=== PATIENT | male | born 1955 | race Caucasian/White ===

== ENCOUNTER → 2020-07-22 09:31 | Outpatient (BNVA) | payer MEDICARE, MEDICAID, SELFPAY | PROVIDERS: PCP Nurse Practitioner Family; Visit Provider Hospitalist | DX: Z01.811 Encounter for preprocedural respiratory examination (principal); J44.9 Chronic obstructive pulmonary disease, unspecified; J39.8 Other specified diseases of upper respiratory tract; G47.33 Obstructive sleep apnea (adult) (pediatric); G89.12 Acute post-thoracotomy pain; Z99.89 Dependence on other enabling machines and devices | CPT/HCPCS: 99204; 99214 ==

== ENCOUNTER 2020-07-29 06:08 | Day surgery (SDC) | payer MEDICARE, MEDICAID, SELFPAY ==
[2020-07-29 06:15] VITALS: BP 144/97; PULSE 94; RESP 18; TEMP 36.3; O2SAT 96
[2020-07-29 06:22] VITALS: BMI 34.9
--- NOTE | 2020-07-29 07:21 | HO.ANESPROP2 ---
[facility] Past Medical History Medical History Chest pain COPD (chronic obstructive pulmonary disease) 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 Post-thoracotomy pain syndrome Pre-op evaluation Tracheobronchomalacia Family History Family History Other HTN (hypertension) Social History Social History Smoking Status: Former smoker Tobacco Type: Cigarette Years Smoked: 22 years Smoked in Last 30 Days: No Have you been hit, kicked, punched, or otherwise hurt by someone within the past year? If so, by whom?: No Advance Directives: No Advance Directives Information Provided: Yes Meds Allergies Allergy/AdvReac Type Severity Reaction Status Date / Time prednisone [PREDNISONE] Allergy Mild RAGE Verified 07/22/20 10:21 Home Medications Medication Instructions Recorded Confirmed Type albuterol sulfate 90 mcg/actuation INHALATION 07/22/20 07/22/20 History aerosol inhaler atorvastatin 80 mg tablet 80 mg PO DAILY 07/22/20 07/22/20 History azithromycin 500 mg tablet 500 mg PO DAILY 07/22/20 07/22/20 History benzonatate 100 mg capsule 100 mg PO TID PRN 07/22/20 07/22/20 History blood sugar diagnostic #10 ea 07/22/20 07/22/20 History budesonide 0.5 mg/2 mL suspension mg INHALATION BID 07/22/20 07/22/20 History for nebulization clonazepam 1 mg tablet 1 mg PO TID PRN 07/22/20 07/22/20 History dulaglutide 1.5 mg/0.5 mL 3 mg IM QWEEK 07/22/20 07/22/20 History subcutaneous pen injector flu vacc [id number] 6mos up(PF) ml IM 07/22/20 07/22/20 History fluticasone fur. 100 mcg-umeclid 1 ea PO DAILY 07/22/20 07/22/20 History 62.5 mcg-vilant 25 mcg inhalat.powder gabapentin 300 mg capsule 300 mg PO QID 07/22/20 07/22/20 History insulin glargine 100 unit/mL (3 50 unit SUBCUT BEDTIME 07/22/20 07/22/20 History mL) subcutaneous pen lamotrigine 150 mg tablet 150 mg PO DAILY 07/22/20 07/22/20 History lidocaine 5 % topical patch 1 patch TOPICAL DAILY 07/22/20 07/22/20 History naproxen 500 mg tablet 500 mg PO BID 07/22/20 07/22/20 History pen needle, diabetic 31 gauge x #1200 ea 07/22/20 07/22/20 History 5/16 pneumococcal 23-nicanor ps vaccine 25 IM 07/22/20 07/22/20 History mcg/0.5 mL injection syringe telmisartan 40 mg tablet 40 mg PO DAILY 07/22/20 07/22/20 History valsartan 320 mg tablet 320 mg PO DAILY 07/22/20 07/22/20 History venlafaxine 75 mg capsule,extended mg PO 07/22/20 07/22/20 History release 24 hr zolpidem 12.5 mg tablet,extended 12.5 mg PO BEDTIME PRN 07/22/20 07/22/20 History release,multiphase Exam Exam Date and Time: July 29, 202021 Height,Weight and Vital Signs: Height 6 ft Weight 117.027 kg Last Vital Signs Temp 97.3 F 07/29/20 06:15 Pulse 94 07/29/20 06:15 Resp 18 07/29/20 06:15 BP 144/97 H 07/29/20 06:15 Pulse Ox 96 07/29/20 06:15 Airway Mallampati Class: III TM Dist: >3cm Neck ROM: Full Assessment and Plan Assessment Anesthesia Assessment: Anesthesia Plan Discussed and Chart Reviewed Final Anesthetic Review NPO: Yes ASA Class: III Final Preanesthetic Review: No Changes in Pt Med Stat, Meds/Allgs Chart Reviewed, Consent Obtained/Reviewed and Anes Risks/Benef Reviewed Patient Risk: Intermediate Procedure Risk: Low Assessment/Block/Sedation in SS: Assess/Block/Sedation-SS Anesthetic Plan Anesthetic Plan: GA Disposition: Standard PACU
--- NOTE | 2020-07-29 07:23 | MHC.SHP ---
Pre-Procedural Eval Section A The patient is an INPATIENT: No Changes since office visit: Yes Patient answered all questions; No Cold of Flu in the past 2 weeks, No New Medical Problems and No Changes in Medication The History & Physical has been completed within 30 days and I have reviewed it.: Yes Section B Chief Complaint: Severe Depression Allergies: Allergies Allergy/AdvReac Type Severity Reaction Status Date / Time prednisone [PREDNISONE] Allergy Mild RAGE Verified 07/22/20 10:21 Plan Patient has been examined and remains a candidate for the planned procedure
--- NOTE | 2020-07-29 07:24 | HO.ECTPROC ---
ECT Procedure Note Diagnosis/Treatment Diagnosis: Major Depressive Disorder Current Treatment Number: 1 Treatment: Series (miniseries as needed ) ECT Settings Device: THYMATRON DGx Electrode Placement: Right Unilateral Program/Pulse Width: 0.50 Energy Percent: 100 Seizure Duration By EEG (in seconds): 33 Medications Administration General Anesthetic: Etomidate (20 mg) Muscle Relaxant: Succinylcholine (140mg) Ancillary Medications Analgesics: Torodol - Pre ECT Anti-emetics: Zofran - Pre ECT Cardiovascular Medications: Labetolol (30 mg pretx) Airway Management Airway Management: Bag Mask Ventilation Treatment Recommendations No Changes Recommended: No change Notes: patient had missed prior maintenance ECT secondary to pulmonary difficulties. Patient was evaluated by Dr. Valdivia pulmonary at [facility] note reviewed patient considered stable for ECT. His was just diagnosed with melanoma his mood is depressed and anxious denies any thoughts of self-harm discussed follow-up treatment in 1 week Pt Tolerated Procedure w/o Issue: Yes
--- NOTE | 2020-07-29 07:37 | HO.ECTPROC ---
ECT Procedure Note ECT Settings Device: THYMATRON DGx
[2020-07-29 07:45] VITALS: BP 164/122; PULSE 94; RESP 16; TEMP 36.3; O2SAT 84
[2020-07-29 07:50] VITALS: BP 160/121; PULSE 96; RESP 16; O2SAT 93
[2020-07-29 07:55] VITALS: BP 159/110; BP 168/117; PULSE 94; RESP 16; O2SAT 94; O2SAT 97
[2020-07-29 08:00] VITALS: BP 156/115; PULSE 88; RESP 16; TEMP 36.9; O2SAT 94
[2020-07-29 08:15] VITALS: BP 153/99; PULSE 88; RESP 16; O2SAT 93
== END 2020-07-29 09:12 | disposition home or self-care (01) ==
PROVIDERS: PCP Nurse Practitioner Family; Visit Provider Psychiatry & Neurology Psychiatry
PROC: (CPT 90870; principal; 2020-07-29 15:00)
DX: F33.2 Major depressive disorder, recurrent severe without psychotic features (principal); J44.9 Chronic obstructive pulmonary disease, unspecified; J39.8 Other specified diseases of upper respiratory tract; Z79.51 Long term (current) use of inhaled steroids; G47.33 Obstructive sleep apnea (adult) (pediatric); Z99.89 Dependence on other enabling machines and devices; G89.12 Acute post-thoracotomy pain; Z79.899 Other long term (current) drug therapy; Z88.8 Allergy status to other drugs, medicaments and biological substances
CPT/HCPCS: 90870

== ENCOUNTER 2020-08-14 11:01 | Day surgery (SDC) | payer MEDICARE, MEDICAID, SELFPAY ==
[2020-08-14 12:24] VITALS: BP 159/97; PULSE 102; RESP 20; TEMP 37.1; O2SAT 97
--- NOTE | 2020-08-14 12:48 | P.CONAN_ITS ---
[facility] Past Medical History 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 Pre-op evaluation Tracheobronchomalacia Family History Family History Other HTN (hypertension) Social History Social History Smoking Status: Former smoker Tobacco Type: Cigarette Years Smoked: 22 years Have you been hit, kicked, punched, or otherwise hurt by someone within the past year? If so, by whom?: No Advance Directives: No Advance Directives Information Provided: No Meds Allergies Allergy/AdvReac Type Severity Reaction Status Date / Time prednisone [PREDNISONE] Allergy Mild RAGE Verified 08/14/20 12:16 Home Medications Medication Instructions Recorded Confirmed Type albuterol sulfate 90 mcg/actuation INHALATION 07/22/20 08/05/20 History aerosol inhaler atorvastatin 80 mg tablet 80 mg PO DAILY 07/22/20 08/05/20 History azithromycin 500 mg tablet 500 mg PO DAILY 07/22/20 08/05/20 History benzonatate 100 mg capsule 100 mg PO TID PRN 07/22/20 08/05/20 History blood sugar diagnostic #10 ea 07/22/20 08/05/20 History budesonide 0.5 mg/2 mL suspension mg INHALATION BID 07/22/20 08/05/20 History for nebulization dulaglutide 1.5 mg/0.5 mL 3 mg IM QWEEK 07/22/20 08/05/20 History subcutaneous pen injector flu vacc [id number] 6mos up(PF) ml IM 07/22/20 08/05/20 History fluticasone fur. 100 mcg-umeclid 1 ea PO DAILY 07/22/20 08/05/20 History 62.5 mcg-vilant 25 mcg inhalat.powder gabapentin 300 mg capsule 300 mg PO QID 07/22/20 08/05/20 History insulin glargine 100 unit/mL (3 50 unit SUBCUT BEDTIME 07/22/20 08/05/20 History mL) subcutaneous pen lamotrigine 150 mg tablet 150 mg PO DAILY 07/22/20 08/05/20 History naproxen 500 mg tablet 500 mg PO BID 07/22/20 08/05/20 History pen needle, diabetic 31 gauge x #1200 ea 07/22/20 08/05/20 History 5/16 pneumococcal 23-nicanor ps vaccine 25 IM 07/22/20 08/05/20 History mcg/0.5 mL injection syringe telmisartan 40 mg tablet 40 mg PO DAILY 07/22/20 08/05/20 History valsartan 320 mg tablet 320 mg PO DAILY 07/22/20 08/05/20 History venlafaxine 75 mg capsule,extended mg PO 07/22/20 08/05/20 History release 24 hr zolpidem 12.5 mg tablet,extended 12.5 mg PO BEDTIME PRN 07/22/20 08/05/20 History release,multiphase Exam Exam Date and Time: August 14, 2020 1248 Height,Weight and Vital Signs: Height 6 ft Weight 67.132 kg Last Vital Signs Temp 98.8 F 08/14/20 12:24 Pulse 102 H 08/14/20 12:24 Resp 20 08/14/20 12:24 BP 159/97 H 08/14/20 12:24 Pulse Ox 97 08/14/20 12:24 Airway Mallampati Class: II TM Dist: >3cm Neck ROM: Full Assessment and Plan Assessment Anesthesia Assessment: Anesthesia Plan Discussed and Chart Reviewed Final Anesthetic Review NPO: Yes ASA Class: III Final Preanesthetic Review: No Changes in Pt Med Stat, Meds/Allgs Chart Reviewed, Consent Obtained/Reviewed and Anes Risks/Benef Reviewed Patient Risk: Intermediate Procedure Risk: Low Assessment/Block/Sedation in SS: Assess/Block/Sedation-SS Anesthetic Plan Anesthetic Plan: GA Disposition: Standard PACU
--- NOTE | 2020-08-14 13:30 | P.PCN_ITS ---
ECT Procedure Note Diagnosis/Treatment Diagnosis: Major Depressive Disorder Previous ECT Date: 06/29/20 Current Treatment Number: 2 Treatment: Series Interval Clinical Notes: Pt feels better after first ect dealing with wifes cancer ECT Settings Device: THYMATRON DGx Electrode Placement: Right Unilateral Program/Pulse Width: 0.50 Energy Percent: 100 Medications Administration General Anesthetic: Etomidate (20 mg lidocaine given pre tx ) Muscle Relaxant: Succinylcholine (120) Ancillary Medications Analgesics: Torodol - Pre ECT Anti-emetics: Zofran - Pre ECT Miscillaneous Medications: Propofol (30 mg) and Flumazenil (0.5 mg ) Airway Management Airway Management: LMA Treatment Recommendations No Changes Recommended: No change Pt Tolerated Procedure w/o Issue: Yes
[2020-08-14 13:31] VITALS: BP 158/87; PULSE 102; RESP 16; TEMP 36.1; O2SAT 98
[2020-08-14 13:36] VITALS: BP 148/98; PULSE 107; RESP 18; O2SAT 97
[2020-08-14 13:41] VITALS: BP 146/96; PULSE 105; RESP 18; O2SAT 97
[2020-08-14 13:46] VITALS: BP 147/89; PULSE 107; RESP 16; O2SAT 95
[2020-08-14 14:03] VITALS: BP 145/89; PULSE 99; RESP 18; TEMP 36.4; O2SAT 95
== END 2020-08-14 14:20 | disposition home or self-care (01) ==
LOC: HO.SSS 11:02
PROVIDERS: PCP Nurse Practitioner Family; Visit Provider Psychiatry & Neurology Psychiatry
PROC: (CPT 90870; principal; 2020-08-14 16:00)
DX: F32.9 Major depressive disorder, single episode, unspecified (principal); J44.9 Chronic obstructive pulmonary disease, unspecified; Z87.891 Personal history of nicotine dependence; I10 Essential (primary) hypertension; E11.9 Type 2 diabetes mellitus without complications; Z79.4 Long term (current) use of insulin; Z79.899 Other long term (current) drug therapy; Z88.8 Allergy status to other drugs, medicaments and biological substances; Z79.51 Long term (current) use of inhaled steroids
CPT/HCPCS: 90870; 99202

== ENCOUNTER 2020-08-26 06:08 | Day surgery (SDC) | payer MEDICARE, MEDICAID, SELFPAY ==
[2020-08-26 06:10] VITALS: BP 166/93; PULSE 112; RESP 20; TEMP 36.9; O2SAT 95; BMI 33.3
[2020-08-26 06:57] LABS: Glucose, Whole Blood 279 mg/dL (60-115)
--- NOTE | 2020-08-26 07:04 | MHC.SHP ---
Pre-Procedural Eval Section A The patient is an INPATIENT: No Changes since office visit: Yes Patient answered all questions; No Cold of Flu in the past 2 weeks and No New Medical Problems Section B Chief Complaint: Severe Depression Details of Present Illness: recurrent depression Relevant Social History: None Present Medications: see Short Stay Collaborative assessment Medical History: Significant History (copd htn) Allergies: Allergies Allergy/AdvReac Type Severity Reaction Status Date / Time prednisone [PREDNISONE] Allergy Mild RAGE Verified 08/14/20 12:16 Review of Systems Sugical H&P ROS: Negative: Cardiovascular and Gastrointestinal Exam Surgical H&P Exam: Normal: Heart, Normal: Lungs (clear) and Normal: Neurological Plan Diagnosis/Plan: Unchanged Patient has been examined and remains a candidate for the planned procedure
--- NOTE | 2020-08-26 07:24 | HO.ECTPROC ---
ECT Procedure Note Diagnosis/Treatment Diagnosis: Major Depressive Disorder Previous ECT Date: 08/14/20 Current Treatment Number: 3 Treatment: Other (CONTINUATION) Interval Clinical Notes: HAS MAINTAINED STABILITY UNDER LOTS OF PRESSURE WITH LYMPHOMA ECT Settings Device: THYMATRON DGx Electrode Placement: Right Unilateral Program/Pulse Width: 0.50 Energy Percent: 100 Seizure Duration By EEG (in seconds): 36 Medications Administration General Anesthetic: Etomidate (20 mgPLUS lidocaine given pre tx ) and Propofol (30 MG POST ) Muscle Relaxant: Succinylcholine (120) Ancillary Medications Analgesics: Torodol - Pre ECT Anti-emetics: Zofran - Pre ECT Cardiovascular Medications: Esmolol (10 MG ) Airway Management Airway Management: LMA Treatment Recommendations No Changes Recommended: No change Notes: F/U TX 3 WKS Pt Tolerated Procedure w/o Issue: Yes
[2020-08-26 07:34] VITALS: BP 174/96; PULSE 106; RESP 22; TEMP 37; O2SAT 99
--- NOTE | 2020-08-26 07:37 | HO.ANESPROP2 ---
HPI - Anesthesia Eval Consult details Narrative: 64 yo male patient here for ECT [facility] Past Medical History 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 Pre-op evaluation Tracheobronchomalacia Family History Family History Other HTN (hypertension) Family history of problems with anesthesia: No Surgical History History of Problems with Anesthesia: No Social History Social History Smoking Status: Former smoker Tobacco Type: Cigarette Years Smoked: 22 years Advance Directives: No Advance Directives Information Provided: Yes Meds Allergies Allergy/AdvReac Type Severity Reaction Status Date / Time prednisone [PREDNISONE] Allergy Mild RAGE Verified 08/14/20 12:16 Home Medications Medication Instructions Recorded Confirmed Type albuterol sulfate 90 mcg/actuation INHALATION 07/22/20 08/05/20 History aerosol inhaler atorvastatin 80 mg tablet 80 mg PO DAILY 07/22/20 08/05/20 History azithromycin 500 mg tablet 500 mg PO DAILY 07/22/20 08/05/20 History benzonatate 100 mg capsule 100 mg PO TID PRN 07/22/20 08/05/20 History blood sugar diagnostic #10 ea 07/22/20 08/05/20 History budesonide 0.5 mg/2 mL suspension mg INHALATION BID 07/22/20 08/05/20 History for nebulization dulaglutide 1.5 mg/0.5 mL 3 mg IM QWEEK 07/22/20 08/05/20 History subcutaneous pen injector flu vacc [id number] 6mos up(PF) ml IM 07/22/20 08/05/20 History fluticasone fur. 100 mcg-umeclid 1 ea PO DAILY 07/22/20 08/05/20 History 62.5 mcg-vilant 25 mcg inhalat.powder gabapentin 300 mg capsule 300 mg PO QID 07/22/20 08/05/20 History insulin glargine 100 unit/mL (3 50 unit SUBCUT BEDTIME 07/22/20 08/05/20 History mL) subcutaneous pen lamotrigine 150 mg tablet 150 mg PO DAILY 07/22/20 08/05/20 History naproxen 500 mg tablet 500 mg PO BID 07/22/20 08/05/20 History pen needle, diabetic 31 gauge x #1200 ea 07/22/20 08/05/20 History 5/16 pneumococcal 23-nicanor ps vaccine 25 IM 07/22/20 08/05/20 History mcg/0.5 mL injection syringe telmisartan 40 mg tablet 40 mg PO DAILY 07/22/20 08/05/20 History valsartan 320 mg tablet 320 mg PO DAILY 07/22/20 08/05/20 History venlafaxine 75 mg capsule,extended mg PO 07/22/20 08/05/20 History release 24 hr zolpidem 12.5 mg tablet,extended 12.5 mg PO BEDTIME PRN 07/22/20 08/05/20 History release,multiphase montelukast [Singulair] 10 mg PO DAILY 08/26/20 08/26/20 History Exam Exam Date and Time: August 26, 2020 0737 Height,Weight and Vital Signs: Height 6 ft Weight 111.584 kg Last Vital Signs Temp 98.4 F 08/26/20 06:10 Pulse 112 H 08/26/20 06:10 Resp 20 08/26/20 06:10 BP 166/93 H 08/26/20 06:10 Pulse Ox 95 08/26/20 06:10 Pertinent Lab Results Pertinent Lab Results: Laboratory Tests 08/26/20 06:53 POC Glucose 279 H Airway Mallampati Class: III TM Dist: >3cm Denture: Upper and Lower Heart: RRR Lungs: CTAB Assessment and Plan Assessment Anesthesia Assessment: Anesthesia Plan Discussed and Chart Reviewed Final Anesthetic Review NPO: Yes ASA Class: III Final Preanesthetic Review: No Changes in Pt Med Stat, Meds/Allgs Chart Reviewed, Consent Obtained/Reviewed and Anes Risks/Benef Reviewed Patient Risk: Intermediate Procedure Risk: Intermediate Anesthetic Plan Anesthetic Plan: GA Disposition: Standard PACU
[2020-08-26 07:39] VITALS: BP 156/107; PULSE 103; RESP 24; O2SAT 97
[2020-08-26 07:44] VITALS: BP 149/105; PULSE 108; RESP 23; O2SAT 97
[2020-08-26 07:49] VITALS: BP 157/107; PULSE 106; RESP 20; O2SAT 95
[2020-08-26 08:04] VITALS: BP 142/100; PULSE 103; RESP 20; TEMP 37.2; O2SAT 96
--- NOTE | 2020-08-26 08:25 | HO.POSTANES ---
Post Anesthesia Evaluation Post Anesthesia Evaluation Vital Signs: Vital Signs Temp Pulse Resp BP Pulse Ox 08/26/20 08:04 98.9 F 103 H 20 142/100 H 96 08/26/20 07:49 106 H 20 157/107 H 95 08/26/20 07:44 108 H 23 H 149/105 H 97 08/26/20 07:39 103 H 24 H 156/107 H 97 08/26/20 07:34 98.6 F 106 H 22 H 174/96 H 99 08/26/20 06:10 98.4 F 112 H 20 166/93 H 95 Anesthesia: General LMA Mental Status: Awake Pain Control: Satisfactory Nausea/Vomiting: None Hydration: Adequate Anesthesia-Related Issues: No Anes. Related Issues
== END 2020-08-26 08:42 | disposition home or self-care (01) ==
PROVIDERS: PCP Nurse Practitioner Family; Visit Provider Psychiatry & Neurology Psychiatry
PROC: (CPT 90870; principal; 2020-08-26 08:00)
DX: F33.2 Major depressive disorder, recurrent severe without psychotic features (principal); E11.9 Type 2 diabetes mellitus without complications; J44.9 Chronic obstructive pulmonary disease, unspecified; Z79.4 Long term (current) use of insulin; Z79.899 Other long term (current) drug therapy
CPT/HCPCS: 82947; 90870

== ENCOUNTER → 2020-09-14 09:37 | Outpatient (BNVA) | payer MEDICARE, MEDICAID, SELFPAY | PROVIDERS: PCP Nurse Practitioner Family; Visit Provider Hospitalist | DX: J39.8 Other specified diseases of upper respiratory tract (principal); J44.9 Chronic obstructive pulmonary disease, unspecified; G47.33 Obstructive sleep apnea (adult) (pediatric); G89.12 Acute post-thoracotomy pain; Z99.89 Dependence on other enabling machines and devices; R07.9 Chest pain, unspecified | CPT/HCPCS: 99212 ==

== ENCOUNTER 2020-09-16 06:08 | Day surgery (SDC) | payer MEDICARE, MEDICAID, SELFPAY ==
--- NOTE | 2020-08-14 13:04 | MHC.SHP ---
Pre-Procedural Eval Section A The patient is an INPATIENT: No Changes since office visit: Yes Patient answered all questions; No Cold of Flu in the past 2 weeks and No New Medical Problems Section B Chief Complaint: depression Allergies: Allergies Allergy/AdvReac Type Severity Reaction Status Date / Time prednisone [PREDNISONE] Allergy Mild RAGE Verified 08/14/20 12:16 Plan Patient has been examined and remains a candidate for the planned procedure
[2020-09-16 07:46] LABS: Glucose, Whole Blood 247 mg/dL (60-115)
--- NOTE | 2020-09-16 08:36 | MHC.SHP ---
Pre-Procedural Eval Section B Chief Complaint: depression Details of Present Illness: recurrent depression multiple stressors Relevant Family History (Specify if Yes): No Relevant Social History: Alcohol Use (past ) Present Medications: see Short Stay Collaborative assessment Medical History: Significant History (copd ? bronchomalacia diabetes ) History of Previous Operations: No relevant previous surgery (ect) Allergies: Allergies Allergy/AdvReac Type Severity Reaction Status Date / Time prednisone [PREDNISONE] Allergy Mild RAGE Verified 09/14/20 09:58 Review of Systems Sugical H&P ROS: Negative: Cardiovascular, Respiratory (will have pulm stents ) and Neurological (mild st memory) Exam Surgical H&P Exam: Normal: Heart, Normal: Lungs (clear no sob ), Normal: Abdomen and Normal: Neurological Plan Diagnosis/Plan: Unchanged Patient has been examined and remains a candidate for the planned procedure
--- NOTE | 2020-09-16 08:39 | HO.ECTPROC ---
ECT Procedure Note Diagnosis/Treatment Diagnosis: Major Depressive Disorder Previous ECT Date: 08/19/20 Current Treatment Number: 4 Treatment: Other (continuation) Interval Clinical Notes: recurrent depression remains no si withdrawn under stress ECT Settings Device: THYMATRON DGx Electrode Placement: Right Unilateral Program/Pulse Width: 0.50 Energy Percent: 100 Seizure Duration By EEG (in seconds): 27 Medications Administration General Anesthetic: Etomidate (20) Muscle Relaxant: Succinylcholine (120) Ancillary Medications Cardiovascular Medications: Esmolol (15) Miscillaneous Medications: Flumazenil (0.5) Airway Management Airway Management: LMA Treatment Recommendations Electrode Placement: Right Unilateral Program/Pulse Width: 0.50 Notes: anesthesia suggests change esmolol to 10 mg labetolol f/u tx 1 week Pt Tolerated Procedure w/o Issue: Yes
== END 2020-09-16 23:59 | disposition home or self-care (01) ==
PROVIDERS: PCP Nurse Practitioner Family; Visit Provider Psychiatry & Neurology Psychiatry
PROC: (CPT 90870; principal; 2020-09-16 08:30)
DX: F33.9 Major depressive disorder, recurrent, unspecified (principal); J44.9 Chronic obstructive pulmonary disease, unspecified; E11.9 Type 2 diabetes mellitus without complications; I10 Essential (primary) hypertension; G47.33 Obstructive sleep apnea (adult) (pediatric); Z79.899 Other long term (current) drug therapy; Z88.8 Allergy status to other drugs, medicaments and biological substances
CPT/HCPCS: 82947; 90870

== ENCOUNTER 2020-09-16 07:55 | Day surgery (SDC) | payer MEDICARE, MEDICAID, SELFPAY ==
[2020-09-16 07:30] VITALS: BP 154/95; PULSE 92; RESP 16; TEMP 36.6; O2SAT 95; BMI 32.0
--- NOTE | 2020-09-16 09:40 | HO.POSTANES ---
Post Anesthesia Evaluation Post Anesthesia Evaluation Vital Signs: Vital Signs Temp Pulse Resp BP Pulse Ox 09/16/20 07:30 97.8 F 92 16 154/95 H 95 Anesthesia: General LMA Mental Status: Awake Pain Control: Satisfactory Nausea/Vomiting: None Hydration: Adequate Anesthesia-Related Issues: No Anes. Related Issues
== END 2020-09-16 09:55 | disposition home or self-care (01) ==
LOC: HO.SSS 07:55
PROVIDERS: Visit Provider Psychiatry & Neurology Psychiatry
PROC: (CPT 90870; principal; 2020-09-16 07:30)
DX: F33.3 Major depressive disorder, recurrent, severe with psychotic symptoms (principal); I10 Essential (primary) hypertension; E11.9 Type 2 diabetes mellitus without complications; J44.9 Chronic obstructive pulmonary disease, unspecified; Z79.4 Long term (current) use of insulin; Z79.899 Other long term (current) drug therapy
CPT/HCPCS: 90870

== ENCOUNTER 2020-09-23 05:41 | Emergency (ER) | payer MEDICARE, MEDICAID, SELFPAY ==
--- NOTE | 2020-09-23 | ECG_ITS ---
Test Reason : ? CVA Blood Pressure : / mmHG Vent. Rate : 092 BPM Atrial Rate : 092 BPM P-R Int : 160 ms QRS Dur : 076 ms QT Int : 342 ms P-R-T Axes : 042 032 022 degrees QTc Int : 422 ms Normal sinus rhythm with sinus arrhythmia Normal ECG When compared with ECG of 06-JUN-2020 22:17, No significant change was found Referred By: Kraig Boone Electronically Signed By:CAITIE BARAHONA MD
[2020-09-23 05:49] VITALS: BP 163/109; PULSE 102; RESP 18; TEMP 37; O2SAT 94; BMI 33.9
--- NOTE | 2020-09-23 05:57 | XR_ITS ---
EXAMINATION: CHEST 1 VIEW CLINICAL INFORMATION: CVA. COMPARISON: 06/06/2020. TECHNIQUE: An AP view of the chest is provided. FINDINGS: The cardiac silhouette is not enlarged. The mediastinal and hilar contours are unremarkable. There are neither pleural effusions nor pneumothoraces. There are no consolidations. The osseous structures are stable. XR/XR chest 1V IMPRESSION: No evidence for acute disease.
--- NOTE | 2020-09-23 05:57 | CT_ITS ---
EXAMINATION: CT HEAD WITHOUT CONTRAST CLINICAL INFORMATION: Expressive aphasia. COMPARISON: None. TECHNIQUE: Contiguous helical images of the brain were obtained without IV contrast. DLP: 710 mGy-cm. FINDINGS: There are no pathologic extra-axial fluid collections. The lateral, third, fourth ventricles are nondilated and concordant with the appearance of the sulci. There is no evidence for acute intraparenchymal hemorrhage or infarct. There is neither mass nor mass effect. There is no shift of midline structures. The paranasal sinuses and mastoid air cells are clear. There are no osseous lesions. CT/CT head for stroke IMPRESSION: No evidence for acute intracranial injury. The aforementioned was communicated to Dr. Boone at 0620 hours. Automated exposure control (Care Dose) Adjustment of the mA and/or kv according to patient size (this includes techniques or standardized protocols for targeted exams where dose is matched to indication / reason for exam; i.e. extremities or head).
--- NOTE | 2020-09-23 05:57 | ED.NEUROSD ---
HPI - Neuro Symptoms/Deficit General Chief Complaint: Altered Mental Status <Kraig Boone MD - Last Filed: 09/23/20 06:50> Stated Complaint: hyperglycemia <Kraig Boone MD - Last Filed: 09/23/20 06:50> Time Seen by Provider: 09/23/20 05:57 <Kraig Boone MD - Last Filed: 09/23/20 06:50> Source: patient <Kraig Boone MD - Last Filed: 09/23/20 06:50> Mode of arrival: EMS <Kraig Boone MD - Last Filed: 09/23/20 06:50> Limitations: no limitations <Kraig Boone MD - Last Filed: 09/23/20 06:50> History of Present Illness HPI Narrative: Patient history of hypertension diabetes sleep apnea not using his CPAP machine lately per patient is confused not making sense since yesterday talking about things which were not there there was no dysarthria but patient had difficulty in expressing himself, no focal deficit symptoms started around 11:00 yesterday when EMS came patient's blood sugar was 336 blood pressure was 162/107 <Kraig Boone MD - Last Filed: 09/23/20 06:50> Onset (ago): day(s) (1) <Kraig Boone MD - Last Filed: 09/23/20 06:50> Time: 11:00 <Kraig Boone MD - Last Filed: 09/23/20 06:50> Timing confirmed by: spouse <Kraig Boone MD - Last Filed: 09/23/20 06:50> Location: speech <Kraig Boone MD - Last Filed: 09/23/20 06:50> History of same: No <Kraig Boone MD - Last Filed: 09/23/20 06:50> Severity: moderate <Kraig Boone MD - Last Filed: 09/23/20 06:50> Exacerbating factors: none <Kraig Boone MD - Last Filed: 09/23/20 06:50> Context: gradual onset <Kraig Boone MD - Last Filed: 09/23/20 06:50> On Anticoagulants: No <Kraig Boone MD - Last Filed: 09/23/20 06:50> Associated symptoms: confusion <Kraig Boone MD - Last Filed: 09/23/20 06:50> Related Data Home Medications: Home Medications Medication Instructions Recorded Confirmed albuterol sulfate 90 mcg/actuation INHALATION 07/22/20 09/14/20 aerosol inhaler atorvastatin 80 mg tablet 80 mg PO DAILY 07/22/20 09/14/20 azithromycin 500 mg tablet 500 mg PO DAILY 07/22/20 09/14/20 blood sugar diagnostic #10 ea 07/22/20 09/14/20 budesonide 0.5 mg/2 mL suspension mg INHALATION BID 07/22/20 09/14/20 for nebulization dulaglutide 1.5 mg/0.5 mL 3 mg IM QWEEK 07/22/20 09/14/20 subcutaneous pen injector flu vacc [id number] 6mos up(PF) ml IM 07/22/20 09/14/20 fluticasone fur. 100 mcg-umeclid 1 ea PO DAILY 07/22/20 09/14/20 62.5 mcg-vilant 25 mcg inhalat.powder insulin glargine 100 unit/mL (3 50 unit SUBCUT BEDTIME 07/22/20 09/14/20 mL) subcutaneous pen naproxen 500 mg tablet 500 mg PO BID 07/22/20 09/14/20 pen needle, diabetic 31 gauge x #1200 ea 07/22/20 09/14/2002/14 pneumococcal 23-nicanor ps vaccine 25 IM 07/22/20 09/14/20 mcg/0.5 mL injection syringe telmisartan 40 mg tablet 40 mg PO DAILY 07/22/20 09/14/20 valsartan 320 mg tablet 320 mg PO DAILY 07/22/20 09/14/20 venlafaxine 75 mg capsule,extended mg PO 07/22/20 09/14/20 release 24 hr zolpidem 12.5 mg tablet,extended 12.5 mg PO BEDTIME PRN 07/22/20 09/14/20 release,multiphase montelukast [Singulair] 10 mg PO DAILY 08/26/20 09/14/20 pcnohecewnq-[id number] 1 inh INHALATION DAILY 09/16/20 09/16/20 [Trelegy Ellipta] Previous Rx's Medication Instructions Recorded lidocaine 5 % topical patch 1 patch TOPICAL DAILY 30 Days #30 08/05/20 ea clonazepam 1 mg tablet 1 mg PO TID PRN #90 tab 08/07/20 gabapentin 300 mg capsule 300 mg PO QID #120 cap 09/09/20 codeine 10 mg-guaifenesin 100 mg/5 10 ml PO Q6H PRN 10 Days #300 ml 09/14/20 mL oral liquid doxycycline hyclate 100 mg capsule 100 mg PO BID 21 Days #42 cap 09/14/20 lamotrigine 150 mg tablet 150 mg PO DAILY #90 tab 09/18/20 quetiapine 25 mg tablet 25 mg PO BID PRN #60 tab 09/18/20 <Kraig Boone MD - Last Filed: 09/23/20 06:50> Allergies/Adverse Reactions: Allergies Allergy/AdvReac Type Severity Reaction Status Date / Time prednisone [PREDNISONE] Allergy Mild RAGE Verified 09/14/20 09:58 <Kraig Boone MD - Last Filed: 09/23/20 06:50> Review of Systems Review of Systems: Constitutional : No Weight loss, No Fever, No Chills ENT/Mouth : No sore throat, No Rhinorrhea Eyes: No Eye Pain, No Swelling Cardiovascular : No Chest Pain, no Dyspnea on Exertion, No Orthopnea, No Edema, No Palpitations, no SOB Respiratory : No Cough, No Sputum Gastrointestinal : no Nausea, No Vomiting, No Diarrhea, No abdominal Pain, No Hematochezia, No Melena Genitourinary : No Dysuria, No Urinary Frequency Musculoskeletal : No joint pain, No Myalgias, No Joint Swelling Skin : No Skin Lesions, No rash Neuro : No Weakness, No Numbness, No Dizziness, No Headache Psych : No Anxiety/Panic, No Depression Heme/Lymph: No Bruising, No Lymphadenopathy Endocrine : No Polyuria, No Polydipsia All other systems reviewed and are negative <Kraig Boone MD - Last Filed: 09/23/20 06:50> [facility] Past Medical History Medical History: 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 Pre-op evaluation Tracheobronchomalacia <Kraig Boone MD - Last Filed: 09/23/20 06:50> Family History Family History: Family History Other HTN (hypertension) <Kraig Boone MD - Last Filed: 09/23/20 06:50> Social History Social History: Social History Smoking Status: Former smoker Tobacco Type: Cigarette Years Smoked: 22 years Advance Directives: No Advance Directives Information Provided: No <Kraig Boone MD - Last Filed: 09/23/20 06:50> Physical Exam Vital Signs: Vital Signs: Last Vital Signs Temp 98.6 F 09/23/20 05:49 Pulse 102 H 09/23/20 05:49 Resp 18 09/23/20 05:49 BP 163/109 H 09/23/20 05:49 Pulse Ox 94 09/23/20 05:49 Body Mass Index 33.9 <Kraig Boone MD - Last Filed: 09/23/20 06:50> Vital Signs: Last Vital Signs Temp 98.6 F 09/23/20 05:49 Pulse 102 H 09/23/20 05:49 Resp 18 09/23/20 05:49 BP 163/109 H 09/23/20 05:49 Pulse Ox 94 09/23/20 05:49 Body Mass Index 33.9 <Gemma Funk DO - Last Filed: 09/23/20 07:33> Const: General: cooperative, healthy appearing, comfortable, no acute distress, well developed and alert <Kraig Boone MD - Last Filed: 09/23/20 06:50> Nutritional Appearance: obese <Kraig Boone MD - Last Filed: 09/23/20 06:50> Orientation/consciousness: oriented to person, oriented to place, oriented to time and patient oriented x3 <Kraig Boone MD - Last Filed: 09/23/20 06:50> Limitations: no limitations <Kraig Boone MD - Last Filed: 09/23/20 06:50> HENMT: Head: Yes normal to inspection <Kraig Boone MD - Last Filed: 09/23/20 06:50> Ears: hearing grossly normal bilaterally <MD Lucian Spain Last Filed: 09/23/20 06:50> General nose exam: Normal external nose present <MD Lucian Spain Last Filed: 09/23/20 06:50> Face and sinus: Yes normal facial exam <MD Lucian Spain Last Filed: 09/23/20 06:50> Eyes: General: appearance normal, both eyes and all related structures <MD Lucian Spain Last Filed: 09/23/20 06:50> Conjunctivae: conjunctivae normal <MD Lucian Spain Last Filed: 09/23/20 06:50> Sclerae: sclerae normal <MD Lucian Spain Last Filed: 09/23/20 06:50> Pupils: Equal, round and reactive pupils present <MD Lucian Spain Last Filed: 09/23/20 06:50> Neck: Neck: Yes normal visual inspection, Yes full ROM, Yes no meningeal signs and Yes supple <MD Lucian Spain Last Filed: 09/23/20 06:50> Thyroid: Thyroid normal <MD Lucian Spain Last Filed: 09/23/20 06:50> Chest: Chest palpation & inspection: normal inspection of the chest and normal palpation of entire chest wall <MD Lucian Spain Last Filed: 09/23/20 06:50> Resp: Effort & Inspection: normal respiratory effort <MD Lucian Spain Last Filed: 09/23/20 06:50> Auscultation: clear to auscultation bilaterally, no crackles and no rales <MD Lucian Spain Last Filed: 09/23/20 06:50> Cardio: Jugular venous distension: no JVD <MD Lucian Spain Last Filed: 09/23/20 06:50> Rate: regular rate <MD Lucian Spain Last Filed: 09/23/20 06:50> Rhythm: regular rhythm <MD Lucian Spain Last Filed: 09/23/20 06:50> Heart sounds: S1 normal heart sound present and S2 normal heart sound present <MD Lucian Spain Last Filed: 09/23/20 06:50> GI: Inspection: Yes normal to inspection <Kraig Boone MD - Last Filed: 09/23/20 06:50> Palpation (GI): Soft to palpation and nontender <Kraig Boone MD - Last Filed: 09/23/20 06:50> : General: Yes no CVA tenderness <Kraig Boone MD - Last Filed: 09/23/20 06:50> Back/Spine/Pelvis: Back: no CVA tenderness <Kraig Boone MD - Last Filed: 09/23/20 06:50> Thoracic/Lumbar Spine: thoracic and lumbar spine normal to inspection <Kraig Boone MD - Last Filed: 09/23/20 06:50> Skin: General skin exam: no rashes or lesions noted <Kraig Boone MD - Last Filed: 09/23/20 06:50> Neuro: General: oriented to person, oriented to place, oriented to time, patient oriented x3, tone normal, moves all extremities, Normal light touch and pain sensation, no meningeal signs, no focal motor deficits, CN's II-XI intact bilaterally and deep tendon reflexes 2+ bilaterally <Kraig Boone MD - Last Filed: 09/23/20 06:50> Cranial nerves: Yes Equal, round and reactive pupils present <Kraig Boone MD - Last Filed: 09/23/20 06:50> Motor exam (neuro): 5/5 motor strength present throughout and Pronator motor function not present <Kraig Boone MD - Last Filed: 09/23/20 06:50> Course Course Course Narrative: Patient with the acute confusion not making much sense for last 24 hours no focal deficit noticed CT scan head was done which was negative workup in progress patient has sleep apnea but not using his CPAP machine <Kraig Boone MD - Last Filed: 09/23/20 06:50> I DID NOT SEE THIS PATIENT SIGN OUT RECEIVED PENDING UA - HE IS ALERT AND ORIENTED, MAKING SENSE, GCS 15, WANTS TO LEAVE AMA WILL NOT PROVIDE URINE TEST BECAME VERY DEFENSIVE <Gemma Funk DO - Last Filed: 09/23/20 07:33> MDM - Neuro Symptoms/Deficit MDM Narrative Medical decision making narrative: Patient's altered sensorium etiology not very clear CT scan head is negative for any acute stroke venous gas is also normal for any CO2 narcosis awaiting for the labs to rule out any renal dysfunction or metabolic cause. Patient also has anxiety disorder states that he did sleep well for last few days patient signed out to Dr. Funk pending disposition <Kraig Boone MD - Last Filed: 09/23/20 06:50> Medical Records Attestation: I reviewed the patient's medical records. <Kraig Boone MD - Last Filed: 09/23/20 06:50> Lab Data Attestation: I reviewed the patient's lab results. <Kraig Boone MD - Last Filed: 09/23/20 06:50> Result diagrams: : 09/23/20 06:32 09/23/20 06:33 <Kraig Boone MD - Last Filed: 09/23/20 06:50> Labs: Lab Results 09/23/20 09/23/20 09/23/20 Range/Units 06:32 06:33 06:33 WBC 9.0 (4.8-10.8) X10*3/uL RBC 5.16 (4.60-5.80) X10*6/uL Hgb 15.0 (14.0-18.0) g/dl Hct 45.5 (42-52) % MCV 88.2 (80-98) fL MCH 29.1 (27.0-33.0) pg MCHC 33.0 (31.0-36.0) g/dl RDW 12.3 (11.0-16.0) % Plt Count 230 (160-400) X10*3/uL MPV 10.4 (9.4-12.4) fL Immature Gran % (Auto) 0.2 (0.0-0.4) % Neut % (Auto) 67.7 (45-73) % Lymph % (Auto) 18.1 L (20-40) % [place] % (Auto) 9.1 (2-11) % Eos % (Auto) 4.2 H (0-4) % Baso % (Auto) 0.7 (0-2) % Lymph # (Auto) 1.6 (1.2-4.9) X10*3/uL [place] # (Auto) 0.8 (0.1-1.2) X10*3/uL Eos # (Auto) 0.4 (0.0-0.4) X10*3/uL Baso # (Auto) 0.1 (0.0-0.2) X10*3/uL Abs Immat Gran (auto) 0.02 (0.00-0.03) X10*3/uL Absolute Neuts (auto) 6.1 (2.0-8.3) X10*3/uL Absolute Nucleated RBC 0.000 (0.0-0.012) X10*3/uL Nucleated RBC % (auto) 0.0 (0.0-0.2) /100WBC PT 13.9 H (10.8-13.0) SEC INR 1.2 H (0.9-1.1) APTT 32.4 (24.1-38.0) SEC VBG pH (7.32-7.43) VBG pCO2 mmhg VBG pO2 mmhg VBG HCO3 mmol/L VBG O2 Saturation % VBG Base Excess mmol/L Sodium Cancelled Potassium Cancelled Chloride Cancelled Carbon Dioxide Cancelled Anion Gap Cancelled BUN Cancelled Creatinine Cancelled Estim Creat Clear Calc Cancelled Estimated GFR Cancelled POC Glucose (60-115) mg/dL Random Glucose Cancelled Calcium Cancelled Troponin I High Sens (<3.5-35.0) ng/L 09/23/20 09/23/20 09/23/20 Range/Units 06:33 06:33 06:50 WBC (4.8-10.8) X10*3/uL RBC (4.60-5.80) X10*6/uL Hgb (14.0-18.0) g/dl Hct (42-52) % MCV (80-98) fL MCH (27.0-33.0) pg MCHC (31.0-36.0) g/dl RDW (11.0-16.0) % Plt Count (160-400) X10*3/uL MPV (9.4-12.4) fL Immature Gran % (Auto) (0.0-0.4) % Neut % (Auto) (45-73) % Lymph % (Auto) (20-40) % [place] % (Auto) (2-11) % Eos % (Auto) (0-4) % Baso % (Auto) (0-2) % Lymph # (Auto) (1.2-4.9) X10*3/uL [place] # (Auto) (0.1-1.2) X10*3/uL Eos # (Auto) (0.0-0.4) X10*3/uL Baso # (Auto) (0.0-0.2) X10*3/uL Abs Immat Gran (auto) (0.00-0.03) X10*3/uL Absolute Neuts (auto) (2.0-8.3) X10*3/uL Absolute Nucleated RBC (0.0-0.012) X10*3/uL Nucleated RBC % (auto) (0.0-0.2) /100WBC PT (10.8-13.0) SEC INR (0.9-1.1) APTT (24.1-38.0) SEC VBG pH 7.36 (7.32-7.43) VBG pCO2 48 mmhg VBG pO2 46 mmhg VBG HCO3 27 mmol/L VBG O2 Saturation 79.1 % VBG Base Excess 0.3 mmol/L Sodium Potassium Chloride Carbon Dioxide Anion Gap BUN Creatinine Estim Creat Clear Calc Estimated GFR POC Glucose 300 H (60-115) mg/dL Random Glucose Calcium Troponin I High Sens 4.4 (<3.5-35.0) ng/L <Kraig Boone MD - Last Filed: 09/23/20 06:50> Lab Results 09/23/20 09/23/20 09/23/20 Range/Units 06:32 06:33 06:33 WBC 9.0 (4.8-10.8) X10*3/uL RBC 5.16 (4.60-5.80) X10*6/uL Hgb 15.0 (14.0-18.0) g/dl Hct 45.5 (42-52) % MCV 88.2 (80-98) fL MCH 29.1 (27.0-33.0) pg MCHC 33.0 (31.0-36.0) g/dl RDW 12.3 (11.0-16.0) % Plt Count 230 (160-400) X10*3/uL MPV 10.4 (9.4-12.4) fL Immature Gran % (Auto) 0.2 (0.0-0.4) % Neut % (Auto) 67.7 (45-73) % Lymph % (Auto) 18.1 L (20-40) % [place] % (Auto) 9.1 (2-11) % Eos % (Auto) 4.2 H (0-4) % Baso % (Auto) 0.7 (0-2) % Lymph # (Auto) 1.6 (1.2-4.9) X10*3/uL [place] # (Auto) 0.8 (0.1-1.2) X10*3/uL Eos # (Auto) 0.4 (0.0-0.4) X10*3/uL Baso # (Auto) 0.1 (0.0-0.2) X10*3/uL Abs Immat Gran (auto) 0.02 (0.00-0.03) X10*3/uL Absolute Neuts (auto) 6.1 (2.0-8.3) X10*3/uL Absolute Nucleated RBC 0.000 (0.0-0.012) X10*3/uL Nucleated RBC % (auto) 0.0 (0.0-0.2) /100WBC PT 13.9 H (10.8-13.0) SEC INR 1.2 H (0.9-1.1) APTT 32.4 (24.1-38.0) SEC VBG pH (7.32-7.43) VBG pCO2 mmhg VBG pO2 mmhg VBG HCO3 mmol/L VBG O2 Saturation % VBG Base Excess mmol/L Sodium Cancelled Potassium Cancelled Chloride Cancelled Carbon Dioxide Cancelled Anion Gap Cancelled BUN Cancelled Creatinine Cancelled Estim Creat Clear Calc Cancelled Estimated GFR Cancelled POC Glucose (60-115) mg/dL Random Glucose Cancelled Calcium Cancelled Troponin I High Sens (<3.5-35.0) ng/L 09/23/20 09/23/20 09/23/20 Range/Units 06:33 06:33 06:50 WBC (4.8-10.8) X10*3/uL RBC (4.60-5.80) X10*6/uL Hgb (14.0-18.0) g/dl Hct (42-52) % MCV (80-98) fL MCH (27.0-33.0) pg MCHC (31.0-36.0) g/dl RDW (11.0-16.0) % Plt Count (160-400) X10*3/uL MPV (9.4-12.4) fL Immature Gran % (Auto) (0.0-0.4) % Neut % (Auto) (45-73) % Lymph % (Auto) (20-40) % [place] % (Auto) (2-11) % Eos % (Auto) (0-4) % Baso % (Auto) (0-2) % Lymph # (Auto) (1.2-4.9) X10*3/uL [place] # (Auto) (0.1-1.2) X10*3/uL Eos # (Auto) (0.0-0.4) X10*3/uL Baso # (Auto) (0.0-0.2) X10*3/uL Abs Immat Gran (auto) (0.00-0.03) X10*3/uL Absolute Neuts (auto) (2.0-8.3) X10*3/uL Absolute Nucleated RBC (0.0-0.012) X10*3/uL Nucleated RBC % (auto) (0.0-0.2) /100WBC PT (10.8-13.0) SEC INR (0.9-1.1) APTT (24.1-38.0) SEC VBG pH 7.36 (7.32-7.43) VBG pCO2 48 mmhg VBG pO2 46 mmhg VBG HCO3 27 mmol/L VBG O2 Saturation 79.1 % VBG Base Excess 0.3 mmol/L Sodium Potassium Chloride Carbon Dioxide Anion Gap BUN Creatinine Estim Creat Clear Calc Estimated GFR POC Glucose 300 H (60-115) mg/dL Random Glucose Calcium Troponin I High Sens 4.4 (<3.5-35.0) ng/L <Gemma Funk DO - Last Filed: 09/23/20 07:33> NIH Stroke Scale Internal: Initial- Upon Arrival <Kraig Boone MD - Last Filed: 09/23/20 06:50> Level of Consciousness: Alert <Kraig Boone MD - Last Filed: 09/23/20 06:50> Level of Consciousness Questions: Answers both questions correctly <Kraig Boone MD - Last Filed: 09/23/20 06:50> Level of Consciousness Commands: Performs both tasks correctly <Kraig Boone MD - Last Filed: 09/23/20 06:50> Best Gaze: Normal <Kraig Boone MD - Last Filed: 09/23/20 06:50> Visual: No visual loss <Kraig Boone MD - Last Filed: 09/23/20 06:50> Facial Palsy: Normal <Kraig Boone MD - Last Filed: 09/23/20 06:50> Motor Arm (Right): No drift <Kraig Boone MD - Last Filed: 09/23/20 06:50> Motor Arm (Left): No drift <Kraig Boone MD - Last Filed: 09/23/20 06:50> Motor Leg (Right): No drift <Kraig Boone MD - Last Filed: 09/23/20 06:50> Motor Leg (Left): No drift <Kraig Boone MD - Last Filed: 09/23/20 06:50> Limb Ataxia: Absent <Kraig Boone MD - Last Filed: 09/23/20 06:50> Sensory: Normal <Kraig Boone MD - Last Filed: 09/23/20 06:50> Best Language: No aphasia <Kraig Boone MD - Last Filed: 09/23/20 06:50> Dysarthia: Normal <Kraig Boone MD - Last Filed: 09/23/20 06:50> Extinction and Inattention: No abnormality <Kraig Boone MD - Last Filed: 09/23/20 06:50> Score: 0 <Kraig Boone MD - Last Filed: 09/23/20 06:50> Discharge Plan Discharge Clinical Impression: Acute confusion <Kraig Boone MD - Last Filed: 09/23/20 06:50> Patient Disposition: Home, Self-Care <Kraig Boone MD - Last Filed: 09/23/20 06:50> Instructions: Against Medical Advice (ED), Altered Mental Status (ED) <Kraig Boone MD - Last Filed: 09/23/20 06:50> Additional Instructions: return to ED for any worsening symptoms or concerns you declined workup in ED - your CT scan of your brain was normal <Kraig Boone MD - Last Filed: 09/23/20 06:50> Prescriptions: No Action clonazepam 1 mg tablet 1 mg PO TID PRN (Reason: anxiety) Qty: 90 RF: 1 gabapentin 300 mg capsule 300 mg PO QID Qty: 120 RF: 3 lamotrigine 150 mg tablet 150 mg PO DAILY Qty: 90 RF: 0 quetiapine 25 mg tablet 25 mg PO BID PRN (Reason: for anxiety) Qty: 60 RF: 2 Trelegy Ellipta 200-62.5-25 mcg Blister With Device 1 inh INHALATION DAILY RF: 0 montelukast [Singulair] 10 mg Tablet 10 mg PO DAILY RF: 0 lidocaine 5 % adhesive patch,medicated 1 patch topical DAILY 30 Days Qty: 30 RF: 12 zolpidem 12.5 mg tablet,ext release multiphase 12.5 mg PO BEDTIME PRNRF: 0 albuterol sulfate 90 mcg/actuation HFA aerosol inhaler inhalation RF: 0 Fluzone Quad [id number] (PF) 60 mcg (15 mcg x 4)/0.5 mL syringe IM RF: 0 Pneumovax-23 25 mcg/0.5 mL syringe IM RF: 0 azithromycin 500 mg tablet 500 mg PO DAILY RF: 0 Trelegy Ellipta 100-62.5-25 mcg blister with device 1 ea PO DAILY RF: 0 (DME) [facility] Verio test strips Strip See Rx Instructions ea Not Applicable .MEDSUPPLY Qty: 10 RF: 0 valsartan 320 mg tablet 320 mg PO DAILY RF: 0 atorvastatin 80 mg tablet 80 mg PO DAILY RF: 0 Trulicity 1.5 mg/0.5 mL pen injector 3 mg IM QWEEK RF: 0 venlafaxine 75 mg capsule,extended release 24hr PO RF: 0 naproxen 500 mg tablet 500 mg PO BID RF: 0 telmisartan 40 mg tablet 40 mg PO DAILY RF: 0 budesonide 0.5 mg/2 mL suspension for nebulization inhalation BID RF: 0 Lantus Solostar U-100 Insulin 100 unit/mL (3 mL) insulin pen 50 unit subcut BEDTIME RF: 0 (DME) pen needle, diabetic 31 gauge x 5/16 needle See Rx Instructions ea .ROUTE BID Qty: 1200 RF: 0 doxycycline hyclate 100 mg capsule 100 mg PO BID 21 Days Qty: 42 RF: 0 codeine-guaifenesin 10-100 mg/5 mL liquid 10 ml PO Q6H PRN (Reason: cough) 10 Days Qty: 300 RF: 0 <Kraig Boone MD - Last Filed: 09/23/20 06:50> Referrals: Physician,Unknown [Primary Care Provider] - 1 day (if not better) <Kraig Boone MD - Last Filed: 09/23/20 06:50>
[2020-09-23 06:42] LABS: MANUAL DIFF FLAG NO
[2020-09-23 06:42] LABS: pH VBG 7.36 (7.32-7.43)
[2020-09-23 06:43] LABS: Base Excess VBG 0.3 mmol/L; HCO3 VBG 27 mmol/L; Oxygen Saturation VBG 79.1 %; PCO2 VBG 48 mmhg; PO2 VBG 46 mmhg
[2020-09-23 06:48] LABS: INTERNATIONAL NORM RATIO 1.2 (0.9-1.1); Prothrombin Time 13.9 SEC (10.8-13.0)
[2020-09-23 06:48] LABS: Basophils Absolute Auto 0.1 X10*3/uL (0.0-0.2); Basophils Percent Auto 0.7 % (0-2); Eosinophils Absolute Auto 0.4 X10*3/uL (0.0-0.4); Eosinophils Percent Auto 4.2 % (0-4); Hematocrit 45.5 % (42-52); Imm Gran Abs Auto 0.02 X10*3/uL (0.00-0.03); Imm Gran Pct Auto 0.2 % (0.0-0.4); Lymphocytes Absolute Auto 1.6 X10*3/uL (1.2-4.9); Lymphocytes Percent Auto 18.1 % (20-40); Mean Corpuscular Hemoglobin 29.1 pg (27.0-33.0); Mean Corpuscular Volume 88.2 fL (80-98); Mean Platelet Volume 10.4 fL (9.4-12.4); Monocytes Absolute Auto 0.8 X10*3/uL (0.1-1.2); Monocytes Percent Auto 9.1 % (2-11); Neutrophils Absolute Auto 6.1 X10*3/uL (2.0-8.3); Neutrophils Percent Auto 67.7 % (45-73); Platelet Count 230 X10*3/uL (160-400); Red Blood Count 5.16 X10*6/uL (4.60-5.80); Red Cell Distribution Width 12.3 % (11.0-16.0)
[2020-09-23 06:51] LABS: Partial Thromboplastin Time 32.4 SEC (24.1-38.0)
[2020-09-23 06:54] LABS: Glucose, Whole Blood 300 mg/dL (60-115)
[2020-09-23 06:59] LABS: Stroke Lab Use COMPLETE
[2020-09-23 07:27] LABS: Troponin-I High Sensitivity 4.4 ng/L (<3.5-35.0)
[2020-09-23 07:40] VITALS: BP 161/110; PULSE 99; RESP 17; O2SAT 99
[2020-09-23 08:35] LABS: Glucose, Whole Blood 292 mg/dL (60-115)
== END 2020-09-23 07:51 | disposition home or self-care (01) ==
PROVIDERS: Emergency Provider Internal Medicine
DX: R41.0 Disorientation, unspecified (principal); E11.65 Type 2 diabetes mellitus with hyperglycemia; I10 Essential (primary) hypertension; F41.9 Anxiety disorder, unspecified; J44.9 Chronic obstructive pulmonary disease, unspecified; Z91.19 Patient's noncompliance with other medical treatment and regimen; Z99.81 Dependence on supplemental oxygen; Z79.4 Long term (current) use of insulin; Z79.899 Other long term (current) drug therapy; Z87.891 Personal history of nicotine dependence
CPT/HCPCS: 36415; 70450; 71045; 80048; 82803; 82947; 84484; 85025; 85610; 85730; 93005; 99284

== ENCOUNTER → 2020-10-14 09:06 | Outpatient (BNVA) | payer MEDICARE, MEDICAID, SELFPAY | PROVIDERS: PCP Nurse Practitioner Family; Visit Provider Hospitalist | DX: J44.9 Chronic obstructive pulmonary disease, unspecified (principal); J39.8 Other specified diseases of upper respiratory tract; G47.33 Obstructive sleep apnea (adult) (pediatric); Z99.89 Dependence on other enabling machines and devices; G89.12 Acute post-thoracotomy pain | CPT/HCPCS: 99212 ==

== ENCOUNTER 2021-05-24 14:12 | Outpatient (REF) | payer MEDICARE, MEDICAID, SELFPAY ==
[2021-05-24 15:08] LABS: COVID-19 Test Negative (Negative)
== END 2021-05-24 14:13 | disposition home or self-care (01) ==
LOC: HO.LAB 14:12
PROVIDERS: PCP Nurse Practitioner Family; Visit Provider Internal Medicine
DX: Z20.822 Contact with and (suspected) exposure to COVID-19 (principal)
CPT/HCPCS: 36415; 87635; C9803

== ENCOUNTER → 2022-09-13 14:37 | Outpatient (BNVA) | payer MEDICARE, MEDICAID, SELFPAY | PROVIDERS: PCP Nurse Practitioner Family; Visit Provider Hospitalist | DX: J44.9 Chronic obstructive pulmonary disease, unspecified (principal); J39.8 Other specified diseases of upper respiratory tract; G89.12 Acute post-thoracotomy pain; G47.33 Obstructive sleep apnea (adult) (pediatric); Z99.89 Dependence on other enabling machines and devices | CPT/HCPCS: 99212 ==

== ENCOUNTER 2022-09-22 06:58 | Day surgery (SDC) | payer MEDICARE, MEDICAID, SELFPAY ==
--- NOTE | 2022-09-21 09:03 | P.CONAN_ITS ---
Documented by User: Evelyn Lindsay NP 09/21/22 09:05 HPI - Anesthesia Eval Consult details Narrative: 66yo M for Bronchoscopy Fiberoptic [place] [facility] [place] 2019 [facility] [place] Active Problems Active Problems: All Active Problems (Updated 09/24/20 @ 00:00 by Yulissa Briggs) Chronic pain syndrome (Acute) Intercostal neuralgia (Acute) Pre-op evaluation (Acute) Post-thoracotomy pain syndrome (Acute) 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 (Acute) Chest pain (Acute) COPD (chronic obstructive pulmonary disease) (Acute) Tracheobronchomalacia (Acute) Past Medical History 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 Pre-op evaluation Tracheobronchomalacia Family History Family History Other HTN (hypertension) Family history of problems with anesthesia: No Surgical History History of Problems with Anesthesia: No Social History Social History Alcohol intake: never Patient Tobacco Use Status: Former Tobacco user Years Smoked: 22 years Are you DNR?: No Advance Directives: No Advance Directives Information Provided: Yes Recently lost weight without trying: No Nutrition Risks: No Nutritional Risk Meds Allergies Allergy/AdvReac Type Severity Reaction Status Date / Time prednisone [PREDNISONE] Allergy Mild RAGE Verified 09/13/22 14:50 Home Medications Medication Instructions Recorded Confirmed Last Taken Type albuterol sulfate 90 mcg/actuation inhalation 07/22/20 09/13/22 Unknown History aerosol inhaler atorvastatin 80 mg tablet 80 mg PO DAILY 07/22/20 09/13/22 Unknown History azithromycin 500 mg tablet 500 mg PO DAILY 07/22/20 09/13/22 09/16/20 04:00 History blood sugar diagnostic #10 ea 07/22/20 09/13/22 Unknown History budesonide 0.5 mg/2 mL suspension mg inhalation BID 07/22/20 09/13/22 Unknown History for nebulization flu vacc [id number] 6mos up(PF) 60 ml IM 07/22/20 09/13/22 Unknown History mcg(15 mcgx4)/0.5 mL IM syringe fluticasone fur. 100 mcg-umeclid 1 ea PO DAILY 07/22/20 09/13/22 Unknown History 62.5 mcg-vilant 25 mcg inhalat.powder insulin glargine 100 unit/mL (3 50 unit subcut BEDTIME 07/22/20 09/13/22 Unknown History mL) subcutaneous pen naproxen 500 mg tablet 500 mg PO BID 07/22/20 09/22/22 09/01/22 History pen needle, diabetic 31 gauge x #1,200 ea 07/22/20 09/13/22 Unknown History 02/14 pneumococcal 23-nicanor ps vaccine 25 IM 07/22/20 09/13/22 Unknown History mcg/0.5 mL injection syringe telmisartan 40 mg tablet 40 mg PO DAILY 07/22/20 09/13/22 09/16/20 04:00 History valsartan 320 mg tablet 320 mg PO DAILY 07/22/20 09/13/22 Unknown History venlafaxine 75 mg capsule,extended mg PO 07/22/20 09/13/22 Unknown History release 24 hr zolpidem 12.5 mg tablet,extended 12.5 mg PO BEDTIME PRN 07/22/20 09/13/22 Unknown History release,multiphase montelukast 10 mg tablet 10 mg PO DAILY 08/26/20 09/13/22 08/26/20 04:10 History (Singulair) fluticasone fur. 200 mcg-umeclid 1 inh inhalation DAILY 09/16/20 09/13/22 Unknown History 62.5 mcg-vilant 25 mcg inhalat.powder (Trelegy Ellipta) dulaglutide 1.5 mg/0.5 mL 3 mg IM QWEEK 10/14/20 09/13/22 Unknown History subcutaneous pen injector omeprazole 20 mg capsule,delayed 40 mg PO DAILY 10/14/20 09/13/22 Unknown History release Exam Exam Date and Time: September 21, 2022 09 Assessment and Plan Assessment Anesthesia Assessment: Chart Reviewed Final Anesthetic Review Family History of Problems with Anesthesia: No History of Problems with Anesthesia: No Documented by User: Arnel Conklin MD 09/22/22 07:51 [facility] [place] Past Medical History 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 Pre-op evaluation Tracheobronchomalacia Family History Family History Other HTN (hypertension) Social History Social History Alcohol intake: never Patient Tobacco Use Status: Former Tobacco user Years Smoked: 22 years Are you DNR?: No Advance Directives: No Advance Directives Information Provided: Yes Recently lost weight without trying: No Nutrition Risks: No Nutritional Risk Meds Allergies Allergy/AdvReac Type Severity Reaction Status Date / Time prednisone [PREDNISONE] Allergy Mild RAGE Verified 09/13/22 14:50 Home Medications Medication Instructions Recorded Confirmed Last Taken Type albuterol sulfate 90 mcg/actuation inhalation 07/22/20 09/13/22 Unknown History aerosol inhaler atorvastatin 80 mg tablet 80 mg PO DAILY 07/22/20 09/13/22 Unknown History azithromycin 500 mg tablet 500 mg PO DAILY 07/22/20 09/13/22 09/16/20 04:00 History blood sugar diagnostic #10 ea 07/22/20 09/13/22 Unknown History budesonide 0.5 mg/2 mL suspension mg inhalation BID 07/22/20 09/13/22 Unknown History for nebulization flu vacc [id number] 6mos up(PF) 60 ml IM 07/22/20 09/13/22 Unknown History mcg(15 mcgx4)/0.5 mL IM syringe fluticasone fur. 100 mcg-umeclid 1 ea PO DAILY 07/22/20 09/13/22 Unknown History 62.5 mcg-vilant 25 mcg inhalat.powder insulin glargine 100 unit/mL (3 50 unit subcut BEDTIME 07/22/20 09/13/22 Unknown History mL) subcutaneous pen naproxen 500 mg tablet 500 mg PO BID 07/22/20 09/22/22 09/01/22 History pen needle, diabetic 31 gauge x #1,200 ea 07/22/20 09/13/22 Unknown History /16 pneumococcal 23-nicanor ps vaccine 25 IM 07/22/20 09/13/22 Unknown History mcg/0.5 mL injection syringe telmisartan 40 mg tablet 40 mg PO DAILY 07/22/20 09/13/22 09/16/20 04:00 History valsartan 320 mg tablet 320 mg PO DAILY 07/22/20 09/13/22 Unknown History venlafaxine 75 mg capsule,extended mg PO 07/22/20 09/13/22 Unknown History release 24 hr zolpidem 12.5 mg tablet,extended 12.5 mg PO BEDTIME PRN 07/22/20 09/13/22 Unknown History release,multiphase montelukast 10 mg tablet 10 mg PO DAILY 08/26/20 09/13/22 08/26/20 04:10 History (Singulair) fluticasone fur. 200 mcg-umeclid 1 inh inhalation DAILY 09/16/20 09/13/22 U nknown History 62.5 mcg-vilant 25 mcg inhalat.powder (Trelegy Ellipta) dulaglutide 1.5 mg/0.5 mL 3 mg IM QWEEK 10/14/20 09/13/22 Unknown History subcutaneous pen injector omeprazole 20 mg capsule,delayed 40 mg PO DAILY 10/14/20 09/13/22 Unknown History release Exam Airway Mallampati Class: IV TM Dist: >3cm Neck ROM: Full Denture: Upper and Lower Heart: rrr Lungs: clear Assessment and Plan Final Anesthetic Review NPO: Yes ASA Class: III Final Preanesthetic Review: No Changes in Pt Med Stat, Meds/Allgs Chart Reviewed, Consent Obtained/Reviewed and Anes Risks/Benef Reviewed Patient Risk: Intermediate Procedure Risk: Intermediate Anesthetic Plan Anesthetic Plan: GA Disposition: Standard PACU
[2022-09-22 06:25] VITALS: BMI 32.3
[2022-09-22 07:05] VITALS: BP 133/80; PULSE 77; RESP 18; TEMP 36.6; O2SAT 96
[2022-09-22 07:05] LABS: Glucose, Whole Blood 296 mg/dL (60-115)
[2022-09-22 07:10] LABS: Hematocrit 44.5 % (42.0-52.0); Hemoglobin 15.1 g/dl (14.0-18.0); Mean Corpuscular HGB Conc 33.9 g/dl (31.0-36.0); Mean Corpuscular Volume 88.5 fL (80.0-98.0); Mean Platelet Volume 10.1 fL (9.4-12.4); Platelet Count 183 X10*3/uL (160-400); Red Blood Count 5.03 X10*6/uL (4.60-5.80); Red Cell Distribution Width 12.7 % (11.0-16.0); White Blood Count 8.3 X10*3/uL (4.8-10.8)
[2022-09-22] MEDS: Lactated Ringers 1,000 ML 100 ML IVCONT (07:26)
--- NOTE | 2022-09-22 07:27 | PC.NURSE ---
ANESTHESIA AWARE POC RESULTS
[2022-09-22 07:47] LABS: Anion Gap 15 (12-20); Blood Urea Nitrogen 17 mg/dL (9-16); Calcium 10.6 mg/dL (8.4-10.2); Carbon Dioxide 25 mmol/L (22-29); Chloride 102 mmol/L (96-108); Creatinine Clr Calc Pharmacy 64.4; Estimated Glomerular Filt Rate 49; Glucose Fasting 343 mg/dL (60-99); Potassium 4.6 mmol/L (3.3-5.1); Sodium 137 mmol/L (135-145)
--- NOTE | 2022-09-22 08:02 | MHC.SHP ---
Pre-Procedural Eval Section A Date of Service: 09/22/22 The patient is an INPATIENT: No Changes since office visit: No Cold of Flu in the past 2 weeks, No New Medical Problems, No Changes in Medication and No Patient answered all questions The History & Physical has been completed within 30 days and I have reviewed it.: No Section B Chief Complaint: Other specified diseases of upper respiratory trac Allergies: Allergies Allergy/AdvReac Type Severity Reaction Status Date / Time prednisone [PREDNISONE] Allergy Mild RAGE Verified 09/13/22 14:50 Plan I have reviewed the history and physical and performed a pertinent physical examination on my patient. No changes have occurred unless specified. Time Spent With Patient Time: Total time managing care of this patient today ____ minutes.
[2022-09-22 08:33] VITALS: BP 161/83; PULSE 75; RESP 16; TEMP 36.6; O2SAT 98
[2022-09-22 08:38] VITALS: BP 128/67; PULSE 73; RESP 16; O2SAT 97
[2022-09-22 08:43] VITALS: BP 135/77; PULSE 73; RESP 16; O2SAT 97
--- NOTE | 2022-09-22 08:46 | P.BOP_ITS ---
Brief Operative Note Date of Service: 09/22/22 Pre-op diagnosis: Tracheobronchomalecia Post-op diagnosis: same Procedure: Bronchoscopy Implants: Surgeon: Ezequiel Valdivia MD Anesthesia: GLMA Was an Glass Laminating Operator used for this Procedure?: No Estimated blood loss (mL): 0 Condition: stable Disposition: same day
[2022-09-22 08:48] VITALS: BP 136/83; PULSE 73; RESP 16; TEMP 36.7; O2SAT 97
[2022-09-22 09:03] VITALS: BP 147/86; PULSE 77; RESP 16; TEMP 36.4; O2SAT 97
--- NOTE | 2022-10-03 11:41 | OP_ITS ---
SURGEON: Ezequiel Valdivia MD PREOPERATIVE DIAGNOSIS: Tracheobronchomalacia. POSTOPERATIVE DIAGNOSIS: Tracheobronchomalacia. PROCEDURE PERFORMED: Bronchoscopy. ESTIMATED BLOOD LOSS: COMPLICATIONS: ANESTHESIA: LMA. ASSISTANTS: SPECIMENS: COMPLETIONS MANAGER: None. DESCRIPTION OF PROCEDURE: After the patient was adequately sedated, the flexible digital bronchoscope was inserted via the LMA to the level of the larynx. The larynx appeared to be deep and did have evidence of microaspirations throughout the procedure, therefore not completely protecting the airway, but the actual vocal cords moved symmetrically to the midline. After the instilling lidocaine, the bronchoscope past the vocal cords to the level of the trachea. Significant tracheomalacia noted up to 95% to 100 obstruction upon coughing or exhalation. After that, the bronchoscope was navigated to the entire tracheobronchial tree. The patient did have evidence of secretions, mucoid in appearance that were suctioned throughout. No evidence of any endobronchial lesions or masses. The bronchoscope was then removed after therapeutic cleaning of the airways. Bronchial washings were collected. The total endoscopic time was approximately 12 minutes. The patient tolerated the procedure well without any apparent complications. MD DA Ibarra/KIMMIE / [id number]
== END 2022-09-22 09:49 | disposition home or self-care (01) ==
PROVIDERS: Nurse Practitioner; PCP Nurse Practitioner Family; Visit Provider Hospitalist
PROC: 0BJ08ZZ Inspection of Tracheobronchial Tree, Via Natural or Artificial Opening Endoscopic (ICD-10-PCS; CPT 31622; principal; 2022-09-22 08:00)
DX: J39.8 Other specified diseases of upper respiratory tract (principal); G89.12 Acute post-thoracotomy pain; G89.4 Chronic pain syndrome; G58.0 Intercostal neuropathy; J44.9 Chronic obstructive pulmonary disease, unspecified; G47.33 Obstructive sleep apnea (adult) (pediatric); I10 Essential (primary) hypertension; E11.9 Type 2 diabetes mellitus without complications; Z79.4 Long term (current) use of insulin; Z79.899 Other long term (current) drug therapy; Z88.8 Allergy status to other drugs, medicaments and biological substances; Z87.891 Personal history of nicotine dependence
CPT/HCPCS: 31622; 36415; 80048; 82947; 85027; 87071; 87102; 87106; 87205; 88112; 88305; J0171; J1100; J2250; J2405; J3010

== ENCOUNTER 2024-05-16 18:04 | Emergency (ER) | payer MEDICARE, OTHER, SELFPAY ==
--- NOTE | ~2024-05-16 | XR_ITS ---
EXAMINATION: XR CHEST CLINICAL INFORMATION: Chest pain. Cocaine use. Evaluate for pneumothorax. COMPARISON: 09/23/2020 and 05/27/2021 TECHNIQUE: Frontal view of the chest was obtained. FINDINGS: Lungs are well expanded. There appears to be thin linear opacity of minimal scarring at the left lung base. No airspace disease, pleural effusion or pneumothorax. Cardiac silhouette is normal in size. Pulmonary vascular pattern is normal. No acute osseous abnormality. XR/XR chest 1V IMPRESSION: No evidence of pneumothorax. No acute pulmonary disease compared to 05/27/2021.
--- NOTE | 2024-05-16 18:10 | ED.ARRPALP ---
HPI - Arrhythmia/Palpitations General Chief Complaint: Psychiatric Symptoms Stated Complaint: depressed,smoked crack 3 hrs ago Time Seen by Provider: 05/16/24 18:06 Source: patient Mode of arrival: EMS Limitations: no limitations History of Present Illness ED Provider: Dr. Jason Voss HPI narrative: 68-year-old male with a history of diabetes mellitus, hypertension, depression, anxiety, tracheomalacia, spontaneous pneumothorax secondary to blebs who presents emergency department for evaluation of depression, alcohol use disorder and cocaine use disorder. Patient states that he had a long period of sobriety from 2005 until 2022. He states that when his from aggressive B-cell lymphoma he became very depressed and started drinking alcohol again. He states he drinks at least 1-2 screwdrivers per day. He also states that he has been using crack cocaine. He states that he used for dime rocks of crack cocaine from 13:00 till 15:00 on the day of arrival. The patient states that his grandson was very concerned but his cocaine use in his alcohol use and called the police. The police then called an ambulance and had the patient transported to emergency department for evaluation. The patient was not on a Section 12. He denies being suicidal but does admit to being depressed and he does want to get help with his depression and his alcohol and substance use disorder. Patient denied fever, chills, cough, chest pain, shortness of breath, dyspnea on exertion, nausea , vomiting or diarrhea. Paramedics report that the patient was tachycardic with a heart rate of 130 but the patient had no palpitations. The patient states he did have a suicide attempt in 1995 and he overdosed on ?tranquilizers?. He states that recently he was feeling guilty about his life since things were going well for him and he was thinking about his who had . Related Data Home Medications ?Medication ?Instructions ?Recorded ?Confirmed albuterol sulfate 90 mcg/actuation inhalation 07/22/20 09/13/22 aerosol inhaler atorvastatin 80 mg tablet 80 mg PO DAILY 07/22/20 09/13/22 azithromycin 500 mg tablet 500 mg PO DAILY 07/22/20 09/13/22 blood sugar diagnostic #10 ea 07/22/20 09/13/22 budesonide 0.5 mg/2 mL suspension mg inhalation BID 07/22/20 09/13/22 for nebulization flu vacc [id number] 6mos up(PF) 60 ml IM 07/22/20 09/13/22 mcg(15 mcgx4)/0.5 mL IM syringe fluticasone fur. 100 mcg-umeclid 1 ea PO DAILY 07/22/20 09/13/22 62.5 mcg-vilant 25 mcg inhalat.powder insulin glargine 100 unit/mL (3 50 unit subcut BEDTIME 07/22/20 09/13/22 mL) subcutaneous pen naproxen 500 mg tablet 500 mg PO BID 07/22/20 09/22/22 pen needle, diabetic 31 gauge x #1,200 ea 07/22/20 09/13/22 5/ pneumococcal 23-nicanor ps vaccine 25 IM 07/22/20 09/13/22 mcg/0.5 mL injection syringe telmisartan 40 mg tablet 40 mg PO DAILY 07/22/20 09/13/22 valsartan 320 mg tablet 320 mg PO DAILY 07/22/20 09/13/22 venlafaxine 75 mg capsule,extended mg PO 07/22/20 09/13/22 release 24 hr zolpidem 12.5 mg tablet,extended 12.5 mg PO BEDTIME PRN 07/22/20 09/13/22 release,multiphase montelukast 10 mg tablet 10 mg PO DAILY 08/26/20 09/13/22 (Singulair) fluticasone fur. 200 mcg-umeclid 1 inh inhalation DAILY 09/16/20 09/13/22 62.5 mcg-vilant 25 mcg inhalat.powder (Trelegy Ellipta) dulaglutide 1.5 mg/0.5 mL 3 mg IM QWEEK 10/14/20 09/13/22 subcutaneous pen injector omeprazole 20 mg capsule,delayed 40 mg PO DAILY 10/14/20 09/13/22 release Previous Rx's ?Medication ?Instructions ?Recorded lidocaine 5 % topical patch 1 patch topical DAILY 08/05/20 Intercostal neuralgia 30 days #30 ea clonazepam 1 mg tablet 1 mg PO TID PRN anxiety #90 tabs 08/07/20 codeine 10 mg-guaifenesin 100 mg/5 10 ml PO Q6H PRN cough 10 days 09/14/20 mL oral liquid #300 mL doxycycline hyclate 100 mg capsule 100 mg PO BID 21 days #42 caps 09/14/20 lamotrigine 150 mg tablet 150 mg PO DAILY #90 tabs 09/18/20 quetiapine 25 mg tablet 25 mg PO BID PRN for anxiety #60 09/18/20 tabs clonazepam 1 mg tablet 1 mg PO TID #90 tabs 10/09/20 gabapentin 300 mg capsule 300 mg PO QID #120 caps 10/26/21 budesonide 160 mcg-glycopyr 9 2 inh inhalation BID 30 days #10.7 09/13/22 mcg-formot 4.8 mcg/actuation HFA grams inhaler (Breztri Aerosphere) levalbuterol HCl 1.25 mg/3 mL 1.25 mg (3 mL) inhalation BID #540 11/15/22 solution for nebulization mL azithromycin 250 mg tablet See Rx Instructions PO .COMPLEX #6 05/16/24 (Zithromax Z-Silvestre) tabs Allergies Allergy/AdvReac Type Severity Reaction Status Date / Time prednisone [PREDNISONE] Allergy Mild RAGE Verified 05/16/24 18:15 lisinopril AdvReac Cough Verified 05/16/24 18:15 Review of Systems Review of Systems: Yes all other systems are reviewed and are negative [facility] Past Medical History [facility] Narrative: Social history: The patient does smoke cigarettes. He does drink alcohol. He has been using crack cocaine today. 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 Pre-op evaluation Tracheobronchomalacia Family History Family History Other HTN (hypertension) Social History Social History Alcohol intake: current Alcohol intake frequency: 0-2 drinks per day Patient Tobacco Use Status: Former Tobacco user Years Smoked: 22 years Smoked in Last 30 Days: Yes Use of substances other than those prescribed or required for medical reasons: Yes Substance Use Type: Crack/Cocaine Advance Directives: No Advance Directives Information Provided: No Physical Exam Vital Signs: Vital Signs: Last Vital Signs Temp 98.0 F 05/16/24 20:00 Pulse 89 05/16/24 20:00 Resp 18 05/16/24 20:00 BP 157/104 H 05/16/24 20:00 Pulse Ox 96 05/16/24 20:00 O2 Del Method Room Air 05/16/24 20:00 BMI result Body Mass Index 25.4 Vital signs were normal Exam: General: Awake, alert in no distress Head: Normocephalic, atraumatic EENT: PERRL, Lids normal, sclera normal, conjunctiva normal, nose normal , ears normal, throat without erythema or exudates Neck: Supple, no adenopathy Lung: breath sounds symmetric, no wheezing, rales or rhonchi Chest: symmetric movement, nontender Heart: regular rate and rhythm, normal S1, S2 no murmurs or rubs Abdomen: soft, non-tender, nondistended, normal bowel sounds Back: no vertebral tenderness, no CVAT Extremities: no deformities, moves all extremities symmetrically Neuro: Awake, alert, oriented, normal speech, cranial nerves intact, moves all extremities symmetrically Psych: Pleasant, cooperative Medications Administered Discontinued Medications Generic Name Dose Route Start Last Admin Trade Name Freq PRN Reason Stop Dose Admin Lactated Ringer's 1,000 mls @ 999 mls/hr 05/16/24 18:12 05/16/24 19:36 Lr IV 05/16/24 19:12 999 mls/hr .Q1H1M ONE Administration Lorazepam 1 mg 05/16/24 18:11 05/16/24 19:35 Lorazepam 2 Mg/Ml Vial IVPUSH 05/16/24 18:12 1 mg STAT STA Administration Medical Decision Making Medical Decision Making [facility] Narrative: 68-year-old male with a history of diabetes mellitus, hypertension, depression, anxiety, tracheomalacia, spontaneous pneumothorax secondary to blebs who presents emergency department for evaluation of depression, alcohol use disorder and cocaine use disorder. Patient had a long period of sobriety from 2005 until 2022 when his and he started drinking alcohol again. Patient states he did drink alcohol today and used for dimer rocks of crack cocaine between 13:00 and 15:00. He states he has been feeling guilty and depressed since his life has been going well recently and he was thinking about his would in 2022. Patient's grandson was concerned about his alcohol and drug use and called the police who then called an ambulance the patient was brought to emergency department for evaluation. Paramedics noted the patient's heart rate was fast at 130 beats per minute but the patient was relatively asymptomatic. Differential diagnosis: ?Includes but is not limited to depression, anxiety, suicidal ideation, cocaine use, polysubstance use, alcohol intoxication, electrolyte abnormalities, anemia Following evaluation was ordered: CBC, CMP, troponin, CK, PTT, ethanol level, drug screen urine, magnesium level, strep test, COVID test, 12 EKG, chest x-ray Patient was initially treated with the following: Lactated Ringer's x1 L, Ativan 1 mg IV Course: My interpretation patient's laboratory evaluation as follows: CBC was normal. BUN elevated 19 with normal creatinine of 1.37. Glucose elevated 190. Lactic acid normal. CK was normal. Troponin was detectable not elevated at 7.6. Alcohol was below detectable limits. Rapid strep was positive. The patient will be treated with a Z-Silvestre for his positive rapid strep test. The patient was not suicidal and the patient states that he is going to follow-up with a, his sponsor and with [facility]. The patient will be discharged home with intranasal Narcan. Admission/Observation Consideration of admission/observation: Escalation of care including admission/observation considered Lab Data MDM Lab Attestation statement: I reviewed the patient's lab results. 05/16/24 18:51 05/16/24 18:51 Labs: Lab Results 05/16/24 Range/Units 18:51 WBC 9.6 (4.8-10.8) X10*3/uL RBC 5.19 (4.60-5.80) X10*6/uL Hgb 16.5 (14.0-18.0) g/dl Hct 45.5 (42.0-52.0) % MCV 87.7 (80.0-98.0) fL MCH 31.8 (27.0-33.0) pg MCHC 36.3 H (31.0-36.0) g/dl RDW 12.2 (11.0-16.0) % Plt Count 250 D (160-400) X10*3/uL MPV 9.8 (9.4-12.4) fL Immature Gran % (Auto) 0.4 (0.0-0.4) % Neut % (Auto) 70.1 (45-73) % Lymph % (Auto) 20.7 (20-40) % Real % (Auto) 8.2 (2-11) % Eos % (Auto) 0.2 (0-4) % Baso % (Auto) 0.4 (0-2) % Lymph # (Auto) 2.0 (1.2-4.9) X10*3/uL Real # (Auto) 0.8 (0.1-1.2) X10*3/uL Eos # (Auto) 0.0 (0.0-0.4) X10*3/uL Baso # (Auto) 0.0 (0.0-0.2) X10*3/uL Abs Immat Gran (auto) 0.04 H (0.00-0.03) X10*3/uL Absolute Neuts (auto) 6.7 (2.0-8.3) x10*3/uL Absolute Nucleated RBC 0.000 (0.0-0.012) X10*3/uL Nucleated RBC % (auto) 0.0 (0.0-0.2) /100WBC PT 11.5 (11.1-13.3) SEC INR 0.9 (0.9-1.1) Sodium 138 (135-145) mmol/L Potassium 4.1 (3.3-5.1) mmol/L Chloride 102 (96-108) mmol/L Carbon Dioxide 24 (22-29) mmol/L Anion Gap 16 (12-20) BUN 19 H (9-16) mg/dL Creatinine 1.37 (0.5-1.4) mg/dL Estim Creat Clear Calc 57.4 Estimated GFR 52 Random Glucose 190 H (60-115) mg/dL Lactic Acid 1.2 (0.5-2.0) mmol/L Calcium 10.3 H (8.4-10.2) mg/dL Magnesium 1.9 (1.6-2.6) mg/dL Total Bilirubin 0.9 (0.0-1.0) mg/dL AST 16 (5-37) U/L ALT 25 (0-40) U/L Alkaline Phosphatase 83 (39-117) U/L Total Creatine Kinase 100 (38-174) U/L Troponin I High Sens 7.6 (<3.5-35.0) ng/L Total Protein 7.9 (6.5-8.0) g/dL Albumin 4.6 (3.5-5.0) g/dL Ethyl Alcohol < 10 mg/dL S. pyogenes GrpA FRANCISCO Positive A (Negative) Independent Interpretation I performed an independent interpretation of an: EKG and Plain X-Ray Interpretation: My interpretation patient's 12 EKG is as follows: Sinus tachycardia with a rate of 111, normal [place] interval, QRS duration QTC interval, no ST segment elevation, no ST segment depression, no PACs, no PVCs My interpretation patient's chest x-ray is as follows: No pneumothorax, no acute disease Radiology Impression Discussion of test interpretation with radiology: I have reviewed the radiologist's reading. Radiologist Impression: XR chest 1V IMPRESSION: No evidence of pneumothorax. No acute pulmonary disease compared to 05/27/2021. Dictated By: Hamlet Potts MD Independent Historian Clinical information obtained from an independent historian. History obtained from or confirmed by: EMS Prescription Management I considered prescription management with: Antibiotic Chronic Conditions Patient?s care impacted by: Diabetes, Hypertension and Other (Alcohol and cocaine use disorder) Discharge Plan Discharge Clinical Impression: Cocaine use disorder, Depression, Alcohol use disorder Patient Disposition: Home, Self-Care Instructions: Cocaine Abuse (ED), Alcohol Use Disorder (ED) Additional Instructions: Your blood work was unremarkable. Your chest x-ray and EKG were normal. Your rapid strep test was positive. Take Zithromax Z-Silvestre as prescribed (day 1 take 2 pills, day 1 through 4 take 1 pill a day) Continue taking medications as prescribed by your providers Contact [facility] to get further help with your depression. Follow-up with [facility] to get help with your depression, cocaine and alcohol use disorder Continue to attend AA meetings and contact your sponsor to help as well. Your are being discharged home with intranasal Narcan. If you are going to continue to use heroin, you should make sure that there is a sober person with you that is not using drugs and that this person can administer intranasal Narcan in the event that you stop breathing. Follow-up with your doctor in 2 days. Please return to the emergency department if your symptoms get worse or if you develop any symptoms that are concerning to you. Prescriptions: New azithromycin [Zithromax Z-Silvestre] 250 mg tablet See Rx Instructions .ROUTE .COMPLEX Qty: 6 0RF Rx Instructions: take 500 mg today (day 1), then 250 mg for 4 days (days 2-5) No Action clonazepam 1 mg tablet 1 mg PO TID PRN (Reason: anxiety) Qty: 90 1RF lamotrigine 150 mg tablet 150 mg PO DAILY Qty: 90 0RF quetiapine 25 mg tablet 25 mg PO BID PRN (Reason: for anxiety) Qty: 60 2RF gabapentin 300 mg capsule 300 mg PO QID Qty: 120 3RF levalbuterol HCl 1.25 mg/3 mL solution for nebulization 1.25 mg inhalation BID Qty: 540 0RF clonazepam 1 mg tablet 1 mg PO TID Qty: 90 0RF Trelegy Ellipta 200-62.5-25 mcg Blister With Device 1 inh INHALATION DAILY montelukast [Singulair] 10 mg Tablet 10 mg PO DAILY lidocaine 5 % adhesive patch,medicated 1 patch topical DAILY 30 Days Qty: 30 12RF zolpidem 12.5 mg tablet,ext release multiphase 12.5 mg PO BEDTIME PRN albuterol sulfate 90 mcg/actuation HFA aerosol inhaler inhalation Fluzone Quad [id number] (PF) 60 mcg (15 mcg x 4)/0.5 mL syringe IM Pneumovax-23 25 mcg/0.5 mL syringe IM azithromycin 500 mg tablet 500 mg PO DAILY Trelegy Ellipta 100-62.5-25 mcg blister with device 1 ea PO DAILY (DME) OneTouch Verio test strips Strip See Rx Instructions Not Applicable .MEDSUPPLY Qty: 10 Rx Instructions: As directed valsartan 320 mg tablet 320 mg PO DAILY atorvastatin 80 mg tablet 80 mg PO DAILY venlafaxine 75 mg capsule,extended release 24hr PO naproxen 500 mg tablet 500 mg PO BID telmisartan 40 mg tablet 40 mg PO DAILY budesonide 0.5 mg/2 mL suspension for nebulization inhalation BID Lantus Solostar U-100 Insulin 100 unit/mL (3 mL) insulin pen 50 unit subcut BEDTIME (DME) pen needle, diabetic 31 gauge x 5/16 needle See Rx Instructions .ROUTE BID Qty: 1200 Rx Instructions: As directed dulaglutide 1.5 mg/0.5 mL pen injector 3 mg IM QWEEK omeprazole 20 mg capsule,delayed release(DR/EC) 40 mg PO DAILY doxycycline hyclate 100 mg capsule 100 mg PO BID 21 Days Qty: 42 0RF codeine-guaifenesin 10-100 mg/5 mL liquid 10 ml PO Q6H PRN (Reason: cough) 10 Days Qty: 300 0RF Breztri Aerosphere 160-9-4.8 mcg/actuation HFA aerosol inhaler 2 inh inhalation BID 30 Days Qty: 10.7 11RF Interventions: [place]-Suicide Risk Severity Scale Last Done: 05/16/24 18:38 Print Language: Turkish
--- NOTE | 2024-05-16 18:11 | ECG_ITS ---
Test Reason : CHEST PAIN Blood Pressure : / mmHG Vent. Rate : 111 BPM Atrial Rate : 111 BPM P-R Int : 144 ms QRS Dur : 076 ms QT Int : 334 ms P-R-T Axes : 041 066 048 degrees QTc Int : 454 ms Sinus tachycardia Otherwise normal ECG When compared with ECG of 23-SEP-2020 05:59, Heart rate has increased Referred By: Jason Voss Electronically Signed By:SAULO DOWNS
[2024-05-16 18:12] VITALS: BP 144/105; BP 170/110; PULSE 113; PULSE 130; RESP 18; TEMP 36.8; O2SAT 97
[2024-05-16 18:14] VITALS: BMI 25.4
[2024-05-16 18:58] LABS: MANUAL DIFF FLAG NO
[2024-05-16 19:03] LABS: IDNOW Serial# 58CA691E; Strep A Nucleic Acid Positive (Negative)
[2024-05-16 19:11] LABS: Basophils Percent Auto 0.4 % (0-2); Eosinophils Percent Auto 0.2 % (0-4); Hematocrit 45.5 % (42.0-52.0); Hemoglobin 16.5 g/dl (14.0-18.0); Imm Gran Abs Auto 0.04 X10*3/uL (0.00-0.03); Imm Gran Pct Auto 0.4 % (0.0-0.4); Lymphocytes Percent Auto 20.7 % (20-40); Mean Corpuscular HGB Conc 36.3 g/dl (31.0-36.0); Mean Corpuscular Hemoglobin 31.8 pg (27.0-33.0); Mean Corpuscular Volume 87.7 fL (80.0-98.0); Mean Platelet Volume 9.8 fL (9.4-12.4); Monocytes Absolute Auto 0.8 X10*3/uL (0.1-1.2); Monocytes Percent Auto 8.2 % (2-11); Neutrophils Absolute Auto 6.7 x10*3/uL (2.0-8.3); Neutrophils Percent Auto 70.1 % (45-73); Platelet Count 250 X10*3/uL (160-400); Red Blood Count 5.19 X10*6/uL (4.60-5.80); Red Cell Distribution Width 12.2 % (11.0-16.0); White Blood Count 9.6 X10*3/uL (4.8-10.8)
[2024-05-16 19:12] LABS: Lactic Acid 1.2 mmol/L (0.5-2.0)
[2024-05-16 19:15] LABS: Ethanol < 10 mg/dL
--- NOTE | 2024-05-16 19:16 | PC.NURSE ---
This story writer assumed care of this Pt at 1900. Security called for supervisor policy change clerks, belonging in C2.
[2024-05-16 19:18] LABS: Alanine Aminotransferase 25 U/L (0-40); Albumin Level 4.6 g/dL (3.5-5.0); Alkaline Phosphatase 83 U/L (39-117); Anion Gap 16 (12-20); Aspartate Amino Transferase 16 U/L (5-37); Bilirubin Total 0.9 mg/dL (0.0-1.0); Blood Urea Nitrogen 19 mg/dL (9-16); Calcium 10.3 mg/dL (8.4-10.2); Carbon Dioxide 24 mmol/L (22-29); Chloride 102 mmol/L (96-108); Creatinine Clr Calc Pharmacy 57.4; Estimated Glomerular Filt Rate 52; Glucose Random 190 mg/dL (60-115); Magnesium 1.9 mg/dL (1.6-2.6); Potassium 4.1 mmol/L (3.3-5.1); Sodium 138 mmol/L (135-145); Total Protein 7.9 g/dL (6.5-8.0)
[2024-05-16 19:19] LABS: INTERNATIONAL NORM RATIO 0.9 (0.9-1.1); Prothrombin Time 11.5 SEC (11.1-13.3)
[2024-05-16 19:25] LABS: Troponin-I High Sensitivity 7.6 ng/L (<3.5-35.0)
[2024-05-16] MEDS: LORazepam 2 MG/ML VIAL 1 MG IVPUSH (19:35)
[2024-05-16] MEDS: Lactated Ringers 1,000 ML 999 ML IV (19:36)
[2024-05-16 20:00] VITALS: BP 157/104; PULSE 89; RESP 18; TEMP 36.7; O2SAT 96
[2024-05-16 21:06] VITALS: BP 144/85; PULSE 93; RESP 18; O2SAT 95
[2024-05-16 21:26] LABS: Amphetamine Screen Urine Not Detected (Not Detect); Barbiturates, Urine Not Detected (Not Detect); Benzodiazepines Screen Urine POSITIVE (Not Detect); Buprenorphine Scr Not Detected (Not Detect); Cannabinoid Screen Urine Not Detected (Not Detect); Cocaine Screen Urine POSITIVE (Not Detect); Fentanyl, urine Not Detected (Not Detect); Methadone Screen, Urine Not Detected (Not Detect); Opiate Screen Urine Not Detected (Not Detect); Oxycodone Screen Urine Not Detected (Not Detect); Phencyclidine Screen Urine Not Detected (Not Detect)
[2024-05-16 21:42] VITALS: BP 144/85; PULSE 93; RESP 18; TEMP 36.6; O2SAT 95
[2024-05-16] MEDS: Naloxone HCl Nasal TAKE HOME 4 MG SPRAY 8 MG NOSTRILALT (21:46)
== END 2024-05-16 22:25 | disposition home or self-care (01) ==
PROVIDERS: Emergency Provider Emergency Medicine Emergency Medical Services
DX: I49.9 Cardiac arrhythmia, unspecified (principal); F41.9 Anxiety disorder, unspecified; F33.1 Major depressive disorder, recurrent, moderate; F14.10 Cocaine abuse, uncomplicated; F10.10 Alcohol abuse, uncomplicated; Y90.0 Blood alcohol level of less than 20 mg/100 ml; Z71.51 Drug abuse counseling and surveillance of drug abuser; Z79.899 Other long term (current) drug therapy; Z51.81 Encounter for therapeutic drug level monitoring
CPT/HCPCS: 36415; 71045; 80053; 80307; 82550; 83605; 83735; 84484; 85025; 85610; 87651; 93005; 96361; 96374; 99284; 99285; J2060; J7120

== ENCOUNTER 2024-09-17 16:31 | Inpatient (IN) | payer MEDICARE, OTHER, SELFPAY ==
--- OUTSIDE RECORDS SUMMARY | 2024-09-17 16:34 | XMS_ITS ---
Author Name [facility] Organization Unknown Results Test Name/Text Value Interpretation Date Range Source POC Glucose 133mg/dL Above high normal [id number] 65 - 99 [facility] POC Glucose 116mg/dL Above high normal [id number] 65 - 99 [facility] POC Glucose 127mg/dL Above high normal [id number] 65 - 99 [facility] POC Glucose 129mg/dL Above high normal [id number] 65 - 99 [facility] History of Medication Use Medication Directions Dispensed Refills Start Date End Date [facility] triazolam (HALCION) 0.25 MG tablet Take by mouth nightly. 04/03/2024 active chlorthalidone (HYGROTON) 25 MG tablet Take 1 tablet (25 mg total) by mouth every morning. 07/01/2022 active clonazePAM (KlonoPIN) 1 MG tablet Take 1 tablet (1 mg total) by mouth 4 (four) times a day. 07/01/2022 active zolpidem (AMBIEN CR) 12.5 MG CR tablet Take 1 tablet (12.5 mg total) by mouth every evening. Swallow tablet whole; do not split, crush or chew 07/01/2022 active Trelegy Ellipta 200-62.5-25 MCG/ACT inhaler INHALE 1 PUFF INTO LUNGS DAILY 07/01/2022 active FLUoxetine (PROzac) 20 MG capsule Take by mouth daily. 09/13/2022 a ctive diltiazem (CARDIZEM CD) 120 MG 24 hr capsule Take 1 capsule (120 mg total) by mouth every morning. 07/01/2022 active gabapentin (NEURONTIN) 300 MG capsule TAKE 1 CAPSULE BY MOUTH THREE TIMES A DAY 10/06/2023 aborted insulin glargine (LANtus SOLOSTAR) 100 units/mL pen injection Inject 70 Units under the skin every evening. 07/01/2022 active Trelegy Ellipta 200-62.5-25 MCG/INH inhaler INHALE 1 PUFF DAILY 07/01/2022 abort ed HumaLOG KWIKPEN 100 UNIT/ML prefilled pen injection Inject 30 Units under the skin 2 times a day with meals. 12/13/2023 active Spravato, 84 MG Dose, 28 MG/DEVICE nasal spray 6 sprays (84 mg total) into each nostril once a week. MONDAY at MD office 07/01/2022 active lamoTRIgine (LaMICtal) 150 MG tablet Take 1 tablet (150 mg total) by mouth 2 (two) times a day. 09/13/2022 active desvenlafaxine (PRISTIQ) 50 MG 24 hr tablet Take 1 tablet (50 mg total) by mouth every morning. 12/13/2023 active HumaLOG KWIKPEN 100 UNIT/ML prefilled pen injection Inject 10 Units under the skin 3 (three) times a day before meals. 07/01/2022 active atorvastatin (LIPITOR) 40 MG tablet Take 1 tablet (40 mg total) by mouth every morning. 07/01/2022 active oxyCODONE-acetaminop hen (PERCOCET) 5-325 mg per tablet Take 1 tablet by mouth 4 times daily (every 6 hours) as needed for moderate pain or severe pain. Max Daily Amount: 4 tablets 09/24/2023 active Trulicity 3 MG/0.5ML prefilled pen injection INJECT 3 MG SUBCUTANEOUSLY ONCE A WEEK FOR 30 DAYS 07/01/2022 active aspirin enteric coated (ECOTRIN LOW STRENGTH) 81 MG EC tablet Take 1 tablet (81 mg total) by mouth every evening. 07/01/2022 active cephalexin (KEFLEX) 500 MG capsule Take 1 capsule (500 mg total) by mouth 4 (four) times a day. 07/01/2022 active OMEprazole (PriLOSEC) 40 MG capsule Take 1 capsule (40 mg total) by mouth 2 (two) times a day as needed. 07/01/2022 active Problems Problem Status Onset Date Problem Type Date of Resoluti on Source Acid reflux active 2018-05-23 ProblemAct [facility] Depression active 2018-05-23 ProblemAct [facility] History of cholecystectomy active 2023-05-03 ProblemAct [facility] Aneurysm of ascending aorta without rupture active 2023-05-03 ProblemAct [facility] Allergy-induced asthma active 2018-05-23 ProblemAct [facility] Anxiety active 2018-05-23 ProblemAct [facility] Insomnia active 2023-05-03 ProblemAct [facility] Adenoma of left adrenal gland active 2023-05-03 ProblemAct [facility] Chronic post-thoracotomy pain active 2021-01-19 ProblemAct [facility] Moderate persistent asthma without complication active 2021-01-19 ProblemAct [facility] Essential hypertension active 2018-05-23 ProblemAct [facility] Tracheomalacia active 2021-01-[address] Diabetes mellitus active 2018-05-23 ProblemAct [facility] Chronic alcoholism in remission active 2018-06-01 ProblemAct [facility] Bronchiectasis without complication active 2021-04-20 ProblemAct [facility] Stricture of esophagus active 2018-06-01 ProblemAct [facility] Shortness of breath active 2021-01-19 ProblemAct [facility] Gastroparesis active 2023-05-03 ProblemAct [facility] Mixed hyperlipidemia active 2023-05-03 ProblemAct [facility] Chest pain active 2019-09-27 ProblemAct [facility] Hepatitis C active 2018-05-23 ProblemAct [facility] Immunizations Vaccine Date Source Lot Number Status Covid-19 mRNA Primary Series Vaccine - Moderna 0.5 mL Full Dose 04/28/2021 CCT completed Covid-19 mRNA Primary Series Vaccine - Moderna 0.5 mL Full Dose 05/25/2021 CCT [id number] completed
[2024-09-17 16:48] VITALS: BP 149/86; PULSE 96; RESP 19; TEMP 36.6; O2SAT 98; BMI 25.2
[2024-09-17 17:34] LABS: MANUAL DIFF FLAG NO
--- NOTE | 2024-09-17 17:35 | ED_ITS ---
HPI - Psych General Chief Complaint: Psychiatric Symptoms Stated Complaint: Crisis, behavioral? Time Seen by Provider: 09/17/24 16:54 Source: patient Limitations: no limitations History of Present Illness ED Provider: Sue butler PA-C HPI Narrative: 68-year-old male with a history of seasonal depressive disorder with a prior suicide attempts, COPD, chronic pain, presents with SI. Patient states over the past month he has been declining, and that he is ?in the whole now?. Patient states he had a plan to hang himself. Patient sees a psychiatrist as an outpatient, he is currently taking intranasal ketamine. He states this medication is not helpful. Family verbalized concerns over his alcohol use. Patient indicates that he does not drink every day, when he does, he has to mixed drinks. Patient has not gone through alcohol withdrawal in the past. Patient admits to drinking today prior to coming in to the emergency department. Patient denies the use of illicit substances. Related Data Home Medications ?Medication ?Instructions ?Recorded ?Confirmed albuterol sulfate 90 mcg/actuation inhalation 07/22/20 09/13/22 aerosol inhaler atorvastatin 80 mg tablet 80 mg PO DAILY 07/22/20 09/13/22 azithromycin 500 mg tablet 500 mg PO DAILY 07/22/20 09/13/22 blood sugar diagnostic #10 ea 07/22/20 09/13/22 budesonide 0.5 mg/2 mL suspension mg inhalation BID 07/22/20 09/13/22 for nebulization flu vacc [id number] 6mos up(PF) 60 ml IM 07/22/20 09/13/22 mcg(15 mcgx4)/0.5 mL IM syringe fluticasone fur. 100 mcg-umeclid 1 ea PO DAILY 07/22/20 09/13/22 62.5 mcg-vilant 25 mcg inhalat.powder insulin glargine 100 unit/mL (3 50 unit subcut BEDTIME 07/22/20 09/13/22 mL) subcutaneous pen naproxen 500 mg tablet 500 mg PO BID 07/22/20 09/22/22 pen needle, diabetic 31 gauge x #1,200 ea 07/22/20 09/13/22 5/16 pneumococcal 23-nicanor ps vaccine 25 IM 07/22/20 09/13/22 mcg/0.5 mL injection syringe telmisartan 40 mg tablet 40 mg PO DAILY 07/22/20 09/13/22 valsartan 320 mg tablet 320 mg PO DAILY 07/22/20 09/13/22 venlafaxine 75 mg capsule,extended mg PO 07/22/20 09/13/22 release 24 hr zolpidem 12.5 mg tablet,extended 12.5 mg PO BEDTIME PRN 07/22/20 09/13/22 release,multiphase montelukast 10 mg tablet 10 mg PO DAILY 08/26/20 09/13/22 (Singulair) fluticasone fur. 200 mcg-umeclid 1 inh inhalation DAILY 09/16/20 09/13/22 62.5 mcg-vilant 25 mcg inhalat.powder (Trelegy Ellipta) dulaglutide 1.5 mg/0.5 mL 3 mg IM QWEEK 10/14/20 09/13/22 subcutaneous pen injector omeprazole 20 mg capsule,delayed 40 mg PO DAILY 10/14/20 09/13/22 release Previous Rx's ?Medication ?Instructions ?Recorded lidocaine 5 % topical patch 1 patch topical DAILY 08/05/20 Intercostal neuralgia 30 days #30 ea clonazepam 1 mg tablet 1 mg PO TID PRN anxiety #90 tabs 08/07/20 codeine 10 mg-guaifenesin 100 mg/5 10 ml PO Q6H PRN cough 10 days 09/14/20 mL oral liquid #300 mL doxycycline hyclate 100 mg capsule 100 mg PO BID 21 days #42 caps 09/14/20 lamotrigine 150 mg tablet 150 mg PO DAILY #90 tabs 09/18/20 quetiapine 25 mg tablet 25 mg PO BID PRN for anxiety #60 09/18/20 tabs clonazepam 1 mg tablet 1 mg PO TID #90 tabs 10/09/20 gabapentin 300 mg capsule 300 mg PO QID #120 caps 10/26/21 budesonide 160 mcg-glycopyr 9 2 inh inhalation BID 30 days #10.7 09/13/22 mcg-formot 4.8 mcg/actuation HFA grams inhaler (Breztri Aerosphere) levalbuterol HCl 1.25 mg/3 mL 1.25 mg (3 mL) inhalation BID #540 11/15/22 solution for nebulization mL azithromycin 250 mg tablet See Rx Instructions PO .COMPLEX #6 05/16/24 (Zithromax Z-Silvestre) tabs Allergies Allergy/AdvReac Type Severity Reaction Status Date / Time prednisone [PREDNISONE] Allergy Mild RAGE Verified 09/17/24 16:50 lisinopril AdvReac Cough Verified 09/17/24 16:50 Review of Systems 2 Review of Systems: Yes all other systems are reviewed and are negative Constitutional: Constitutional: Denies fatigue and Denies fever(s) Cardiovascular: Cardiovascular: Denies chest pain and Denies dyspnea Respiratory: Respiratory: Denies dyspnea Gastrointestinal: Gastrointestinal: Denies abdominal pain Endocrine: Endocrine: Denies fatigue [facility] Past Medical History Attestation statement: The following information was validated with the patient. 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 Pre-op evaluation Tracheobronchomalacia Family History Family History Other HTN (hypertension) Social History Social History Alcohol intake: current Alcohol intake frequency: a few times a month Patient Tobacco Use Status: Former Tobacco user Years Smoked: 22 years Smoked in Last 30 Days: Yes Use of substances other than those prescribed or required for medical reasons: Yes Substance Use Type: Marijuana Advance Directives: No Advance Directives Information Provided: No Do you have a plan to hurt others: No Plan Physical Exam 2 Vital Signs: Vital Signs: Last Vital Signs Temp 98 F 09/17/24 16:48 Pulse 96 09/17/24 16:48 Resp 19 09/17/24 16:48 BP 149/86 H 09/17/24 16:48 Pulse Ox 98 09/17/24 16:48 O2 Del Method Room Air 09/17/24 16:48 BMI result Body Mass Index 25.2 Const: Other: Alert Orientation/consciousness: patient oriented x3 Resp: Other: Nonlabored respirations Cardio: Other: Normal peripheral perfusion Skin: Other: Warm dry no rash Neuro: General: patient oriented x3, no focal motor deficits and CN's II-XI intact bilaterally Psych: Other: Cooperative, appears depressed Medical Decision Making Medical Decision Making MDM Narrative: 68-year-old male with a history of seasonal depressive disorder with a prior suicide attempts, COPD, chronic pain, presents with SI. Patient states over the past month he has been declining, and that he is ?in the whole now?. Patient states he had a plan to hang himself. Patient sees a psychiatrist as an outpatient, he is currently taking intranasal ketamine. He states this medication is not helpful. Family verbalized concerns over his alcohol use. Patient indicates that he does not drink every day, when he does, he has to mixed drinks. Patient has not gone through alcohol withdrawal in the past. Patient admits to drinking today prior to coming in to the emergency department. Patient denies the use of illicit substances. I have considered the following differential diagnoses: SI, HI, decompensated psychiatric illness, drug/alcohol intoxication Plan: Patient will be referred for assessment. I foresee him being a bed search, he is high risk, he has had suicide attempts in the past. We will have to monitor for alcohol withdrawal we will place a CIWA scale. Screening labs including serum ethanol and drug screen were already obtained. I have independently reviewed the following tests: Labs: No leukocytosis, not anemic, no electrolyte abnormality, U tox negative, serum ethanol 155 Lab Data 09/17/24 17:27 09/17/24 17:27 Labs: Lab Results 09/17/24 Range/Units 17:27 WBC 6.7 (4.8-10.8) X10*3/uL RBC 5.18 (4.60-5.80) X10*6/uL Hgb 16.0 (14.0-18.0) g/dl Hct 44.6 (42.0-52.0) % MCV 86.1 (80.0-98.0) fL MCH 30.9 (27.0-33.0) pg MCHC 35.9 (31.0-36.0) g/dl RDW 12.1 (11.0-16.0) % Plt Count 233 (160-400) X10*3/uL MPV 9.6 (9.4-12.4) fL Immature Gran % (Auto) 0.3 (0.0-0.4) % Neut % (Auto) 50.6 (45-73) % Lymph % (Auto) 37.5 (20-40) % Bracken % (Auto) 7.9 (2-11) % Eos % (Auto) 3.3 (0-4) % Baso % (Auto) 0.4 (0-2) % Lymph # (Auto) 2.5 (1.2-4.9) X10*3/uL Bracken # (Auto) 0.5 (0.1-1.2) X10*3/uL Eos # (Auto) 0.2 (0.0-0.4) X10*3/uL Baso # (Auto) 0.0 (0.0-0.2) X10*3/uL Abs Immat Gran (auto) 0.02 (0.00-0.03) X10*3/uL Absolute Neuts (auto) 3.4 (2.0-8.3) x10*3/uL Absolute Nucleated RBC 0.000 (0.0-0.012) X10*3/uL Nucleated RBC % (auto) 0.0 (0.0-0.2) /100WBC Urine Opiates Screen Not Detected (Not Detect) Ur Buprenorphine Scrn Not Detected (Not Detect) ng/mL Ur Oxycodone Screen Not Detected (Not Detect) ng/mL Urine Methadone Screen Not Detected (Not Detect) ng/mL Urine Fentanyl Screen Not Detected (Not Detect) Ur Barbiturates Screen Not Detected (Not Detect) Ur Phencyclidine Scrn Not Detected (Not Detect) Ur Amphetamines Screen Not Detected (Not Detect) U Benzodiazepines Scrn Not Detected (Not Detect) Urine Cocaine Screen Not Detected (Not Detect) U Marijuana (THC) Screen Not Detected (Not Detect) Discharge Plan Discharge Clinical Impression: Suicidal ideation Patient Disposition: Still a Patient Prescriptions: No Action clonazepam 1 mg tablet 1 mg PO TID PRN (Reason: anxiety) Qty: 90 1RF lamotrigine 150 mg tablet 150 mg PO DAILY Qty: 90 0RF quetiapine 25 mg tablet 25 mg PO BID PRN (Reason: for anxiety) Qty: 60 2RF gabapentin 300 mg capsule 300 mg PO QID Qty: 120 3RF levalbuterol HCl 1.25 mg/3 mL solution for nebulization 1.25 mg inhalation BID Qty: 540 0RF clonazepam 1 mg tablet 1 mg PO TID Qty: 90 0RF Trelegy Ellipta 200-62.5-25 mcg Blister With Device 1 inh INHALATION DAILY montelukast [Singulair] 10 mg Tablet 10 mg PO DAILY azithromycin [Zithromax Z-Silvestre] 250 mg tablet See Rx Instructions .ROUTE .COMPLEX Qty: 6 0RF Rx Instructions: take 500 mg today (day 1), then 250 mg for 4 days (days 2-5) lidocaine 5 % adhesive patch,medicated 1 patch topical DAILY 30 Days Qty: 30 12RF zolpidem 12.5 mg tablet,ext release multiphase 12.5 mg PO BEDTIME PRN albuterol sulfate 90 mcg/actuation HFA aerosol inhaler inhalation Fluzone Quad (PF) 60 mcg (15 mcg x 4)/0.5 mL syringe IM Pneumovax-23 25 mcg/0.5 mL syringe IM azithromycin 500 mg tablet 500 mg PO DAILY Trelegy Ellipta 100-62.5-25 mcg blister with device 1 ea PO DAILY (DME) OneTouch Verio test strips Strip See Rx Instructions Not Applicable .MEDSUPPLY Qty: 10 Rx Instructions: As directed valsartan 320 mg tablet 320 mg PO DAILY atorvastatin 80 mg tablet 80 mg PO DAILY venlafaxine 75 mg capsule,extended release 24hr PO naproxen 500 mg tablet 500 mg PO BID telmisartan 40 mg tablet 40 mg PO DAILY budesonide 0.5 mg/2 mL suspension for nebulization inhalation BID Lantus Solostar U-100 Insulin 100 unit/mL (3 mL) insulin pen 50 unit subcut BEDTIME (DME) pen needle, diabetic 31 gauge x 5/16 needle See Rx Instructions .ROUTE BID Qty: 1200 Rx Instructions: As directed dulaglutide 1.5 mg/0.5 mL pen injector 3 mg IM QWEEK omeprazole 20 mg capsule,delayed release(DR/EC) 40 mg PO DAILY doxycycline hyclate 100 mg capsule 100 mg PO BID 21 Days Qty: 42 0RF codeine-guaifenesin 10-100 mg/5 mL liquid 10 ml PO Q6H PRN (Reason: cough) 10 Days Qty: 300 0RF Breztri Aerosphere 160-9-4.8 mcg/actuation HFA aerosol inhaler 2 inh inhalation BID 30 Days Qty: 10.7 11RF Interventions: [place]-Suicide Risk Severity Scale Last Done: 09/17/24 17:35 Print Language: Albanian
--- NOTE | 2024-09-17 17:38 | PC.NURSE ---
a&ox4. vss and up to date. pt presents to the ED w/ family voluntarily c/o suicidal ideation, depression, and etoh. pt reports hx of major depressive disorder - sx have been worsening despite rx ketamine treatments. pt states he was thinking about hanging himself prior to coming in. when asking pt why, pt states he has had an increase in family stressors recently. pt reports last drink was this morning - 2 nips of hard liquor. pt reports drinking approx. 3 times per month. denies hx of alcohol withdrawal/seizures. CIWA = 2. denies hx of drug use aside from smoking marijuana. labs/urine obtained and sent to lab. pt calm/cooperative. on RA w/o difficulty - no sob/wob noted. respirations even/unlabored. plan of care ongoing.
[2024-09-17 17:43] LABS: Basophils Percent Auto 0.4 % (0-2); Eosinophils Absolute Auto 0.2 X10*3/uL (0.0-0.4); Eosinophils Percent Auto 3.3 % (0-4); Hematocrit 44.6 % (42.0-52.0); Imm Gran Abs Auto 0.02 X10*3/uL (0.00-0.03); Imm Gran Pct Auto 0.3 % (0.0-0.4); Lymphocytes Absolute Auto 2.5 X10*3/uL (1.2-4.9); Lymphocytes Percent Auto 37.5 % (20-40); Mean Corpuscular HGB Conc 35.9 g/dl (31.0-36.0); Mean Corpuscular Hemoglobin 30.9 pg (27.0-33.0); Mean Corpuscular Volume 86.1 fL (80.0-98.0); Mean Platelet Volume 9.6 fL (9.4-12.4); Monocytes Absolute Auto 0.5 X10*3/uL (0.1-1.2); Monocytes Percent Auto 7.9 % (2-11); Neutrophils Absolute Auto 3.4 x10*3/uL (2.0-8.3); Neutrophils Percent Auto 50.6 % (45-73); Platelet Count 233 X10*3/uL (160-400); Red Blood Count 5.18 X10*6/uL (4.60-5.80); Red Cell Distribution Width 12.1 % (11.0-16.0); White Blood Count 6.7 X10*3/uL (4.8-10.8)
[2024-09-17 17:50] LABS: Amphetamine Screen Urine Not Detected (Not Detect); Barbiturates, Urine Not Detected (Not Detect); Benzodiazepines Screen Urine Not Detected (Not Detect); Buprenorphine Scr Not Detected (Not Detect); Cannabinoid Screen Urine Not Detected (Not Detect); Cocaine Screen Urine Not Detected (Not Detect); Fentanyl, urine Not Detected (Not Detect); Methadone Screen, Urine Not Detected (Not Detect); Opiate Screen Urine Not Detected (Not Detect); Oxycodone Screen Urine Not Detected (Not Detect); Phencyclidine Screen Urine Not Detected (Not Detect)
[2024-09-17 18:00] LABS: Alanine Aminotransferase 44 U/L (0-40); Albumin Level 4.3 g/dL (3.5-5.0); Alkaline Phosphatase 83 U/L (39-117); Anion Gap 9 (12-20); Aspartate Amino Transferase 28 U/L (5-37); Bilirubin Total 0.4 mg/dL (0.0-1.0); Blood Urea Nitrogen 12 mg/dL (9-16); Calcium 9.6 mg/dL (8.4-10.2); Carbon Dioxide 30 mmol/L (22-29); Chloride 109 mmol/L (96-108); Estimated Glomerular Filt Rate 60; Ethanol 155 mg/dL; Glucose Random 161 mg/dL (60-115); Sodium 144 mmol/L (135-145); Total Protein 7.5 g/dL (6.5-8.0)
--- NOTE | 2024-09-17 21:18 | PHA.MEDREC ---
Pharmacy Consult ? Medication Reconciliation Pharmacy has reviewed the medication reconciliation done by nursing staff and also spoke to patient. Patient said he takes trulicity 3 mg (verified with patient a few times about the dose) on monday, lantus is 70 units (also verified a few times) at bedtime, he takes montelukast and omeprazole prn. He gets Spravato 84 mg twice a week on monday and at md's office. He no longer takes humalog, lamotrigine, memantine nor albuterol inhaler.
[2024-09-17 22:09] VITALS: BP 119/75; PULSE 95; RESP 18; O2SAT 97
[2024-09-17 22:12] LABS: Glucose, Whole Blood 196 mg/dL (60-115)
[2024-09-17] MEDS: QUEtiapine Fumarate 25 MG TABLET PO (22:19)
[2024-09-17] MEDS: Insulin Glargine,Hum.rec.anlog 100 UNIT/ML 10 ML VIAL 70 UNIT SUBCUT (22:19)
[2024-09-17] MEDS: clonazePAM 1 MG TABLET PO (22:19)
[2024-09-17] MEDS: Zolpidem Tartrate 5 MG TABLET PO (22:19)
--- NOTE | 2024-09-18 05:31 | PC.NURSE ---
Patient slept through the night, no distress observed/reported, asymptomatic of ETOH withdrawal, med rec compiant, meds and meals compliant, POC at 2207 was 196, disposition per care team is sec-12 inpatient bed search, will continue to monitor.
[2024-09-18 06:21] VITALS: BP 148/91; PULSE 77; RESP 18; TEMP 37.6; O2SAT 99
[2024-09-18 08:22] VITALS: BP 148/91; PULSE 77
[2024-09-18] MEDS: dilTIAZem HCL CD 180 MG CAP.ER.24H PO (08:22)
[2024-09-18] MEDS: clonazePAM 1 MG TABLET PO ×4 (08:22→20:09)
[2024-09-18] MEDS: Atorvastatin Calcium 40 MG TABLET PO (08:22)
[2024-09-18 08:23] VITALS: BP 148/91
[2024-09-18] MEDS: hydroCHLOROthiazide 25 MG TABLET PO (08:23)
[2024-09-18] MEDS: Venlafaxine HCl ER 75 MG CAP.ER.24H PO (08:24)
--- NOTE | 2024-09-18 08:42 | ECG_ITS ---
Test Reason : med clearance Blood Pressure : / mmHG Vent. Rate : 068 BPM Atrial Rate : 068 BPM P-R Int : 150 ms QRS Dur : 076 ms QT Int : 378 ms P-R-T Axes : 054 060 066 degrees QTc Int : 401 ms Normal sinus rhythm Normal ECG When compared with ECG of 16-MAY-2024 18:37, Vent. rate has decreased BY 43 BPM Referred By: Eugene Wolfe Electronically Signed By:ROSSI BELLA
[2024-09-18 09:18] LABS: Appearance Urine Clear; Color Urine Yellow; Glucose Urine UA Negative (Negative); Leukocyte Esterase Urine Negative (Negative); Nitrite Urine Negative (Negative); Urine Blood Negative (Negative); Urine Ketones Negative (Negative); Urine Protein Negative (Neg-Trace)
[2024-09-18 09:23] LABS: Bacteria Urine None Seen (None Seen); Hyaline Casts Urine 0-2 /LPF (0-2); RBC Urine 0-2 /HPF (0-2); Squamous Epithelial Cell Urine 0-2 /HPF (0-2); WBC Urine 0-5 /HPF (0-5)
[2024-09-18] MEDS: Fluticasone/Umeclidinium/Vilanterol 200/62.5/25 BLST.W.DEV 1 PUFF INHALE (09:29)
[2024-09-18] MEDS: Nicotine 14 MG PATCH.TD24 TRANSDERMA (11:56)
--- NOTE | 2024-09-18 13:15 | PC.NURSE ---
calm and pleasant all morning, skin wpd, nad, nicotine patch given
[2024-09-18 16:37] VITALS: BP 128/85; PULSE 71; RESP 16; TEMP 36.6; O2SAT 97
--- NOTE | 2024-09-18 18:59 | PC.NURSE ---
patient appears to remain at rest rpesently respirations are even and unlabored patient APPEARS IN NO DISTRESS.
[2024-09-18] MEDS: Temazepam 15 MG CAPSULE 30 MG PO (20:09)
[2024-09-18] MEDS: QUEtiapine Fumarate 25 MG TABLET PO (20:09)
[2024-09-18] MEDS: Zolpidem Tartrate 5 MG TABLET PO (20:09)
[2024-09-18] MEDS: Insulin Glargine,Hum.rec.anlog 100 UNIT/ML 10 ML VIAL 70 UNIT SUBCUT (20:09)
[2024-09-18 20:14] LABS: Glucose, Whole Blood 181 mg/dL (60-115)
[2024-09-19 05:30] VITALS: BP 138/88; PULSE 58; RESP 16; TEMP 37.1; O2SAT 98
--- NOTE | 2024-09-19 07:11 | PC.NURSE ---
Care of Pt assumed at change of shift. Pt is awake, watching TV; he present as excited for breakfast and requests coffee. Pt expresses he is looking forward to getting an inpatient bed. A&Ox3 Breaths and speech are even and unlabored. NAD noted at this time.
[2024-09-19 07:30] VITALS: BP 169/100; PULSE 63; RESP 18; TEMP 36.3; O2SAT 96
[2024-09-19] MEDS: Venlafaxine HCl ER 75 MG CAP.ER.24H PO (08:48)
[2024-09-19] MEDS: clonazePAM 1 MG TABLET PO ×4 (08:48→21:35)
--- NOTE | 2024-09-19 08:49 | MHC.CARE ---
Spoke with patient who shared that he had made a noose and was going to hang himself prior to coming to the ED. He called a neighbor, who drove him here. He continues to endorse SI, present as very anxious and eager to start ECT. He describes a long hx of depression with suicidal ideation and attempts. He speaks of the ways both ECT and ketamine treatment have helped him.
--- NOTE | 2024-09-19 09:03 | PC.NURSE ---
Morning med pass partially completed. ED [facility] does not stock several of Pts medications. stage electrician helper notified and medications will be delivered to pod and dispensed upon arrival. Pt aware of delay with meds and is agreeable to receive them upon arrival.
[2024-09-19] MEDS: Fluticasone/Umeclidinium/Vilanterol 200/62.5/25 BLST.W.DEV 1 PUFF INHALE (11:11)
[2024-09-19 11:12] VITALS: BP 152/87
[2024-09-19] MEDS: Atorvastatin Calcium 40 MG TABLET PO (11:12)
[2024-09-19] MEDS: hydroCHLOROthiazide 25 MG TABLET PO (11:12)
[2024-09-19 11:14] VITALS: BP 152/87; PULSE 61
[2024-09-19] MEDS: dilTIAZem HCL CD 180 MG CAP.ER.24H PO (11:14)
--- NOTE | 2024-09-19 13:11 | PC.NURSE ---
Spoke with ALEXANDER Mcpherson from S1. RN to manager transfer report completed and all questions answered to satisfaction.
[2024-09-19 14:52] LABS: Alanine Aminotransferase 47 U/L (0-40); Albumin Level 4.4 g/dL (3.5-5.0); Alkaline Phosphatase 87 U/L (39-117); Anion Gap 10 (12-20); Aspartate Amino Transferase 28 U/L (5-37); Bilirubin Total 0.7 mg/dL (0.0-1.0); Blood Urea Nitrogen 14 mg/dL (9-16); Calcium 9.9 mg/dL (8.4-10.2); Carbon Dioxide 32 mmol/L (22-29); Chloride 101 mmol/L (96-108); Creatinine Clr Calc Pharmacy 66.6; Estimated Glomerular Filt Rate > 60; Glucose Random 149 mg/dL (60-115); Sodium 139 mmol/L (135-145); Total Protein 7.5 g/dL (6.5-8.0)
--- NOTE | 2024-09-19 14:57 | HO.ECT-CONS ---
History of Present Illness Data of Consult Service Date: 09/19/24 Primary Care Provider: Unknown Physician HPI Reason for consult: ECT risk stratification Patient is a 68-year-old male with a PMH significant for COPD, aortic aneurysm, insulin-dependent type 2 diabetes, HLD, HTN, GERD, tracheomalacia, and mood disorder admitted to [facility] with hospitalist consult for ECT risk stratification. Patient reports has undergone ECT multiple times in the past since 1983. Has found treatment helpful and has not had any complications from procedure. Patient denies history of cerebral hemorrhage or stroke, space-occupying intracranial lesion, seizure, or TBI. No history of bleeding disorder or unstable vascular aneurysm. Has tracheomalacia follows with Dr. Vadlivia. Recently had negative bronchoscopy 3 weeks ago also reports stable 3.25 cm aortic aneurysm that does not need surgical intervention. Denies history of problems with anesthesia. Currently patient states has no acute medical complaints. Denies fever, chills, nausea, vomiting, abdominal pain. No shortness a breath or difficulty breathing. Denies chest pain/pressure, palpitations. No headache or acute vision loss. EKG reviewed, showing normal sinus rhythm with QTc 401 and no evidence of ischemic changes. Review of Systems Review of Systems: Patient has no acute medical complaints at this time. 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 ) Alcohol intake: current Alcohol intake frequency: a few times a month Patient Tobacco Use Status: Former Tobacco user Tobacco use type: Cigarette Cigarette Packs Per Day: 0.5 Cigarettes Per Day: 10.0 Years Smoked: 10 Smoked in Last 30 Days: Yes Patient Interested in Nicotine Replacement: Yes Patient Given Instructions on How to Stop Smoking: No Second Hand Smoke Exposure: No Use of substances other than those prescribed or required for medical reasons: No Substance Use Type: Marijuana Last Used Substance Other:: June2024 Currently Displaying Signs/Symptoms of Drug Intoxication Withdrawal: No Any prior treatment program specific to substance use: Yes ([facility] Have you been hit, kicked, punched, or otherwise hurt by someone within the past year? If so, by whom?: No Do you feel safe in your current relationship?: No Is there a partner from a previous relationship who is making you feel unsafe now?: No Are you made to feel afraid or neglected: No Spiritual Healthcare Practices: no Sabianism Healthcare Practices: no Cultural Healthcare Practices: no Advance Directives: No Advance Directives Information Provided: No Do you have a plan to hurt others: No Plan Recently lost weight without trying: No Eating poorly because of decreased appetite: Yes Poor oral hygiene: No Meds Allergies Allergy/AdvReac Type Severity Reaction Status Date / Time prednisone [PREDNISONE] Allergy Mild RAGE Verified 09/17/24 16:50 lisinopril AdvReac Cough Verified 09/17/24 16:50 Active Medications: Current Medications Acetaminophen (Acetaminophen 325 Mg Tablet) 650 mg PO Q6H PRN PRN Reason: Headache/Pain Mild Scale (1-3) Al Hydroxide/Mg Hydroxide (Magnesium Hydrox/Alum Hydrox 30 Ml Oral.Susp) 30 ml PO Q6H PRN PRN Reason: Heartburn/Nausea Atorvastatin Calcium (Atorvastatin Calcium 40 Mg Tablet) 40 mg PO DAILY ON LICENSE OF [facility] Last Admin: 09/19/24 11:12 Dose: 40 mg Clonazepam (Clonazepam 1 Mg Tablet) 1 mg PO QID ON LICENSE OF [facility] Last Admin: 09/19/24 13:07 Dose: 1 mg Diltiazem HCl (Diltiazem Hcl Cd 180 Mg Cap.Er.24h) 180 mg PO DAILY ON LICENSE OF [facility]; Protocol Last Admin: 09/19/24 11:14 Dose: 180 mg Fluticasone/Umeclidinium/Vilanterol (Fluticasone/Umeclidinium/Vilanterol 200/62.5/25 Blst.W.Dev) 1 puff INHALE RDAILY ON LICENSE OF [facility] Last Admin: 09/19/24 11:11 Dose: 1 puff Hydrochlorothiazide (Hydrochlorothiazide 25 Mg Tablet) 25 mg PO DAILY ON LICENSE OF [facility] Last Admin: 09/19/24 11:12 Dose: 25 mg Hydroxyzine HCl (Hydroxyzine Hcl 25 Mg Tablet) 25 mg PO Q6H PRN PRN Reason: Anxiety Insulin Glargine (Insulin Glargine,Hum.Rec.Anlog 100 Unit/Ml 10 Ml Vial) 70 unit SUBCUT BEDTIME ON LICENSE OF [facility] Last Admin: 09/18/24 20:09 Dose: 70 unit Magnesium Hydroxide (Milk Of Magnesia 30 Ml Oral.Susp) 30 ml PO DAILY PRN PRN Reason: Constipation Montelukast Sodium (Montelukast Sodium 10 Mg Tablet) 10 mg PO DAILY PRN PRN Reason: asthma Non-Formulary Medication (Dulaglutide [Trulicity]) 3 mg SUBCUT CLARK UMA Non-Formulary Medication (Esketamine [Spravato]) 84 mg NOSTRIL-B MOTH UMA Omeprazole (Omeprazole 40 Mg Capsule.Dr) 40 mg PO DAILY PRN PRN Reason: Acid Reflux Quetiapine Fumarate (Quetiapine Fumarate 25 Mg Tablet) 25 mg PO BEDTIME ON LICENSE OF [facility] Last Admin: 09/18/24 20:09 Dose: 25 mg Temazepam (Temazepam 15 Mg Capsule) 30 mg PO BEDTIME ON LICENSE OF [facility] Last Admin: 09/18/24 20:09 Dose: 30 mg Trazodone HCl (Trazodone Hcl 50 Mg Tablet) 50 mg PO BEDTIME MRX1 PRN PRN Reason: Insomnia Venlafaxine HCl (Venlafaxine Hcl Er 75 Mg Cap.Er.24h) 75 mg PO DAILY ON LICENSE OF [facility] Last Admin: 09/19/24 08:48 Dose: 75 mg Zolpidem Tartrate (Zolpidem Tartrate 5 Mg Tablet) 5 mg PO BEDTIME ON LICENSE OF [facility] Last Admin: 09/18/24 20:09 Dose: 5 mg Home Medications ?Medication ?Instructions ?Recorded ?Confirmed ?Last Taken ?Type insulin glargine 100 unit/mL (3 70 unit subcut BEDTIME 07/22/20 09/17/24 Unknown History mL) subcutaneous pen montelukast 10 mg tablet 10 mg PO DAILY PRN asthma 08/26/20 09/17/24 08/26/20 04:10 History (Singulair) omeprazole 20 mg capsule,delayed 40 mg PO DAILY PRN Acid Reflux 10/14/20 09/17/24 Unknown History release atorvastatin 40 mg tablet 40 mg PO DAILY 09/17/24 09/17/24 Unknown History chlorthalidone 25 mg tablet 25 mg PO DAILY 09/17/24 09/17/24 Unknown History clonazepam 1 mg tablet 1 mg PO QID 09/17/24 09/17/24 Unknown History desvenlafaxine succinate 50 mg 50 mg PO DAILY 09/17/24 09/17/24 Unknown History tablet,extended release 24 hr diltiazem HCl 180 mg 180 mg PO DAILY 09/17/24 09/17/24 Unknown History capsule,extended release 24 hr dulaglutide 3 mg/0.5 mL 3 mg subcut CLARK 09/17/24 09/17/24 Unknown History subcutaneous pen injector (Trulicity) esketamine 84 mg (28 mg x 3) nasal 84 mg intranasal MOTH 09/17/24 09/17/24 Unknown History spray (Spravato) fluticasone fur. 200 mcg-umeclid 1 ea inhalation DAILY 09/17/24 09/17/24 Unknown History 62.5 mcg-vilant 25 mcg inhalat.powder (Trelegy Ellipta) quetiapine 25 mg tablet 25 mg PO BEDTIME 09/17/24 09/17/24 Unknown History triazolam 0.25 mg tablet 0.25 mg PO BEDTIME 09/17/24 09/17/24 Unknown History zolpidem 12.5 mg tablet,extended 12.5 mg PO BEDTIME 09/17/24 09/17/24 Unknown History release,multiphase Physical Exam Vital Signs and Narrative: Vital Signs: Last Vital Signs Temp 97.4 F 09/19/24 07:30 Pulse 61 09/19/24 11:14 Resp 18 09/19/24 07:30 BP 152/87 H 09/19/24 11:14 Pulse Ox 96 09/19/24 07:30 O2 Del Method Room Air 09/19/24 07:30 BMI result Body Mass Index 25.2 General: AOx3, no acute distress Resp: CTA bilaterally CVS: S1, S2, RRR GI: +BS, NT, no distention Skin: Warm, dry Neuro: Cranial nerves II-XII grossly intact bilaterally. Motor grossly intact bilaterally Extremities: No edema Psych: Appropriate affect Results Labs 09/17/24 17:27 09/19/24 14:09 Labs: Laboratory Results - last 24 hr 09/18/24 09/19/24 20:10 14:09 Anion Gap 10 L Estim Creat Clear Calc 66.6 Estimated GFR > 60 POC Glucose 181 H Random Glucose 149 H Calcium 9.9 Total Bilirubin 0.7 AST 28 ALT 47 H Alkaline Phosphatase 87 Total Protein 7.5 Albumin 4.4 Assessment and Plan (1) Pre-op evaluation: Status: Acute Plan Patient is a 68-year-old male with a PMH significant for COPD, aortic aneurysm, insulin-dependent type 2 diabetes, HLD, HTN, GERD, tracheomalacia, and mood disorder admitted to [facility] psych with hospitalist consult for ECT risk stratification. ECT risk stratification Patient reports undergoing ECT at least 14 times in the past since 1983 without complications Reports history of stable mild AAA, stable tracheomalacia EKG without ischemic changes RCRI 1 point, class I risk Based on pt PMH, HPI, and physical exam, there are no contraindications to the planned procedure Thank you for allowing us to participate in the care of this patient. Signing off at this time. Please re-consult if any acute complaints or issues arise.
--- NOTE | 2024-09-19 16:44 | PC.ADMIT ---
Addendum entered by Vida Mcfarland RN 09/19/24 17:42: He has scored zeros on CIWAs X 24 hours. He also reports attempting suicide with crack cocaine in June of this year. Pt. has dx. of sleep apnea but reports he is unable to tolerate the CPAP. Pt. talkative and expansive during admission process and needed cues to stay on track. He ambulates independently without assistive devices. He takes his meds whole. Original Note: Pt. arrived on unit at 13:45 via WC accompanied by this RN and security. Changeover with contraband search and skin check performed with no significant findings. Pt. alert and oriented X 4. Has been experiencing increased depression with anhedonia over past several months, when he reports that the ketamine treatments he was receiving stopped working. He denies all other psych symptoms. Pt. lives alone in a condominium after losing his 2 years ago, which he reports was a major trigger for his depression. Pt. is admitted with SI with a plan to hang himself. He aborted the attempt and went to the ED. He continues to have suicidal ideation, and reports if he were not in the hospital he would drive his car onto a railroad track. He does contract for safety on the unit and reports he feels safe here. Pt. has hope that ECT treatments will improve his depression, as they have in the past. Pt. admits to occasional binging with alcohol and he reports he had 2 cocktails prior to presenting to the ED. He has scored )
--- NOTE | 2024-09-19 16:52 | PC.NURSE ---
Pt. arrived on unit at 13:45 via WC accompanied by this RN and security. Changeover with contraband search conducted with no significant findings. Pt. A & O X 4. He self presented to the ED after self aborting a suicide attempt by hanging himself with a belt. He reports if he were not in the hospital, he would probably drive his car onto railroad tracks. He does report feeling safe on the unit and verbally contracts for safety on the unit. He reports having increased depression with anhedonia over the last several months, when the ketamine treatments he was receiving stopped working. He lives alone in a condominium after losing his 2 years ago, which he reports was a major trigger for his depression. Pt. is talkative and expansive during admission process, requ9
--- NOTE | 2024-09-19 17:19 | PC.NURSE ---
Pt. arrived on unit at 13:45 via WC accompanied by this RN and security. Changeover with contraband search and skin assmt. performed with no significant findings. Pt. alert and oriented x 4. He had self presented to the ED after aborting a suicide attempt by hanging himself with a belt. He reports continued SI, stating that if he were not in the hospital he would probably drive his car onto a railroad track. He does contract for safety on the unit and reports he feels safe here. He reports increased depression with anhedonia over the past several months when the ketamine treatments he was receiving stopped working. He also reports he is struggling with household tasks, such as paying bills, that his took care of. He is hopeful that ECT treatments will improve his depression, as they have in the past. Denies all other psych symptoms. Pt. reports has sleep apnea and has been prescribed CPAP, but he is unable to tolerate wearing it. Pt. is talkative and expansive during admission process, needing redirection to stay focused. He ambulates independently without assistive devices and takes his meds whole.
[2024-09-19 19:23] VITALS: BP 148/80; PULSE 70; TEMP 36.1; O2SAT 95
[2024-09-19] MEDS: Temazepam 15 MG CAPSULE 30 MG PO (21:35)
[2024-09-19] MEDS: QUEtiapine Fumarate 25 MG TABLET PO (21:35)
[2024-09-19] MEDS: Zolpidem Tartrate 5 MG TABLET PO (21:35)
[2024-09-19] MEDS: Insulin Glargine,Hum.rec.anlog 100 UNIT/ML 10 ML VIAL 70 UNIT SUBCUT (21:35)
[2024-09-20 06:25] LABS: Glucose, Whole Blood 89 mg/dL (60-115)
[2024-09-20 08:03] VITALS: BP 121/71; PULSE 60; RESP 16; TEMP 36.9; O2SAT 97
[2024-09-20] MEDS: hydroCHLOROthiazide 25 MG TABLET PO (08:05)
[2024-09-20] MEDS: dilTIAZem HCL CD 180 MG CAP.ER.24H PO (08:06)
[2024-09-20] MEDS: Venlafaxine HCl ER 75 MG CAP.ER.24H PO (08:06)
[2024-09-20] MEDS: Atorvastatin Calcium 40 MG TABLET PO (08:06)
[2024-09-20] MEDS: Fluticasone/Umeclidinium/Vilanterol 200/62.5/25 BLST.W.DEV 1 PUFF INHALE (08:08)
[2024-09-20] MEDS: clonazePAM 1 MG TABLET PO ×4 (08:14→20:55)
--- NOTE | 2024-09-20 09:03 | HO.PSYADMNOT ---
HPI Date of Service: 09/20/24 Chief Complaint: SI-deprssion Sources of Information: patient interviewed, chart reviewed and crisis/core team assessment reviewed HPI Subjective Notes: Hopper Warning (given and shows understanding) and Conditional Voluntary Narrative: Mr. Moore is a 68 year-old male with hx of MDD, alcohol use disorder, cocaine use disorder who self presented to [facility] [place] [place] ED. He reported increased depression for the past 3-4 months and suicide attempt prior to coming to the hospital via hanging (which he reports was aborted once rope broke). His utox was negative. His BAL 155. He reports using alcohol on and off, denies that is currently a problem but states it can be. He was recently in detox for alcohol use in 05/2024. He also reports sporadic cocaine use. Last time when he came to [facility] in 05/2024 he was positive for cocaine but this time he was not. Pertinent labs include CBC which is mostly unremarkable. CMP with no electrolyte abnormality, CO2 elevated 32, BUN Cr 1.18, creatinine clearance 66.6. A1c 6.3% (DM type 2). Mr. Moore reports he has struggle with depression for several years. He does not have a specific trigger to his most recent episode of depression which has been going on since 3-4 months. He reports esketamine usually works for him but lately feels that his depression is worsening. He reports poor sleep and poor appetite. He also endorses anhedonia. He denies VH/AH. No delusions. Past Psychiatric History: Inpt: many in the past. Last one 2019 OP: Dr. Murillo Past medication trials: effexor, clonazepam Medical Evaluation Reviewed: Yes [facility] Medical History Diabetes GERD (gastroesophageal reflux disease) Hepatitis Depression HTN (hypertension) Chronic pain syndrome Intercostal neuralgia Pre-op evaluation 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 Chest pain COPD (chronic obstructive pulmonary disease) Tracheobronchomalacia Family History: none Social History: Pt . He has one son and 3 grandchildren. He is retired. 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 Substance History: He reports long use of alcohol for decades with periods of sobriety. He reports currently 3-4/month but was recent in detox program. Cocaine: on and off. Last positive utox in 05/2024. He reports he has not used in several months. OPioids: denies. Neg utox Trauma History: per prior records- related trauma Diagnostics Vital Signs (24Hr): Vital Signs - 24 hr 09/19/24 11:12 09/19/24 11:14 09/19/24 19:23 Temperature 97 F Pulse Rate 61 70 Respiratory Rate Blood Pressure 152/87 H 152/87 H 148/80 H Pulse Oximetry 95 Oxygen Delivery Method Room Air 09/20/24 08:03 Temperature 98.5 F Pulse Rate 60 Respiratory Rate 16 Blood Pressure 121/71 Pulse Oximetry 97 Oxygen Delivery Method Room Air BMI result Body Mass Index 25.2 Labs 09/17/24 17:27 09/19/24 14:09 Labs: Laboratory Results - last 48 hr 09/18/24 09/18/24 09/19/24 09:05 20:10 14:09 Sodium 139 Potassium 4.0 Chloride 101 Carbon Dioxide 32 H Anion Gap 10 L BUN 14 Creatinine 1.18 Estim Creat Clear Calc 66.6 Estimated GFR > 60 POC Glucose 181 H Random Glucose 149 H Calcium 9.9 Total Bilirubin 0.7 AST 28 ALT 47 H Alkaline Phosphatase 87 Total Protein 7.5 Albumin 4.4 Urine Color Yellow Urine Appearance Clear Urine pH 6.0 Ur Specific Dahlgren 1.020 Urine Protein Negative Urine Glucose (UA) Negative Urine Ketones Negative Urine Blood Negative Urine Nitrite Negative Ur Leukocyte Esterase Negative Urine RBC 0-2 Urine WBC 0-5 Ur Squamous Epith Cells 0-2 Urine Bacteria None Seen Hyaline Casts 0-2 09/20/24 06:13 Sodium Potassium Chloride Carbon Dioxide Anion Gap BUN Creatinine Estim Creat Clear Calc Estimated GFR POC Glucose 89 Random Glucose Calcium Total Bilirubin AST ALT Alkaline Phosphatase Total Protein Albumin Urine Color Urine Appearance Urine pH Ur Specific Dahlgren Urine Protein Urine Glucose (UA) Urine Ketones Urine Blood Urine Nitrite Ur Leukocyte Esterase Urine RBC Urine WBC Ur Squamous Epith Cells Urine Bacteria Hyaline Casts Meds/Allergies Meds Home Medications ?Medication ?Instructions ?Recorded ?Confirmed ?Type insulin glargine 100 unit/mL (3 70 unit subcut BEDTIME 07/22/20 09/17/24 History mL) subcutaneous pen montelukast 10 mg tablet 10 mg PO DAILY PRN asthma 08/26/20 09/17/24 History (Singulair) omeprazole 20 mg capsule,delayed 40 mg PO DAILY PRN Acid Reflux 10/14/20 09/17/24 History release atorvastatin 40 mg tablet 40 mg PO DAILY 09/17/24 09/17/24 History chlorthalidone 25 mg tablet 25 mg PO DAILY 09/17/24 09/17/24 History clonazepam 1 mg tablet 1 mg PO QID 09/17/24 09/17/24 History desvenlafaxine succinate 50 mg 50 mg PO DAILY 09/17/24 09/17/24 History tablet,extended release 24 hr diltiazem HCl 180 mg 180 mg PO DAILY 09/17/24 09/17/24 History capsule,extended release 24 hr dulaglutide 3 mg/0.5 mL 3 mg subcut CLARK 09/17/24 09/17/24 History subcutaneous pen injector (Trulicity) esketamine 84 mg (28 mg x 3) nasal 84 mg intranasal MOTH 09/17/24 09/17/24 History spray (Spravato) fluticasone fur. 200 mcg-umeclid 1 ea inhalation DAILY 09/17/24 09/17/24 History 62.5 mcg-vilant 25 mcg inhalat.powder (Trelegy Ellipta) quetiapine 25 mg tablet 25 mg PO BEDTIME 09/17/24 09/17/24 History triazolam 0.25 mg tablet 0.25 mg PO BEDTIME 09/17/24 09/17/24 History zolpidem 12.5 mg tablet,extended 12.5 mg PO BEDTIME 09/17/24 09/17/24 History release,multiphase Allergies Allergies Allergy/AdvReac Type Severity Reaction Status Date / Time prednisone [PREDNISONE] Allergy Mild RAGE Verified 09/17/24 16:50 lisinopril AdvReac Cough Verified 09/17/24 16:50 Mental Status Exam Mental Status Exam Narrative: Appearance: wearing casual clothing. Fair hygiene. in NAD Behavior: cooperative Psychomotor: no agitation or retardation noted Speech: clear, normal rate/rhythm/volume, spontaneous TP: linear TC: wanting to start ECT and return home soon Mood: not well Affect: brightens up at times SI: passive HI: denies VH/AH: none Delusions: none Insight/judgment: poor x 2. Memory/cog: alert, oriented x 3. pending MOCA. Assessment & Plan Assessment & Plan (1) MDD (major depressive disorder), recurrent episode, moderate: Status: Acute Code(s): F33.1 - Major depressive disorder, recurrent, moderate (2) Alcohol use disorder, moderate, dependence: Status: Acute Code(s): F10.20 - Alcohol dependence, uncomplicated (3) Cocaine use disorder, mild, in early remission, abuse: Status: Acute Code(s): F14.11 - Cocaine abuse, in remission Plan Mr. Moore is a 68 year-old male with hx of MDD, alcohol use, cocaine use who self presented to [facility] [place] [place] ED reporting increased depression, recent suicide attempt via hanging. BAL 155. Utox negative. He has hx of multiple antidepressant trials and also on esketamine for depression. He has a hx of ECT for depression with good therapeutic effect. We discussed risks, benefits and alternative treatment options. Of concern is combination of clonazepam 1mg po QID, triazolam 0.25mg po qhs and ambien CR 12.5mg po qhs. He has been on these medications for some years. Unclear how much they may be affecting his breathing and/or mood. Discussed with Dr. Ojeda temporary reduction in anticipation of ECT as flumazenil may not be as effective reversing effects given several agents and high doses. Also discussed with pt increasing Effexor but he reports exacerbation of tremors and anxiety with higher does of effexor. Other antidepressant not as effective. We discussed concern of alcohol use with benzos, which he is aware of specifically affecting his respiratory status with underlying COPD and tracheomalacia. PLAN 1. Admit to S1, CV, 15 minutes checks for safety 2. ECT consult. will d/c triazolam for now. may need to do further reductions if difficulty inducing seizure during ECT. 3. obtain collateral information 4. aftercare planning. Patient educated on: diagnosis, medication risk/benefits, substance abuse and ECT Informed Consent: understands Reason for continued inpatient stay Substantial Risk for: harm to self Statement Statement: I have reviewed the history and physical and performed a pertinent examination on my patient. No changes have occurred unless specified. If the History and Physical was not performed prior to admission, the Hospitalist's service will be consulted for completing the admission physical. Time Spent With Patient Time: Total time managing care of this patient today ____ minutes.
[2024-09-20 09:34] LABS: Estimated Average Glucose 134 mg/dL; Hemoglobin A1c % 6.3 % (<6.0); Total Hemoglobin (HGBA1C) 3624.8631 umol/L
[2024-09-20 10:14] LABS: Folate 9.8 ng/mL (> or = 4.0); Vitamin B12 545 pg/mL (200-900)
[2024-09-20] MEDS: Nicotine 21 MG PATCH.TD24 TRANSDERMA (11:06)
[2024-09-20] MEDS: Insulin Glargine,Hum.rec.anlog 100 UNIT/ML 10 ML VIAL 70 UNIT SUBCUT (20:56)
[2024-09-20] MEDS: Zolpidem Tartrate 5 MG TABLET PO (20:57)
[2024-09-20] MEDS: QUEtiapine Fumarate 25 MG TABLET PO (20:57)
[2024-09-20 22:00] VITALS: BP 128/90; PULSE 62; RESP 17; TEMP 36.2; O2SAT 98
[2024-09-21 01:29] LABS: Cholesterol 155 mg/dL (<200); HDL Cholesterol 44 mg/dL (>40); LDL Cholesterol Calculated 88 mg/dL (<100); Magnesium 1.7 mg/dL (1.6-2.6); Triglycerides 119 mg/dL (<150)
[2024-09-21 07:00] LABS: Glucose, Whole Blood 90 mg/dL (60-115)
[2024-09-21 07:52] VITALS: BP 140/83; PULSE 65; RESP 18; TEMP 36.2; O2SAT 95
[2024-09-21] MEDS: Atorvastatin Calcium 40 MG TABLET PO (08:14)
[2024-09-21] MEDS: dilTIAZem HCL CD 180 MG CAP.ER.24H PO (08:14)
[2024-09-21] MEDS: Venlafaxine HCl ER 75 MG CAP.ER.24H PO (08:14)
[2024-09-21] MEDS: Nicotine 21 MG PATCH.TD24 TRANSDERMA (08:15)
[2024-09-21] MEDS: clonazePAM 1 MG TABLET PO ×4 (08:15→20:28)
[2024-09-21] MEDS: hydroCHLOROthiazide 25 MG TABLET PO (08:15)
[2024-09-21] MEDS: Fluticasone/Umeclidinium/Vilanterol 200/62.5/25 BLST.W.DEV 1 PUFF INHALE (08:22)
--- NOTE | 2024-09-21 11:04 | P.PNPSI_ITS ---
Subjective Subjective Date of Service: 09/21/24 Reason For Visit: SI-deprssion Subjective Notes: Conditional Voluntary Interim History: Pt slept through the night. He is a bit anxious about ECT on Monday but lookin forward. No SI/HI. but still reports feeling very depressed, hopeless. Visible on the unit. Social with peers. May need to hold benzos and ambien and insulin at bedtime day prior to ECT Diagnostics Vital Signs (24Hr): Vital Signs - 24 hr 09/20/24 22:00 09/21/24 07:52 Temperature 97.2 F 97.1 F Pulse Rate 62 65 Respiratory Rate 17 18 Blood Pressure 128/90 H 140/83 H Pulse Oximetry 98 95 Oxygen Delivery Method Room Air Room Air BMI result Body Mass Index 25.2 Labs 09/17/24 17:27 09/19/24 14:09 Labs: Laboratory Results - last 48 hr 09/19/24 09/20/24 09/20/24 14:09 06:13 09:00 Sodium 139 Potassium 4.0 Chloride 101 Carbon Dioxide 32 H Anion Gap 10 L BUN 14 Creatinine 1.18 Estim Creat Clear Calc 66.6 Estimated GFR > 60 POC Glucose 89 Random Glucose 149 H Estimat Average Glucose 134 Hemoglobin A1c % 6.3 H Calcium 9.9 Magnesium 1.7 Total Bilirubin 0.7 AST 28 ALT 47 H Alkaline Phosphatase 87 Total Protein 7.5 Albumin 4.4 Triglycerides 119 Cholesterol 155 LDL Cholesterol, Calc 88 HDL Cholesterol 44 Vitamin B12 545 Folate 9.8 09/21/24 06:42 Sodium Potassium Chloride Carbon Dioxide Anion Gap BUN Creatinine Estim Creat Clear Calc Estimated GFR POC Glucose 90 Random Glucose Estimat Average Glucose Hemoglobin A1c % Calcium Magnesium Total Bilirubin AST ALT Alkaline Phosphatase Total Protein Albumin Triglycerides Cholesterol LDL Cholesterol, Calc HDL Cholesterol Vitamin B12 Folate Medications Medications Current Medications Acetaminophen (Acetaminophen 325 Mg Tablet) 650 mg PO Q6H PRN PRN Reason: Headache/Pain Mild Scale (1-3) Al Hydroxide/Mg Hydroxide (Magnesium Hydrox/Alum Hydrox 30 Ml Oral.Susp) 30 ml PO Q6H PRN PRN Reason: Heartburn/Nausea Atorvastatin Calcium (Atorvastatin Calcium 40 Mg Tablet) 40 mg PO DAILY [facility] Last Admin: 09/21/24 08:14 Dose: 40 mg Clonazepam (Clonazepam 1 Mg Tablet) 1 mg PO QID [facility] Last Admin: 09/21/24 08:15 Dose: 1 mg Diltiazem HCl (Diltiazem Hcl Cd 180 Mg Cap.Er.24h) 180 mg PO DAILY [facility]; Protocol Last Admin: 09/21/24 08:14 Dose: 180 mg Fluticasone/Umeclidinium/Vilanterol (Fluticasone/Umeclidinium/Vilanterol 200/62.5/25 Blst.W.Dev) 1 puff INHALE RDAILY [facility] Last Admin: 09/21/24 08:22 Dose: 1 puff Hydrochlorothiazide (Hydrochlorothiazide 25 Mg Tablet) 25 mg PO DAILY [facility] Last Admin: 09/21/24 08:15 Dose: 25 mg Hydroxyzine HCl (Hydroxyzine Hcl 25 Mg Tablet) 25 mg PO Q6H PRN PRN Reason: Anxiety Insulin Glargine (Insulin Glargine,Hum.Rec.Anlog 100 Unit/Ml 10 Ml Vial) 70 unit SUBCUT BEDTIME [facility] Last Admin: 09/20/24 20:56 Dose: 70 unit Magnesium Hydroxide (Milk Of Magnesia 30 Ml Oral.Susp) 30 ml PO DAILY PRN PRN Reason: Constipation Montelukast Sodium (Montelukast Sodium 10 Mg Tablet) 10 mg PO DAILY PRN PRN Reason: asthma Nicotine (Nicotine 21 Mg Patch.Td24) 21 mg TRANSDERMA DAILY [facility] Last Admin: 09/21/24 08:15 Dose: 21 mg Omeprazole (Omeprazole 40 Mg Capsule.Dr) 40 mg PO DAILY PRN PRN Reason: Acid Reflux Quetiapine Fumarate (Quetiapine Fumarate 25 Mg Tablet) 25 mg PO BEDTIME [facility] Last Admin: 09/20/24 20:57 Dose: 25 mg Trazodone HCl (Trazodone Hcl 50 Mg Tablet) 50 mg PO BEDTIME MRX1 PRN PRN Reason: Insomnia Venlafaxine HCl (Venlafaxine Hcl Er 75 Mg Cap.Er.24h) 75 mg PO DAILY [facility] Last Admin: 09/21/24 08:14 Dose: 75 mg Zolpidem Tartrate (Zolpidem Tartrate 5 Mg Tablet) 5 mg PO BEDTIME [facility] Last Admin: 09/20/24 20:57 Dose: 5 mg Allergies Allergies Allergy/AdvReac Type Severity Reaction Status Date / Time prednisone [PREDNISONE] Allergy Mild RAGE Verified 09/17/24 16:50 lisinopril AdvReac Cough Verified 09/17/24 16:50 Assessment & Plan Assessment & Plan (1) MDD (major depressive disorder), recurrent episode, moderate: Status: Acute Code(s): F33.1 - Major depressive disorder, recurrent, moderate (2) Alcohol use disorder, moderate, dependence: Status: Acute Code(s): F10.20 - Alcohol dependence, uncomplicated (3) Cocaine use disorder, mild, in early remission, abuse: Status: Acute Code(s): F14.11 - Cocaine abuse, in remission Plan Mr. Moore is a 68 year-old male with hx of MDD, alcohol use, cocaine use who self presented to [facility] ED reporting increased depression, recent suicide attempt via hanging. BAL 155. Utox negative. He has hx of multiple antidepressant trials and also on esketamine for depression. He has a hx of ECT for depression with good therapeutic effect. We discussed risks, benefits and alternative treatment options. Of concern is combination of clonazepam 1mg po QID, triazolam 0.25mg po qhs and ambien CR 12.5mg po qhs. He has been on these medications for some years. Unclear how much they may be affecting his breathing and/or mood. Discussed with Dr. Ojeda temporary reduction in anticipation of ECT as flumazenil may not be as effective reversing effects given several agents and high doses. Also discussed with pt increasing Effexor but he reports exacerbation of tremors and anxiety with higher does of effexor. Other antidepressant not as effective. We discussed concern of alcohol use with benzos, which he is aware of specifically affecting his respiratory status with underlying COPD and tracheomalacia. PLAN 09/21 continue tx. HOld clonazepam, ambien and insuline at bedtime on 09/22 prior to ECT Reason for continued inpatient stay Substantial Risk for: harm to self Time Spent With Patient Time: Total time managing care of this patient today ____ minutes.
[2024-09-21] MEDS: Milk of Magnesia 30 ML ORAL.SUSP PO (11:09)
[2024-09-21] MEDS: polyethylene glycoL 3350 17 GM POWD.PACK PO (17:07)
[2024-09-21] MEDS: QUEtiapine Fumarate 25 MG TABLET PO (20:28)
[2024-09-21] MEDS: Zolpidem Tartrate 5 MG TABLET PO (20:28)
[2024-09-21] MEDS: Insulin Glargine,Hum.rec.anlog 100 UNIT/ML 10 ML VIAL 70 UNIT SUBCUT (20:28)
[2024-09-21 20:42] VITALS: BP 133/84; PULSE 75; RESP 18; TEMP 37.1; O2SAT 96
[2024-09-22 06:33] LABS: Glucose, Whole Blood 125 mg/dL (60-115)
[2024-09-22 09:06] VITALS: BP 136/77; PULSE 66; TEMP 36.9; O2SAT 97
[2024-09-22] MEDS: Milk of Magnesia 30 ML ORAL.SUSP PO (09:17)
[2024-09-22] MEDS: Atorvastatin Calcium 40 MG TABLET PO (09:17)
[2024-09-22] MEDS: dilTIAZem HCL CD 180 MG CAP.ER.24H PO (09:17)
[2024-09-22] MEDS: Venlafaxine HCl ER 75 MG CAP.ER.24H PO (09:18)
[2024-09-22] MEDS: clonazePAM 1 MG TABLET PO ×2 (09:18→13:30)
[2024-09-22] MEDS: hydroCHLOROthiazide 25 MG TABLET PO (09:19)
[2024-09-22] MEDS: Nicotine 21 MG PATCH.TD24 TRANSDERMA (09:20)
[2024-09-22] MEDS: Fluticasone/Umeclidinium/Vilanterol 200/62.5/25 BLST.W.DEV 1 PUFF INHALE (12:06)
[2024-09-22] MEDS: polyethylene glycoL 3350 17 GM POWD.PACK PO (17:50)
--- NOTE | 2024-09-22 18:26 | P.PNPSI_ITS ---
Subjective Subjective Date of Service: 09/22/24 Reason For Visit: SI-deprssion Subjective Notes: Conditional Voluntary Interim History: Pt slept through the night. He is a bit anxious about ECT on Monday but lookin forward. No SI/HI. but still reports feeling very depressed, hopeless. Visible on the unit. Social with peers. May need to hold benzos and ambien and insulin at bedtime day prior to ECT He reports constipation- given dulcolax. Review of Systems Review of Systems No SOB, No chest pain No GI symptoms. Yes all other systems are reviewed and are negative Constitutional: Denies fatigue and Denies fever(s) Cardiovascular: Denies chest pain and Denies dyspnea Respiratory: Denies dyspnea Gastrointestinal: Denies abdominal pain Endocrine: Denies fatigue Mental Status Exam Mental Status Exam Narrative: Appearance: wearing casual clothing. Fair hygiene. in NAD Behavior: cooperative Psychomotor: no agitation or retardation noted Speech: clear, normal rate/rhythm/volume, spontaneous TP: linear TC: wanting to start ECT and return home soon Mood: not well Affect: brightens up at times SI: passive HI: denies VH/AH: none Delusions: none Insight/judgment: poor x 2. Memory/cog: alert, oriented x 3. pending MOCA. Diagnostics Vital Signs (24Hr): Vital Signs - 24 hr 09/21/24 20:42 09/22/24 09:06 Temperature 98.8 F 98.5 F Pulse Rate 75 66 Respiratory Rate 18 Blood Pressure 133/84 136/77 Pulse Oximetry 96 97 Oxygen Delivery Method Room Air Room Air BMI result Body Mass Index 25.2 Labs 09/17/24 17:27 09/19/24 14:09 Labs: Laboratory Results - last 48 hr 09/20/24 09/21/24 09/22/24 09:00 06:42 06:28 POC Glucose 90 125 H Magnesium 1.7 Triglycerides 119 Cholesterol 155 LDL Cholesterol, Calc 88 HDL Cholesterol 44 Medications Medications Current Medications Acetaminophen (Acetaminophen 325 Mg Tablet) 650 mg PO Q6H PRN PRN Reason: Headache/Pain Mild Scale (1-3) Al Hydroxide/Mg Hydroxide (Magnesium Hydrox/Alum Hydrox 30 Ml Oral.Susp) 30 ml PO Q6H PRN PRN Reason: Heartburn/Nausea Atorvastatin Calcium (Atorvastatin Calcium 40 Mg Tablet) 40 mg PO DAILY [facility] Last Admin: 09/22/24 09:17 Dose: 40 mg Clonazepam (Clonazepam 1 Mg Tablet) 1 mg PO QID [facility] Last Admin: 09/22/24 13:30 Dose: 1 mg Diltiazem HCl (Diltiazem Hcl Cd 180 Mg Cap.Er.24h) 180 mg PO DAILY [facility]; Protocol Last Admin: 09/22/24 09:17 Dose: 180 mg Fluticasone/Umeclidinium/Vilanterol (Fluticasone/Umeclidinium/Vilanterol 200/62.5/25 Blst.W.Dev) 1 puff INHALE RDAILY [facility] Last Admin: 09/22/24 12:06 Dose: 1 puff Hydrochlorothiazide (Hydrochlorothiazide 25 Mg Tablet) 25 mg PO DAILY [facility] Last Admin: 09/22/24 09:19 Dose: 25 mg Hydroxyzine HCl (Hydroxyzine Hcl 25 Mg Tablet) 25 mg PO Q6H PRN PRN Reason: Anxiety Insulin Glargine (Insulin Glargine,Hum.Rec.Anlog 100 Unit/Ml 10 Ml Vial) 70 unit SUBCUT BEDTIME [facility] Last Admin: 09/21/24 20:28 Dose: 70 unit Magnesium Hydroxide (Milk Of Magnesia 30 Ml Oral.Susp) 30 ml PO DAILY PRN PRN Reason: Constipation Last Admin: 09/22/24 09:17 Dose: 30 ml Montelukast Sodium (Montelukast Sodium 10 Mg Tablet) 10 mg PO DAILY PRN PRN Reason: asthma Nicotine (Nicotine 21 Mg Patch.Td24) 21 mg TRANSDERMA DAILY [facility] Last Admin: 09/22/24 09:20 Dose: 21 mg Omeprazole (Omeprazole 40 Mg Capsule.Dr) 40 mg PO DAILY PRN PRN Reason: Acid Reflux Polyethylene Glycol (Polyethylene Glycol 3350 17 Gm Powd.Pack) 17 gm PO DAILY PRN PRN Reason: Constipation Last Admin: 09/22/24 17:50 Dose: 17 gm Quetiapine Fumarate (Quetiapine Fumarate 25 Mg Tablet) 25 mg PO BEDTIME [facility] Last Admin: 09/21/24 20:28 Dose: 25 mg Trazodone HCl (Trazodone Hcl 50 Mg Tablet) 50 mg PO BEDTIME MRX1 PRN PRN Reason: Insomnia Venlafaxine HCl (Venlafaxine Hcl Er 75 Mg Cap.Er.24h) 75 mg PO DAILY [facility] Last Admin: 09/22/24 09:18 Dose: 75 mg Zolpidem Tartrate (Zolpidem Tartrate 5 Mg Tablet) 5 mg PO BEDTIME [facility] Last Admin: 09/21/24 20:28 Dose: 5 mg Allergies Allergies Allergy/AdvReac Type Severity Reaction Status Date / Time prednisone [PREDNISONE] Allergy Mild RAGE Verified 09/17/24 16:50 lisinopril AdvReac Cough Verified 09/17/24 16:50 Assessment & Plan Assessment & Plan (1) MDD (major depressive disorder), recurrent episode, moderate: Status: Acute Code(s): F33.1 - Major depressive disorder, recurrent, moderate (2) Alcohol use disorder, moderate, dependence: Status: Acute Code(s): F10.20 - Alcohol dependence, uncomplicated (3) Cocaine use disorder, mild, in early remission, abuse: Status: Acute Code(s): F14.11 - Cocaine abuse, in remission Plan Mr. Moore is a 68 year-old male with hx of MDD, alcohol use, cocaine use who self presented to [facility] reporting increased depression, recent suicide attempt via hanging. BAL 155. Utox negative. He has hx of multiple antidepressant trials and also on esketamine for depression. He has a hx of ECT for depression with good therapeutic effect. We discussed risks, benefits and alternative treatment options. Of concern is combination of clonazepam 1mg po QID, triazolam 0.25mg po qhs and ambien CR 12.5mg po qhs. He has been on these medications for some years. Unclear how much they may be affecting his breathing and/or mood. Discussed with Dr. Ojeda temporary reduction in anticipation of ECT as flumazenil may not be as effective reversing effects given several agents and high doses. Also discussed with pt increasing Effexor but he reports exacerbation of tremors and anxiety with higher does of effexor. Other antidepressant not as effective. We discussed concern of alcohol use with benzos, which he is aware of specifically affecting his respiratory status with underlying COPD and tracheomalacia. PLAN 09/21 continue tx. HOld clonazepam, ambien and insuline at bedtime on 09/22 prior to ECT 09/22 continue tx. Reason for continued inpatient stay Substantial Risk for: harm to self Time Spent With Patient Time: Total time managing care of this patient today ____ minutes.
[2024-09-22] MEDS: bisacodyL 5 MG TABLET.DR 10 MG PO (19:55)
[2024-09-22] MEDS: QUEtiapine Fumarate 25 MG TABLET PO (20:32)
[2024-09-22 21:24] VITALS: BP 141/68; PULSE 86; RESP 18; TEMP 36.5; O2SAT 96
[2024-09-23] VITALS (9 sets, daily range): BP systolic 128–176; BP diastolic 58–98; PULSE 65–81; RESP 16–18; TEMP 36.2–36.7; O2SAT 93–97
[2024-09-23 06:30] LABS: Glucose, Whole Blood 130 mg/dL (60-115)
--- NOTE | 2024-09-23 07:05 | MHC.SHP ---
Pre-Procedural Eval Section A - 24 Hr Update-Section A only Date of Service: 09/23/24 The patient is an INPATIENT: Yes Changes since office visit: No Cold of Flu in the past 2 weeks, No New Medical Problems, No Changes in Medication and No Patient answered all questions The patient has been examined within 24 hours of the surgical procedure. The History & Physical has been completed within 30 days and I have reviewed it.: Yes Section B - Complete if H&P > 30 days Chief Complaint: SI-deprssion Allergies: Allergies Allergy/AdvReac Type Severity Reaction Status Date / Time prednisone [PREDNISONE] Allergy Mild RAGE Verified 09/17/24 16:50 lisinopril AdvReac Cough Verified 09/17/24 16:50 Plan I have reviewed the history and physical and performed a pertinent physical examination on my patient. No changes have occurred unless specified. Time Spent With Patient Time: Total time managing care of this patient today ____ minutes.
[2024-09-23] MEDS: Lactated Ringers 1,000 ML 100 ML IVCONT (07:06)
--- NOTE | 2024-09-23 07:50 | MHC.SHP ---
Pre-Procedural Eval Section A - 24 Hr Update-Section A only Date of Service: 09/23/24 The patient is an INPATIENT: Yes Changes since office visit: No Cold of Flu in the past 2 weeks, No New Medical Problems, No Changes in Medication and No Patient answered all questions The patient has been examined within 24 hours of the surgical procedure. The History & Physical has been completed within 30 days and I have reviewed it.: Yes Section B - Complete if H&P > 30 days Chief Complaint: SI-deprssion Details of Present Illness: Admitted for exacerbation of depression with SI, last ECT 4 YEARS ago with good response Relevant Family History (Specify if Yes): Yes Relevant Social History: None Present Medications: see Short Stay Collaborative assessment Medical History: No relevant PMH History of Previous Operations: No relevant previous surgery Allergies: Allergies Allergy/AdvReac Type Severity Reaction Status Date / Time prednisone [PREDNISONE] Allergy Mild RAGE Verified 09/17/24 16:50 lisinopril AdvReac Cough Verified 09/17/24 16:50 Review of Systems Sugical H&P ROS: Negative: Constitution, Cardiovascular, Respiratory, Neurological, Psychiatric, Hem-Onc, Allergic/Immunologic, Gastrointestinal, Genitourinary, Musculoskeletal, Integumentary, Endocrine and Eyes/Ears/Nose/Throat Exam Surgical H&P Exam: Normal: HEENT, Normal: Heart, Normal: Lungs, Normal: Extremities, Normal: Abdomen, Normal: Skin and Normal: Neurological Plan Diagnosis/Plan: Unchanged I have reviewed the history and physical and performed a pertinent physical examination on my patient. No changes have occurred unless specified. Time Spent With Patient Time: Total time managing care of this patient today _20___ minutes.
--- NOTE | 2024-09-23 08:13 | HO.ECTPROC ---
ECT Procedure Note Diagnosis/Treatment Date of Service: 09/23/24 Diagnosis: Major Depressive Disorder Current Treatment Number: 1 Treatment: Series Interval Clinical Notes: The patient reported that he did well with ECT 4 years ago, as per his report, depressed with SI. ECT done as bitemporal as per initial plan, we used Flumazenil to revert benzodiazepines. No complications, needed lower dose of Etomidate. Woke up well. Time: Total time managing care of this patient today ____ minutes. ECT Settings Device: THYMATRON DGx Electrode Placement: Bitemporal Program/Pulse Width: 0.50 Energy Percent: 100 Seizure Duration By EEG (in seconds): 32 Medications Administration General Anesthetic: Etomidate (18) Muscle Relaxant: Succinylcholine (100) Ancillary Medications Miscillaneous Medications: Flumazenil and Other (Ativan 2 mg IVP post ECT) Airway Management Airway Management: Bag Mask Ventilation Treatment Recommendations No Changes Recommended: No change Pt Tolerated Procedure w/o Issue: Yes
[2024-09-23] MEDS: LORazepam 2 MG/ML VIAL IVPUSH (08:18)
--- NOTE | 2024-09-23 08:26 | HO.ANESPROP2 ---
[facility] Active Problems Active Problems: All Active Problems Cocaine use disorder, mild, in early remission, abuse (Acute) Alcohol use disorder, moderate, dependence (Acute) MDD (major depressive disorder), recurrent episode, moderate (Acute) Suicidal ideation (Acute) Chronic pain syndrome (Acute) Intercostal neuralgia (Acute) Pre-op evaluation (Acute) Post-thoracotomy pain syndrome (Acute) 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 (Acute) Chest pain (Acute) COPD (chronic obstructive pulmonary disease) (Acute) Tracheobronchomalacia (Acute) Past Medical History Medical History Diabetes GERD (gastroesophageal reflux disease) Hepatitis Depression HTN (hypertension) Chronic pain syndrome Intercostal neuralgia Pre-op evaluation 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 Chest pain COPD (chronic obstructive pulmonary disease) Tracheobronchomalacia Family History Family History Other HTN (hypertension) Family history of problems with anesthesia: No Surgical History History of Problems with Anesthesia: No Social History Social History Household Members: None Housing: Condominium Do you presently have visiting nurse or other home services: No ( I need more help. ) Alcohol intake: current Alcohol intake frequency: a few times a month Patient Tobacco Use Status: Former Tobacco user Tobacco use type: Cigarette Cigarette Packs Per Day: 0.5 Cigarettes Per Day: 10.0 Years Smoked: 10 Smoked in Last 30 Days: Yes Patient Interested in Nicotine Replacement: Yes Patient Given Instructions on How to Stop Smoking: No Second Hand Smoke Exposure: No Use of substances other than those prescribed or required for medical reasons: No Substance Use Type: Marijuana Last Used Substance Other:: June2024 Currently Displaying Signs/Symptoms of Drug Intoxication Withdrawal: No Any prior treatment program specific to substance use: Yes (1989 [place] retreat) Have you been hit, kicked, punched, or otherwise hurt by someone within the past year? If so, by whom?: No Do you feel safe in your current relationship?: No Is there a partner from a previous relationship who is making you feel unsafe now?: No Are you made to feel afraid or neglected: No Spiritual Healthcare Practices: no Hoahaoism Healthcare Practices: no Cultural Healthcare Practices: no Advance Directives: No Advance Directives Information Provided: No Do you have thoughts of harming others: None Do you have a plan to hurt others: No Plan Recently lost weight without trying: No Eating poorly because of decreased appetite: Yes Poor oral hygiene: No service: Yes (4 years in the ) Sexual orientation: Straight/Heterosexual Meds Allergies Allergy/AdvReac Type Severity Reaction Status Date / Time prednisone [PREDNISONE] Allergy Mild RAGE Verified 09/17/24 16:50 lisinopril AdvReac Cough Verified 09/17/24 16:50 Active Medications: Current Medications Acetaminophen (Acetaminophen 325 Mg Tablet) 650 mg PO Q6H PRN PRN Reason: Headache/Pain Mild Scale (1-3) Al Hydroxide/Mg Hydroxide (Magnesium Hydrox/Alum Hydrox 30 Ml Oral.Susp) 30 ml PO Q6H PRN PRN Reason: Heartburn/Nausea Atorvastatin Calcium (Atorvastatin Calcium 40 Mg Tablet) 40 mg PO DAILY [facility] Last Admin: 09/22/24 09:17 Dose: 40 mg Clonazepam (Clonazepam 1 Mg Tablet) 1 mg PO QID [facility] Last Admin: 09/22/24 13:30 Dose: 1 mg Diltiazem HCl (Diltiazem Hcl Cd 180 Mg Cap.Er.24h) 180 mg PO DAILY [facility]; Protocol Last Admin: 09/22/24 09:17 Dose: 180 mg Fluticasone/Umeclidinium/Vilanterol (Fluticasone/Umeclidinium/Vilanterol 200/62.5/25 Blst.W.Dev) 1 puff INHALE RDAILY [facility] Last Admin: 09/22/24 12:06 Dose: 1 puff Hydrochlorothiazide (Hydrochlorothiazide 25 Mg Tablet) 25 mg PO DAILY [facility] Last Admin: 09/22/24 09:19 Dose: 25 mg Hydroxyzine HCl (Hydroxyzine Hcl 25 Mg Tablet) 25 mg PO Q6H PRN PRN Reason: Anxiety Lactated Ringer's (Lr) 1,000 mls @ 100 mls/hr IVCONT .Q10H [facility] Last Admin: 09/23/24 07:06 Dose: 100 mls/hr Insulin Glargine (Insulin Glargine,Hum.Rec.Anlog 100 Unit/Ml 10 Ml Vial) 70 unit SUBCUT BEDTIME [facility] Last Admin: 09/21/24 20:28 Dose: 70 unit Magnesium Hydroxide (Milk Of Magnesia 30 Ml Oral.Susp) 30 ml PO DAILY PRN PRN Reason: Constipation Last Admin: 09/22/24 09:17 Dose: 30 ml Montelukast Sodium (Montelukast Sodium 10 Mg Tablet) 10 mg PO DAILY PRN PRN Reason: asthma Nicotine (Nicotine 21 Mg Patch.Td24) 21 mg TRANSDERMA DAILY [facility] Last Admin: 09/22/24 09:20 Dose: 21 mg Omeprazole (Omeprazole 40 Mg Capsule.Dr) 40 mg PO DAILY PRN PRN Reason: Acid Reflux Polyethylene Glycol (Polyethylene Glycol 3350 17 Gm Powd.Pack) 17 gm PO DAILY PRN PRN Reason: Constipation Last Admin: 09/22/24 17:50 Dose: 17 gm Quetiapine Fumarate (Quetiapine Fumarate 25 Mg Tablet) 25 mg PO BEDTIME [facility] Last Admin: 09/22/24 20:32 Dose: 25 mg Trazodone HCl (Trazodone Hcl 50 Mg Tablet) 50 mg PO BEDTIME MRX1 PRN PRN Reason: Insomnia Venlafaxine HCl (Venlafaxine Hcl Er 75 Mg Cap.Er.24h) 75 mg PO DAILY [facility] Last Admin: 09/22/24 09:18 Dose: 75 mg Zolpidem Tartrate (Zolpidem Tartrate 5 Mg Tablet) 5 mg PO BEDTIME [facility] Last Admin: 09/21/24 20:28 Dose: 5 mg Home Medications ?Medication ?Instructions ?Recorded ?Confirmed ?Last Taken ?Type insulin glargine 100 unit/mL (3 70 unit subcut BEDTIME 07/22/20 09/17/24 Unknown History mL) subcutaneous pen montelukast 10 mg tablet 10 mg PO DAILY PRN asthma 08/26/20 09/17/24 08/26/20 04:10 History (Singulair) omeprazole 20 mg capsule,delayed 40 mg PO DAILY PRN Acid Reflux 10/14/20 09/17/24 Unknown History release atorvastatin 40 mg tablet 40 mg PO DAILY 09/17/24 09/17/24 Unknown History chlorthalidone 25 mg tablet 25 mg PO DAILY 09/17/24 09/17/24 Unknown History clonazepam 1 mg tablet 1 mg PO QID 09/17/24 09/17/24 Unknown History desvenlafaxine succinate 50 mg 50 mg PO DAILY 09/17/24 09/17/24 Unknown History tablet,extended release 24 hr diltiazem HCl 180 mg 180 mg PO DAILY 09/17/24 09/17/24 Unknown History capsule,extended release 24 hr dulaglutide 3 mg/0.5 mL 3 mg subcut [facility] 09/17/24 09/17/24 Unknown History subcutaneous pen injector (Trulicity) esketamine 84 mg (28 mg x 3) nasal 84 mg intranasal MOTH 09/17/24 09/17/24 Unknown History spray ([place]) fluticasone fur. 200 mcg-umeclid 1 ea inhalation DAILY 09/17/24 09/17/24 Unknown History 62.5 mcg-vilant 25 mcg inhalat.powder (Trelegy Ellipta) quetiapine 25 mg tablet 25 mg PO BEDTIME 09/17/24 09/17/24 Unknown History triazolam 0.25 mg tablet 0.25 mg PO BEDTIME 09/17/24 09/17/24 Unknown History zolpidem 12.5 mg tablet,extended 12.5 mg PO BEDTIME 09/17/24 09/17/24 Unknown History release,multiphase Exam Height,Weight and Vital Signs: Height 6 ft Weight 84.368 kg Last Vital Signs Temp 97.1 F 09/23/24 06:26 Pulse 71 09/23/24 06:26 Resp 18 09/23/24 06:26 BP 153/93 H 09/23/24 06:26 Pulse Ox 97 09/23/24 06:26 O2 Del Method Room Air 09/22/24 21:24 Pertinent Lab Results Pertinent Lab Results: Laboratory Tests 09/17/24 09/17/24 09/18/24 17:27 22:07 09:05 WBC 6.7 RBC 5.18 Hgb 16.0 Hct 44.6 MCV 86.1 MCH 30.9 MCHC 35.9 RDW 12.1 Plt Count 233 MPV 9.6 Immature Gran % (Auto) 0.3 Neut % (Auto) 50.6 Lymph % (Auto) 37.5 [place] % (Auto) 7.9 Eos % (Auto) 3.3 Baso % (Auto) 0.4 Lymph # (Auto) 2.5 [place] # (Auto) 0.5 Eos # (Auto) 0.2 Baso # (Auto) 0.0 Abs Immat Gran (auto) 0.02 Absolute Neuts (auto) 3.4 Absolute Nucleated RBC 0.000 Nucleated RBC % (auto) 0.0 Sodium 144 Potassium 4.0 Chloride 109 H Carbon Dioxide 30 H Anion Gap 9 L BUN 12 Creatinine 1.21 Estim Creat Clear Calc 65.0 Estimated GFR 60 POC Glucose 196 H Random Glucose 161 H Estimat Average Glucose Hemoglobin A1c % Calcium 9.6 D Magnesium 2.0 Total Bilirubin 0.4 AST 28 ALT 44 H Alkaline Phosphatase 83 Total Protein 7.5 Albumin 4.3 Triglycerides Cholesterol LDL Cholesterol, Calc HDL Cholesterol Vitamin B12 Folate Urine Color Yellow Urine Appearance Clear Urine pH 6.0 Ur Specific Ash 1.020 Urine Protein Negative Urine Glucose (UA) Negative Urine Ketones Negative Urine Blood Negative Urine Nitrite Negative Ur Leukocyte Esterase Negative Urine RBC 0-2 Urine WBC 0-5 Ur Squamous Epith Cells 0-2 Urine Bacteria None Seen Hyaline Casts 0-2 Urine Opiates Screen Not Detected Ur Buprenorphine Scrn Not Detected Ur Oxycodone Screen Not Detected Urine Methadone Screen Not Detected Urine Fentanyl Screen Not Detected Ur Barbiturates Screen Not Detected Ur Phencyclidine Scrn Not Detected Ur Amphetamines Screen Not Detected U Benzodiazepines Scrn Not Detected Urine Cocaine Screen Not Detected U Marijuana (THC) Screen Not Detected Ethyl Alcohol 155 09/18/24 09/19/24 09/20/24 20:10 14:09 06:13 WBC RBC Hgb Hct MCV MCH MCHC RDW Plt Count MPV Immature Gran % (Auto) Neut % (Auto) Lymph % (Auto) [place] % (Auto) Eos % (Auto) Baso % (Auto) Lymph # (Auto) [place] # (Auto) Eos # (Auto) Baso # (Auto) Abs Immat Gran (auto) Absolute Neuts (auto) Absolute Nucleated RBC Nucleated RBC % (auto) Sodium 139 Potassium 4.0 Chloride 101 Carbon Dioxide 32 H Anion Gap 10 L BUN 14 Creatinine 1.18 Estim Creat Clear Calc 66.6 Estimated GFR > 60 POC Glucose 181 H 89 Random Glucose 149 H Estimat Average Glucose Hemoglobin A1c % Calcium 9.9 Magnesium Total Bilirubin 0.7 AST 28 ALT 47 H Alkaline Phosphatase 87 Total Protein 7.5 Albumin 4.4 Triglycerides Cholesterol LDL Cholesterol, Calc HDL Cholesterol Vitamin B12 Folate Urine Color Urine Appearance Urine pH Ur Specific Ash Urine Protein Urine Glucose (UA) Urine Ketones Urine Blood Urine Nitrite Ur Leukocyte Esterase Urine RBC Urine WBC Ur Squamous Epith Cells Urine Bacteria Hyaline Casts Urine Opiates Screen Ur Buprenorphine Scrn Ur Oxycodone Screen Urine Methadone Screen Urine Fentanyl Screen Ur Barbiturates Screen Ur Phencyclidine Scrn Ur Amphetamines Screen U Benzodiazepines Scrn Urine Cocaine Screen U Marijuana (THC) Screen Ethyl Alcohol 09/20/24 09/21/24 09/22/24 09:00 06:42 06:28 WBC RBC Hgb Hct MCV MCH MCHC RDW Plt Count MPV Immature Gran % (Auto) Neut % (Auto) Lymph % (Auto) [place] % (Auto) Eos % (Auto) Baso % (Auto) Lymph # (Auto) [place] # (Auto) Eos # (Auto) Baso # (Auto) Abs Immat Gran (auto) Absolute Neuts (auto) Absolute Nucleated RBC Nucleated RBC % (auto) Sodium Potassium Chloride Carbon Dioxide Anion Gap BUN Creatinine Estim Creat Clear Calc Estimated GFR POC Glucose 90 125 H Random Glucose Estimat Average Glucose 134 Hemoglobin A1c % 6.3 H Calcium Magnesium 1.7 Total Bilirubin AST ALT Alkaline Phosphatase Total Protein Albumin Triglycerides 119 Cholesterol 155 LDL Cholesterol, Calc 88 HDL Cholesterol 44 Vitamin B12 545 Folate 9.8 Urine Color Urine Appearance Urine pH Ur Specific Ash Urine Protein Urine Glucose (UA) Urine Ketones Urine Blood Urine Nitrite Ur Leukocyte Esterase Urine RBC Urine WBC Ur Squamous Epith Cells Urine Bacteria Hyaline Casts Urine Opiates Screen Ur Buprenorphine Scrn Ur Oxycodone Screen Urine Methadone Screen Urine Fentanyl Screen Ur Barbiturates Screen Ur Phencyclidine Scrn Ur Amphetamines Screen U Benzodiazepines Scrn Urine Cocaine Screen U Marijuana (THC) Screen Ethyl Alcohol 09/23/24 06:21 WBC RBC Hgb Hct MCV MCH MCHC RDW Plt Count MPV Immature Gran % (Auto) Neut % (Auto) Lymph % (Auto) [place] % (Auto) Eos % (Auto) Baso % (Auto) Lymph # (Auto) [place] # (Auto) Eos # (Auto) Baso # (Auto) Abs Immat Gran (auto) Absolute Neuts (auto) Absolute Nucleated RBC Nucleated RBC % (auto) Sodium Potassium Chloride Carbon Dioxide Anion Gap BUN Creatinine Estim Creat Clear Calc Estimated GFR POC Glucose 130 H Random Glucose Estimat Average Glucose Hemoglobin A1c % Calcium Magnesium Total Bilirubin AST ALT Alkaline Phosphatase Total Protein Albumin Triglycerides Cholesterol LDL Cholesterol, Calc HDL Cholesterol Vitamin B12 Folate Urine Color Urine Appearance Urine pH Ur Specific Ash Urine Protein Urine Glucose (UA) Urine Ketones Urine Blood Urine Nitrite Ur Leukocyte Esterase Urine RBC Urine WBC Ur Squamous Epith Cells Urine Bacteria Hyaline Casts Urine Opiates Screen Ur Buprenorphine Scrn Ur Oxycodone Screen Urine Methadone Screen Urine Fentanyl Screen Ur Barbiturates Screen Ur Phencyclidine Scrn Ur Amphetamines Screen U Benzodiazepines Scrn Urine Cocaine Screen U Marijuana (THC) Screen Ethyl Alcohol Airway Mallampati Class: III TM Dist: >3cm Neck ROM: Full Denture: Upper and Lower Assessment and Plan Assessment Anesthesia Assessment: Anesthesia Plan Discussed and Chart Reviewed Final Anesthetic Review Family History of Problems with Anesthesia: No History of Problems with Anesthesia: No NPO: Yes ASA Class: III Final Preanesthetic Review: No Changes in Pt Med Stat, Meds/Allgs Chart Reviewed, Consent Obtained/Reviewed, Anes Risks/Benef Reviewed and DNR Form (If Appl.) Patient Risk: Intermediate Procedure Risk: Low Anesthetic Plan Anesthetic Plan: GA Disposition: Standard PACU
[2024-09-23] MEDS: Venlafaxine HCl ER 75 MG CAP.ER.24H PO (09:30)
[2024-09-23] MEDS: dilTIAZem HCL CD 180 MG CAP.ER.24H PO (09:30)
[2024-09-23] MEDS: Atorvastatin Calcium 40 MG TABLET PO (09:30)
[2024-09-23] MEDS: hydroCHLOROthiazide 25 MG TABLET PO (09:30)
[2024-09-23] MEDS: Nicotine 21 MG PATCH.TD24 TRANSDERMA (09:31)
[2024-09-23] MEDS: Fluticasone/Umeclidinium/Vilanterol 200/62.5/25 BLST.W.DEV 1 PUFF INHALE (09:32)
[2024-09-23] MEDS: clonazePAM 1 MG TABLET PO ×3 (11:39→20:23)
[2024-09-23] MEDS: polyethylene glycoL 3350 17 GM POWD.PACK PO (11:49)
[2024-09-23] MEDS: Milk of Magnesia 30 ML ORAL.SUSP PO (12:30)
--- NOTE | 2024-09-23 12:38 | P.PNPSI_ITS ---
Subjective Subjective Date of Service: 09/23/24 Reason For Visit: SI-deprssion Subjective Notes: Conditional Voluntary Interim History: Pt slept through the night. Pt had 1st ECT with no problems. He continues to report constipation- added lactulose. He has been visible on the unit, social with select peers. No behavioral concerns. although he wants to go home soon, he also reports understands first tx of ECT may need to be here, until no SI nor safety concerns. Review of Systems Review of Systems No SOB, No chest pain No GI symptoms. Yes all other systems are reviewed and are negative Constitutional: Denies fatigue and Denies fever(s) Cardiovascular: Denies chest pain and Denies dyspnea Respiratory: Denies dyspnea Gastrointestinal: Denies abdominal pain Endocrine: Denies fatigue Mental Status Exam Mental Status Exam Narrative: Appearance: wearing casual clothing. Fair hygiene. in NAD Behavior: cooperative Psychomotor: no agitation or retardation noted Speech: clear, normal rate/rhythm/volume, spontaneous TP: linear TC: wanting to start ECT and return home soon Mood: not well Affect: brightens up at times SI: passive HI: denies VH/AH: none Delusions: none Insight/judgment: poor x 2. Memory/cog: alert, oriented x 3. pending MOCA. Diagnostics Vital Signs (24Hr): Vital Signs - 24 hr 09/22/24 21:24 09/23/24 06:26 09/23/24 08:21 Temperature 97.7 F 97.1 F 97.8 F Pulse Rate 86 71 77 Respiratory Rate 18 18 17 Blood Pressure 141/68 H 153/93 H 176/90 H Pulse Oximetry 96 97 96 Oxygen Delivery Method Room Air Nasal Cannula with ETCO2 Oxygen Flow Rate 2 09/23/24 08:26 09/23/24 08:31 09/23/24 08:36 Temperature Pulse Rate 73 81 77 Respiratory Rate 17 18 17 Blood Pressure 163/89 H 158/90 H 156/90 H Pulse Oximetry 97 95 95 Oxygen Delivery Method Nasal Cannula with ETCO2 Room Air Room Air Oxygen Flow Rate 2 09/23/24 08:51 09/23/24 09:22 09/23/24 10:00 Temperature 97.8 F 97.3 F 97.3 F Pulse Rate 67 74 74 Respiratory Rate 16 18 Blood Pressure 145/88 H 128/98 H 128/98 H Pulse Oximetry 94 93 93 Oxygen Delivery Method Room Air Room Air Oxygen Flow Rate BMI result Body Mass Index 25.2 Labs 09/17/24 17:27 09/19/24 14:09 Labs: Laboratory Results - last 48 hr 09/22/24 09/23/24 06:28 06:21 POC Glucose 125 H 130 H Medications Medications Current Medications Acetaminophen (Acetaminophen 325 Mg Tablet) 650 mg PO Q6H PRN PRN Reason: Headache/Pain Mild Scale (1-3) Al Hydroxide/Mg Hydroxide (Magnesium Hydrox/Alum Hydrox 30 Ml Oral.Susp) 30 ml PO Q6H PRN PRN Reason: Heartburn/Nausea Atorvastatin Calcium (Atorvastatin Calcium 40 Mg Tablet) 40 mg PO DAILY [facility] Last Admin: 09/23/24 09:30 Dose: 40 mg Clonazepam (Clonazepam 1 Mg Tablet) 1 mg PO QID [facility] Last Admin: 09/23/24 11:39 Dose: 1 mg Diltiazem HCl (Diltiazem Hcl Cd 180 Mg Cap.Er.24h) 180 mg PO DAILY [facility]; Protocol Last Admin: 09/23/24 09:30 Dose: 180 mg Fluticasone/Umeclidinium/Vilanterol (Fluticasone/Umeclidinium/Vilanterol 200/62.5/25 Blst.W.Dev) 1 puff INHALE RDAILY [facility] Last Admin: 09/23/24 09:32 Dose: 1 puff Hydrochlorothiazide (Hydrochlorothiazide 25 Mg Tablet) 25 mg PO DAILY [facility] Last Admin: 09/23/24 09:30 Dose: 25 mg Hydroxyzine HCl (Hydroxyzine Hcl 25 Mg Tablet) 25 mg PO Q6H PRN PRN Reason: Anxiety Insulin Glargine (Insulin Glargine,Hum.Rec.Anlog 100 Unit/Ml 10 Ml Vial) 70 unit SUBCUT BEDTIME [facility] Last Admin: 09/21/24 20:28 Dose: 70 unit Magnesium Hydroxide (Milk Of Magnesia 30 Ml Oral.Susp) 30 ml PO DAILY PRN PRN Reason: Constipation Last Admin: 09/23/24 12:30 Dose: 30 ml Montelukast Sodium (Montelukast Sodium 10 Mg Tablet) 10 mg PO DAILY PRN PRN Reason: asthma Naloxone HCl (Naloxone Hcl 0.4 Mg/Ml Vial) 0.04 mg IVPUSH Q5M PRN PRN Reason: Excessive sedation or RR < 8 Nicotine (Nicotine 21 Mg Patch.Td24) 21 mg TRANSDERMA DAILY [facility] Last Admin: 09/23/24 09:31 Dose: 21 mg Omeprazole (Omeprazole 40 Mg Capsule.Dr) 40 mg PO DAILY PRN PRN Reason: Acid Reflux Polyethylene Glycol (Polyethylene Glycol 3350 17 Gm Powd.Pack) 17 gm PO DAILY PRN PRN Reason: Constipation Last Admin: 09/23/24 11:49 Dose: 17 gm Quetiapine Fumarate (Quetiapine Fumarate 25 Mg Tablet) 25 mg PO BEDTIME [facility] Last Admin: 09/22/24 20:32 Dose: 25 mg Trazodone HCl (Trazodone Hcl 50 Mg Tablet) 50 mg PO BEDTIME MRX1 PRN PRN Reason: Insomnia Venlafaxine HCl (Venlafaxine Hcl Er 75 Mg Cap.Er.24h) 75 mg PO DAILY [facility] Last Admin: 09/23/24 09:30 Dose: 75 mg Zolpidem Tartrate (Zolpidem Tartrate 5 Mg Tablet) 5 mg PO BEDTIME [facility] Last Admin: 09/21/24 20:28 Dose: 5 mg Allergies Allergies Allergy/AdvReac Type Severity Reaction Status Date / Time prednisone [PREDNISONE] Allergy Mild RAGE Verified 09/17/24 16:50 lisinopril AdvReac Cough Verified 09/17/24 16:50 Assessment & Plan Assessment & Plan (1) MDD (major depressive disorder), recurrent episode, moderate: Status: Acute Code(s): F33.1 - Major depressive disorder, recurrent, moderate (2) Alcohol use disorder, moderate, dependence: Status: Acute Code(s): F10.20 - Alcohol dependence, uncomplicated (3) Cocaine use disorder, mild, in early remission, abuse: Status: Acute Code(s): F14.11 - Cocaine abuse, in remission Plan Mr. Moore is a 68 year-old male with hx of MDD, alcohol use, cocaine use who self presented to [facility] reporting increased depression, recent suicide attempt via hanging. BAL 155. Utox negative. He has hx of multiple antidepressant trials and also on esketamine for depression. He has a hx of ECT for depression with good therapeutic effect. We discussed risks, benefits and alternative treatment options. Of concern is combination of clonazepam 1mg po QID, triazolam 0.25mg po qhs and ambien CR 12.5mg po qhs. He has been on these medications for some years. Unclear how much they may be affecting his breathing and/or mood. Discussed with Dr. Ojeda temporary reduction in anticipation of ECT as flumazenil may not be as effective reversing effects given several agents and high doses. Also discussed with pt increasing Effexor but he reports exacerbation of tremors and anxiety with higher does of effexor. Other antidepressant not as effective. We discussed concern of alcohol use with benzos, which he is aware of specifically affecting his respiratory status with underlying COPD and tracheomalacia. PLAN 09/21 continue tx. HOld clonazepam, ambien and insuline at bedtime on 09/22 prior to ECT 09/22 continue tx. 09/23 continue tx. Reason for continued inpatient stay Substantial Risk for: inability to function Time Spent With Patient Time: Total time managing care of this patient today ____ minutes.
[2024-09-23] MEDS: Lactulose 20 GM/30 ML SOLUTION PO (13:18)
[2024-09-23] MEDS: QUEtiapine Fumarate 25 MG TABLET PO (20:23)
[2024-09-23] MEDS: Insulin Glargine,Hum.rec.anlog 100 UNIT/ML 10 ML VIAL 70 UNIT SUBCUT (20:23)
[2024-09-23] MEDS: Zolpidem Tartrate 5 MG TABLET PO (20:23)
[2024-09-24 06:49] LABS: Glucose, Whole Blood 93 mg/dL (60-115)
[2024-09-24 07:39] VITALS: BP 146/84; PULSE 62; RESP 18; TEMP 36; O2SAT 99
--- NOTE | 2024-09-24 08:14 | HO.POSTANES ---
Post Anesthesia Evaluation Post Anesthesia Evaluation Date of Service: 09/24/24 Vital Signs: Vital Signs Temp Pulse Resp BP Pulse Ox O2 Del Method 09/24/24 07:39 96.8 F 62 18 146/84 H 99 Room Air Anesthesia: General Mental Status: Awake Pain Control: Satisfactory Nausea/Vomiting: None Hydration: Adequate Anesthesia-Related Issues: No Anes. Related Issues
[2024-09-24] MEDS: clonazePAM 1 MG TABLET PO ×3 (08:30→20:18)
[2024-09-24] MEDS: dilTIAZem HCL CD 180 MG CAP.ER.24H PO (08:30)
[2024-09-24] MEDS: Atorvastatin Calcium 40 MG TABLET PO (08:30)
[2024-09-24] MEDS: Venlafaxine HCl ER 75 MG CAP.ER.24H PO (08:30)
[2024-09-24] MEDS: Fluticasone/Umeclidinium/Vilanterol 200/62.5/25 BLST.W.DEV 1 PUFF INHALE (08:30)
[2024-09-24] MEDS: hydroCHLOROthiazide 25 MG TABLET PO (08:30)
[2024-09-24] MEDS: Nicotine 21 MG PATCH.TD24 TRANSDERMA (08:32)
[2024-09-24 10:00] VITALS: BP 121/80; PULSE 71; RESP 18; TEMP 36.1; O2SAT 95
--- NOTE | 2024-09-24 11:48 | HO.PSYCHPN ---
Subjective Subjective Date of Service: 09/24/24 Reason For Visit: SI-deprssion Subjective Notes: Conditional Voluntary Healthcare Proxy: No Interim History: Pt seen in f/u mood depressed anxious ruminating states has been depressed since april 01 ect went ok discussed change to outpt ect Medication Compliance: Yes Mental Status Exam Mental Status Exam Narrative: Appearance: wearing casual clothing. Fair hygiene. in NAD Behavior: cooperative Psychomotor: no agitation or retardation noted Speech: clear, normal rate/rhythm/volume, spontaneous TP: linear TC: hopeful for ect Mood: depressed anxious Affect: constricted SI: passive at this time HI: denies VH/AH: none Delusions: none Insight/judgment: poor x 2. Memory/cog: alert, oriented x 3. pending MOCA. Diagnostics Vital Signs (24Hr): Vital Signs - 24 hr 09/23/24 20:04 09/24/24 07:39 Temperature 98.1 F 96.8 F Pulse Rate 65 62 Respiratory Rate 18 Blood Pressure 137/58 L 146/84 H Pulse Oximetry 97 99 Oxygen Delivery Method Room Air Room Air BMI result Body Mass Index 25.2 Labs 09/17/24 17:27 09/19/24 14:09 Labs: Laboratory Results - last 48 hr 09/23/24 09/24/24 06:21 06:38 POC Glucose 130 H 93 Medications Medications Current Medications Acetaminophen (Acetaminophen 325 Mg Tablet) 650 mg PO Q6H PRN PRN Reason: Headache/Pain Mild Scale (1-3) Al Hydroxide/Mg Hydroxide (Magnesium Hydrox/Alum Hydrox 30 Ml Oral.Susp) 30 ml PO Q6H PRN PRN Reason: Heartburn/Nausea Atorvastatin Calcium (Atorvastatin Calcium 40 Mg Tablet) 40 mg PO DAILY [facility] Last Admin: 09/24/24 08:30 Dose: 40 mg Clonazepam (Clonazepam 1 Mg Tablet) 1 mg PO QID [facility] Last Admin: 09/24/24 08:30 Dose: 1 mg Diltiazem HCl (Diltiazem Hcl Cd 180 Mg Cap.Er.24h) 180 mg PO DAILY [facility]; Protocol Last Admin: 09/24/24 08:30 Dose: 180 mg Fluticasone/Umeclidinium/Vilanterol (Fluticasone/Umeclidinium/Vilanterol 200/62.5/25 Blst.W.Dev) 1 puff INHALE RDAILY [facility] Last Admin: 09/24/24 08:30 Dose: 1 puff Hydrochlorothiazide (Hydrochlorothiazide 25 Mg Tablet) 25 mg PO DAILY [facility] Last Admin: 09/24/24 08:30 Dose: 25 mg Hydroxyzine HCl (Hydroxyzine Hcl 25 Mg Tablet) 25 mg PO Q6H PRN PRN Reason: Anxiety Insulin Glargine (Insulin Glargine,Hum.Rec.Anlog 100 Unit/Ml 10 Ml Vial) 70 unit SUBCUT BEDTIME [facility] Last Admin: 09/23/24 20:23 Dose: 70 unit Lactulose (Lactulose 20 Gm/30 Ml Solution) 20 gm PO BID PRN PRN Reason: Constipation Magnesium Hydroxide (Milk Of Magnesia 30 Ml Oral.Susp) 30 ml PO DAILY PRN PRN Reason: Constipation Last Admin: 09/23/24 12:30 Dose: 30 ml Montelukast Sodium (Montelukast Sodium 10 Mg Tablet) 10 mg PO DAILY PRN PRN Reason: asthma Naloxone HCl (Naloxone Hcl 0.4 Mg/Ml Vial) 0.04 mg IVPUSH Q5M PRN PRN Reason: Excessive sedation or RR < 8 Nicotine (Nicotine 21 Mg Patch.Td24) 21 mg TRANSDERMA DAILY [facility] Last Admin: 09/24/24 08:32 Dose: 21 mg Omeprazole (Omeprazole 40 Mg Capsule.Dr) 40 mg PO DAILY PRN PRN Reason: Acid Reflux Polyethylene Glycol (Polyethylene Glycol 3350 17 Gm Powd.Pack) 17 gm PO DAILY PRN PRN Reason: Constipation Last Admin: 09/23/24 11:49 Dose: 17 gm Quetiapine Fumarate (Quetiapine Fumarate 25 Mg Tablet) 25 mg PO BEDTIME [facility] Last Admin: 09/23/24 20:23 Dose: 25 mg Trazodone HCl (Trazodone Hcl 50 Mg Tablet) 50 mg PO BEDTIME MRX1 PRN PRN Reason: Insomnia Venlafaxine HCl (Venlafaxine Hcl Er 75 Mg Cap.Er.24h) 75 mg PO DAILY [facility] Last Admin: 09/24/24 08:30 Dose: 75 mg Zolpidem Tartrate (Zolpidem Tartrate 5 Mg Tablet) 5 mg PO BEDTIME [facility] Last Admin: 09/23/24 20:23 Dose: 5 mg Allergies Allergies Allergy/AdvReac Type Severity Reaction Status Date / Time prednisone [PREDNISONE] Allergy Mild RAGE Verified 09/17/24 16:50 lisinopril AdvReac Cough Verified 09/17/24 16:50 Assessment & Plan Assessment & Plan (1) MDD (major depressive disorder), recurrent episode, moderate: Status: Acute Code(s): F33.1 - Major depressive disorder, recurrent, moderate (2) Alcohol use disorder, moderate, dependence: Status: Acute Code(s): F10.20 - Alcohol dependence, uncomplicated (3) Cocaine use disorder, mild, in early remission, abuse: Status: Acute Code(s): F14.11 - Cocaine abuse, in remission Plan Mr. Moore is a 68 year-old male with hx of MDD, alcohol use, cocaine use who self presented to [facility] ED reporting increased depression, recent suicide attempt via hanging. BAL 155. Utox negative. He has hx of multiple antidepressant trials and also on esketamine for depression. He has a hx of ECT for depression with good therapeutic effect. We discussed risks, benefits and alternative treatment options. Of concern is combination of clonazepam 1mg po QID, triazolam 0.25mg po qhs and ambien CR 12.5mg po qhs. He has been on these medications for some years. Unclear how much they may be affecting his breathing and/or mood. Discussed with Dr. Ojeda temporary reduction in anticipation of ECT as flumazenil may not be as effective reversing effects given several agents and high doses. Also discussed with pt increasing Effexor but he reports exacerbation of tremors and anxiety with higher does of effexor. Other antidepressant not as effective. We discussed concern of alcohol use with benzos, which he is aware of specifically affecting his respiratory status with underlying COPD and tracheomalacia. PLAN 09/21 continue tx. HOld clonazepam, ambien and insuline at bedtime on 09/22 prior to ECT 09/22 continue tx. 09/23 continue tx. 09/24/[address] hansen will start vraylar for augmentation cont ect Reason for continued inpatient stay Substantial Risk for: harm to self and rapid decompensation Time Spent With Patient Time: Total time managing care of this patient today ____ minutes.
[2024-09-24] MEDS: Zolpidem Tartrate 5 MG TABLET PO (20:18)
[2024-09-24] MEDS: Insulin Glargine,Hum.rec.anlog 100 UNIT/ML 10 ML VIAL 70 UNIT SUBCUT (20:18)
[2024-09-24] MEDS: QUEtiapine Fumarate 25 MG TABLET PO (20:18)
[2024-09-24 21:44] VITALS: BP 123/84; PULSE 68; RESP 16; TEMP 36.2; O2SAT 98
[2024-09-25 06:12] LABS: Glucose, Whole Blood 104 mg/dL (60-115)
[2024-09-25 08:03] VITALS: BP 138/81; PULSE 68; RESP 18; TEMP 36.5; O2SAT 95
[2024-09-25] MEDS: Venlafaxine HCl ER 75 MG CAP.ER.24H PO (08:26)
[2024-09-25] MEDS: Atorvastatin Calcium 40 MG TABLET PO (08:26)
[2024-09-25] MEDS: hydroCHLOROthiazide 25 MG TABLET PO (08:27)
[2024-09-25] MEDS: dilTIAZem HCL CD 180 MG CAP.ER.24H PO (08:27)
[2024-09-25] MEDS: clonazePAM 1 MG TABLET PO ×3 (08:27→20:05)
[2024-09-25] MEDS: Cariprazine HCl 1.5 MG CAPSULE PO (08:27)
[2024-09-25] MEDS: Fluticasone/Umeclidinium/Vilanterol 200/62.5/25 BLST.W.DEV 1 PUFF INHALE (08:29)
[2024-09-25] MEDS: Nicotine 21 MG PATCH.TD24 TRANSDERMA (08:30)
--- NOTE | 2024-09-25 12:30 | HO.PSYCHPN ---
Subjective Subjective Date of Service: 09/25/24 Reason For Visit: SI-deprssion Subjective Notes: Conditional Voluntary Interim History: Patient was seen and discussed in rounds today. Records and plans were reviewed. He is receiving ECT. Continues to be depressed. Eating and sleeping adequately. He is pleasant and social. No changes were made today Review of Systems Review of Systems Yes all other systems are reviewed and are negative Mental Status Exam Mental Status Exam Narrative: In today's visit he is alert, oriented and pleasant. Normal speech. Good eye contact. Affect is appropriate and constricted. No signs of psychosis. Moves all limbs. No abnormalities of gait. Cognitively is intact. Judgment is intact Diagnostics Vital Signs (24Hr): Vital Signs - 24 hr 09/24/24 21:44 09/25/24 08:03 Temperature 97.2 F 97.7 F Pulse Rate 68 68 Respiratory Rate 16 18 Blood Pressure 123/84 138/81 Pulse Oximetry 98 95 Oxygen Delivery Method Room Air Room Air BMI result Body Mass Index 25.2 Labs 09/17/24 17:27 09/19/24 14:09 Labs: Laboratory Results - last 48 hr 09/24/24 09/25/24 06:38 05:54 POC Glucose 93 104 Medications Medications Current Medications Acetaminophen (Acetaminophen 325 Mg Tablet) 650 mg PO Q6H PRN PRN Reason: Headache/Pain Mild Scale (1-3) Al Hydroxide/Mg Hydroxide (Magnesium Hydrox/Alum Hydrox 30 Ml Oral.Susp) 30 ml PO Q6H PRN PRN Reason: Heartburn/Nausea Atorvastatin Calcium (Atorvastatin Calcium 40 Mg Tablet) 40 mg PO DAILY [facility] Last Admin: 09/25/24 08:26 Dose: 40 mg Cariprazine (Cariprazine Hcl 1.5 Mg Capsule) 1.5 mg PO DAILY [facility] Last Admin: 09/25/24 08:27 Dose: 1.5 mg Clonazepam (Clonazepam 1 Mg Tablet) 1 mg PO TID [facility] Last Admin: 09/25/24 08:27 Dose: 1 mg Diltiazem HCl (Diltiazem Hcl Cd 180 Mg Cap.Er.24h) 180 mg PO DAILY [facility]; Protocol Last Admin: 09/25/24 08:27 Dose: 180 mg Fluticasone/Umeclidinium/Vilanterol (Fluticasone/Umeclidinium/Vilanterol 200/62.5/25 Blst.W.Dev) 1 puff INHALE RDAILY [facility] Last Admin: 09/25/24 08:29 Dose: 1 puff Hydrochlorothiazide (Hydrochlorothiazide 25 Mg Tablet) 25 mg PO DAILY [facility] Last Admin: 09/25/24 08:27 Dose: 25 mg Hydroxyzine HCl (Hydroxyzine Hcl 25 Mg Tablet) 25 mg PO Q6H PRN PRN Reason: Anxiety Insulin Glargine (Insulin Glargine,Hum.Rec.Anlog 100 Unit/Ml 10 Ml Vial) 70 unit SUBCUT BEDTIME [facility] Last Admin: 09/24/24 20:18 Dose: 70 unit Lactulose (Lactulose 20 Gm/30 Ml Solution) 20 gm PO BID PRN PRN Reason: Constipation Magnesium Hydroxide (Milk Of Magnesia 30 Ml Oral.Susp) 30 ml PO DAILY PRN PRN Reason: Constipation Last Admin: 09/23/24 12:30 Dose: 30 ml Montelukast Sodium (Montelukast Sodium 10 Mg Tablet) 10 mg PO DAILY PRN PRN Reason: asthma Naloxone HCl (Naloxone Hcl 0.4 Mg/Ml Vial) 0.04 mg IVPUSH Q5M PRN PRN Reason: Excessive sedation or RR < 8 Nicotine (Nicotine 21 Mg Patch.Td24) 21 mg TRANSDERMA DAILY [facility] Last Admin: 09/25/24 08:30 Dose: 21 mg Omeprazole (Omeprazole 40 Mg Capsule.Dr) 40 mg PO DAILY PRN PRN Reason: Acid Reflux Polyethylene Glycol (Polyethylene Glycol 3350 17 Gm Powd.Pack) 17 gm PO DAILY PRN PRN Reason: Constipation Last Admin: 09/23/24 11:49 Dose: 17 gm Quetiapine Fumarate (Quetiapine Fumarate 25 Mg Tablet) 25 mg PO BEDTIME [facility] Last Admin: 09/24/24 20:18 Dose: 25 mg Trazodone HCl (Trazodone Hcl 50 Mg Tablet) 50 mg PO BEDTIME MRX1 PRN PRN Reason: Insomnia Venlafaxine HCl (Venlafaxine Hcl Er 75 Mg Cap.Er.24h) 75 mg PO DAILY [facility] Last Admin: 09/25/24 08:26 Dose: 75 mg Zolpidem Tartrate (Zolpidem Tartrate 5 Mg Tablet) 5 mg PO BEDTIME [facility] Last Admin: 09/24/24 20:18 Dose: 5 mg Allergies Allergies Allergy/AdvReac Type Severity Reaction Status Date / Time prednisone [PREDNISONE] Allergy Mild RAGE Verified 09/17/24 16:50 lisinopril AdvReac Cough Verified 09/17/24 16:50 Assessment & Plan Assessment & Plan (1) MDD (major depressive disorder), recurrent episode, moderate: Status: Acute Code(s): F33.1 - Major depressive disorder, recurrent, moderate (2) Alcohol use disorder, moderate, dependence: Status: Acute Code(s): F10.20 - Alcohol dependence, uncomplicated (3) Cocaine use disorder, mild, in early remission, abuse: Status: Acute Code(s): F14.11 - Cocaine abuse, in remission Plan Mr. Moore is a 68 year-old male with hx of MDD, alcohol use, cocaine use who self presented to [facility] ED reporting increased depression, recent suicide attempt via hanging. BAL 155. Utox negative. He has hx of multiple antidepressant trials and also on esketamine for depression. He has a hx of ECT for depression with good therapeutic effect. We discussed risks, benefits and alternative treatment options. Of concern is combination of clonazepam 1mg po QID, triazolam 0.25mg po qhs and ambien CR 12.5mg po qhs. He has been on these medications for some years. Unclear how much they may be affecting his breathing and/or mood. Discussed with Dr. Ojeda temporary reduction in anticipation of ECT as flumazenil may not be as effective reversing effects given several agents and high doses. Also discussed with pt increasing Effexor but he reports exacerbation of tremors and anxiety with higher does of effexor. Other antidepressant not as effective. We discussed concern of alcohol use with benzos, which he is aware of specifically affecting his respiratory status with underlying COPD and tracheomalacia. PLAN 09/21 continue tx. HOld clonazepam, ambien and insuline at bedtime on 09/22 prior to ECT 09/22 continue tx. 09/23 continue tx. 09/24/[address] hansen will start radha for augmentation cont ect 09/25: Continue current regimen and plans Reason for continued inpatient stay Substantial Risk for: med/psych decompensation Time Spent With Patient Time: Total time managing care of this patient today ____ minutes.
[2024-09-25] MEDS: QUEtiapine Fumarate 25 MG TABLET PO (20:04)
[2024-09-25] MEDS: Zolpidem Tartrate 5 MG TABLET PO (20:05)
[2024-09-25] MEDS: Insulin Glargine,Hum.rec.anlog 100 UNIT/ML 10 ML VIAL 70 UNIT SUBCUT (20:07)
[2024-09-25 22:00] VITALS: BP 122/77; PULSE 74; RESP 16; TEMP 36.3; O2SAT 97
[2024-09-26 06:37] LABS: Glucose, Whole Blood 94 mg/dL (60-115)
[2024-09-26 07:00] VITALS: BMI 26.5
[2024-09-26] MEDS: Venlafaxine HCl ER 75 MG CAP.ER.24H PO (07:51)
[2024-09-26] MEDS: Nicotine 21 MG PATCH.TD24 TRANSDERMA (07:51)
[2024-09-26] MEDS: Atorvastatin Calcium 40 MG TABLET PO (07:51)
[2024-09-26] MEDS: Fluticasone/Umeclidinium/Vilanterol 200/62.5/25 BLST.W.DEV 1 PUFF INHALE (07:51)
[2024-09-26 07:52] VITALS: BP 147/82; PULSE 83; RESP 16; TEMP 36.5; O2SAT 95
[2024-09-26] MEDS: clonazePAM 1 MG TABLET PO ×3 (07:52→20:37)
[2024-09-26] MEDS: Cariprazine HCl 1.5 MG CAPSULE PO (07:52)
[2024-09-26] MEDS: dilTIAZem HCL CD 180 MG CAP.ER.24H PO (07:52)
[2024-09-26 07:53] VITALS: BP 147/82
[2024-09-26] MEDS: hydroCHLOROthiazide 25 MG TABLET PO (07:53)
--- NOTE | 2024-09-26 10:08 | HO.PSYCHPN ---
Subjective Subjective Date of Service: 09/27/24 Reason For Visit: SI-deprssion Subjective Notes: Conditional Voluntary Interim History: Pt slept through the night. Pt reports mood bit improved in that less suicidal ideation. He continues to endorse depressed mood, somewhat hopeless but looking forward to return home. He is social on the unit. Attends assign groups. Medication Compliance: Yes Side effects from medications: No Attending Groups: Yes Diagnostics Vital Signs (24Hr): Vital Signs - 24 hr 09/25/24 22:00 09/26/24 07:52 09/26/24 07:52 Temperature 97.4 F 97.7 F Pulse Rate 74 83 83 Respiratory Rate 16 16 Blood Pressure 122/77 147/82 H 147/82 H Pulse Oximetry 97 95 Oxygen Delivery Method Room Air Room Air 09/26/24 07:53 Temperature Pulse Rate Respiratory Rate Blood Pressure 147/82 H Pulse Oximetry Oxygen Delivery Method BMI result Body Mass Index 25.2 Labs 09/17/24 17:27 09/19/24 14:09 Labs: Laboratory Results - last 48 hr 09/25/24 09/26/24 05:54 06:27 POC Glucose 104 94 Medications Medications Current Medications Acetaminophen (Acetaminophen 325 Mg Tablet) 650 mg PO Q6H PRN PRN Reason: Headache/Pain Mild Scale (1-3) Al Hydroxide/Mg Hydroxide (Magnesium Hydrox/Alum Hydrox 30 Ml Oral.Susp) 30 ml PO Q6H PRN PRN Reason: Heartburn/Nausea Atorvastatin Calcium (Atorvastatin Calcium 40 Mg Tablet) 40 mg PO DAILY [facility] Last Admin: 09/26/24 07:51 Dose: 40 mg Cariprazine (Cariprazine Hcl 1.5 Mg Capsule) 1.5 mg PO DAILY [facility] Last Admin: 09/26/24 07:52 Dose: 1.5 mg Clonazepam (Clonazepam 1 Mg Tablet) 1 mg PO TID [facility] Last Admin: 09/26/24 07:52 Dose: 1 mg Diltiazem HCl (Diltiazem Hcl Cd 180 Mg Cap.Er.24h) 180 mg PO DAILY [facility]; Protocol Last Admin: 09/26/24 07:52 Dose: 180 mg Fluticasone/Umeclidinium/Vilanterol (Fluticasone/Umeclidinium/Vilanterol 200/62.5/25 Blst.W.Dev) 1 puff INHALE RDAILY [facility] Last Admin: 09/26/24 07:51 Dose: 1 puff Hydrochlorothiazide (Hydrochlorothiazide 25 Mg Tablet) 25 mg PO DAILY [facility] Last Admin: 09/26/24 07:53 Dose: 25 mg Hydroxyzine HCl (Hydroxyzine Hcl 25 Mg Tablet) 25 mg PO Q6H PRN PRN Reason: Anxiety Insulin Glargine (Insulin Glargine,Hum.Rec.Anlog 100 Unit/Ml 10 Ml Vial) 70 unit SUBCUT BEDTIME [facility] Last Admin: 09/25/24 20:07 Dose: 70 unit Lactulose (Lactulose 20 Gm/30 Ml Solution) 20 gm PO BID PRN PRN Reason: Constipation Magnesium Hydroxide (Milk Of Magnesia 30 Ml Oral.Susp) 30 ml PO DAILY PRN PRN Reason: Constipation Last Admin: 09/23/24 12:30 Dose: 30 ml Montelukast Sodium (Montelukast Sodium 10 Mg Tablet) 10 mg PO DAILY PRN PRN Reason: asthma Naloxone HCl (Naloxone Hcl 0.4 Mg/Ml Vial) 0.04 mg IVPUSH Q5M PRN PRN Reason: Excessive sedation or RR < 8 Nicotine (Nicotine 21 Mg Patch.Td24) 21 mg TRANSDERMA DAILY [facility] Last Admin: 09/26/24 07:51 Dose: 21 mg Omeprazole (Omeprazole 40 Mg Capsule.Dr) 40 mg PO DAILY PRN PRN Reason: Acid Reflux Polyethylene Glycol (Polyethylene Glycol 3350 17 Gm Powd.Pack) 17 gm PO DAILY PRN PRN Reason: Constipation Last Admin: 09/23/24 11:49 Dose: 17 gm Quetiapine Fumarate (Quetiapine Fumarate 25 Mg Tablet) 25 mg PO BEDTIME [facility] Last Admin: 09/25/24 20:04 Dose: 25 mg Trazodone HCl (Trazodone Hcl 50 Mg Tablet) 50 mg PO BEDTIME MRX1 PRN PRN Reason: Insomnia Venlafaxine HCl (Venlafaxine Hcl Er 75 Mg Cap.Er.24h) 75 mg PO DAILY [facility] Last Admin: 09/26/24 07:51 Dose: 75 mg Zolpidem Tartrate (Zolpidem Tartrate 5 Mg Tablet) 5 mg PO BEDTIME [facility] Last Admin: 09/25/24 20:05 Dose: 5 mg Allergies Allergies Allergy/AdvReac Type Severity Reaction Status Date / Time prednisone [PREDNISONE] Allergy Mild RAGE Verified 09/17/24 16:50 lisinopril AdvReac Cough Verified 09/17/24 16:50 Assessment & Plan Assessment & Plan (1) MDD (major depressive disorder), recurrent episode, moderate: Status: Acute Code(s): F33.1 - Major depressive disorder, recurrent, moderate (2) Alcohol use disorder, moderate, dependence: Status: Acute Code(s): F10.20 - Alcohol dependence, uncomplicated (3) Cocaine use disorder, mild, in early remission, abuse: Status: Acute Code(s): F14.11 - Cocaine abuse, in remission Plan Mr. Moore is a 68 year-old male with hx of MDD, alcohol use, cocaine use who self presented to [facility] ED reporting increased depression, recent suicide attempt via hanging. BAL 155. Utox negative. He has hx of multiple antidepressant trials and also on esketamine for depression. He has a hx of ECT for depression with good therapeutic effect. We discussed risks, benefits and alternative treatment options. Of concern is combination of clonazepam 1mg po QID, triazolam 0.25mg po qhs and ambien CR 12.5mg po qhs. He has been on these medications for some years. Unclear how much they may be affecting his breathing and/or mood. Discussed with Dr. Ojeda temporary reduction in anticipation of ECT as flumazenil may not be as effective reversing effects given several agents and high doses. Also discussed with pt increasing Effexor but he reports exacerbation of tremors and anxiety with higher does of effexor. Other antidepressant not as effective. We discussed concern of alcohol use with benzos, which he is aware of specifically affecting his respiratory status with underlying COPD and tracheomalacia. PLAN 09/21 continue tx. HOld clonazepam, ambien and insuline at bedtime on 09/22 prior to ECT 09/22 continue tx. 09/23 continue tx. 09/24/[address] hansen will start vraylar for augmentation cont ect 09/25: Continue current regimen and plans 09/26 ECT on 09/27, then on 09/30, plan to dc 10/01. Reason for continued inpatient stay Substantial Risk for: harm to self Time Spent With Patient Time: Total time managing care of this patient today ____ minutes.
[2024-09-26] MEDS: Zolpidem Tartrate 5 MG TABLET PO (20:37)
[2024-09-26] MEDS: QUEtiapine Fumarate 25 MG TABLET PO (20:37)
[2024-09-26 21:35] VITALS: BP 129/60; PULSE 67; RESP 16; TEMP 36.9; O2SAT 97
[2024-09-27] VITALS (9 sets, daily range): BP systolic 117–169; BP diastolic 56–93; PULSE 67–86; RESP 16–20; TEMP 36.1–37.1; O2SAT 94–99
[2024-09-27 05:29] LABS: Glucose, Whole Blood 153 mg/dL (60-115)
[2024-09-27] MEDS: Lactated Ringers 1,000 ML 100 ML IVCONT (06:50)
--- NOTE | 2024-09-27 07:45 | MHC.SHP ---
Pre-Procedural Eval Section A - 24 Hr Update-Section A only Date of Service: 09/27/24 The patient is an INPATIENT: Yes Changes since office visit: No Cold of Flu in the past 2 weeks, No New Medical Problems, No Changes in Medication and No Patient answered all questions The patient has been examined within 24 hours of the surgical procedure. The History & Physical has been completed within 30 days and I have reviewed it.: Yes Section B - Complete if H&P > 30 days Chief Complaint: SI-deprssion Details of Present Illness: Admitted for exacerbation of depression with SI, last ECT 4 YEARS ago with good response Relevant Family History (Specify if Yes): Yes Relevant Social History: None Present Medications: see Short Stay Collaborative assessment Medical History: No relevant PMH History of Previous Operations: No relevant previous surgery Allergies: Allergies Allergy/AdvReac Type Severity Reaction Status Date / Time prednisone [PREDNISONE] Allergy Mild RAGE Verified 09/17/24 16:50 lisinopril AdvReac Cough Verified 09/17/24 16:50 Review of Systems Sugical H&P ROS: Negative: Constitution, Cardiovascular, Respiratory, Neurological, Psychiatric, Hem-Onc, Allergic/Immunologic, Gastrointestinal, Genitourinary, Musculoskeletal, Integumentary, Endocrine and Eyes/Ears/Nose/Throat Exam Surgical H&P Exam: Normal: HEENT, Normal: Heart, Normal: Lungs, Normal: Extremities, Normal: Abdomen, Normal: Skin and Normal: Neurological Plan Diagnosis/Plan: Unchanged I have reviewed the history and physical and performed a pertinent physical examination on my patient. No changes have occurred unless specified. Time Spent With Patient Time: Total time managing care of this patient today ____ minutes.
--- NOTE | 2024-09-27 07:46 | HO.ECTPROC ---
ECT Procedure Note Diagnosis/Treatment Date of Service: 09/27/24 Diagnosis: Major Depressive Disorder Current Treatment Number: 2 Treatment: Series Interval Clinical Notes: Pt tolerated 1 st ect was done BT was done BT today tolerated well anesthesia suggests consideration of lma next tx .given lorazepam 2 mg iv post Time: Total time managing care of this patient today ____ minutes. ECT Settings Device: THYMATRON DGx Electrode Placement: Bitemporal Program/Pulse Width: 0.50 Energy Percent: 100 Seizure Duration By EEG (in seconds): 36 Medications Administration General Anesthetic: Etomidate (18) Muscle Relaxant: Succinylcholine (100) Ancillary Medications Miscillaneous Medications: Flumazenil and Other (Ativan 2 mg IVP post ECT) Airway Management Airway Management: Bag Mask Ventilation Treatment Recommendations No Changes Recommended: No change Pt Tolerated Procedure w/o Issue: Yes
[2024-09-27] MEDS: LORazepam 2 MG/ML VIAL IVPUSH (08:08)
--- NOTE | 2024-09-27 08:57 | P.CONAN_ITS ---
FORM[facility]LY [facility] Active Problems Active Problems: All Active Problems Cocaine use disorder, mild, in early remission, abuse (Acute) Alcohol use disorder, moderate, dependence (Acute) MDD (major depressive disorder), recurrent episode, moderate (Acute) Suicidal ideation (Acute) Chronic pain syndrome (Acute) Intercostal neuralgia (Acute) Pre-op evaluation (Acute) Post-thoracotomy pain syndrome (Acute) 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 (Acute) Chest pain (Acute) COPD (chronic obstructive pulmonary disease) (Acute) Tracheobronchomalacia (Acute) Past Medical History Medical History Diabetes GERD (gastroesophageal reflux disease) Hepatitis Depression HTN (hypertension) Chronic pain syndrome Intercostal neuralgia Pre-op evaluation 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 Chest pain COPD (chronic obstructive pulmonary disease) Tracheobronchomalacia Family History Family History Other HTN (hypertension) Family history of problems with anesthesia: No Surgical History History of Problems with Anesthesia: No Social History Social History Household Members: None Housing: Condominium Do you presently have visiting nurse or other home services: No ( I need more help. ) Alcohol intake: current Alcohol intake frequency: a few times a month Patient Tobacco Use Status: Former Tobacco user Tobacco use type: Cigarette Cigarette Packs Per Day: 0.5 Cigarettes Per Day: 10.0 Years Smoked: 10 Smoked in Last 30 Days: Yes Patient Interested in Nicotine Replacement: Yes Patient Given Instructions on How to Stop Smoking: No Second Hand Smoke Exposure: No Use of substances other than those prescribed or required for medical reasons: No Substance Use Type: Marijuana Last Used Substance Other:: June2024 Currently Displaying Signs/Symptoms of Drug Intoxication Withdrawal: No Any prior treatment program specific to substance use: Yes [facility] Have you been hit, kicked, punched, or otherwise hurt by someone within the past year? If so, by whom?: No Do you feel safe in your current relationship?: No Is there a partner from a previous relationship who is making you feel unsafe now?: No Are you made to feel afraid or neglected: No Spiritual Healthcare Practices: no Denominational Healthcare Practices: no Cultural Healthcare Practices: no Advance Directives: No Advance Directives Information Provided: No Do you have thoughts of harming others: None Do you have a plan to hurt others: No Plan Recently lost weight without trying: No Eating poorly because of decreased appetite: Yes Poor oral hygiene: No service: Yes (4 years in the ) Sexual orientation: Straight/Heterosexual Meds Allergies Allergy/AdvReac Type Severity Reaction Status Date / Time prednisone [PREDNISONE] Allergy Mild RAGE Verified 09/17/24 16:50 lisinopril AdvReac Cough Verified 09/17/24 16:50 Active Medications: Current Medications Acetaminophen (Acetaminophen 325 Mg Tablet) 650 mg PO Q6H PRN PRN Reason: Headache/Pain Mild Scale (1-3) Al Hydroxide/Mg Hydroxide (Magnesium Hydrox/Alum Hydrox 30 Ml Oral.Susp) 30 ml PO Q6H PRN PRN Reason: Heartburn/Nausea Atorvastatin Calcium (Atorvastatin Calcium 40 Mg Tablet) 40 mg PO DAILY [facility] Last Admin: 09/26/24 07:51 Dose: 40 mg Cariprazine (Cariprazine Hcl 1.5 Mg Capsule) 1.5 mg PO DAILY [facility] Last Admin: 09/26/24 07:52 Dose: 1.5 mg Clonazepam (Clonazepam 1 Mg Tablet) 1 mg PO TID [facility] Last Admin: 09/26/24 20:37 Dose: 1 mg Diltiazem HCl (Diltiazem Hcl Cd 180 Mg Cap.Er.24h) 180 mg PO DAILY [facility]; Protocol Last Admin: 09/26/24 07:52 Dose: 180 mg Fluticasone/Umeclidinium/Vilanterol (Fluticasone/Umeclidinium/Vilanterol 200/62.5/25 Blst.W.Dev) 1 puff INHALE RDAILY [facility] Last Admin: 09/26/24 07:51 Dose: 1 puff Hydrochlorothiazide (Hydrochlorothiazide 25 Mg Tablet) 25 mg PO DAILY [facility] Last Admin: 09/26/24 07:53 Dose: 25 mg Hydroxyzine HCl (Hydroxyzine Hcl 25 Mg Tablet) 25 mg PO Q6H PRN PRN Reason: Anxiety Lactated Ringer's (Lr) 1,000 mls @ 100 mls/hr IVCONT .Q10H [facility] Last Admin: 09/27/24 06:50 Dose: 100 mls/hr Insulin Glargine (Insulin Glargine,Hum.Rec.Anlog 100 Unit/Ml 10 Ml Vial) 70 unit SUBCUT BEDTIME [facility] Last Admin: 09/26/24 20:37 Dose: Not Given Lactulose (Lactulose 20 Gm/30 Ml Solution) 20 gm PO BID PRN PRN Reason: Constipation Magnesium Hydroxide (Milk Of Magnesia 30 Ml Oral.Susp) 30 ml PO DAILY PRN PRN Reason: Constipation Last Admin: 09/23/24 12:30 Dose: 30 ml Montelukast Sodium (Montelukast Sodium 10 Mg Tablet) 10 mg PO DAILY PRN PRN Reason: asthma Naloxone HCl (Naloxone Hcl 0.4 Mg/Ml Vial) 0.04 mg IVPUSH Q5M PRN PRN Reason: Excessive sedation or RR < 8 Nicotine (Nicotine 21 Mg Patch.Td24) 21 mg TRANSDERMA DAILY [facility] Last Admin: 09/26/24 07:51 Dose: 21 mg Omeprazole (Omeprazole 40 Mg Capsule.Dr) 40 mg PO DAILY PRN PRN Reason: Acid Reflux Polyethylene Glycol (Polyethylene Glycol 3350 17 Gm Powd.Pack) 17 gm PO DAILY PRN PRN Reason: Constipation Last Admin: 09/23/24 11:49 Dose: 17 gm Quetiapine Fumarate (Quetiapine Fumarate 25 Mg Tablet) 25 mg PO BEDTIME [facility] Last Admin: 09/26/24 20:37 Dose: 25 mg Trazodone HCl (Trazodone Hcl 50 Mg Tablet) 50 mg PO BEDTIME MRX1 PRN PRN Reason: Insomnia Venlafaxine HCl (Venlafaxine Hcl Er 75 Mg Cap.Er.24h) 75 mg PO DAILY [facility] Last Admin: 09/26/24 07:51 Dose: 75 mg Zolpidem Tartrate (Zolpidem Tartrate 5 Mg Tablet) 5 mg PO BEDTIME [facility] Last Admin: 09/26/24 20:37 Dose: 5 mg Home Medications ?Medication ?Instructions ?Recorded ?Confirmed ?Last Taken ?Type insulin glargine 100 unit/mL (3 70 unit subcut BEDTIME 07/22/20 09/17/24 Unknown History mL) subcutaneous pen montelukast 10 mg tablet 10 mg PO DAILY PRN asthma 08/26/20 09/17/24 08/26/20 04:10 History (Singulair) omeprazole 20 mg capsule,delayed 40 mg PO DAILY PRN Acid Reflux 10/14/20 09/17/24 Unknown History release atorvastatin 40 mg tablet 40 mg PO DAILY 09/17/24 09/17/24 Unknown History chlorthalidone 25 mg tablet 25 mg PO DAILY 09/17/24 09/17/24 Unknown History clonazepam 1 mg tablet 1 mg PO QID 09/17/24 09/17/24 Unknown History desvenlafaxine succinate 50 mg 50 mg PO DAILY 09/17/24 09/17/24 Unknown History tablet,extended release 24 hr diltiazem HCl 180 mg 180 mg PO DAILY 09/17/24 09/17/24 Unknown History capsule,extended release 24 hr dulaglutide 3 mg/0.5 mL 3 mg subcut CLARK 09/17/24 09/17/24 Unknown History subcutaneous pen injector (Trulicity) esketamine 84 mg (28 mg x 3) nasal 84 mg intranasal MOTH 09/17/24 09/17/24 Unknown History spray ([place]) fluticasone fur. 200 mcg-umeclid 1 ea inhalation DAILY 09/17/24 09/17/24 Unknown History 62.5 mcg-vilant 25 mcg inhalat.powder (Trelegy Ellipta) quetiapine 25 mg tablet 25 mg PO BEDTIME 09/17/24 09/17/24 Unknown History triazolam 0.25 mg tablet 0.25 mg PO BEDTIME 09/17/24 09/17/24 Unknown History zolpidem 12.5 mg tablet,extended 12.5 mg PO BEDTIME 09/17/24 09/17/24 Unknown History release,multiphase Exam Height,Weight and Vital Signs: Height 6 ft Weight 88.677 kg Last Vital Signs Temp 97 F 09/27/24 08:42 Pulse 81 09/27/24 08:42 Resp 20 09/27/24 08:42 BP 117/56 L 09/27/24 08:42 Pulse Ox 95 09/27/24 08:42 O2 Del Method Room Air 09/27/24 08:42 O2 Flow Rate 1 09/27/24 08:27 Pertinent Lab Results Pertinent Lab Results: Laboratory Tests 09/17/24 09/17/24 09/18/24 17: 22:07 09:05 WBC 6.7 RBC 5.18 Hgb 16.0 Hct 44.6 MCV 86.1 MCH 30.9 MCHC 35.9 RDW 12.1 Plt Count 233 MPV 9.6 Immature Gran % (Auto) 0.3 Neut % (Auto) 50.6 Lymph % (Auto) 37.5 [place] % (Auto) 7.9 Eos % (Auto) 3.3 Baso % (Auto) 0.4 Lymph # (Auto) 2.5 [place] # (Auto) 0.5 Eos # (Auto) 0.2 Baso # (Auto) 0.0 Abs Immat Gran (auto) 0.02 Absolute Neuts (auto) 3.4 Absolute Nucleated RBC 0.000 Nucleated RBC % (auto) 0.0 Sodium 144 Potassium 4.0 Chloride 109 H Carbon Dioxide 30 H Anion Gap 9 L BUN 12 Creatinine 1.21 Estim Creat Clear Calc 65.0 Estimated GFR 60 POC Glucose 196 H Random Glucose 161 H Estimat Average Glucose Hemoglobin A1c % Calcium 9.6 D Magnesium 2.0 Total Bilirubin 0.4 AST 28 ALT 44 H Alkaline Phosphatase 83 Total Protein 7.5 Albumin 4.3 Triglycerides Cholesterol LDL Cholesterol, Calc HDL Cholesterol Vitamin B12 Folate Urine Color Yellow Urine Appearance Clear Urine pH 6.0 Ur Specific [place] 1.020 Urine Protein Negative Urine Glucose (UA) Negative Urine Ketones Negative Urine Blood Negative Urine Nitrite Negative Ur Leukocyte Esterase Negative Urine RBC 0-2 Urine WBC 0-5 Ur Squamous Epith Cells 0-2 Urine Bacteria None Seen Hyaline Casts 0-2 Urine Opiates Screen Not Detected Ur Buprenorphine Scrn Not Detected Ur Oxycodone Screen Not Detected Urine Methadone Screen Not Detected Urine Fentanyl Screen Not Detected Ur Barbiturates Screen Not Detected Ur Phencyclidine Scrn Not Detected Ur Amphetamines Screen Not Detected U Benzodiazepines Scrn Not Detected Urine Cocaine Screen Not Detected U Marijuana (THC) Screen Not Detected Ethyl Alcohol 155 09/18/24 09/19/24 09/20/24 20:10 14:09 06:13 WBC RBC Hgb Hct MCV MCH MCHC RDW Plt Count MPV Immature Gran % (Auto) Neut % (Auto) Lymph % (Auto) [place] % (Auto) Eos % (Auto) Baso % (Auto) Lymph # (Auto) [place] # (Auto) Eos # (Auto) Baso # (Auto) Abs Immat Gran (auto) Absolute Neuts (auto) Absolute Nucleated RBC Nucleated RBC % (auto) Sodium 139 Potassium 4.0 Chloride 101 Carbon Dioxide 32 H Anion Gap 10 L BUN 14 Creatinine 1.18 Estim Creat Clear Calc 66.6 Estimated GFR > 60 POC Glucose 181 H 89 Random Glucose 149 H Estimat Average Glucose Hemoglobin A1c % Calcium 9.9 Magnesium Total Bilirubin 0.7 AST 28 ALT 47 H Alkaline Phosphatase 87 Total Protein 7.5 Albumin 4.4 Triglycerides Cholesterol LDL Cholesterol, Calc HDL Cholesterol Vitamin B12 Folate Urine Color Urine Appearance Urine pH Ur Specific [place] Urine Protein Urine Glucose (UA) Urine Ketones Urine Blood Urine Nitrite Ur Leukocyte Esterase Urine RBC Urine WBC Ur Squamous Epith Cells Urine Bacteria Hyaline Casts Urine Opiates Screen Ur Buprenorphine Scrn Ur Oxycodone Screen Urine Methadone Screen Urine Fentanyl Screen Ur Barbiturates Screen Ur Phencyclidine Scrn Ur Amphetamines Screen U Benzodiazepines Scrn Urine Cocaine Screen U Marijuana (THC) Screen Ethyl Alcohol 09/20/24 09/21/24 09/22/24 09:00 06:42 06:28 WBC RBC Hgb Hct MCV MCH MCHC RDW Plt Count MPV Immature Gran % (Auto) Neut % (Auto) Lymph % (Auto) [place] % (Auto) Eos % (Auto) Baso % (Auto) Lymph # (Auto) [place] # (Auto) Eos # (Auto) Baso # (Auto) Abs Immat Gran (auto) Absolute Neuts (auto) Absolute Nucleated RBC Nucleated RBC % (auto) Sodium Potassium Chloride Carbon Dioxide Anion Gap BUN Creatinine Estim Creat Clear Calc Estimated GFR POC Glucose 90 125 H Random Glucose Estimat Average Glucose 134 Hemoglobin A1c % 6.3 H Calcium Magnesium 1.7 Total Bilirubin AST ALT Alkaline Phosphatase Total Protein Albumin Triglycerides 119 Cholesterol 155 LDL Cholesterol, Calc 88 HDL Cholesterol 44 Vitamin B12 545 Folate 9.8 Urine Color Urine Appearance Urine pH Ur Specific [place] Urine Protein Urine Glucose (UA) Urine Ketones Urine Blood Urine Nitrite Ur Leukocyte Esterase Urine RBC Urine WBC Ur Squamous Epith Cells Urine Bacteria Hyaline Casts Urine Opiates Screen Ur Buprenorphine Scrn Ur Oxycodone Screen Urine Methadone Screen Urine Fentanyl Screen Ur Barbiturates Screen Ur Phencyclidine Scrn Ur Amphetamines Screen U Benzodiazepines Scrn Urine Cocaine Screen U Marijuana (THC) Screen Ethyl Alcohol 09/23/24 09/24/24 09/25/24 06:21 06:38 05:54 WBC RBC Hgb Hct MCV MCH MCHC RDW Plt Count MPV Immature Gran % (Auto) Neut % (Auto) Lymph % (Auto) [place] % (Auto) Eos % (Auto) Baso % (Auto) Lymph # (Auto) [place] # (Auto) Eos # (Auto) Baso # (Auto) Abs Immat Gran (auto) Absolute Neuts (auto) Absolute Nucleated RBC Nucleated RBC % (auto) Sodium Potassium Chloride Carbon Dioxide Anion Gap BUN Creatinine Estim Creat Clear Calc Estimated GFR POC Glucose 130 H 93 104 Random Glucose Estimat Average Glucose Hemoglobin A1c % Calcium Magnesium Total Bilirubin AST ALT Alkaline Phosphatase Total Protein Albumin Triglycerides Cholesterol LDL Cholesterol, Calc HDL Cholesterol Vitamin B12 Folate Urine Color Urine Appearance Urine pH Ur Specific [place] Urine Protein Urine Glucose (UA) Urine Ketones Urine Blood Urine Nitrite Ur Leukocyte Esterase Urine RBC Urine WBC Ur Squamous Epith Cells Urine Bacteria Hyaline Casts Urine Opiates Screen Ur Buprenorphine Scrn Ur Oxycodone Screen Urine Methadone Screen Urine Fentanyl Screen Ur Barbiturates Screen Ur Phencyclidine Scrn Ur Amphetamines Screen U Benzodiazepines Scrn Urine Cocaine Screen U Marijuana (THC) Screen Ethyl Alcohol 09/26/24 09/27/24 06:27 05:22 WBC RBC Hgb Hct MCV MCH MCHC RDW Plt Count MPV Immature Gran % (Auto) Neut % (Auto) Lymph % (Auto) [place] % (Auto) Eos % (Auto) Baso % (Auto) Lymph # (Auto) [place] # (Auto) Eos # (Auto) Baso # (Auto) Abs Immat Gran (auto) Absolute Neuts (auto) Absolute Nucleated RBC Nucleated RBC % (auto) Sodium Potassium Chloride Carbon Dioxide Anion Gap BUN Creatinine Estim Creat Clear Calc Estimated GFR POC Glucose 94 153 H Random Glucose Estimat Average Glucose Hemoglobin A1c % Calcium Magnesium Total Bilirubin AST ALT Alkaline Phosphatase Total Protein Albumin Triglycerides Cholesterol LDL Cholesterol, Calc HDL Cholesterol Vitamin B12 Folate Urine Color Urine Appearance Urine pH Ur Specific [place] Urine Protein Urine Glucose (UA) Urine Ketones Urine Blood Urine Nitrite Ur Leukocyte Esterase Urine RBC Urine WBC Ur Squamous Epith Cells Urine Bacteria Hyaline Casts Urine Opiates Screen Ur Buprenorphine Scrn Ur Oxycodone Screen Urine Methadone Screen Urine Fentanyl Screen Ur Barbiturates Screen Ur Phencyclidine Scrn Ur Amphetamines Screen U Benzodiazepines Scrn Urine Cocaine Screen U Marijuana (THC) Screen Ethyl Alcohol Airway Mallampati Class: III TM Dist: >3cm Neck ROM: Full Heart: RRR Lungs: CTA Assessment and Plan Assessment Anesthesia Assessment: Anesthesia Plan Discussed, Smoking Cess. Discussed and Chart Reviewed Final Anesthetic Review Family History of Problems with Anesthesia: No History of Problems with Anesthesia: No NPO: Yes ASA Class: III Final Preanesthetic Review: Meds/Allgs Chart Reviewed, Consent Obtained/Reviewed and Anes Risks/Benef Reviewed Patient Risk: Intermediate Procedure Risk: Low Anesthetic Plan Anesthetic Plan: GA Disposition: Standard PACU
--- NOTE | 2024-09-27 09:00 | HO.POSTANES ---
Post Anesthesia Evaluation Post Anesthesia Evaluation Date of Service: 09/27/24 Vital Signs: Vital Signs Temp Pulse Resp BP Pulse Ox O2 Del Method O2 Flow Rate 09/27/24 08:57 97 F 81 16 144/87 H 94 Room Air 09/27/24 08:42 97 F 81 20 117/56 L 95 Room Air 09/27/24 08:27 78 20 123/63 94 Nasal Cannula with ETCO2 1 09/27/24 08:22 76 17 135/66 94 Nasal Cannula with ETCO2 3 09/27/24 08:17 78 17 123/68 95 Nasal Cannula with ETCO2 3 09/27/24 08:12 97 F 78 16 169/89 H 94 Nasal Cannula with ETCO2 3 09/27/24 06:44 97.4 F 67 16 136/93 H 99 Room Air 09/26/24 21:35 98.5 F 67 16 129/60 97 Room Air Anesthesia: Monitored Mental Status: Awake Pain Control: Satisfactory Nausea/Vomiting: None Hydration: Adequate Anesthesia-Related Issues: No Anes. Related Issues
--- NOTE | 2024-09-27 09:10 | P.PNPSI_ITS ---
Subjective Subjective Date of Service: 09/27/24 Reason For Visit: SI-deprssion Subjective Notes: Conditional Voluntary Interim History: Pt slept through the night. Pt continues to report mood improved in that less suicidal ideation. Tolerating ECT, no side effects. He continues to endorse depressed mood, somewhat hopeless but looking forward to return home. He is social on the unit. Attends assign groups. Review of Systems Review of Systems No SOB, No chest pain No GI symptoms. Yes all other systems are reviewed and are negative Constitutional: Denies fatigue and Denies fever(s) Cardiovascular: Denies chest pain and Denies dyspnea Respiratory: Denies dyspnea Gastrointestinal: Denies abdominal pain Endocrine: Denies fatigue Mental Status Exam Mental Status Exam Narrative: Appearance: wearing casual clothing. Fair hygiene. in NAD Behavior: cooperative Psychomotor: no agitation or retardation noted Speech: clear, normal rate/rhythm/volume, spontaneous TP: linear TC: wanting to start ECT and return home soon Mood: better Affect: brightens up at times SI: passive HI: denies VH/AH: none Delusions: none Insight/judgment: poor x 2. Memory/cog: alert, oriented x 3. pending MOCA. Diagnostics Vital Signs (24Hr): Vital Signs - 24 hr 09/26/24 21:35 09/27/24 06:44 09/27/24 08:12 Temperature 98.5 F 97.4 F 97 F Pulse Rate 67 67 78 Respiratory Rate 16 16 16 Blood Pressure 129/60 136/93 H 169/89 H Pulse Oximetry 97 99 94 Oxygen Delivery Method Room Air Room Air Nasal Cannula with ETCO2 Oxygen Flow Rate 3 09/27/24 08:17 09/27/24 08:22 09/27/24 08:27 Temperature Pulse Rate 78 76 78 Respiratory Rate 17 17 20 Blood Pressure 123/68 135/66 123/63 Pulse Oximetry 95 94 94 Oxygen Delivery Method Nasal Cannula with ETCO2 Nasal Cannula with ETCO2 Nasal Cannula with ETCO2 Oxygen Flow Rate 3 3 1 09/27/24 08:42 09/27/24 08:57 Temperature 97 F 97 F Pulse Rate 81 81 Respiratory Rate 20 16 Blood Pressure 117/56 L 144/87 H Pulse Oximetry 95 94 Oxygen Delivery Method Room Air Room Air Oxygen Flow Rate BMI result Body Mass Index 26.5 Labs 09/17/24 17:27 09/19/24 14:09 Labs: Laboratory Results - last 48 hr 12/26/24 12/27/24 06:27 05:22 POC Glucose 94 153 H Medications Medications Current Medications Acetaminophen (Acetaminophen 325 Mg Tablet) 650 mg PO Q6H PRN PRN Reason: Headache/Pain Mild Scale (1-3) Al Hydroxide/Mg Hydroxide (Magnesium Hydrox/Alum Hydrox 30 Ml Oral.Susp) 30 ml PO Q6H PRN PRN Reason: Heartburn/Nausea Atorvastatin Calcium (Atorvastatin Calcium 40 Mg Tablet) 40 mg PO DAILY [facility] Last Admin: 09/26/24 07:51 Dose: 40 mg Cariprazine (Cariprazine Hcl 1.5 Mg Capsule) 1.5 mg PO DAILY [facility] Last Admin: 09/26/24 07:52 Dose: 1.5 mg Clonazepam (Clonazepam 1 Mg Tablet) 1 mg PO TID [facility] Last Admin: 09/26/24 20:37 Dose: 1 mg Diltiazem HCl (Diltiazem Hcl Cd 180 Mg Cap.Er.24h) 180 mg PO DAILY [facility]; Protocol Last Admin: 09/26/24 07:52 Dose: 180 mg Fluticasone/Umeclidinium/Vilanterol (Fluticasone/Umeclidinium/Vilanterol 200/62.5/25 Blst.W.Dev) 1 puff INHALE RDAILY [facility] Last Admin: 09/26/24 07:51 Dose: 1 puff Hydrochlorothiazide (Hydrochlorothiazide 25 Mg Tablet) 25 mg PO DAILY [facility] Last Admin: 09/26/24 07:53 Dose: 25 mg Hydroxyzine HCl (Hydroxyzine Hcl 25 Mg Tablet) 25 mg PO Q6H PRN PRN Reason: Anxiety Lactated Ringer's (Lr) 1,000 mls @ 100 mls/hr IVCONT .Q10H [facility] Last Admin: 09/27/24 06:50 Dose: 100 mls/hr Insulin Glargine (Insulin Glargine,Hum.Rec.Anlog 100 Unit/Ml 10 Ml Vial) 70 unit SUBCUT BEDTIME [facility] Last Admin: 09/26/24 20:37 Dose: Not Given Lactulose (Lactulose 20 Gm/30 Ml Solution) 20 gm PO BID PRN PRN Reason: Constipation Magnesium Hydroxide (Milk Of Magnesia 30 Ml Oral.Susp) 30 ml PO DAILY PRN PRN Reason: Constipation Last Admin: 09/23/24 12:30 Dose: 30 ml Montelukast Sodium (Montelukast Sodium 10 Mg Tablet) 10 mg PO DAILY PRN PRN Reason: asthma Naloxone HCl (Naloxone Hcl 0.4 Mg/Ml Vial) 0.04 mg IVPUSH Q5M PRN PRN Reason: Excessive sedation or RR < 8 Naloxone HCl (Naloxone Hcl 0.4 Mg/Ml Vial) 0.04 mg IVPUSH Q5M PRN PRN Reason: Excessive sedation or RR < 8 Nicotine (Nicotine 21 Mg Patch.Td24) 21 mg TRANSDERMA DAILY [facility] Last Admin: 09/26/24 07:51 Dose: 21 mg Omeprazole (Omeprazole 40 Mg Capsule.Dr) 40 mg PO DAILY PRN PRN Reason: Acid Reflux Polyethylene Glycol (Polyethylene Glycol 3350 17 Gm Powd.Pack) 17 gm PO DAILY PRN PRN Reason: Constipation Last Admin: 09/23/24 11:49 Dose: 17 gm Quetiapine Fumarate (Quetiapine Fumarate 25 Mg Tablet) 25 mg PO BEDTIME [facility] Last Admin: 09/26/24 20:37 Dose: 25 mg Trazodone HCl (Trazodone Hcl 50 Mg Tablet) 50 mg PO BEDTIME MRX1 PRN PRN Reason: Insomnia Venlafaxine HCl (Venlafaxine Hcl Er 75 Mg Cap.Er.24h) 75 mg PO DAILY [facility] Last Admin: 09/26/24 07:51 Dose: 75 mg Zolpidem Tartrate (Zolpidem Tartrate 5 Mg Tablet) 5 mg PO BEDTIME [facility] Last Admin: 09/26/24 20:37 Dose: 5 mg Allergies Allergies Allergy/AdvReac Type Severity Reaction Status Date / Time prednisone [PREDNISONE] Allergy Mild RAGE Verified 09/17/24 16:50 lisinopril AdvReac Cough Verified 09/17/24 16:50 Assessment & Plan Assessment & Plan (1) MDD (major depressive disorder), recurrent episode, moderate: Status: Acute Code(s): F33.1 - Major depressive disorder, recurrent, moderate (2) Alcohol use disorder, moderate, dependence: Status: Acute Code(s): F10.20 - Alcohol dependence, uncomplicated (3) Cocaine use disorder, mild, in early remission, abuse: Status: Acute Code(s): F14.11 - Cocaine abuse, in remission Plan Mr. Moore is a 68 year-old male with hx of MDD, alcohol use, cocaine use who self presented to [facility] ED reporting increased depression, recent suicide attempt via hanging. BAL 155. Utox negative. He has hx of multiple antidepressant trials and also on esketamine for depression. He has a hx of ECT for depression with good therapeutic effect. We discussed risks, benefits and alternative treatment options. Of concern is combination of clonazepam 1mg po QID, triazolam 0.25mg po qhs and ambien CR 12.5mg po qhs. He has been on these medications for some years. Unclear how much they may be affecting his breathing and/or mood. Discussed with Dr. Ojeda temporary reduction in anticipation of ECT as flumazenil may not be as effective reversing effects given several agents and high doses. Also discussed with pt increasing Effexor but he reports exacerbation of tremors and anxiety with higher does of effexor. Other antidepressant not as effective. We discussed concern of alcohol use with benzos, which he is aware of specifically affecting his respiratory status with underlying COPD and tracheomalacia. PLAN 09/21 continue tx. HOld clonazepam, ambien and insuline at bedtime on 09/22 prior to ECT 09/22 continue tx. 09/23 continue tx. 09/24/[address] hansen will start vraylar for augmentation cont ect 09/25: Continue current regimen and plans 09/26 ECT on 09/27, then on 09/30, plan to dc 10/01. 09/27 continue tx. plan for one more ECT and dc 10/01. Reason for continued inpatient stay Substantial Risk for: inability to function Time Spent With Patient Time: Total time managing care of this patient today ____ minutes.
[2024-09-27] MEDS: Nicotine 21 MG PATCH.TD24 TRANSDERMA (09:19)
[2024-09-27] MEDS: dilTIAZem HCL CD 180 MG CAP.ER.24H PO (09:20)
[2024-09-27] MEDS: hydroCHLOROthiazide 25 MG TABLET PO (09:20)
[2024-09-27] MEDS: Atorvastatin Calcium 40 MG TABLET PO (09:21)
[2024-09-27] MEDS: Venlafaxine HCl ER 75 MG CAP.ER.24H PO (09:21)
[2024-09-27] MEDS: Cariprazine HCl 1.5 MG CAPSULE PO (09:21)
[2024-09-27] MEDS: clonazePAM 1 MG TABLET PO ×3 (09:21→19:58)
[2024-09-27] MEDS: Fluticasone/Umeclidinium/Vilanterol 200/62.5/25 BLST.W.DEV 1 PUFF INHALE (14:03)
[2024-09-27] MEDS: QUEtiapine Fumarate 25 MG TABLET PO (19:58)
[2024-09-27] MEDS: Insulin Glargine,Hum.rec.anlog 100 UNIT/ML 10 ML VIAL 70 UNIT SUBCUT (19:59)
[2024-09-28 06:45] LABS: Glucose, Whole Blood 167 mg/dL (60-115)
[2024-09-28 07:46] VITALS: BP 134/93; PULSE 94; RESP 18; TEMP 36.6; O2SAT 94
[2024-09-28] MEDS: Venlafaxine HCl ER 75 MG CAP.ER.24H PO (07:57)
[2024-09-28] MEDS: dilTIAZem HCL CD 180 MG CAP.ER.24H PO (07:58)
[2024-09-28] MEDS: hydroCHLOROthiazide 25 MG TABLET PO (07:58)
[2024-09-28] MEDS: Atorvastatin Calcium 40 MG TABLET PO (07:58)
[2024-09-28] MEDS: Cariprazine HCl 1.5 MG CAPSULE PO (07:58)
[2024-09-28] MEDS: Nicotine 21 MG PATCH.TD24 TRANSDERMA (08:00)
[2024-09-28] MEDS: Fluticasone/Umeclidinium/Vilanterol 200/62.5/25 BLST.W.DEV 1 PUFF INHALE (08:00)
[2024-09-28] MEDS: clonazePAM 1 MG TABLET PO ×3 (08:07→20:23)
[2024-09-28 10:00] VITALS: BP 134/95; PULSE 95; RESP 18; TEMP 36.6; O2SAT 94
--- NOTE | 2024-09-28 10:47 | P.PNPSI_ITS ---
Subjective Subjective Date of Service: 09/28/24 Reason For Visit: SI-deprssion Interim History: Pt slept through the night. Patient is reporting tolerating ECT. He reports some memory impairment. Less SI. Anxious about his roommate who was acting out today and behaving inappropriately. Pt continues to report mood improved. He continues to endorse depressed mood, somewhat hopeless but looking forward to return home. He is social on the unit. Attends assign groups. Review of Systems Review of Systems No SOB, No chest pain No GI symptoms. Yes all other systems are reviewed and are negative Constitutional: Denies fatigue and Denies fever(s) Cardiovascular: Denies chest pain and Denies dyspnea Respiratory: Denies dyspnea Gastrointestinal: Denies abdominal pain Endocrine: Denies fatigue Mental Status Exam Mental Status Exam Narrative: Appearance: wearing casual clothing. Fair hygiene. in NAD Behavior: cooperative Psychomotor: no agitation or retardation noted Speech: clear, normal rate/rhythm/volume, spontaneous TP: linear TC: wanting to start ECT and return home soon Mood: better Affect: brightens up at times SI: passive HI: denies VH/AH: none Delusions: none Insight/judgment: poor x 2. Memory/cog: alert, oriented x 3. pending MOCA. Diagnostics Vital Signs (24Hr): Vital Signs - 24 hr 09/27/24 20:51 09/28/24 07:46 Temperature 98.8 F 97.9 F Pulse Rate 86 94 Respiratory Rate 16 18 Blood Pressure 154/73 H 134/93 H Pulse Oximetry 98 94 Oxygen Delivery Method Room Air Room Air BMI result Body Mass Index 26.5 Labs 09/17/24 17:27 09/19/24 14:09 Labs: Laboratory Results - last 48 hr 09/27/24 09/28/24 05:22 06:30 POC Glucose 153 H 167 H Medications Medications Current Medications Acetaminophen (Acetaminophen 325 Mg Tablet) 650 mg PO Q6H PRN PRN Reason: Headache/Pain Mild Scale (1-3) Al Hydroxide/Mg Hydroxide (Magnesium Hydrox/Alum Hydrox 30 Ml Oral.Susp) 30 ml PO Q6H PRN PRN Reason: Heartburn/Nausea Atorvastatin Calcium (Atorvastatin Calcium 40 Mg Tablet) 40 mg PO DAILY [facility] Last Admin: 09/28/24 07:58 Dose: 40 mg Cariprazine (Cariprazine Hcl 1.5 Mg Capsule) 1.5 mg PO DAILY [facility] Last Admin: 09/28/24 07:58 Dose: 1.5 mg Clonazepam (Clonazepam 1 Mg Tablet) 1 mg PO TID [facility] Last Admin: 09/28/24 08:07 Dose: 1 mg Diltiazem HCl (Diltiazem Hcl Cd 180 Mg Cap.Er.24h) 180 mg PO DAILY [facility]; Protocol Last Admin: 09/28/24 07:58 Dose: 180 mg Fluticasone/Umeclidinium/Vilanterol (Fluticasone/Umeclidinium/Vilanterol 200/62.5/25 Blst.W.Dev) 1 puff INHALE RDAILY [facility] Last Admin: 09/28/24 08:00 Dose: 1 puff Hydrochlorothiazide (Hydrochlorothiazide 25 Mg Tablet) 25 mg PO DAILY [facility] Last Admin: 09/28/24 07:58 Dose: 25 mg Hydroxyzine HCl (Hydroxyzine Hcl 25 Mg Tablet) 25 mg PO Q6H PRN PRN Reason: Anxiety Insulin Glargine (Insulin Glargine,Hum.Rec.Anlog 100 Unit/Ml 10 Ml Vial) 70 unit SUBCUT BEDTIME [facility] Last Admin: 09/27/24 19:59 Dose: 70 unit Lactulose (Lactulose 20 Gm/30 Ml Solution) 20 gm PO BID PRN PRN Reason: Constipation Magnesium Hydroxide (Milk Of Magnesia 30 Ml Oral.Susp) 30 ml PO DAILY PRN PRN Reason: Constipation Last Admin: 09/23/24 12:30 Dose: 30 ml Montelukast Sodium (Montelukast Sodium 10 Mg Tablet) 10 mg PO DAILY PRN PRN Reason: asthma Naloxone HCl (Naloxone Hcl 0.4 Mg/Ml Vial) 0.04 mg IVPUSH Q5M PRN PRN Reason: Excessive sedation or RR < 8 Naloxone HCl (Naloxone Hcl 0.4 Mg/Ml Vial) 0.04 mg IVPUSH Q5M PRN PRN Reason: Excessive sedation or RR < 8 Nicotine (Nicotine 21 Mg Patch.Td24) 21 mg TRANSDERMA DAILY [facility] Last Admin: 09/28/24 08:00 Dose: 21 mg Omeprazole (Omeprazole 40 Mg Capsule.Dr) 40 mg PO DAILY PRN PRN Reason: Acid Reflux Polyethylene Glycol (Polyethylene Glycol 3350 17 Gm Powd.Pack) 17 gm PO DAILY PRN PRN Reason: Constipation Last Admin: 09/23/24 11:49 Dose: 17 gm Quetiapine Fumarate (Quetiapine Fumarate 25 Mg Tablet) 25 mg PO BEDTIME [facility] Last Admin: 09/27/24 19:58 Dose: 25 mg Trazodone HCl (Trazodone Hcl 50 Mg Tablet) 50 mg PO BEDTIME MRX1 PRN PRN Reason: Insomnia Venlafaxine HCl (Venlafaxine Hcl Er 75 Mg Cap.Er.24h) 75 mg PO DAILY [facility] Last Admin: 09/28/24 07:57 Dose: 75 mg Allergies Allergies Allergy/AdvReac Type Severity Reaction Status Date / Time prednisone [PREDNISONE] Allergy Mild RAGE Verified 09/17/24 16:50 lisinopril AdvReac Cough Verified 09/17/24 16:50 Assessment & Plan Assessment & Plan (1) MDD (major depressive disorder), recurrent episode, moderate: Status: Acute Code(s): F33.1 - Major depressive disorder, recurrent, moderate (2) Alcohol use disorder, moderate, dependence: Status: Acute Code(s): F10.20 - Alcohol dependence, uncomplicated (3) Cocaine use disorder, mild, in early remission, abuse: Status: Acute Code(s): F14.11 - Cocaine abuse, in remission Plan Mr. Moore is a 68 year-old male with hx of MDD, alcohol use, cocaine use who self presented to [facility] ED reporting increased depression, recent suicide attempt via hanging. BAL 155. Utox negative. He has hx of multiple antidepressant trials and also on esketamine for depression. He has a hx of ECT for depression with good therapeutic effect. We discussed risks, benefits and alternative treatment options. Of concern is combination of clonazepam 1mg po QID, triazolam 0.25mg po qhs and ambien CR 12.5mg po qhs. He has been on these medications for some years. Unclear how much they may be affecting his breathing and/or mood. Discussed with Dr. Ojeda temporary reduction in anticipation of ECT as flumazenil may not be as effective reversing effects given several agents and high doses. Also discussed with pt increasing Effexor but he reports exacerbation of tremors and anxiety with higher does of effexor. Other antidepressant not as effective. We discussed concern of alcohol use with benzos, which he is aware of specifically affecting his respiratory status with underlying COPD and tracheomalacia. PLAN 09/21 continue tx. HOld clonazepam, ambien and insuline at bedtime on 09/22 prior to ECT 09/22 continue tx. 09/23 continue tx. 09/24/[address] hansen will start vraylar for augmentation cont ect 09/25: Continue current regimen and plans 09/26 ECT on 09/27, then on 09/30, plan to dc 10/01. 09/27 continue tx. plan for one more ECT and dc 10/01. 09/28: Continue current management and treatment plan. Reason for continued inpatient stay Substantial Risk for: harm to self, inability to function and rapid decompensation Time Spent With Patient Time: Total time managing care of this patient today ____ minutes.
[2024-09-28] MEDS: hydrOXYzine HCL 25 MG TABLET PO (15:14)
[2024-09-28 19:35] VITALS: BP 110/56; PULSE 71; TEMP 36.3; O2SAT 94
[2024-09-28] MEDS: Insulin Glargine,Hum.rec.anlog 100 UNIT/ML 10 ML VIAL 70 UNIT SUBCUT (20:22)
[2024-09-28] MEDS: QUEtiapine Fumarate 25 MG TABLET PO (20:23)
[2024-09-29 06:59] LABS: Glucose, Whole Blood 119 mg/dL (60-115)
[2024-09-29 07:28] VITALS: BP 124/80; PULSE 72; RESP 18; TEMP 36.8; O2SAT 95
[2024-09-29] MEDS: dilTIAZem HCL CD 180 MG CAP.ER.24H PO (07:58)
[2024-09-29] MEDS: Atorvastatin Calcium 40 MG TABLET PO (07:58)
[2024-09-29] MEDS: Cariprazine HCl 1.5 MG CAPSULE PO (07:58)
[2024-09-29] MEDS: Venlafaxine HCl ER 75 MG CAP.ER.24H PO (07:58)
[2024-09-29] MEDS: hydroCHLOROthiazide 25 MG TABLET PO (07:58)
[2024-09-29] MEDS: clonazePAM 1 MG TABLET PO ×2 (07:58→14:04)
[2024-09-29] MEDS: Nicotine 21 MG PATCH.TD24 TRANSDERMA (07:59)
[2024-09-29] MEDS: Fluticasone/Umeclidinium/Vilanterol 200/62.5/25 BLST.W.DEV 1 PUFF INHALE (07:59)
--- NOTE | 2024-09-29 10:11 | P.PNPSI_ITS ---
Subjective Subjective Date of Service: 09/29/24 Reason For Visit: SI-deprssion Interim History: Patient complains of memory problems with ECT. He has some word finding difficulties. (Was looking for the word sacrament and couldn't remember it while talking to a peer on the unit he says.) Otherwise patient is reporting tolerating ECT and willing to continue treatment. Less SI. Pt continues to report mood improved. He is social on the unit. Attends assigned groups. Review of Systems Review of Systems No SOB, No chest pain No GI symptoms. Yes all other systems are reviewed and are negative Constitutional: Denies fatigue and Denies fever(s) Cardiovascular: Denies chest pain and Denies dyspnea Respiratory: Denies dyspnea Gastrointestinal: Denies abdominal pain Endocrine: Denies fatigue Mental Status Exam Mental Status Exam Narrative: Appearance: wearing casual clothing. Fair hygiene. in NAD Behavior: cooperative Psychomotor: no agitation or retardation noted Speech: clear, normal rate/rhythm/volume, spontaneous TP: linear TC: wanting to start ECT and return home soon Mood: better Affect: brightens up at times SI: passive HI: denies VH/AH: none Delusions: none Insight/judgment: poor x 2. Memory/cog: alert, oriented x 3. pending MOCA. Diagnostics Vital Signs (24Hr): Vital Signs - 24 hr 09/28/24 19:35 09/29/24 07:28 Temperature 97.4 F 98.2 F Pulse Rate 71 72 Respiratory Rate 18 Blood Pressure 110/56 L 124/80 Pulse Oximetry 94 95 Oxygen Delivery Method Room Air Room Air BMI result Body Mass Index 26.5 Labs 09/17/24 17:27 09/19/24 14:09 Labs: Laboratory Results - last 48 hr 09/28/24 09/29/24 06:30 06:50 POC Glucose 167 H 119 H Medications Medications Current Medications Acetaminophen (Acetaminophen 325 Mg Tablet) 650 mg PO Q6H PRN PRN Reason: Headache/Pain Mild Scale (1-3) Al Hydroxide/Mg Hydroxide (Magnesium Hydrox/Alum Hydrox 30 Ml Oral.Susp) 30 ml PO Q6H PRN PRN Reason: Heartburn/Nausea Atorvastatin Calcium (Atorvastatin Calcium 40 Mg Tablet) 40 mg PO DAILY [facility] Last Admin: 09/29/24 07:58 Dose: 40 mg Cariprazine (Cariprazine Hcl 1.5 Mg Capsule) 1.5 mg PO DAILY [facility] Last Admin: 09/29/24 07:58 Dose: 1.5 mg Clonazepam (Clonazepam 1 Mg Tablet) 1 mg PO TID [facility] Last Admin: 09/29/24 07:58 Dose: 1 mg Diltiazem HCl (Diltiazem Hcl Cd 180 Mg Cap.Er.24h) 180 mg PO DAILY [facility]; Protocol Last Admin: 09/29/24 07:58 Dose: 180 mg Fluticasone/Umeclidinium/Vilanterol (Fluticasone/Umeclidinium/Vilanterol 200/62.5/25 Blst.W.Dev) 1 puff INHALE RDAILY [facility] Last Admin: 09/29/24 07:59 Dose: 1 puff Hydrochlorothiazide (Hydrochlorothiazide 25 Mg Tablet) 25 mg PO DAILY [facility] Last Admin: 09/29/24 07:58 Dose: 25 mg Hydroxyzine HCl (Hydroxyzine Hcl 25 Mg Tablet) 25 mg PO Q6H PRN PRN Reason: Anxiety Last Admin: 09/28/24 15:14 Dose: 25 mg Insulin Glargine (Insulin Glargine,Hum.Rec.Anlog 100 Unit/Ml 10 Ml Vial) 70 unit SUBCUT BEDTIME [facility] Last Admin: 09/28/24 20:22 Dose: 70 unit Lactulose (Lactulose 20 Gm/30 Ml Solution) 20 gm PO BID PRN PRN Reason: Constipation Magnesium Hydroxide (Milk Of Magnesia 30 Ml Oral.Susp) 30 ml PO DAILY PRN PRN Reason: Constipation Last Admin: 09/23/24 12:30 Dose: 30 ml Montelukast Sodium (Montelukast Sodium 10 Mg Tablet) 10 mg PO DAILY PRN PRN Reason: asthma Naloxone HCl (Naloxone Hcl 0.4 Mg/Ml Vial) 0.04 mg IVPUSH Q5M PRN PRN Reason: Excessive sedation or RR < 8 Naloxone HCl (Naloxone Hcl 0.4 Mg/Ml Vial) 0.04 mg IVPUSH Q5M PRN PRN Reason: Excessive sedation or RR < 8 Nicotine (Nicotine 21 Mg Patch.Td24) 21 mg TRANSDERMA DAILY [facility] Last Admin: 09/29/24 07:59 Dose: 21 mg Omeprazole (Omeprazole 40 Mg Capsule.Dr) 40 mg PO DAILY PRN PRN Reason: Acid Reflux Polyethylene Glycol (Polyethylene Glycol 3350 17 Gm Powd.Pack) 17 gm PO DAILY PRN PRN Reason: Constipation Last Admin: 09/23/24 11:49 Dose: 17 gm Quetiapine Fumarate (Quetiapine Fumarate 25 Mg Tablet) 25 mg PO BEDTIME [facility] Last Admin: 09/28/24 20:23 Dose: 25 mg Trazodone HCl (Trazodone Hcl 50 Mg Tablet) 50 mg PO BEDTIME MRX1 PRN PRN Reason: Insomnia Venlafaxine HCl (Venlafaxine Hcl Er 75 Mg Cap.Er.24h) 75 mg PO DAILY [facility] Last Admin: 09/29/24 07:58 Dose: 75 mg Allergies Allergies Allergy/AdvReac Type Severity Reaction Status Date / Time prednisone [PREDNISONE] Allergy Mild RAGE Verified 09/17/24 16:50 lisinopril AdvReac Cough Verified 09/17/24 16:50 Assessment & Plan Assessment & Plan (1) MDD (major depressive disorder), recurrent episode, moderate: Status: Acute Code(s): F33.1 - Major depressive disorder, recurrent, moderate (2) Alcohol use disorder, moderate, dependence: Status: Acute Code(s): F10.20 - Alcohol dependence, uncomplicated (3) Cocaine use disorder, mild, in early remission, abuse: Status: Acute Code(s): F14.11 - Cocaine abuse, in remission Plan Mr. Moore is a 68 year-old male with hx of MDD, alcohol use, cocaine use who self presented to [facility] ED reporting increased depression, recent suicide attempt via hanging. BAL 155. Utox negative. He has hx of multiple antidepressant trials and also on esketamine for depression. He has a hx of ECT for depression with good therapeutic effect. We discussed risks, benefits and alternative treatment options. Of concern is combination of clonazepam 1mg po QID, triazolam 0.25mg po qhs and ambien CR 12.5mg po qhs. He has been on these medications for some years. Unclear how much they may be affecting his breathing and/or mood. Discussed with Dr. Ojeda temporary reduction in anticipation of ECT as flumazenil may not be as effective reversing effects given several agents and high doses. Also discussed with pt increasing Effexor but he reports exacerbation of tremors and anxiety with higher does of effexor. Other antidepressant not as effective. We discussed concern of alcohol use with benzos, which he is aware of specifically affecting his respiratory status with underlying COPD and tracheomalacia. PLAN 09/21 continue tx. HOld clonazepam, ambien and insuline at bedtime on 09/22 prior to ECT 09/22 continue tx. 09/23 continue tx. 09/24/[address] hansen will start vraylar for augmentation cont ect 09/25: Continue current regimen and plans 09/26 ECT on 09/27, then on 09/30, plan to dc 10/01. 09/27 continue tx. plan for one more ECT and dc 10/01. 09/28: Continue current management and treatment plan. 09/29: Continue current management and treatment plan. Reason for continued inpatient stay Substantial Risk for: harm to self and rapid decompensation Time Spent With Patient Time: Total time managing care of this patient today ____ minutes.
[2024-09-29] MEDS: Insulin Glargine,Hum.rec.anlog 100 UNIT/ML 10 ML VIAL 70 UNIT SUBCUT (20:29)
[2024-09-29] MEDS: QUEtiapine Fumarate 25 MG TABLET PO (20:32)
[2024-09-29 22:00] VITALS: BP 140/75; PULSE 95; RESP 16; TEMP 36.5; O2SAT 98
[2024-09-30] VITALS (15 sets, daily range): BP systolic 109–149; BP diastolic 66–104; PULSE 69–134; RESP 16–22; TEMP 36.1–36.4; O2SAT 92–99
--- NOTE | 2024-09-30 07:07 | MHC.SHP ---
Pre-Procedural Eval Section A - 24 Hr Update-Section A only Date of Service: 09/30/24 The patient is an INPATIENT: Yes Changes since office visit: No Cold of Flu in the past 2 weeks, No New Medical Problems, No Changes in Medication and No Patient answered all questions The patient has been examined within 24 hours of the surgical procedure. The History & Physical has been completed within 30 days and I have reviewed it.: Yes Section B - Complete if H&P > 30 days Chief Complaint: SI-deprssion Allergies: Allergies Allergy/AdvReac Type Severity Reaction Status Date / Time prednisone [PREDNISONE] Allergy Mild RAGE Verified 09/17/24 16:50 lisinopril AdvReac Cough Verified 09/17/24 16:50 Plan I have reviewed the history and physical and performed a pertinent physical examination on my patient. No changes have occurred unless specified. Time Spent With Patient Time: Total time managing care of this patient today ____ minutes.
--- NOTE | 2024-09-30 07:56 | HO.ANESPROP2 ---
HPI - Anesthesia Eval Consult details Narrative: 68 yo male patient for ECT PMFSH Active Problems Active Problems: All Active Problems Cocaine use disorder, mild, in early remission, abuse (Acute) Alcohol use disorder, moderate, dependence (Acute) MDD (major depressive disorder), recurrent episode, moderate (Acute) Suicidal ideation (Acute) Chronic pain syndrome (Acute) Intercostal neuralgia (Acute) Pre-op evaluation (Acute) Post-thoracotomy pain syndrome (Acute) 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 (Acute) Chest pain (Acute) COPD (chronic obstructive pulmonary disease) (Acute) Tracheobronchomalacia (Acute) Past Medical History Medical History Diabetes GERD (gastroesophageal reflux disease) Hepatitis Depression HTN (hypertension) Chronic pain syndrome Intercostal neuralgia Pre-op evaluation 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 Chest pain COPD (chronic obstructive pulmonary disease) Tracheobronchomalacia Family History Family History Other HTN (hypertension) Family history of problems with anesthesia: No Surgical History History of Problems with Anesthesia: No Social History Social History Household Members: None Housing: Condominium Do you presently have visiting nurse or other home services: No ( I need more help. ) Alcohol intake: current Alcohol intake frequency: a few times a month Patient Tobacco Use Status: Former Tobacco user Tobacco use type: Cigarette Cigarette Packs Per Day: 0.5 Cigarettes Per Day: 10.0 Years Smoked: 10 Smoked in Last 30 Days: Yes Patient Interested in Nicotine Replacement: Yes Patient Given Instructions on How to Stop Smoking: No Second Hand Smoke Exposure: No Use of substances other than those prescribed or required for medical reasons: No Substance Use Type: Marijuana Last Used Substance Other:: [id number] Currently Displaying Signs/Symptoms of Drug Intoxication Withdrawal: No Any prior treatment program specific to substance use: Yes (1989 [place] [facility]) Have you been hit, kicked, punched, or otherwise hurt by someone within the past year? If so, by whom?: No Do you feel safe in your current relationship?: No Is there a partner from a previous relationship who is making you feel unsafe now?: No Are you made to feel afraid or neglected: No Spiritual Healthcare Practices: no Quaker Healthcare Practices: no Cultural Healthcare Practices: no Advance Directives: No Advance Directives Information Provided: No Do you have thoughts of harming others: None Do you have a plan to hurt others: No Plan Recently lost weight without trying: No Eating poorly because of decreased appetite: Yes Poor oral hygiene: No service: Yes (4 years in the ) Sexual orientation: Straight/Heterosexual Meds Allergies Allergy/AdvReac Type Severity Reaction Status Date / Time prednisone [PREDNISONE] Allergy Mild RAGE Verified 09/17/24 16:50 lisinopril AdvReac Cough Verified 09/17/24 16:50 Active Medications: Current Medications Acetaminophen (Acetaminophen 325 Mg Tablet) 650 mg PO Q6H PRN PRN Reason: Headache/Pain Mild Scale (1-3) Al Hydroxide/Mg Hydroxide (Magnesium Hydrox/Alum Hydrox 30 Ml Oral.Susp) 30 ml PO Q6H PRN PRN Reason: Heartburn/Nausea Atorvastatin Calcium (Atorvastatin Calcium 40 Mg Tablet) 40 mg PO DAILY [facility] Last Admin: 09/29/24 07:58 Dose: 40 mg Cariprazine (Cariprazine Hcl 1.5 Mg Capsule) 1.5 mg PO DAILY [facility] Last Admin: 09/29/24 07:58 Dose: 1.5 mg Clonazepam (Clonazepam 1 Mg Tablet) 1 mg PO TID [facility] Last Admin: 09/29/24 20:35 Dose: Not Given Diltiazem HCl (Diltiazem Hcl Cd 180 Mg Cap.Er.24h) 180 mg PO DAILY [facility]; Protocol Last Admin: 09/29/24 07:58 Dose: 180 mg Fluticasone/Umeclidinium/Vilanterol (Fluticasone/Umeclidinium/Vilanterol 200/62.5/25 Blst.W.Dev) 1 puff INHALE RDAILY [facility] Last Admin: 09/29/24 07:59 Dose: 1 puff Hydrochlorothiazide (Hydrochlorothiazide 25 Mg Tablet) 25 mg PO DAILY [facility] Last Admin: 09/29/24 07:58 Dose: 25 mg Hydroxyzine HCl (Hydroxyzine Hcl 25 Mg Tablet) 25 mg PO Q6H PRN PRN Reason: Anxiety Last Admin: 09/28/24 15:14 Dose: 25 mg Insulin Glargine (Insulin Glargine,Hum.Rec.Anlog 100 Unit/Ml 10 Ml Vial) 70 unit SUBCUT BEDTIME [facility] Last Admin: 09/29/24 20:29 Dose: 70 unit Lactulose (Lactulose 20 Gm/30 Ml Solution) 20 gm PO BID PRN PRN Reason: Constipation Magnesium Hydroxide (Milk Of Magnesia 30 Ml Oral.Susp) 30 ml PO DAILY PRN PRN Reason: Constipation Last Admin: 09/23/24 12:30 Dose: 30 ml Montelukast Sodium (Montelukast Sodium 10 Mg Tablet) 10 mg PO DAILY PRN PRN Reason: asthma Naloxone HCl (Naloxone Hcl 0.4 Mg/Ml Vial) 0.04 mg IVPUSH Q5M PRN PRN Reason: Excessive sedation or RR < 8 Naloxone HCl (Naloxone Hcl 0.4 Mg/Ml Vial) 0.04 mg IVPUSH Q5M PRN PRN Reason: Excessive sedation or RR < 8 Nicotine (Nicotine 21 Mg Patch.Td24) 21 mg TRANSDERMA DAILY [facility] Last Admin: 09/29/24 07:59 Dose: 21 mg Omeprazole (Omeprazole 40 Mg Capsule.Dr) 40 mg PO DAILY PRN PRN Reason: Acid Reflux Polyethylene Glycol (Polyethylene Glycol 3350 17 Gm Powd.Pack) 17 gm PO DAILY PRN PRN Reason: Constipation Last Admin: 09/23/24 11:49 Dose: 17 gm Quetiapine Fumarate (Quetiapine Fumarate 25 Mg Tablet) 25 mg PO BEDTIME [facility] Last Admin: 09/29/24 20:32 Dose: 25 mg Trazodone HCl (Trazodone Hcl 50 Mg Tablet) 50 mg PO BEDTIME MRX1 PRN PRN Reason: Insomnia Venlafaxine HCl (Venlafaxine Hcl Er 75 Mg Cap.Er.24h) 75 mg PO DAILY [facility] Last Admin: 09/29/24 07:58 Dose: 75 mg Home Medications ?Medication ?Instructions ?Recorded ?Confirmed ?Last Taken ?Type insulin glargine 100 unit/mL (3 70 unit subcut BEDTIME 07/22/20 09/17/24 Unknown History mL) subcutaneous pen montelukast 10 mg tablet 10 mg PO DAILY PRN asthma 08/26/20 09/17/24 08/26/20 04:10 History (Singulair) omeprazole 20 mg capsule,delayed 40 mg PO DAILY PRN Acid Reflux 10/14/20 09/17/24 Unknown History release atorvastatin 40 mg tablet 40 mg PO DAILY 09/17/24 09/17/24 Unknown History chlorthalidone 25 mg tablet 25 mg PO DAILY 09/17/24 09/17/24 Unknown History clonazepam 1 mg tablet 1 mg PO QID 09/17/24 09/17/24 Unknown History desvenlafaxine succinate 50 mg 50 mg PO DAILY 09/17/24 09/17/24 Unknown History tablet,extended release 24 hr diltiazem HCl 180 mg 180 mg PO DAILY 09/17/24 09/17/24 Unknown History capsule,extended release 24 hr dulaglutide 3 mg/0.5 mL 3 mg subcut [place] 09/17/24 09/17/24 Unknown History subcutaneous pen injector (Trulicity) esketamine 84 mg (28 mg x 3) nasal 84 mg intranasal MOTH 09/17/24 09/17/24 Unknown History spray ([place]) fluticasone fur. 200 mcg-umeclid 1 ea inhalation DAILY 09/17/24 09/17/24 Unknown History 62.5 mcg-vilant 25 mcg inhalat.powder (Trelegy Ellipta) quetiapine 25 mg tablet 25 mg PO BEDTIME 09/17/24 09/17/24 Unknown History triazolam 0.25 mg tablet 0.25 mg PO BEDTIME 09/17/24 09/17/24 Unknown History zolpidem 12.5 mg tablet,extended 12.5 mg PO BEDTIME 09/17/24 09/17/24 Unknown History release,multiphase Exam Height,Weight and Vital Signs: Height 6 ft Weight 88.677 kg Last Vital Signs Temp 97.5 F 09/30/24 07:08 Pulse 69 09/30/24 07:08 Resp 16 09/30/24 07:08 BP 136/86 09/30/24 07:08 Pulse Ox 98 09/30/24 07:08 O2 Del Method Room Air 09/30/24 07:08 O2 Flow Rate 1 09/27/24 08:27 Pertinent Lab Results Pertinent Lab Results: Laboratory Tests 09/17/24 09/17/24 09/18/24 17:27 22:07 09:05 WBC 6.7 RBC 5.18 Hgb 16.0 Hct 44.6 MCV 86.1 MCH 30.9 MCHC 35.9 RDW 12.1 Plt Count 233 MPV 9.6 Immature Gran % (Auto) 0.3 Neut % (Auto) 50.6 Lymph % (Auto) 37.5 [place] % (Auto) 7.9 Eos % (Auto) 3.3 Baso % (Auto) 0.4 Lymph # (Auto) 2.5 [place] # (Auto) 0.5 Eos # (Auto) 0.2 Baso # (Auto) 0.0 Abs Immat Gran (auto) 0.02 Absolute Neuts (auto) 3.4 Absolute Nucleated RBC 0.000 Nucleated RBC % (auto) 0.0 Sodium 144 Potassium 4.0 Chloride 109 H Carbon Dioxide 30 H Anion Gap 9 L BUN 12 Creatinine 1.21 Estim Creat Clear Calc 65.0 Estimated GFR 60 POC Glucose 196 H Random Glucose 161 H Estimat Average Glucose Hemoglobin A1c % Calcium 9.6 D Magnesium 2.0 Total Bilirubin 0.4 AST 28 ALT 44 H Alkaline Phosphatase 83 Total Protein 7.5 Albumin 4.3 Triglycerides Cholesterol LDL Cholesterol, Calc HDL Cholesterol Vitamin B12 Folate Urine Color Yellow Urine Appearance Clear Urine pH 6.0 Ur Specific [place] 1.020 Urine Protein Negative Urine Glucose (UA) Negative Urine Ketones Negative Urine Blood Negative Urine Nitrite Negative Ur Leukocyte Esterase Negative Urine RBC 0-2 Urine WBC 0-5 Ur Squamous Epith Cells 0-2 Urine Bacteria None Seen Hyaline Casts 0-2 Urine Opiates Screen Not Detected Ur Buprenorphine Scrn Not Detected Ur Oxycodone Screen Not Detected Urine Methadone Screen Not Detected Urine Fentanyl Screen Not Detected Ur Barbiturates Screen Not Detected Ur Phencyclidine Scrn Not Detected Ur Amphetamines Screen Not Detected U Benzodiazepines Scrn Not Detected Urine Cocaine Screen Not Detected U Marijuana (THC) Screen Not Detected Ethyl Alcohol 155 09/18/24 09/19/24 09/20/24 20:10 14:09 06:13 WBC RBC Hgb Hct MCV MCH MCHC RDW Plt Count MPV Immature Gran % (Auto) Neut % (Auto) Lymph % (Auto) [place] % (Auto) Eos % (Auto) Baso % (Auto) Lymph # (Auto) [place] # (Auto) Eos # (Auto) Baso # (Auto) Abs Immat Gran (auto) Absolute Neuts (auto) Absolute Nucleated RBC Nucleated RBC % (auto) Sodium 139 Potassium 4.0 Chloride 101 Carbon Dioxide 32 H Anion Gap 10 L BUN 14 Creatinine 1.18 Estim Creat Clear Calc 66.6 Estimated GFR > 60 POC Glucose 181 H 89 Random Glucose 149 H Estimat Average Glucose Hemoglobin A1c % Calcium 9.9 Magnesium Total Bilirubin 0.7 AST 28 ALT 47 H Alkaline Phosphatase 87 Total Protein 7.5 Albumin 4.4 Triglycerides Cholesterol LDL Cholesterol, Calc HDL Cholesterol Vitamin B12 Folate Urine Color Urine Appearance Urine pH Ur Specific [place] Urine Protein Urine Glucose (UA) Urine Ketones Urine Blood Urine Nitrite Ur Leukocyte Esterase Urine RBC Urine WBC Ur Squamous Epith Cells Urine Bacteria Hyaline Casts Urine Opiates Screen Ur Buprenorphine Scrn Ur Oxycodone Screen Urine Methadone Screen Urine Fentanyl Screen Ur Barbiturates Screen Ur Phencyclidine Scrn Ur Amphetamines Screen U Benzodiazepines Scrn Urine Cocaine Screen U Marijuana (THC) Screen Ethyl Alcohol 09/20/24 09/21/24 09/22/24 09:00 06:42 06:28 WBC RBC Hgb Hct MCV MCH MCHC RDW Plt Count MPV Immature Gran % (Auto) Neut % (Auto) Lymph % (Auto) [place] % (Auto) Eos % (Auto) Baso % (Auto) Lymph # (Auto) [place] # (Auto) Eos # (Auto) Baso # (Auto) Abs Immat Gran (auto) Absolute Neuts (auto) Absolute Nucleated RBC Nucleated RBC % (auto) Sodium Potassium Chloride Carbon Dioxide Anion Gap BUN Creatinine Estim Creat Clear Calc Estimated GFR POC Glucose 90 125 H Random Glucose Estimat Average Glucose 134 Hemoglobin A1c % 6.3 H Calcium Magnesium 1.7 Total Bilirubin AST ALT Alkaline Phosphatase Total Protein Albumin Triglycerides 119 Cholesterol 155 LDL Cholesterol, Calc 88 HDL Cholesterol 44 Vitamin B12 545 Folate 9.8 Urine Color Urine Appearance Urine pH Ur Specific [place] Urine Protein Urine Glucose (UA) Urine Ketones Urine Blood Urine Nitrite Ur Leukocyte Esterase Urine RBC Urine WBC Ur Squamous Epith Cells Urine Bacteria Hyaline Casts Urine Opiates Screen Ur Buprenorphine Scrn Ur Oxycodone Screen Urine Methadone Screen Urine Fentanyl Screen Ur Barbiturates Screen Ur Phencyclidine Scrn Ur Amphetamines Screen U Benzodiazepines Scrn Urine Cocaine Screen U Marijuana (THC) Screen Ethyl Alcohol 09/23/24 09/24/24 09/25/24 06:21 06:38 05:54 WBC RBC Hgb Hct MCV MCH MCHC RDW Plt Count MPV Immature Gran % (Auto) Neut % (Auto) Lymph % (Auto) [place] % (Auto) Eos % (Auto) Baso % (Auto) Lymph # (Auto) [place] # (Auto) Eos # (Auto) Baso # (Auto) Abs Immat Gran (auto) Absolute Neuts (auto) Absolute Nucleated RBC Nucleated RBC % (auto) Sodium Potassium Chloride Carbon Dioxide Anion Gap BUN Creatinine Estim Creat Clear Calc Estimated GFR POC Glucose 130 H 93 104 Random Glucose Estimat Average Glucose Hemoglobin A1c % Calcium Magnesium Total Bilirubin AST ALT Alkaline Phosphatase Total Protein Albumin Triglycerides Cholesterol LDL Cholesterol, Calc HDL Cholesterol Vitamin B12 Folate Urine Color Urine Appearance Urine pH Ur Specific [place] Urine Protein Urine Glucose (UA) Urine Ketones Urine Blood Urine Nitrite Ur Leukocyte Esterase Urine RBC Urine WBC Ur Squamous Epith Cells Urine Bacteria Hyaline Casts Urine Opiates Screen Ur Buprenorphine Scrn Ur Oxycodone Screen Urine Methadone Screen Urine Fentanyl Screen Ur Barbiturates Screen Ur Phencyclidine Scrn Ur Amphetamines Screen U Benzodiazepines Scrn Urine Cocaine Screen U Marijuana (THC) Screen Ethyl Alcohol 09/26/24 09/27/24 09/28/24 06:27 05:22 06:30 WBC RBC Hgb Hct MCV MCH MCHC RDW Plt Count MPV Immature Gran % (Auto) Neut % (Auto) Lymph % (Auto) [place] % (Auto) Eos % (Auto) Baso % (Auto) Lymph # (Auto) [place] # (Auto) Eos # (Auto) Baso # (Auto) Abs Immat Gran (auto) Absolute Neuts (auto) Absolute Nucleated RBC Nucleated RBC % (auto) Sodium Potassium Chloride Carbon Dioxide Anion Gap BUN Creatinine Estim Creat Clear Calc Estimated GFR POC Glucose 94 153 H 167 H Random Glucose Estimat Average Glucose Hemoglobin A1c % Calcium Magnesium Total Bilirubin AST ALT Alkaline Phosphatase Total Protein Albumin Triglycerides Cholesterol LDL Cholesterol, Calc HDL Cholesterol Vitamin B12 Folate Urine Color Urine Appearance Urine pH Ur Specific [place] Urine Protein Urine Glucose (UA) Urine Ketones Urine Blood Urine Nitrite Ur Leukocyte Esterase Urine RBC Urine WBC Ur Squamous Epith Cells Urine Bacteria Hyaline Casts Urine Opiates Screen Ur Buprenorphine Scrn Ur Oxycodone Screen Urine Methadone Screen Urine Fentanyl Screen Ur Barbiturates Screen Ur Phencyclidine Scrn Ur Amphetamines Screen U Benzodiazepines Scrn Urine Cocaine Screen U Marijuana (THC) Screen Ethyl Alcohol 09/29/24 06:50 WBC RBC Hgb Hct MCV MCH MCHC RDW Plt Count MPV Immature Gran % (Auto) Neut % (Auto) Lymph % (Auto) [place] % (Auto) Eos % (Auto) Baso % (Auto) Lymph # (Auto) [place] # (Auto) Eos # (Auto) Baso # (Auto) Abs Immat Gran (auto) Absolute Neuts (auto) Absolute Nucleated RBC Nucleated RBC % (auto) Sodium Potassium Chloride Carbon Dioxide Anion Gap BUN Creatinine Estim Creat Clear Calc Estimated GFR POC Glucose 119 H Random Glucose Estimat Average Glucose Hemoglobin A1c % Calcium Magnesium Total Bilirubin AST ALT Alkaline Phosphatase Total Protein Albumin Triglycerides Cholesterol LDL Cholesterol, Calc HDL Cholesterol Vitamin B12 Folate Urine Color Urine Appearance Urine pH Ur Specific [place] Urine Protein Urine Glucose (UA) Urine Ketones Urine Blood Urine Nitrite Ur Leukocyte Esterase Urine RBC Urine WBC Ur Squamous Epith Cells Urine Bacteria Hyaline Casts Urine Opiates Screen Ur Buprenorphine Scrn Ur Oxycodone Screen Urine Methadone Screen Urine Fentanyl Screen Ur Barbiturates Screen Ur Phencyclidine Scrn Ur Amphetamines Screen U Benzodiazepines Scrn Urine Cocaine Screen U Marijuana (THC) Screen Ethyl Alcohol Airway Mallampati Class: II TM Dist: >3cm Neck ROM: Full Loose/Missing/Broken Teeth: Yes (Edentulous) Heart: RRR Lungs: CTAB Assessment and Plan Assessment Anesthesia Assessment: Anesthesia Plan Discussed and Chart Reviewed Final Anesthetic Review Family History of Problems with Anesthesia: No History of Problems with Anesthesia: No NPO: Yes ASA Class: III Final Preanesthetic Review: No Changes in Pt Med Stat, Meds/Allgs Chart Reviewed, Consent Obtained/Reviewed and Anes Risks/Benef Reviewed Patient Risk: Intermediate Procedure Risk: Intermediate Assessment/Block/Sedation in SS: Assess/Block/Sedation- Anesthetic Plan Anesthetic Plan: GA Disposition: Standard PACU
--- NOTE | 2024-09-30 08:11 | P.PCN_ITS ---
ECT Procedure Note Diagnosis/Treatment Date of Service: 09/30/24 Diagnosis: Major Depressive Disorder Previous ECT Date: 09/27/24 Current Treatment Number: 4 Treatment: Series Interval Clinical Notes: The patient reported improvement of depression, no side effects with the previous ECT besides anterograd amnesia for the first 15 minutes that was expected. ECT done as usual, no immediate complications. As usual, we used Flumazenil and later reloaded with Ativan 2 mg IVP after ECT. Later, when he was recuperating, he went into a-fib, sporadically, we could see some P waves. The anesth esiologist called the 4th floor and ordered a new EKG. Woke up well, no new complaints. Since a-fib was evident, EKG confirmed, a rapid response was called. Time: Total time managing care of this patient today __35__ minutes. ECT Settings Device: THYMATRON DGx Electrode Placement: Bitemporal Program/Pulse Width: 0.50 Energy Percent: 100 Seizure Duration By EEG (in seconds): 65 By Motor Observation (in seconds): 35 Medications Administration General Anesthetic: Etomidate (18) Muscle Relaxant: Succinylcholine (100) Ancillary Medications Anti-emetics: Zofran - Pre ECT Miscillaneous Medications: Flumazenil and Other (Ativan 2 mg IVP after ECT) Airway Management Airway Management: Bag Mask Ventilation Treatment Recommendations No Changes Recommended: No change Notes: f/u CARDIOLOGY consult for new a-fib. Pt Tolerated Procedure w/o Issue: No
--- NOTE | 2024-09-30 08:23 | ECG_ITS ---
Test Reason : tachycardia Blood Pressure : / mmHG Vent. Rate : 120 BPM Atrial Rate : 000 BPM P-R Int : 000 ms QRS Dur : 078 ms QT Int : 320 ms P-R-T Axes : 000 029 025 degrees QTc Int : 452 ms Atrial fibrillation with rapid ventricular response Abnormal ECG When compared to the previous EKG of Atrial fibrillation with rapid ventricular response has replaced Normal sinus rhythm Referred By: Leah Farnsworth Electronically Signed By:CAITIE BARAHONA MD
[2024-09-30] MEDS: LORazepam 2 MG/ML VIAL IVPUSH (08:30)
--- NOTE | 2024-09-30 09:19 | PM.EVENT ---
Event Note Date of Service: 09/30/24 Time Spent With Patient Time: Total time managing care of this patient today ____ minutes.
[2024-09-30] MEDS: dilTIAZem HCL 50 MG/10 ML VIAL 10 MG IVPUSH (09:22)
[2024-09-30] MEDS: dilTIAZem HCL CD 180 MG CAP.ER.24H PO (09:23)
--- NOTE | 2024-09-30 09:26 | HO.PSYCHPN ---
Subjective Subjective Reason For Visit: SI-deprssion Diagnostics Vital Signs (24Hr): Vital Signs - 24 hr 09/29/24 22:00 09/30/24 04:58 09/30/24 07:08 Temperature 97.7 F 97 F 97.5 F Pulse Rate 95 73 69 Respiratory Rate 16 16 Blood Pressure 140/75 H 147/87 H 136/86 Pulse Oximetry 98 99 98 Oxygen Delivery Method Room Air Room Air Oxygen Flow Rate 09/30/24 08:42 09/30/24 08:52 09/30/24 08:57 Temperature 97.4 F Pulse Rate 78 114 H 102 H Respiratory Rate 20 20 20 Blood Pressure 147/99 H 131/104 H 149/100 H Pulse Oximetry 95 95 95 Oxygen Delivery Method Nasal Cannula with ETCO2 Nasal Cannula with ETCO2 Nasal Cannula with ETCO2 Oxygen Flow Rate 3 3 3 09/30/24 09:12 Temperature Pulse Rate 134 H Respiratory Rate 17 Blood Pressure 127/66 Pulse Oximetry 95 Oxygen Delivery Method Nasal Cannula with ETCO2 Oxygen Flow Rate 3 BMI result Body Mass Index 26.5 Labs 09/17/24 17:27 09/19/24 14:09 Labs: Laboratory Results - last 48 hr 09/29/24 06:50 POC Glucose 119 H Medications Medications Current Medications Acetaminophen (Acetaminophen 325 Mg Tablet) 650 mg PO Q6H PRN PRN Reason: Headache/Pain Mild Scale (1-3) Acetaminophen (Acetaminophen 325 Mg Tablet) 650 mg PO ONCE PRN PRN Reason: Pain, Mild (Pain Scale 1-3) Stop: 09/30/24 14:36 Al Hydroxide/Mg Hydroxide (Magnesium Hydrox/Alum Hydrox 30 Ml Oral.Susp) 30 ml PO Q6H PRN PRN Reason: Heartburn/Nausea Atorvastatin Calcium (Atorvastatin Calcium 40 Mg Tablet) 40 mg PO DAILY [facility] Last Admin: 09/29/24 07:58 Dose: 40 mg Cariprazine (Cariprazine Hcl 1.5 Mg Capsule) 1.5 mg PO DAILY [facility] Last Admin: 09/29/24 07:58 Dose: 1.5 mg Clonazepam (Clonazepam 1 Mg Tablet) 1 mg PO TID [facility] Last Admin: 09/29/24 20:35 Dose: Not Given Diltiazem HCl (Diltiazem Hcl Cd 180 Mg Cap.Er.24h) 180 mg PO DAILY [facility]; Protocol Fluticasone/Umeclidinium/Vilanterol (Fluticasone/Umeclidinium/Vilanterol 200/62.5/25 Blst.W.Dev) 1 puff INHALE RDAILY [facility] Last Admin: 09/29/24 07:59 Dose: 1 puff Hydrochlorothiazide (Hydrochlorothiazide 25 Mg Tablet) 25 mg PO DAILY [facility] Last Admin: 09/29/24 07:58 Dose: 25 mg Hydroxyzine HCl (Hydroxyzine Hcl 25 Mg Tablet) 25 mg PO Q6H PRN PRN Reason: Anxiety Last Admin: 09/28/24 15:14 Dose: 25 mg Lactated Ringer's (Lr) 1,000 mls @ 50 mls/hr IVCONT .Q20H [facility] Insulin Glargine (Insulin Glargine,Hum.Rec.Anlog 100 Unit/Ml 10 Ml Vial) 70 unit SUBCUT BEDTIME [facility] Last Admin: 09/29/24 20:29 Dose: 70 unit Lactulose (Lactulose 20 Gm/30 Ml Solution) 20 gm PO BID PRN PRN Reason: Constipation Magnesium Hydroxide (Milk Of Magnesia 30 Ml Oral.Susp) 30 ml PO DAILY PRN PRN Reason: Constipation Last Admin: 09/23/24 12:30 Dose: 30 ml Montelukast Sodium (Montelukast Sodium 10 Mg Tablet) 10 mg PO DAILY PRN PRN Reason: asthma Naloxone HCl (Naloxone Hcl 0.4 Mg/Ml Vial) 0.04 mg IVPUSH Q5M PRN PRN Reason: Excessive sedation or RR < 8 Naloxone HCl (Naloxone Hcl 0.4 Mg/Ml Vial) 0.04 mg IVPUSH Q5M PRN PRN Reason: Excessive sedation or RR < 8 Nicotine (Nicotine 21 Mg Patch.Td24) 21 mg TRANSDERMA DAILY [facility] Last Admin: 09/29/24 07:59 Dose: 21 mg Omeprazole (Omeprazole 40 Mg Capsule.Dr) 40 mg PO DAILY PRN PRN Reason: Acid Reflux Ondansetron HCl (Ondansetron Hcl 4 Mg/2 Ml Vial) 4 mg IVPUSH ONCE PRN PRN Reason: Nausea and Vomiting Stop: 09/30/24 14:36 Polyethylene Glycol (Polyethylene Glycol 3350 17 Gm Powd.Pack) 17 gm PO DAILY PRN PRN Reason: Constipation Last Admin: 09/23/24 11:49 Dose: 17 gm Quetiapine Fumarate (Quetiapine Fumarate 25 Mg Tablet) 25 mg PO BEDTIME [facility] Last Admin: 09/29/24 20:32 Dose: 25 mg Trazodone HCl (Trazodone Hcl 50 Mg Tablet) 50 mg PO BEDTIME MRX1 PRN PRN Reason: Insomnia Venlafaxine HCl (Venlafaxine Hcl Er 75 Mg Cap.Er.24h) 75 mg PO DAILY [facility] Last Admin: 09/29/24 07:58 Dose: 75 mg Allergies Allergies Allergy/AdvReac Type Severity Reaction Status Date / Time prednisone [PREDNISONE] Allergy Mild RAGE Verified 09/17/24 16:50 lisinopril AdvReac Cough Verified 09/17/24 16:50 Assessment & Plan Assessment & Plan (1) MDD (major depressive disorder), recurrent episode, moderate: Status: Acute Code(s): F33.1 - Major depressive disorder, recurrent, moderate (2) Alcohol use disorder, moderate, dependence: Status: Acute Code(s): F10.20 - Alcohol dependence, uncomplicated (3) Cocaine use disorder, mild, in early remission, abuse: Status: Acute Code(s): F14.11 - Cocaine abuse, in remission Plan Mr. Moore is a 68 year-old male with hx of MDD, alcohol use, cocaine use who self presented to [facility] reporting increased depression, recent suicide attempt via hanging. BAL 155. Utox negative. He has hx of multiple antidepressant trials and also on esketamine for depression. He has a hx of ECT for depression with good therapeutic effect. We discussed risks, benefits and alternative treatment options. Of concern is combination of clonazepam 1mg po QID, triazolam 0.25mg po qhs and ambien CR 12.5mg po qhs. He has been on these medications for some years. Unclear how much they may be affecting his breathing and/or mood. Discussed with Dr. Ojeda temporary reduction in anticipation of ECT as flumazenil may not be as effective reversing effects given several agents and high doses. Also discussed with pt increasing Effexor but he reports exacerbation of tremors and anxiety with higher does of effexor. Other antidepressant not as effective. We discussed concern of alcohol use with benzos, which he is aware of specifically affecting his respiratory status with underlying COPD and tracheomalacia. PLAN 09/21 continue tx. HOld clonazepam, ambien and insuline at bedtime on 09/22 prior to ECT 09/22 continue tx. 09/23 continue tx. 09/24/[address] hansen will start vraylar for augmentation cont ect 09/25: Continue current regimen and plans 09/26 ECT on 09/27, then on 09/30, plan to dc 10/01. 09/27 continue tx. plan for one more ECT and dc 10/01. 09/28: Continue current management and treatment plan. 09/29: Continue current management and treatment plan. Time Spent With Patient Time: Total time managing care of this patient today ____ minutes.
--- NOTE | 2024-09-30 10:49 | P.DS_ITS ---
DS: Providers Provider Date of Service: 09/30/24 Date of admission: 09/19/24 12:24 Date of discharge: 09/30/24 Primary care physician: Unknown Physician Consults: 09/19/24 13:28 Consult to Hospitalist Routine Comment: Consulting Provider: [facility] Hospitalists Reason For Exam: medical evaluation pre ect/ copd DS: Diagnosis Discharge Diagnosis (1) MDD (major depressive disorder), recurrent episode, moderate: Status: Acute (2) Alcohol use disorder, moderate, dependence: Status: Acute (3) Cocaine use disorder, mild, in early remission, abuse: Status: Acute DS: Medications Discharge Medications Home Medications: Home Medications ?Medication ?Instructions ?Recorded ?Confirmed insulin glargine 100 unit/mL (3 70 unit subcut BEDTIME 07/22/20 09/17/24 mL) subcutaneous pen montelukast 10 mg tablet 10 mg PO DAILY PRN asthma 08/26/20 09/17/24 (Singulair) omeprazole 20 mg capsule,delayed 40 mg PO DAILY PRN Acid Reflux 10/14/20 09/17/24 release atorvastatin 40 mg tablet 40 mg PO DAILY 09/17/24 09/17/24 chlorthalidone 25 mg tablet 25 mg PO DAILY 09/17/24 09/17/24 diltiazem HCl 180 mg 180 mg PO DAILY 09/17/24 09/17/24 capsule,extended release 24 hr dulaglutide 3 mg/0.5 mL 3 mg subcut CLRAK 09/17/24 09/17/24 subcutaneous pen injector (Trulicity) fluticasone fur. 200 mcg-umeclid 1 ea inhalation DAILY 09/17/24 09/17/24 62.5 mcg-vilant 25 mcg inhalat.powder (Trelegy Ellipta) quetiapine 25 mg tablet 25 mg PO BEDTIME 09/17/24 09/17/24 Previous Rx's ?Medication ?Instructions ?Recorded cariprazine 1.5 mg capsule 1.5 mg PO DAILY #30 caps 09/30/24 (Vraylar) clonazepam 1 mg tablet 1 mg PO TID #0 tabs 09/30/24 nicotine 21 mg/24 hr daily 21 mg transdermal DAILY #0 ea 09/30/24 transdermal patch polyethylene glycol 3350 17 gram 17 g PO DAILY PRN Constipation #0 09/30/24 oral powder packet ea venlafaxine 75 mg capsule,extended 75 mg PO DAILY #0 caps 09/30/24 release 24 hr Mental Status Exam Mental Status Exam Narrative: Appearance: wearing casual clothing. Fair hygiene. in NAD Behavior: cooperative Psychomotor: no agitation or retardation noted Speech: clear, normal rate/rhythm/volume, spontaneous TP: linear TC: wanting to start ECT and return home soon Mood: better Affect: brightens up at times SI: none HI: denies VH/AH: none Delusions: none Insight/judgment: poor x 2. Memory/cog: alert, oriented x 3. Data Data Completed and Pending Completed studies during hospitalization [Text1]: 09/24/24 09/25/24 09/26/24 06:38 05:54 06:27 POC Glucose 93 104 94 09/27/24 09/28/24 09/29/24 05:22 06:30 06:50 POC Glucose 153 H 167 H 119 H DS: Summary Hospital Course Hospital Course: Subjective Notes: Hopper Warning (given and shows understanding) and Conditional Voluntary Narrative: Mr. Moore is a 68 year-old male with hx of MDD, alcohol use disorder, cocaine use disorder who self presented to [facility] ED. He reported increased depression for the past 3-4 months and suicide attempt prior to coming to the hospital via hanging (which he reports was aborted once rope broke). His utox was negative. H is BAL 155. He reports using alcohol on and off, denies that is currently a problem but states it can be. He was recently in detox for alcohol use in 05/2024. He also reports sporadic cocaine use. Last time when he came to [facility] in 05/2024 he was positive for cocaine but this time he was not. Pertinent labs include CBC which is mostly unremarkable. CMP with no electrolyte abnormality, CO2 elevated 32, BUN Cr 1.18, creatinine clearance 66.6. A1c 6.3% (DM type 2). Mr. Moore reports he has struggle with depression for several years. He does not have a specific trigger to his most recent episode of depression which has been going on since 3-4 months. He reports esketamine usually works for him but lately feels that his depression is worsening. He reports poor sleep and poor appetite. He also endorses anhedonia. He denies VH/AH. No delusions. Past Psychiatric History: Inpt: many in the past. Last one 2019 OP: Dr. Murillo HOSPITAL COURSE On the unit, pt was admitted on a CV and placed on 15 minutes checks for safety. Pt presented with severe depression, hopeless, helpless, suicidal ideation with plan to hang self or OD. He has hx of several medication trials with limited therapeutic efficacy. He has had ECT in the past with good therapeutic response. He was admitted with plan to resume ECT. He had a total of 3 ECT. He reported improved in mood. He denied SI/HI. No VH/AH. No delusions noted. He was sleeping and eating well. He was continued on Effexor ER 75mg po daily. Of concern in combination of clonazepam, ambien and triazolam in addition to substance use and underlying respiratory problems. Clonazepam was decreased to 1mg po TID. Triazolam was discontinue. He tolerated this changes without significant distress nor symptoms of withdrawal. He was found to have afib with RVR after ECT. He is being transferred to medicine for further assessment as this is new for him. He has completed inpatient psychiatric treatment. Therefore, once medically cleared he can be discharged home and resume OP ECT. Time Spent with Patient Time attestation: Total time managing care of this patient today ____ minutes. Discharge Plan Discharge Anticipated Discharge Date/Time: 09/30/24 10:41 Patient Disposition: er [facility] Discharge Diagnosis: MDD, recurrent Alcohol Use Disorder cocaine use disorder Referrals: [facility] [Other] - 3-5 Days (The referral for [facility] has been made. They usually take 3-5 days after discharge to come and evaluate your needs. They will reach out to you first and if they do not please feel free to call the number listed.) Lito Ojeda MD [Physician] - 1 Week Jay Murillo MD [Physician] - 1 Week Natalia Velazquez FNP [Nurse Practitioner] - 10/04/24 9:20 am (Your Follow up appointment will be on 10/04 at 9:20 AM. You will see that day and if you need to cancel or reschedule please call the number listed.) Discharge Medications: New nicotine 21 mg/24 hr Patch 24 Hour 21 mg transdermal DAILY Qty: 0 0RF Vraylar 1.5 mg Capsule 1.5 mg PO DAILY Qty: 30 0RF venlafaxine 75 mg Capsule,Extended Release 24hr 75 mg PO DAILY Qty: 0 0RF polyethylene glycol 3350 17 gram Powder In Packet 17 g PO DAILY PRN (Reason: Constipation) Qty: 0 0RF clonazepam 1 mg Tablet 1 mg PO TID Qty: 0 0RF Continued montelukast [Singulair] 10 mg Tablet 10 mg PO DAILY PRN (Reason: asthma) atorvastatin 40 mg tablet 40 mg PO DAILY quetiapine 25 mg tablet 25 mg PO BEDTIME chlorthalidone 25 mg tablet 25 mg PO DAILY diltiazem HCl 180 mg capsule,extended release 24hr 180 mg PO DAILY Trulicity 3 mg/0.5 mL pen injector 3 mg subcut CLARK Trelegy Ellipta 200-62.5-25 mcg blister with device 1 ea INHALATION DAILY insulin glargine 100 unit/mL (3 mL) insulin pen 70 unit subcut BEDTIME omeprazole 20 mg capsule,delayed release(DR/EC) 40 mg PO DAILY PRN (Reason: Acid Reflux) Discontinued clonazepam 1 mg tablet 1 mg PO QID triazolam 0.25 mg tablet 0.25 mg PO BEDTIME zolpidem 12.5 mg tablet,ext release multiphase 12.5 mg PO BEDTIME desvenlafaxine succinate 50 mg tablet extended release 24 hr 50 mg PO DAILY Spravato 84 mg (28 mg x 3) spray,non-aerosol 84 mg intranasal MOTH Discharge Orders: Discharge Order (Routine); Ordered 09/30/24 Ordered By: Lizzeth Spear Diet: Diabetic diet Activity on Discharge: As tolerated Stand Alone Forms: Patient Portal Discharge page Print Language: Serbian Care Plan Goals: 1. maintain mood 2. No SI/HI Health Concerns: follow up with PCP- being transferred to [facility] Plan of Treatment: 1. take medications as prescribed 2. Go to nearest ED or call 911 in event of emergency Assessment: No SI/HI. Less depressed. Sleeping and eating well. No VH/AH. No delusions.
--- NOTE | 2024-09-30 11:50 | ECG_ITS ---
Test Reason : converted to sinus Blood Pressure : / mmHG Vent. Rate : 079 BPM Atrial Rate : 079 BPM P-R Int : 158 ms QRS Dur : 078 ms QT Int : 368 ms P-R-T Axes : 036 040 036 degrees QTc Int : 421 ms Normal sinus rhythm Normal ECG When compared with ECG of 30-SEP-2024 08:29, Vent. rate has decreased BY 41 BPM Nonspecific T wave abnormality, improved in Inferior leads Referred By: Tiffany Villegas Electronically Signed By:CAITIE BARAHONA MD
[2024-09-30 17:17] LABS: Glucose, Whole Blood 106 mg/dL (60-115)
--- NOTE | 2024-10-01 10:25 | P.CONCA_ITS ---
History of Present Illness History of Present Illness Date of Service: 10/01/24 Requesting physician: Tiffany Villegas Consult reason: atrial fibrillation Chief complaint: SI-deprssion Narrative: I was consulted to see Joe in cardiology consultation today for new onset atrial fibrillation. Patient was 68-year-old male admitted to behavioral health unit for depression and suicidal ideation. Patient was subsequently undergoing ECT therapy. Yesterday went ECT therapy for the 3rd time and developed atrial fibrillation in the recovery phase. Patient was then given IV Cardizem and converted promptly to sinus rhythm. He had no obvious symptoms as he was still sedated. He does not recall ever having any prior cardiac issues including no history of atrial fibrillation in the past. He was prior history of diabetes insulin requiring as well as hypertension. He has been on diltiazem therapy as he had developed cough related to lisinopril therapy. He is also on statin high-intensity statin therapy. Denies any history of myocardial infarction or coronary artery disease. Denies any history of congestive heart failure, TIA, CVA. He has prior history of alcohol use and says usually uses alcohol as a treatment for his depression. He said he currently got more depressed after he lost his of 42 years. He is denying any cocaine use at current point time in the U tox is negative for cocaine. He said he otherwise he is functional and denies any exertional symptoms. Review of Systems 2 Constitutional: Constitutional: Reports no additional constitutional complaints Eyes: Eyes: Reports no additional eye complaints Cardiovascular: Cardiovascular: Reports no additional cardiovascular complaints Gastrointestinal: Gastrointestinal: Reports no additional gastrointestinal complaints Genitourinary: Genitourinary: Reports no additional male genitourinary complaints Musculoskeletal: Musculoskeletal: Reports no additional musculoskeletal complaints Neurologic: Reports system reviewed and no additional complaints, except as documented Psychiatric: Psychiatric: Reports no additional psychiatric complaints [facility] Past Medical History Medical History Diabetes GERD (gastroesophageal reflux disease) Hepatitis Depression HTN (hypertension) Chronic pain syndrome Intercostal neuralgia Pre-op evaluation 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 Chest pain COPD (chronic obstructive pulmonary disease) Tracheobronchomalacia Family History Family History Other HTN (hypertension) Social History Social History Household Members: Family and None Household Members Other:: 2 adults 1 cat Housing: Condominium Do you presently have visiting nurse or other home services: No Alcohol intake: current Alcohol intake frequency: a few times a month Patient Tobacco Use Status: Former Tobacco user Tobacco use type: Cigarette Cigarette Packs Per Day: 0.5 Cigarettes Per Day: 10 Years Smoked: 15 Smoked in Last 30 Days: Yes Patient Interested in Nicotine Replacement: Yes Patient Given Instructions on How to Stop Smoking: No Second Hand Smoke Exposure: No Use of substances other than those prescribed or required for medical reasons: No Substance Use Type: Marijuana Currently Displaying Signs/Symptoms of Drug Intoxication Withdrawal: No Have you been hit, kicked, punched, or otherwise hurt by someone within the past year? If so, by whom?: No Do you feel safe in your current relationship?: No Is there a partner from a previous relationship who is making you feel unsafe now?: No Are you made to feel afraid or neglected: No Advance Directives: No Advance Directives Information Provided: Yes Recently lost weight without trying: No Eating poorly because of decreased appetite: No Nutrition Risks: No Nutritional Risk Poor oral hygiene: No service: Yes (4 years in the ) Sexual orientation: Straight/Heterosexual Meds Allergies Allergy/AdvReac Type Severity Reaction Status Date / Time prednisone [PREDNISONE] Allergy Mild RAGE Verified 09/17/24 16:50 lisinopril AdvReac Cough Verified 09/17/24 16:50 Home Medications ?Medication ?Instructions ?Recorded ?Confirmed ?Last Taken ?Type insulin glargine 100 unit/mL (3 70 unit subcut BEDTIME 07/22/20 09/30/24 Unknown History mL) subcutaneous pen montelukast 10 mg tablet 10 mg PO DAILY PRN asthma 08/26/20 09/30/24 08/26/20 04:10 History (Singulair) omeprazole 20 mg capsule,delayed 40 mg PO DAILY PRN Acid Reflux 10/14/20 09/30/24 Unknown History release atorvastatin 40 mg tablet 40 mg PO DAILY 09/17/24 09/30/24 Unknown History diltiazem HCl 180 mg 180 mg PO DAILY 09/17/24 09/30/24 Unknown History capsule,extended release 24 hr dulaglutide 3 mg/0.5 mL 1.5 mg subcut CLARK@0900 09/17/24 09/30/24 Unknown History subcutaneous pen injector (Trulicity) fluticasone fur. 200 mcg-umeclid 1 ea inhalation DAILY 09/17/24 09/30/24 Unknown History 62.5 mcg-vilant 25 mcg inhalat.powder (Trelegy Ellipta) quetiapine 25 mg tablet 25 mg PO BEDTIME 09/17/24 09/30/24 Unknown History chlorthalidone 25 mg tablet 25 mg PO DAILY 09/30/24 09/30/24 Unknown History venlafaxine 75 mg tablet,extended 75 mg PO DAILY 09/30/24 09/30/24 Unknown History release 24 hr Physical Exam 2 Vital Signs: Vital Signs: Last Vital Signs Temp 97.4 F 09/30/24 08:52 Pulse 71 09/30/24 12:25 Resp 18 09/30/24 12:25 BP 124/81 09/30/24 12:25 Pulse Ox 92 09/30/24 12:25 O2 Del Method Room Air 09/30/24 12:25 O2 Flow Rate 3 09/30/24 09:42 BMI result Body Mass Index 26.5 Const: General: cooperative, comfortable, no acute distress, alert, awake and Physically active Nutritional Appearance: average body habitus O rientation/consciousness: patient oriented x3 Limitations: no limitations HEENT: Head: Yes normocephalic and Yes atraumatic Neck: Neck: Yes trachea midline, Yes supple and Yes no JVD Resp: Effort & Inspection: normal respiratory effort Auscultation: clear to auscultation bilaterally Cardio: Jugular venous distension: no JVD Palpation: normal PMI Rate: r egular rate Rhythm: regular rhythm Heart sounds: S1 normal heart sound present, S2 normal heart sound present, no click, no gallops, no murmurs and no rubs GI: Auscultation: normal bowel sounds Skin: General skin exam: no rashes or lesions noted Neuro: General: patient oriented x3 and no focal motor deficits Extrem: General: Yes no clubbing, cyanosis or edema Objective Labs and Meds 09/17/24 17:27 09/19/24 14:09 Lab results: Laboratory Results - last 24 hr 09/30/24 16:24 POC Glucose 106 Assessment and Plan (1) Paroxysmal atrial fibrillation: Status: Acute Paroxysmal atrial fibrillation patient with multiple risk factors including hypertension, diabetes and age, triggered by ECT therapy due to catecholamine surge. Patient converted easily to sinus rhythm with IV rate control. At this point time will benefit from rhythm control. I would switch his Cardizem therapy to Toprol for more adrenergic block it rather than calcium channel sonal it to avoid future development of atrial fibrillation with therapy such as ECT. 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 Will need structural evaluation of heart and echocardiogram to be done today to evaluate biatrial chamber size and hypertensive heart disease as well as LV ejection fraction. Will set up for outpatient exercise testing to evaluate for myocardial ischemia. CHADSVAsc score of 3, I would consider oral anticoagulation therapy. Advised to avoid stimulants such as cocaine. Also advised to avoid alcohol. Avoid excessive caffeine use. Please check TSH. If patient requires future ECT therapy for his mental health, is optimized to undergo the procedure on metoprolol therapy. From cardiac perspective patient can be discharged home. Will set up for outpatient follow-up Procedures Date of Service Date of Service: 10/01/24
== END 2024-09-30 12:35 | disposition short-term general hospital (02) | DRG 885 ==
LOC: HO.ED 23:40 → HO.PGERI 09-19 12:36
PROVIDERS: Emergency Medicine; Physician Assistant Medical; Psychiatry & Neurology Psychiatry; Admitting Provider Psychiatry & Neurology Psychiatry; Emergency Provider Emergency Medicine Emergency Medical Services; Visit Provider Psychiatry & Neurology Psychiatry
PROC: GZB4ZZZ Other Electroconvulsive Therapy (ICD-10-PCS; CPT 90870; principal; 2024-09-23 09:00)
DX: F33.1 Major depressive disorder, recurrent, moderate (principal); R45.851 Suicidal ideations; J44.9 Chronic obstructive pulmonary disease, unspecified; F10.20 Alcohol dependence, uncomplicated; K59.00 Constipation, unspecified; Y90.6 Blood alcohol level of 120-199 mg/100 ml; I48.0 Paroxysmal atrial fibrillation; Z87.891 Personal history of nicotine dependence; F14.11 Cocaine abuse, in remission; Z79.4 Long term (current) use of insulin; Z79.01 Long term (current) use of anticoagulants; Z79.85 Long-term (current) use of injectable non-insulin antidiabetic drugs; Z79.899 Other long term (current) drug therapy
CPT/HCPCS: 36415; 80053; 80061; 80307; 81001; 82607; 82746; 82947; 83036; 83735; 85025; 90870; 93005; 99285; J0330; J1805; J2060; J2405; J7120; S9485

== ENCOUNTER → 2024-09-18 08:42 | Outpatient (BNV) | payer MEDICARE, SELFPAY | PROVIDERS: Emergency Provider Emergency Medicine Emergency Medical Services; Visit Provider Internal Medicine | DX: R45.851 Suicidal ideations (principal) | CPT/HCPCS: 93010 ==

== ENCOUNTER 2024-09-19 12:24 | Outpatient (BNV) | payer MEDICARE, MEDICAID, SELFPAY | END 2024-09-30 08:23 | PROVIDERS: Admitting Provider Psychiatry & Neurology Psychiatry; Emergency Provider Emergency Medicine Emergency Medical Services; Visit Provider Internal Medicine Cardiovascular Disease | DX: R00.0 Tachycardia, unspecified (principal); I48.91 Unspecified atrial fibrillation; R94.31 Abnormal electrocardiogram [ECG] [EKG] | CPT/HCPCS: 93010 ==

== ENCOUNTER → 2024-09-19 12:24 | Outpatient (BNV) | payer MEDICARE, MEDICAID, SELFPAY | PROVIDERS: Admitting Provider Psychiatry & Neurology Psychiatry; Emergency Provider Emergency Medicine Emergency Medical Services; Visit Provider Internal Medicine Cardiovascular Disease | DX: I48.0 Paroxysmal atrial fibrillation (principal) | CPT/HCPCS: 99222 ==

== ENCOUNTER → 2024-09-19 12:24 | Outpatient (BNV) | payer MEDICARE, SELFPAY | PROVIDERS: Admitting Provider Psychiatry & Neurology Psychiatry; Emergency Provider Emergency Medicine Emergency Medical Services; Visit Provider Student in an Organized Health Care Education/Training Program | DX: I71.21 Aneurysm of the ascending aorta, without rupture (principal) | CPT/HCPCS: 99222 ==

== ENCOUNTER → 2024-09-19 12:24 | Outpatient (BNV) | payer MEDICARE, SELFPAY | PROVIDERS: Admitting Provider Psychiatry & Neurology Psychiatry; Emergency Provider Emergency Medicine Emergency Medical Services; Visit Provider Social Worker | DX: F33.1 Major depressive disorder, recurrent, moderate (principal); F14.11 Cocaine abuse, in remission; F10.20 Alcohol dependence, uncomplicated | CPT/HCPCS: 90792; 90870; 99231; 99232; 99238 ==

== ENCOUNTER → 2024-09-19 12:24 | Outpatient (BNV) | payer MEDICARE, SELFPAY | PROVIDERS: Admitting Provider Psychiatry & Neurology Psychiatry; Emergency Provider Emergency Medicine Emergency Medical Services; Visit Provider Psychiatry & Neurology Psychiatry | DX: F33.1 Major depressive disorder, recurrent, moderate (principal) | CPT/HCPCS: 90870; 99232 ==

== ENCOUNTER 2024-09-30 13:28 | Inpatient (IN) | payer MEDICARE, OTHER, SELFPAY ==
--- NOTE | 2024-09-30 10:59 | P.HPHOSP_ITS ---
History of Present Illness Date of Service: 09/30/24 Chief Complaint: New onset Afib w RvR A 68 yeats old male with PMH of SPRING not using CPAP, COPD, HTN, HLD, DMII, Depression, Alcohol and cocaine abuse among others who was admitted to psychiatry floor for increase depression and suicidal attempt. Treated in psych floor and treated with medications and 3 sessions of ECT. he reported improvement in mood and no SI. improved sleep and eating pattern. Upon his 3rd ECT treatment session he went into new onset rapid Atrial fibrillation with RvR. No chest pain, palpitations, SOB, nausea, vomiting, diarrhea or urinary symptoms. He received a dose of IV Cardizem and his daily PO Dose and was admitted to Telemetry. He converted back to sinus upon time of admission. Will be monitored on Telemetry for now. 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 Chest pain COPD (chronic obstructive pulmonary disease) Tracheobronchomalacia Family History Other HTN (hypertension) Social History Household Members: Family and None Household Members Other:: 2 adults 1 cat Housing: Condominium Do you presently have visiting nurse or other home services: No Alcohol intake: current Alcohol intake frequency: a few times a month Patient Tobacco Use Status: Former Tobacco user Tobacco use type: Cigarette Cigarette Packs Per Day: 0.5 Cigarettes Per Day: 10 Years Smoked: 15 Smoked in Last 30 Days: Yes Patient Interested in Nicotine Replacement: Yes Patient Given Instructions on How to Stop Smoking: No Second Hand Smoke Exposure: No Use of substances other than those prescribed or required for medical reasons: No Substance Use Type: Marijuana Have you been hit, kicked, punched, or otherwise hurt by someone within the past year? If so, by whom?: No Do you feel safe in your current relationship?: No Is there a partner from a previous relationship who is making you feel unsafe now?: No Are you made to feel afraid or neglected: No Advance Directives: No Advance Directives Information Provided: Yes Recently lost weight without trying: No Eating poorly because of decreased appetite: No Nutrition Risks: No Nutritional Risk Poor oral hygiene: No service: Yes (4 years in the ) Sexual orientation: Straight/Heterosexual Meds Allergies Allergy/AdvReac Type Severity Reaction Status Date / Time prednisone [PREDNISONE] Allergy Mild RAGE Verified 09/17/24 16:50 lisinopril AdvReac Cough Verified 09/17/24 16:50 Home Medications ?Medication ?Instructions ?Recorded ?Confirmed ?Last Taken ?Type insulin glargine 100 unit/mL (3 70 unit subcut BEDTIME 07/22/20 09/17/24 Unknown History mL) subcutaneous pen montelukast 10 mg tablet 10 mg PO DAILY PRN asthma 08/26/20 09/17/24 08/26/20 04:10 History (Singulair) omeprazole 20 mg capsule,delayed 40 mg PO DAILY PRN Acid Reflux 10/14/20 09/17/24 Unknown History release atorvastatin 40 mg tablet 40 mg PO DAILY 09/17/24 09/17/24 Unknown History chlorthalidone 25 mg tablet 25 mg PO DAILY 09/17/24 09/17/24 Unknown History diltiazem HCl 180 mg 180 mg PO DAILY 09/17/24 09/17/24 Unknown History capsule,extended release 24 hr dulaglutide 3 mg/0.5 mL 3 mg subcut CLARK 09/17/24 09/17/24 Unknown History subcutaneous pen injector (Trulicity) fluticasone fur. 200 mcg-umeclid 1 ea inhalation DAILY 09/17/24 09/17/24 Unknown History 62.5 mcg-vilant 25 mcg inhalat.powder (Trelegy Ellipta) quetiapine 25 mg tablet 25 mg PO BEDTIME 09/17/24 09/17/24 Unknown History esketamine 84 mg (28 mg x 3) nasal mg intranasal 09/30/24 Unknown History spray (Spravato) zolpidem 12.5 mg tablet,extended 12.5 mg PO BEDTIME PRN Sleep 09/30/24 09/30/24 Unknown History release,multiphase Physical Exam Const: Other: Constitutional : Awake, interactive, not in distress Neck : Normal inspection, Supple Cardiovascular : irrigular irrigular, no JVP, no lower extremity edema Respiratory : good bilateral air entry, no crackles, wheezes or rhonchi Gastrointestinal: soft, lax, Normal bowel sounds, Non tender Skin : Warm, Dry Neurological : Alert & oriented x3, No focal deficit , CN 2-12 within normal Assessment and Plan (1) Atrial fibrillation with rapid ventricular response: Status: Acute (2) New onset atrial fibrillation: Status: Acute Plan A 68 yeats old male with PMH of SPRING not using CPAP, COPD, HTN, HLD, DMII, Depression, Alcohol and cocaine abuse among others who was admitted to psychiatry floor for increase depression and suicidal attempt. found to have new onset Afib w RvR New onset Afib w RvR check TSH Keep on Tele Cardizem Drip to dc as he converted back to sinus Continue home Cardizem CD get Echo Cardiology consulted Eliquis 5 mg bid as blood thinner COPD home inhalers DMII Start Lantus bedtime SSI, POC GERD PPI Depression Cariprazone, Clonazepam, Esketamine and Seroquel PRN Ambien for insomnia DVT PPx Lovenox The patient will be admitted for likely 2 overnight hospital stay for Afib control pending cardiology eval and Echo. Quality Stroke Does the patient have a stroke diagnosis?: No VTE Prior VTE?: No VTE Risk Level:: Medical - moderate - high VTE Device Contraindication: Treatment Not Indicated VTE Drug Contraindication: N/A - Med Ordered
[2024-09-30 14:32] VITALS: BMI 26.4
[2024-09-30 15:53] VITALS: BP 134/80; PULSE 63; RESP 18; TEMP 36.2; O2SAT 97
--- NOTE | 2024-09-30 16:32 | PHA.MEDREC ---
Pharmacy Consult ? Medication Reconciliation Pharmacy has completed the medication reconciliation. Patient transferred from S[facility]. During admission clonazepam changed from QID to TID, Triazolam, Spravato, triazolam and Zolpidem DC'ed(confirmed all this with Lizzeth Spear). Patient has been filling desvenlafaxine at home and this med was interchanged to venlafaxine while inpatient but Dr. Spear wants patient to stop desvenlafaxine and continue venlafaxine. Patient states he is taking only 1.5 mg of trulicity weekly and not 3 mg due to med being on backorder.
[2024-09-30] MEDS: 0.9 % Sodium Chloride Flush 3 ML SYRINGE IVFLUSH ×2 (16:45→20:15)
[2024-09-30 17:38] LABS: Glucose, Whole Blood 193 mg/dL (60-115)
[2024-09-30] MEDS: Insulin Lispro 100 UNIT/ML 3 ML VIAL SUBCUT ×2 (17:45→20:11)
[2024-09-30 19:20] VITALS: BP 128/68; PULSE 67; RESP 20; TEMP 37; O2SAT 96
[2024-09-30 20:02] LABS: Glucose, Whole Blood 197 mg/dL (60-115)
[2024-09-30] MEDS: clonazePAM 1 MG TABLET PO (20:11)
[2024-09-30] MEDS: QUEtiapine Fumarate 25 MG TABLET PO (20:11)
[2024-09-30] MEDS: Insulin Glargine,Hum.rec.anlog 100 UNIT/ML 10 ML VIAL 50 UNIT SUBCUT (20:12)
[2024-09-30 23:08] VITALS: BP 139/75; PULSE 56; RESP 20; TEMP 36.2; O2SAT 95
[2024-10-01 03:55] VITALS: BP 119/56; PULSE 55; RESP 20; TEMP 36.5; O2SAT 97
[2024-10-01 06:30] LABS: Hemoglobin 15.5 g/dl (14.0-18.0); Mean Platelet Volume 10.3 fL (9.4-12.4); PLT CLUMP 1; Red Cell Distribution Width 12.7 % (11.0-16.0); SCAN SMEAR FLAG 1
[2024-10-01 06:32] LABS: Basophils Percent Auto 0.4 % (0-2); Eosinophils Absolute Auto 0.2 X10*3/uL (0.0-0.4); Eosinophils Percent Auto 2.5 % (0-4); Hematocrit 43.5 % (42.0-52.0); Imm Gran Abs Auto 0.04 X10*3/uL (0.00-0.03); Imm Gran Pct Auto 0.4 % (0.0-0.4); Lymphocytes Absolute Auto 1.7 X10*3/uL (1.2-4.9); Lymphocytes Percent Auto 18.2 % (20-40); MANUAL DIFF FLAG SCAN; Mean Corpuscular HGB Conc 35.6 g/dl (31.0-36.0); Mean Corpuscular Hemoglobin 30.9 pg (27.0-33.0); Mean Corpuscular Volume 86.7 fL (80.0-98.0); Monocytes Absolute Auto 0.9 X10*3/uL (0.1-1.2); Monocytes Percent Auto 9.8 % (2-11); Neutrophils Absolute Auto 6.5 x10*3/uL (2.0-8.3); Neutrophils Percent Auto 68.7 % (45-73); Red Blood Count 5.02 X10*6/uL (4.60-5.80); White Blood Count 9.5 X10*3/uL (4.8-10.8)
[2024-10-01 06:47] LABS: Anion Gap 11 (12-20); Blood Urea Nitrogen 21 mg/dL (9-16); Calcium 9.5 mg/dL (8.4-10.2); Carbon Dioxide 25 mmol/L (22-29); Chloride 108 mmol/L (96-108); Creatinine Clr Calc Pharmacy 72.8; Estimated Glomerular Filt Rate > 60; Glucose Random 102 mg/dL (60-115); Potassium 4.2 mmol/L (3.3-5.1); Sodium 140 mmol/L (135-145)
[2024-10-01 07:26] LABS: Platelet Count 207 X10*3/uL (160-400)
[2024-10-01 07:27] LABS: SLIDE REVIEW VERIFIED
[2024-10-01 07:30] VITALS: BP 123/76; PULSE 66; RESP 18; TEMP 36.6; O2SAT 95
[2024-10-01] MEDS: Fluticasone/Umeclidinium/Vilanterol 200/62.5/25 BLST.W.DEV 1 PUFF INHALE (07:40)
[2024-10-01 07:42] VITALS: PULSE 66; RESP 18; O2SAT 95
[2024-10-01 07:44] LABS: Glucose, Whole Blood 106 mg/dL (60-115)
[2024-10-01] MEDS: Atorvastatin Calcium 40 MG TABLET PO (09:09)
[2024-10-01] MEDS: Venlafaxine HCl ER 75 MG CAP.ER.24H PO (09:09)
[2024-10-01] MEDS: Nicotine 21 MG PATCH.TD24 TRANSDERMA (09:09)
[2024-10-01] MEDS: 0.9 % Sodium Chloride Flush 3 ML SYRINGE IVFLUSH ×2 (09:09→14:24)
[2024-10-01] MEDS: clonazePAM 1 MG TABLET PO ×2 (09:09→14:23)
[2024-10-01] MEDS: hydroCHLOROthiazide 25 MG TABLET PO (09:09)
[2024-10-01] MEDS: Cariprazine HCl 1.5 MG CAPSULE PO (09:09)
[2024-10-01] MEDS: dilTIAZem HCL CD 180 MG CAP.ER.24H PO (09:09)
--- NOTE | 2024-10-01 10:33 | MHC.CM.PN ---
CM met with Patient at bedside and addressed IMM with him, providing Patient with the original and a copy has been placed on the chart. Patient lives in a condo with his Grandson/HCP/Shine and he required no home services [facility] ( a new referral was made to [facility] while Patient was IPLOC). PCP is Dr. Natalia Shell (F/u appointment is 10/04/24 @ 9:20 AM) and Psych Provider is Dr. Laurel Murillo with f/u appointment on 10/03/24 @ 2PM.Patient's Grandson may be able to transport to home vs C Shuttle. CM will follow.
[2024-10-01 11:30] LABS: Glucose, Whole Blood 130 mg/dL (60-115)
[2024-10-01 12:00] VITALS: BP 121/76; PULSE 73; RESP 18; TEMP 36.9; O2SAT 98
--- NOTE | 2024-10-01 12:49 | PM.DS ---
DS: Providers Provider Date of Service: 10/01/24 Date of admission: 09/30/24 13:28 Date of discharge: 10/01/24 Primary care physician: Unknown Physician Consults: 10/01/24 07:29 Consult to Care Team Routine Comment: Reason for consultation: PENDING Discharge, Medicall free DS: Diagnosis Discharge Diagnosis (1) Atrial fibrillation with rapid ventricular response: Status: Acute (2) New onset atrial fibrillation: Status: Acute (3) Paroxysmal atrial fibrillation: Status: Acute DS: Summary Hospital Course Hospital Course: Admission note HPI A 68 yeats old male with PMH of SPRING not using CPAP, COPD, HTN, HLD, DMII, Depression, Alcohol and cocaine abuse among others who was admitted to psychiatry floor for increase depression and suicidal attempt. Treated in psych floor and treated with medications and 3 sessions of ECT. he reported improvement in mood and no SI. improved sleep and eating pattern. Upon his 3rd ECT treatment session he went into new onset rapid Atrial fibrillation with RvR. No chest pain, palpitations, SOB, nausea, vomiting, diarrhea or urinary symptoms. He received a dose of IV Cardizem and his daily PO Dose and was admitted to Telemetry. He converted back to sinus upon time of admission. Will be monitored on Telemetry for now. Hospital course New onset Afib w RvR after ECT treatment. run breifly and converted back to sinus with 1 dose of IV Cardizem. TSH normal. Kept on his home dose of Cardizem 180mg CD as he was evaluated by cardiology who recommended switching him to Metoprolol 50mg XL and start Eliquis for CHADVasC score of 3. Echo was done showing normal EF. To be followed by dr Soliz as outpatient for prolonged monitoring with holter and stress testing. He has hx of major Depression with suicidal attempt on admission to psychiatry. responded well to ECT treatment and medications of Cariprazone, Clonazepam, Esketamine and Seroquel. Cleared by psychiatry team to discharge home and follow as outpatient for ECT. care team evaluated him as well and felt he is safe to discharge. he denies any suicidal thoughts and feels safe to be home. He can follow for ECT on Monday while on Metoprolol XL. Discharge plan Start Metoprolol 50mg XL Stop Cardizem 180mg CD Start Eliquis 5 mg two times a day as blood thinner Follow with cardiology as outpatient for further work up (Heart monitoring, stress test) To follow with psychiatry as outpatient The patient made quicker than expected recovery and will not need 2 overnight hospital stay. Time Attestation Discharge Coordination Time (in mins): 36 Quality: Safe Use of Opioids Does Pt have an Active Cancer Diagnosis on the Problem List?: No Quality: Stroke Does the patient have a stroke diagnosis?: No Physical Exam Vital Signs: Vital Signs: Last Vital Signs Temp 98.4 F 10/01/24 12:00 Pulse 73 10/01/24 12:00 Resp 18 10/01/24 12:00 BP 121/76 10/01/24 12:00 Pulse Ox 98 10/01/24 12:00 O2 Del Method Room Air 10/01/24 12:00 BMI result Body Mass Index 26.4 Const: Other: Constitutional : Awake, interactive, not in distress Neck : Normal inspection, Supple Cardiovascular : RRR , no JVP, no lower extremity edema Respiratory : good bilateral air entry, no crackles, wheezes or rhonchi Gastrointestinal: soft, lax, Normal bowel sounds, Non tender Skin : Warm, Dry Neurological : Alert & oriented x3, No focal deficit , CN 2-12 within normal DS: Data Data Completed and Pending Labs on day of discharge: Laboratory Results - last 24 hr 09/30/24 09/30/24 10/01/24 17:33 19:54 06:23 WBC 9.5 RBC 5.02 Hgb 15.5 Hct 43.5 MCV 86.7 MCH 30.9 MCHC 35.6 RDW 12.7 Plt Count 207 MPV 10.3 Immature Gran % (Auto) 0.4 Neut % (Auto) 68.7 Lymph % (Auto) 18.2 L Cal[place]oun % (Auto) 9.8 Eos % (Auto) 2.5 Baso % (Auto) 0.4 Lymph # (Auto) 1.7 Calhoun # (Auto) 0.9 Eos # (Auto) 0.2 Baso # (Auto) 0.0 Abs Immat Gran (auto) 0.04 H Absolute Neuts (auto) 6.5 Absolute Nucleated RBC 0.000 Nucleated RBC % (auto) 0.0 Smear Tech's Comments VERIFIED Sodium 140 Potassium 4.2 Chloride 108 Carbon Dioxide 25 Anion Gap 11 L BUN 21 H Creatinine 1.08 Estim Creat Clear Calc 72.8 Estimated GFR > 60 POC Glucose 193 H 197 H Random Glucose 102 Calcium 9.5 TSH 1.40 10/01/24 10/01/24 07:30 11:25 WBC RBC Hgb Hct MCV MCH MCHC RDW Plt Count MPV Immature Gran % (Auto) Neut % (Auto) Lymph % (Auto) Calhoun % (Auto) Eos % (Auto) Baso % (Auto) Lymph # (Auto) Calhoun # (Auto) Eos # (Auto) Baso # (Auto) Abs Immat Gran (auto) Absolute Neuts (auto) Absolute Nucleated RBC Nucleated RBC % (auto) Smear Tech's Comments Sodium Potassium Chloride Carbon Dioxide Anion Gap BUN Creatinine Estim Creat Clear Calc Estimated GFR POC Glucose 106 130 H Random Glucose Calcium TSH Discharge Plan Discharge Anticipated Discharge Date/Time: 10/01/24 12:44 Patient Disposition: Home, Self-Care Discharge Diagnosis: New onset A.Fib w RvR Referrals: Dr.Piysuh Murillo 10/03/2024 [Other] - [address]. Natalia Velazquez (PCP) 10/04/2024 9:20 AM [Other] - 1 Week [facility] [Other] - 1 Week Physician,Unknown J [Primary Care Provider] - 1 Week Discharge Medications: New metoprolol succinate 50 mg tablet extended release 24 hr 50 mg PO DAILY Qty: 90 0RF Eliquis 5 mg tablet 5 mg PO BID Qty: 180 0RF Continued montelukast [Singulair] 10 mg Tablet 10 mg PO DAILY PRN (Reason: asthma) atorvastatin 40 mg tablet 40 mg PO DAILY quetiapine 25 mg tablet 25 mg PO BEDTIME Trulicity 3 mg/0.5 mL pen injector 1.5 mg subcut CLARK@0900 Trelegy Ellipta 200-62.5-25 mcg blister with device 1 ea INHALATION DAILY nicotine 21 mg/24 hr Patch 24 Hour 21 mg transdermal DAILY Qty: 0 0RF Vraylar 1.5 mg Capsule 1.5 mg PO DAILY Qty: 30 0RF polyethylene glycol 3350 17 gram Powder In Packet 17 g PO DAILY PRN (Reason: Constipation) Qty: 0 0RF clonazepam 1 mg Tablet 1 mg PO TID Qty: 0 0RF venlafaxine 75 mg Tablet Extended Release 24hr 75 mg PO DAILY chlorthalidone 25 mg tablet 25 mg PO DAILY insulin glargine 100 unit/mL (3 mL) insulin pen 70 unit subcut BEDTIME omeprazole 20 mg capsule,delayed release(DR/EC) 40 mg PO DAILY PRN (Reason: Acid Reflux) Discontinued diltiazem HCl 180 mg capsule,extended release 24hr 180 mg PO DAILY Discharge Orders: Discharge Order (Routine); Ordered 10/01/24 Ordered By: Tiffany Villegas Diet: Advance to usual diet Activity on Discharge: As tolerated Stand Alone Forms: Patient Portal Discharge page Print Language: Pashto Care Plan Goals: Start Metoprolol 50mg XL Stop Cardizem 180mg CD Start Eliquis 5 mg two times a day as blood thinner Follow with cardiology as outpatient for further work up (Heart monitoring, stress test) Health Concerns: New onset Atrial fibrillation Plan of Treatment: Metoprolol XL Eliquis Assessment: as above
--- NOTE | 2024-10-01 13:00 | CA_ITS ---
Transthoracic Echocardiogram Patient (Last, First, Middle): Joe Moore A Gender: Male Date of : 1955 Age: 68 Procedure Date: 10/01/2024 Procedure Type: [place]ansthoracic [place] [facility] [place]: 182.88 cm Weight: 88. kg BSA: 2.10 m2 Heart Rate: bpm BP: 121 / 76 mmHg Voice And Data Technician: HERLINDA Referring MD: Tiffany Villegas MD Symptoms: New onset Afib Study Quality: Adequate Conclusions: - 1. Normal LV ejection fraction 60 65% with impaired relaxation filling pattern 2. Normal cardiac valvular Dopplers 3. Mildly dilated ascending aorta at 3.8 cm 4. No gross pericardial effusion Findings Left Ventricle Normal left ventricular size, thickness, and systolic function. The visually estimated ejection fraction is between 60-65%. Spectral Doppler is indicative of an impaired relaxation filling pattern. E/E prime ratio is between 8 and 15 consistent with indeterminate filling pressures. Right Ventricle The right ventricle was not well visualized. Atria The left atrium is normal in size. Interatrial shunt cannot be excluded. The right atrium was not well visualized. Aortic Valve The aortic valve structure and function is likely normal. There is no aortic valve stenosis. There is no aortic valve regurgitation. Mitral Valve Likely normal mitral valve structure and function. There is trace mitral valve regurgitation. There is no mitral valve stenosis. Pulmonic Valve The pulmonic valve was not well visualized. Tricuspid Valve The tricuspid valve was not well visualized. Tricuspid regurgitation envelope is inadequate for calculation of right ventricular systolic pressure. Normal right atrial pressure. Great Vessels The pulmonary artery was not well visualized. There is mild dilatation of the ascending aorta measuring 3.80 cm. Venous The inferior vena cava is normal in size and collapses greater than 50% with inspiration. Pericardium/Pleural The pericardium was not well visualized. Prior Study Comparison No prior study available for comparison. Measurements 2D Linear Measurements IVSd: 0.89 0.6-0.9/0.6-1.0 cm LVIDd: 4.37 3.9-5.3/4.2-5.9 cm LVIDd Index: 2.08 2.4-3.2/2.2-3.1 cm/m2 LVIDs: 3.12 2.0-3.6 cm LVPWd: 0.90 0.7-1.1 cm LA Diam: 3.70 2.7-3.8/3.0-4.0 cm LAIDs Index: 1.76 1.5-2.3 cm/m2 LV Mass: 194.49 67-162/88-224 g LV Mass Index: 92.61 43-95/49-115 g/m2 LVOT Diam: 2.20 3.0+(-)1.3 cm 2D Systolic Function EF 4C: 65.30 >55% EF 2C: 65.50 >55% EF BiP: 64.90 >55% Mitral Valve MV Pk E: 0.66 MV PK A: 0.83 MV Decel Time: 262.00 E/A: 0.80 E'Lateral: 4.57 E'Medial: 7.07 E/E' Med: 9.30 E/E' Lat: 14.40 PHT: 77.00 MVA PHT: 2.86 Decel [place]: 2.52 Aortic Valve AoV Pk Abraham: 1.19 AoV Mn Abraham: 0.80 AoV VTI: 0.26 AoV Pk Grad: 6.00 Aov Mn Grad: 3.00 LONI Cont.VTI: 2.39 LVOT LVOT Pk Abraham: 0.74 LVOT Mn Abraham: 0.52 LVOT VTI: 0.17 LVOT Pk Grad: 2.00 LVOT Mn Grad: 1.00 LVOT Diam: 2.20 LVOT Area: 3.80 Diastolic Function MV Pk E: 0.66 MV Pk A: 0.83 E/A: 0.80 E'Medial: 7.07 E/E' Med: 9.30 E' Laterial: 4.57 E/E' Lat: 14.40 Right Ventricle TAPSE (mm): 26.20 TVS' Abraham: 17.00 Tricuspid Valve RA Press: 3.00 Great Vessels Aorta Sinus of Valsalva: 3.71 2.0-3.[address] [place]: 3.16 1.7-3.4 cm Ao Asc: 3.80 2.1-3.4 cm Updated in Other Vendor System with Status of Final Maximo Soliz MD electronically signed on 10/01/2024 3:04:13 PM with status of Final
[2024-10-01] MEDS: Apixaban 5 MG TABLET PO (14:23)
--- NOTE | 2024-10-01 14:51 | MHC.CM.PN ---
Both Patient and CM have been unable to reach either Contacts to ask about transportation to home and it is now too late for a shuttle. MD is waiting for ECHO results, prior to discharging Patient. Patient will now need a LYFT for transport to home.
--- NOTE | 2024-10-01 15:13 | PM.PSYCN ---
History of Present Illness Chief Complaint: atrial fibrillation RvR HPI Past Psychiatric History: Inpt: many in the past. Last 2019 OP: Dr. 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 He has one son and 3 grandchildren. 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 Trauma History: per prior records- related trauma Diagnostics Vital Signs (24Hr): Vital Signs - 24 hr 09/30/24 15:53 09/30/24 19:20 09/30/24 23:08 Temperature 97.2 F 98.6 F 97.1 F Pulse Rate 63 67 56 Respiratory Rate 18 20 20 Blood Pressure 134/80 128/68 139/75 Pulse Oximetry 97 96 95 Oxygen Delivery Method Room Air Room Air Room Air 10/01/24 03:55 10/01/24 07:30 10/01/24 07:42 Temperature 97.7 F 98 F Pulse Rate 55 66 66 Respiratory Rate 20 18 18 Blood Pressure 119/56 L 123/76 Pulse Oximetry 97 95 Oxygen Delivery Method Room Air Room Air 10/01/24 12:00 Temperature 98.4 F Pulse Rate 73 Respiratory Rate 18 Blood Pressure 121/76 Pulse Oximetry 98 Oxygen Delivery Method Room Air BMI result Body Mass Index 26.4 Labs 10/01/24 06:23 10/01/24 06:23 Labs: Laboratory Results - last 48 hr 09/30/24 09/30/24 10/01/24 17:33 19:54 06:23 WBC 9.5 RBC 5.02 Hgb 15.5 Hct 43.5 MCV 86.7 MCH 30.9 MCHC 35.6 RDW 12.7 Plt Count 207 MPV 10.3 Immature Gran % (Auto) 0.4 Neut % (Auto) 68.7 Lymph % (Auto) 18.2 L [place] % (Auto) 9.8 Eos % (Auto) 2.5 Baso % (Auto) 0.4 Lymph # (Auto) 1.7 [place] # (Auto) 0.9 Eos # (Auto) 0.2 Baso # (Auto) 0.0 Abs Immat Gran (auto) 0.04 H Absolute Neuts (auto) 6.5 Absolute Nucleated RBC 0.000 Nucleated RBC % (auto) 0.0 Smear Tech's Comments VERIFIED Sodium 140 Potassium 4.2 Chloride 108 Carbon Dioxide 25 Anion Gap 11 L BUN 21 H Creatinine 1.08 Estim Creat Clear Calc 72.8 Estimated GFR > 60 POC Glucose 193 H 197 H Random Glucose 102 Calcium 9.5 TSH 1.40 10/01/24 10/01/24 07:30 11:25 WBC RBC Hgb Hct MCV MCH MCHC RDW Plt Count MPV Immature Gran % (Auto) Neut % (Auto) Lymph % (Auto) [place] % (Auto) Eos % (Auto) Baso % (Auto) Lymph # (Auto) [place] # (Auto) Eos # (Auto) Baso # (Auto) Abs Immat Gran (auto) Absolute Neuts (auto) Absolute Nucleated RBC Nucleated RBC % (auto) Smear Tech's Comments Sodium Potassium Chloride Carbon Dioxide Anion Gap BUN Creatinine Estim Creat Clear Calc Estimated GFR POC Glucose 106 130 H Random Glucose Calcium TSH Medications Medications Current Medications Acetaminophen (Acetaminophen 325 Mg Tablet) 650 mg PO Q6H PRN PRN Reason: Pain, Mild 1-3,fever,headache Apixaban (Apixaban 5 Mg Tablet) 5 mg PO BID [facility] Last Admin: 10/01/24 14:23 Dose: 5 mg Atorvastatin Calcium (Atorvastatin Calcium 40 Mg Tablet) 40 mg PO DAILY [facility] Last Admin: 10/01/24 09:09 Dose: 40 mg Calcium Carbonate (Calcium Carbonate 750 Mg Tab.Chew) 750 mg PO Q4H PRN PRN Reason: Heartburn Cariprazine (Cariprazine Hcl 1.5 Mg Capsule) 1.5 mg PO DAILY [facility] Last Admin: 10/01/24 09:09 Dose: 1.5 mg Clonazepam (Clonazepam 1 Mg Tablet) 1 mg PO TID [facility] Last Admin: 10/01/24 14:23 Dose: 1 mg Diltiazem HCl (Diltiazem Hcl Cd 180 Mg Cap.Er.24h) 180 mg PO DAILY [facility]; Protocol Last Admin: 10/01/24 09:09 Dose: 180 mg Fluticasone/Umeclidinium/Vilanterol (Fluticasone/Umeclidinium/Vilanterol 200/62.5/25 Blst.W.Dev) 1 puff INHALE RDAILY [facility] Last Admin: 10/01/24 07:40 Dose: 1 puff Hydrochlorothiazide (Hydrochlorothiazide 25 Mg Tablet) 25 mg PO DAILY [facility] Last Admin: 10/01/24 09:09 Dose: 25 mg Insulin Glargine (Insulin Glargine,Hum.Rec.Anlog 100 Unit/Ml 10 Ml Vial) 50 unit SUBCUT BEDTIME [facility] Last Admin: 09/30/24 20:12 Dose: 50 unit Insulin Human Lispro (Insulin Lispro 100 Unit/Ml 3 Ml Vial) 0 unit SUBCUT QIDACHS [facility]; Protocol Last Admin: 10/01/24 12:03 Dose: Not Given Magnesium Hydroxide (Milk Of Magnesia 30 Ml Oral.Susp) 30 ml PO DAILY PRN PRN Reason: Constipation Melatonin (Melatonin 3 Mg Tablet) 6 mg PO BEDTIME PRN PRN Reason: Insomnia Montelukast Sodium (Montelukast Sodium 10 Mg Tablet) 10 mg PO DAILY PRN PRN Reason: asthma Nicotine (Nicotine 21 Mg Patch.Td24) 21 mg TRANSDERMA DAILY [facility] Last Admin: 10/01/24 09:09 Dose: 21 mg Omeprazole (Omeprazole 40 Mg Capsule.Dr) 40 mg PO DAILY PRN PRN Reason: Acid Reflux Ondansetron HCl (Ondansetron Hcl 4 Mg/2 Ml Vial) 4 mg IVPUSH Q8H PRN PRN Reason: Nausea and Vomiting Polyethylene Glycol (Polyethylene Glycol 3350 17 Gm Powd.Pack) 17 gm PO DAILY PRN PRN Reason: Constipation Quetiapine Fumarate (Quetiapine Fumarate 25 Mg Tablet) 25 mg PO BEDTIME [facility] Last Admin: 09/30/24 20:11 Dose: 25 mg Sodium Chloride (0.9 % Sodium Chloride Flush 3 Ml Syringe) 3 ml IVFLUSH QSHIFT [facility] Last Admin: 10/01/24 14:24 Dose: 3 ml Venlafaxine HCl (Venlafaxine Hcl Er 75 Mg Cap.Er.24h) 75 mg PO DAILY [facility] Last Admin: 10/01/24 09:09 Dose: 75 mg Allergies Allergies Allergy/AdvReac Type Severity Reaction Status Date / Time prednisone [PREDNISONE] Allergy Mild RAGE Verified 09/17/24 16:50 lisinopril AdvReac Cough Verified 09/17/24 16:50 Assessment & Plan Total time managing care of this patient today ____ minutes.
--- NOTE | 2024-10-01 20:51 | PM.EVENT ---
Event Note Date of Service: 10/01/24 Event Note: pt seen discussed case with hospitalist service cardiology ok with cont ect with b osnal pretx and anticoagulation. Pt stable for d/c from med floor improved with ect wishes to cont tx has ect outpt scheduled 10/04/24 Time Spent With Patient Time: Total time managing care of this patient today ____ minutes.
== END 2024-10-01 15:45 | disposition home or self-care (01) | DRG 310 ==
PROVIDERS: Admitting Provider Internal Medicine; PCP Nurse Practitioner Family; Visit Provider Student in an Organized Health Care Education/Training Program
DX: I48.0 Paroxysmal atrial fibrillation (principal); G47.33 Obstructive sleep apnea (adult) (pediatric); G89.4 Chronic pain syndrome; I10 Essential (primary) hypertension; E78.5 Hyperlipidemia, unspecified; K21.9 Gastro-esophageal reflux disease without esophagitis; E11.9 Type 2 diabetes mellitus without complications; F10.10 Alcohol abuse, uncomplicated; F14.10 Cocaine abuse, uncomplicated; Z87.891 Personal history of nicotine dependence; Z91.51 Personal history of suicidal behavior; Z79.4 Long term (current) use of insulin; Z79.85 Long-term (current) use of injectable non-insulin antidiabetic drugs; Z79.899 Other long term (current) drug therapy
CPT/HCPCS: 36415; 80048; 82947; 84443; 85025; 93306; 94640; Q9957

== ENCOUNTER 2024-09-30 13:28 | Outpatient (BNV) | payer MEDICARE, MEDICAID, SELFPAY | END 2024-10-01 13:00 | PROVIDERS: Admitting Provider Internal Medicine; Visit Provider Internal Medicine Cardiovascular Disease | DX: I48.91 Unspecified atrial fibrillation (principal) | CPT/HCPCS: 93306 ==

== ENCOUNTER → 2024-09-30 13:28 | Outpatient (BNV) | payer MEDICARE, MEDICAID, SELFPAY | PROVIDERS: Admitting Provider Internal Medicine; Visit Provider Student in an Organized Health Care Education/Training Program | DX: I48.91 Unspecified atrial fibrillation (principal); I48.0 Paroxysmal atrial fibrillation | CPT/HCPCS: 99239 ==

== ENCOUNTER 2024-10-04 05:53 | Day surgery (SDC) | payer MEDICARE, OTHER, SELFPAY ==
[2024-10-04 06:39] LABS: Glucose, Whole Blood 143 mg/dL (60-115)
[2024-10-04 06:42] VITALS: BP 154/99; PULSE 94; RESP 20; TEMP 36.9; O2SAT 98; BMI 24.8
[2024-10-04] MEDS: Lactated Ringers 1,000 ML 100 ML IVCONT (06:46)
--- NOTE | 2024-10-04 07:36 | MHC.SHP ---
Pre-Procedural Eval Section A - 24 Hr Update-Section A only Date of Service: 10/04/24 The patient is an INPATIENT: No Section B - Complete if H&P > 30 days Chief Complaint: Major depressive disorder, recurrent, severe with Details of Present Illness: pt s/p afib post last tx was started on metoprolol eloquis did not take metoprolol no palpitations anesthesia will give iv metoprolol Present Medications: see Short Stay Collaborative assessment Medical History: Significant History Allergies: Allergies Allergy/AdvReac Type Severity Reaction Status Date / Time prednisone [PREDNISONE] Allergy Mild RAGE Verified 09/17/24 16:50 lisinopril AdvReac Cough Verified 09/17/24 16:50 Review of Systems Sugical H&P ROS: Negative: Cardiovascular, Respiratory and Neurological (alert o x 3) and Yes, Specify: Psychiatric (anxious dyphoric) Exam Surgical H&P Exam: Normal: Heart, Normal: Lungs and Normal: Neurological Plan Diagnosis/Plan: Unchanged I have reviewed the history and physical and performed a pertinent physical examination on my patient. No changes have occurred unless specified. Time Spent With Patient Time: Total time managing care of this patient today ____ minutes.
--- NOTE | 2024-10-04 07:39 | HO.ECTPROC ---
ECT Procedure Note Diagnosis/Treatment Date of Service: 10/06/24 Diagnosis: Major Depressive Disorder Previous ECT Date: 09/30/24 Current Treatment Number: 5 Treatment: Series Interval Clinical Notes: Pt given iv metoprolol 2.5 MG no flumazenil and lma was used which provided much smoother oxygenation tx bf NO flumazenil no zofran pre sz 40 s no afib RECOMMEND DO NOT GIVE ZOFRAN PRE TX Time: Total time managing care of this patient today ____ minutes. ECT Settings Device: THYMATRON DGx Electrode Placement: Bifrontal Program/Pulse Width: 0.50 Energy Percent: 100 Seizure Duration By EEG (in seconds): 44 Medications Administration General Anesthetic: Etomidate (18) and Propofol (30) Muscle Relaxant: Succinylcholine (100) Ancillary Medications Anti-emetics: Zofran - Pre ECT Airway Management Airway Management: Bag Mask Ventilation Treatment Recommendations No Changes Recommended: No change Electrode Placement: Bifrontal Notes: PT TO TAKE PO METOPROLOL WITH SIP OF WATER AT HOME PRIOR TO TX DID BETTER WITH LMA Pt Tolerated Procedure w/o Issue: Yes
[2024-10-04 08:02] VITALS: BP 171/88; PULSE 81; RESP 16; TEMP 36.7; O2SAT 100
[2024-10-04 08:07] VITALS: BP 173/105; PULSE 92; RESP 16; O2SAT 96
[2024-10-04 08:12] VITALS: PULSE 95; RESP 16; O2SAT 96
[2024-10-04 08:17] VITALS: BP 146/95; PULSE 91; RESP 16; O2SAT 96
[2024-10-04 08:32] VITALS: BP 160/87; PULSE 74; RESP 16; TEMP 36.7; O2SAT 96
--- NOTE | 2024-10-04 10:25 | P.CONAN_ITS ---
[facility] Active Problems Active Problems: All Active Problems Paroxysmal atrial fibrillation (Acute) New onset atrial fibrillation (Acute) Atrial fibrillation with rapid ventricular response (Acute) Cocaine use disorder, mild, in early remission, abuse (Acute) Alcohol use disorder, moderate, dependence (Acute) MDD (major depressive disorder), recurrent episode, moderate (Acute) Suicidal ideation (Acute) Chronic pain syndrome (Acute) Intercostal neuralgia (Acute) Pre-op evaluation (Acute) Post-thoracotomy pain syndrome (Acute) 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 (Acute) Chest pain (Acute) COPD (chronic obstructive pulmonary disease) (Acute) Tracheobronchomalacia (Acute) Past Medical History Medical History Diabetes GERD (gastroesophageal reflux disease) Hepatitis Depression HTN (hypertension) Chronic pain syndrome Intercostal neuralgia Pre-op evaluation 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 Chest pain COPD (chronic obstructive pulmonary disease) Tracheobronchomalacia Functional capacity: independent ambulation Family History Family History Other HTN (hypertension) Family history of problems with anesthesia: No Surgical History History of Problems with Anesthesia: No Social History Social History Household Members: Family and None Household Members Other:: 2 adults 1 cat Housing: Condominium Do you presently have visiting nurse or other home services: No Alcohol intake: current Alcohol intake frequency: a few times a month Patient Tobacco Use Status: Former Tobacco user Tobacco use type: Cigarette Cigarette Packs Per Day: 0.5 Cigarettes Per Day: 10 Years Smoked: 15 Second Hand Smoke Exposure: No Substance Use Type: Marijuana Advance Directives: No Advance Directives Information Provided: Yes service: Yes Sexual orientation: Straight/Heterosexual Meds Allergies Allergy/AdvReac Type Severity Reaction Status Date / Time prednisone [PREDNISONE] Allergy Mild RAGE Verified 09/17/24 16:50 lisinopril AdvReac Cough Verified 09/17/24 16:50 Home Medications ?Medication ?Instructions ?Recorded ?Confirmed ?Last Taken ?Type insulin glargine 100 unit/mL (3 70 unit subcut BEDTIME 07/22/20 09/30/24 Unknown History mL) subcutaneous pen montelukast 10 mg tablet 10 mg PO DAILY PRN asthma 08/26/20 09/30/24 08/26/20 04:10 History (Singulair) omeprazole 20 mg capsule,delayed 40 mg PO DAILY PRN Acid Reflux 10/14/20 09/30/24 Unknown History release atorvastatin 40 mg tablet 40 mg PO DAILY 09/17/24 09/30/24 Unknown History dulaglutide 3 mg/0.5 mL 1.5 mg subcut [facility]@0900 09/17/24 09/30/24 Unknown History subcutaneous pen injector (Trulicity) fluticasone fur. 200 mcg-umeclid 1 ea inhalation DAILY 09/17/24 09/30/24 Unknown History 62.5 mcg-vilant 25 mcg inhalat.powder (Trelegy Ellipta) quetiapine 25 mg tablet 25 mg PO BEDTIME 09/17/24 09/30/24 Unknown History chlorthalidone 25 mg tablet 25 mg PO DAILY 09/30/24 09/30/24 Unknown History venlafaxine 75 mg tablet,extended 75 mg PO DAILY 09/30/24 09/30/24 Unknown History release 24 hr Exam Height,Weight and Vital Signs: Height 6 ft Weight 83.007 kg Last Vital Signs Temp 98.1 F 10/04/24 08:32 Pulse 74 10/04/24 08:32 Resp 16 10/04/24 08:32 BP 160/87 H 10/04/24 08:32 Pulse Ox 96 10/04/24 08:32 O2 Del Method Room Air, BiPAP 10/04/24 08:32 O2 Flow Rate 2 10/04/24 08:12 Pertinent Lab Results Pertinent Lab Results: Laboratory Tests 10/04/24 06:36 POC Glucose 143 H Airway Mallampati Class: III TM Dist: >3cm Neck ROM: Full Heart: RRR Lungs: CTA Assessment and Plan Assessment Anesthesia Assessment: Anesthesia Plan Discussed and Chart Reviewed Final Anesthetic Review Family History of Problems with Anesthesia: No History of Problems with Anesthesia: No NPO: Yes ASA Class: III Final Preanesthetic Review: Meds/Allgs Chart Reviewed, Consent Obtained/Reviewed and Anes Risks/Benef Reviewed Patient Risk: Intermediate Procedure Risk: Low Anesthetic Plan Anesthetic Plan: GA and MAC: Disposition: Standard PACU
--- NOTE | 2024-10-04 10:26 | HO.POSTANES ---
Post Anesthesia Evaluation Post Anesthesia Evaluation Date of Service: 10/04/24 Vital Signs: Vital Signs Temp Pulse Resp BP Pulse Ox O2 Del Method O2 Flow Rate 10/04/24 08:32 98.1 F 74 16 160/87 H 96 Room Air, BiPAP 10/04/24 08:17 91 16 146/95 H 96 Room Air 10/04/24 08:12 95 16 96 Room Air 2 10/04/24 08:07 92 16 173/105 H 96 Room Air 10/04/24 08:02 98.1 F 81 16 171/88 H 100 Nasal Cannula with ETCO2 2 10/04/24 06:42 98.4 F 94 20 154/99 H 98 Room Air Anesthesia: General Mental Status: Awake Pain Control: Satisfactory Nausea/Vomiting: None Hydration: Adequate Anesthesia-Related Issues: No Anes. Related Issues
== END 2024-10-04 08:50 | disposition home or self-care (01) ==
PROVIDERS: Visit Provider Psychiatry & Neurology Psychiatry
PROC: (CPT 90870; principal; 2024-10-04 07:30)
DX: F33.3 Major depressive disorder, recurrent, severe with psychotic symptoms (principal); I10 Essential (primary) hypertension; E11.9 Type 2 diabetes mellitus without complications; J44.9 Chronic obstructive pulmonary disease, unspecified; I48.91 Unspecified atrial fibrillation; R45.851 Suicidal ideations; K21.9 Gastro-esophageal reflux disease without esophagitis; K75.9 Inflammatory liver disease, unspecified; J39.8 Other specified diseases of upper respiratory tract; G89.4 Chronic pain syndrome; G58.8 Other specified mononeuropathies; G47.33 Obstructive sleep apnea (adult) (pediatric); Z79.51 Long term (current) use of inhaled steroids; Z79.4 Long term (current) use of insulin; Z79.85 Long-term (current) use of injectable non-insulin antidiabetic drugs; Z79.899 Other long term (current) drug therapy; Z99.89 Dependence on other enabling machines and devices; Z88.8 Allergy status to other drugs, medicaments and biological substances; Z87.891 Personal history of nicotine dependence
CPT/HCPCS: 82947; 90870; J0330; J1805; J2405

== ENCOUNTER → 2024-10-04 05:53 | Outpatient (BNV) | payer MEDICARE, SELFPAY | PROVIDERS: Visit Provider Psychiatry & Neurology Psychiatry | DX: F33.3 Major depressive disorder, recurrent, severe with psychotic symptoms (principal) | CPT/HCPCS: 90870 ==

== ENCOUNTER 2024-10-07 06:04 | Day surgery (SDC) | payer MEDICARE, OTHER, SELFPAY ==
[2024-10-07 06:24] LABS: Glucose, Whole Blood 131 mg/dL (60-115)
[2024-10-07 06:40] VITALS: BP 152/93; PULSE 73; RESP 12; TEMP 36.4; O2SAT 99; BMI 25.1
--- NOTE | 2024-10-07 06:41 | HO.ANESPROP2 ---
[facility] Active Problems Active Problems: All Active Problems Paroxysmal atrial fibrillation (Acute) New onset atrial fibrillation (Acute) Atrial fibrillation with rapid ventricular response (Acute) Cocaine use disorder, mild, in early remission, abuse (Acute) Alcohol use disorder, moderate, dependence (Acute) MDD (major depressive disorder), recurrent episode, moderate (Acute) Suicidal ideation (Acute) Chronic pain syndrome (Acute) Intercostal neuralgia (Acute) Pre-op evaluation (Acute) Post-thoracotomy pain syndrome (Acute) 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 (Acute) Chest pain (Acute) COPD (chronic obstructive pulmonary disease) (Acute) Tracheobronchomalacia (Acute) Past Medical History Medical History Diabetes GERD (gastroesophageal reflux disease) Hepatitis Depression HTN (hypertension) Chronic pain syndrome Intercostal neuralgia Pre-op evaluation 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 Chest pain COPD (chronic obstructive pulmonary disease) Tracheobronchomalacia Family History Family History Other HTN (hypertension) Family history of problems with anesthesia: No Surgical History History of Problems with Anesthesia: No Social History Social History Household Members: Family and None Household Members Other:: 2 adults 1 cat Housing: Condominium Do you presently have visiting nurse or other home services: No Alcohol intake: current Alcohol intake frequency: a few times a month Patient Tobacco Use Status: Former Tobacco user Tobacco use type: Cigarette Cigarette Packs Per Day: 0.5 Cigarettes Per Day: 10 Years Smoked: 15 Second Hand Smoke Exposure: No Substance Use Type: Marijuana Advance Directives: No Advance Directives Information Provided: Yes service: Yes Sexual orientation: Straight/Heterosexual Meds Allergies Allergy/AdvReac Type Severity Reaction Status Date / Time prednisone [PREDNISONE] Allergy Mild RAGE Verified 09/17/24 16:50 lisinopril AdvReac Cough Verified 09/17/24 16:50 Active Medications: Current Medications Lactated Ringer's (Lr) 1,000 mls @ 50 mls/hr IVCONT .Q20H UMA Naloxone HCl (Naloxone Hcl 0.4 Mg/Ml Vial) 0.04 mg IVPUSH Q5M PRN PRN Reason: Excessive sedation or RR < 8 Home Medications ?Medication ?Instructions ?Recorded ?Confirmed ?Last Taken ?Type insulin glargine 100 unit/mL (3 70 unit subcut BEDTIME 07/22/20 09/30/24 Unknown History mL) subcutaneous pen montelukast 10 mg tablet 10 mg PO DAILY PRN asthma 08/26/20 09/30/24 08/26/20 04:10 History (Singulair) omeprazole 20 mg capsule,delayed 40 mg PO DAILY PRN Acid Reflux 10/14/20 09/30/24 Unknown History release atorvastatin 40 mg tablet 40 mg PO DAILY 09/17/24 09/30/24 Unknown History dulaglutide 3 mg/0.5 mL 1.5 mg subcut [facility]@0900 09/17/24 09/30/24 Unknown History subcutaneous pen injector (Trulicity) fluticasone fur. 200 mcg-umeclid 1 ea inhalation DAILY 09/17/24 09/30/24 Unknown History 62.5 mcg-vilant 25 mcg inhalat.powder (Trelegy Ellipta) quetiapine 25 mg tablet 25 mg PO BEDTIME 09/17/24 09/30/24 Unknown History chlorthalidone 25 mg tablet 25 mg PO DAILY 09/30/24 09/30/24 Unknown History venlafaxine 75 mg tablet,extended 75 mg PO DAILY 09/30/24 09/30/24 Unknown History release 24 hr Exam Pertinent Lab Results Pertinent Lab Results: Laboratory Tests 10/07/24 06:21 POC Glucose 131 H Airway Mallampati Class: II TM Dist: >3cm Neck ROM: Full Denture: Upper and Lower Heart: rrr Lungs: cta Assessment and Plan Assessment Anesthesia Assessment: Anesthesia Plan Discussed and Chart Reviewed Final Anesthetic Review Family History of Problems with Anesthesia: No History of Problems with Anesthesia: No NPO: Yes ASA Class: III Final Preanesthetic Review: No Changes in Pt Med Stat, Meds/Allgs Chart Reviewed and Consent Obtained/Reviewed Patient Risk: Intermediate Procedure Risk: Intermediate Anesthetic Plan Anesthetic Plan: GA Disposition: Standard PACU
[2024-10-07] MEDS: Lactated Ringers 1,000 ML 50 ML IVCONT (06:44)
--- NOTE | 2024-10-07 07:03 | MHC.SHP ---
Pre-Procedural Eval Section A - 24 Hr Update-Section A only Date of Service: 10/07/24 The patient is an INPATIENT: No Changes since office visit: No Cold of Flu in the past 2 weeks, No New Medical Problems, No Changes in Medication and No Patient answered all questions The patient has been examined within 24 hours of the surgical procedure. The History & Physical has been completed within 30 days and I have reviewed it.: Yes Section B - Complete if H&P > 30 days Chief Complaint: Major depressive disorder, recurrent, severe with Allergies: Allergies Allergy/AdvReac Type Severity Reaction Status Date / Time prednisone [PREDNISONE] Allergy Mild RAGE Verified 09/17/24 16:50 lisinopril AdvReac Cough Verified 09/17/24 16:50 Plan I have reviewed the history and physical and performed a pertinent physical examination on my patient. No changes have occurred unless specified. Time Spent With Patient Time: Total time managing care of this patient today ____ minutes.
--- NOTE | 2024-10-07 07:40 | HO.ECTPROC ---
ECT Procedure Note Diagnosis/Treatment Date of Service: 10/07/24 Diagnosis: Major Depressive Disorder Previous ECT Date: 09/30/24 Current Treatment Number: 5 Treatment: Series Interval Clinical Notes: The patient reported improvement of depression. On the last ECT, he had a-fib that requiered medical treatment, now on Metoprolol. He took Metoprolol before coming and his last Klonopin was yesterday at [address] done as usual, we used Flumazenil 50 mg, no complications, woke up well. As last ECT, LMA used and after the procedure, we gave him Propofol and Versed 2 mg. Time: Total time managing care of this patient today __30__ minutes. ECT Settings Device: THYMATRON DGx Electrode Placement: Bifrontal Program/Pulse Width: 0.50 Energy Percent: 100 Seizure Duration By EEG (in seconds): 50 By Motor Observation (in seconds): 24 Medications Administration General Anesthetic: Etomidate (18) Muscle Relaxant: Succinylcholine (100) Ancillary Medications Anti-emetics: Zofran - Pre ECT Miscillaneous Medications: Propofol and Midazolam Airway Management Airway Management: LMA Treatment Recommendations No Changes Recommended: No change Pt Tolerated Procedure w/o Issue: No
[2024-10-07 07:49] VITALS: BP 158/81; PULSE 58; RESP 17; TEMP 36.6; O2SAT 98
[2024-10-07 07:54] VITALS: BP 157/98; PULSE 76; RESP 16; O2SAT 95
[2024-10-07 07:55] VITALS: BP 159/98; PULSE 78; RESP 16; O2SAT 97
[2024-10-07 08:00] VITALS: BP 162/100; PULSE 80; RESP 16; O2SAT 97
[2024-10-07 08:15] VITALS: BP 157/97; PULSE 73; RESP 16; TEMP 36.3; O2SAT 97
== END 2024-10-07 08:30 | disposition home or self-care (01) ==
PROVIDERS: Visit Provider Psychiatry & Neurology Psychiatry
PROC: (CPT 90870; principal; 2024-10-07 07:30)
DX: F33.1 Major depressive disorder, recurrent, moderate (principal); G47.33 Obstructive sleep apnea (adult) (pediatric); I10 Essential (primary) hypertension; E11.9 Type 2 diabetes mellitus without complications; K21.9 Gastro-esophageal reflux disease without esophagitis; I48.0 Paroxysmal atrial fibrillation; J44.9 Chronic obstructive pulmonary disease, unspecified; G89.4 Chronic pain syndrome; G58.8 Other specified mononeuropathies; J69.8 Pneumonitis due to inhalation of other solids and liquids; Z79.51 Long term (current) use of inhaled steroids; K75.9 Inflammatory liver disease, unspecified; Z79.4 Long term (current) use of insulin; Z79.85 Long-term (current) use of injectable non-insulin antidiabetic drugs; Z99.89 Dependence on other enabling machines and devices; Z79.899 Other long term (current) drug therapy; Z88.8 Allergy status to other drugs, medicaments and biological substances; Z87.891 Personal history of nicotine dependence
CPT/HCPCS: 82947; 90870; J0330; J1596; J1805; J2250; J2405; J2704

== ENCOUNTER → 2024-10-07 06:04 | Outpatient (BNV) | payer MEDICARE, MEDICAID, SELFPAY | PROVIDERS: Visit Provider Psychiatry & Neurology Psychiatry | DX: F33.3 Major depressive disorder, recurrent, severe with psychotic symptoms (principal) | CPT/HCPCS: 90870 ==

== ENCOUNTER 2024-10-09 05:54 | Day surgery (SDC) | payer MEDICARE, OTHER, SELFPAY ==
[2024-10-09] VITALS (7 sets, daily range): BP systolic 151–178; BP diastolic 89–106; PULSE 71–77; RESP 15–16; TEMP 36.6–36.8; O2SAT 96–99; BMI 24.5
--- NOTE | 2024-10-09 06:57 | HO.ANESPROP2 ---
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) 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 (Acute) Chest pain (Acute) COPD (chronic obstructive pulmonary disease) (Acute) Tracheobronchomalacia (Acute) Past Medical History Medical History Diabetes GERD (gastroesophageal reflux disease) Hepatitis Depression HTN (hypertension) Chronic pain syndrome Intercostal neuralgia Pre-op evaluation 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 Chest pain COPD (chronic obstructive pulmonary disease) Tracheobronchomalacia Family History Family History Other HTN (hypertension) Family history of problems with anesthesia: No Surgical History History of Problems with Anesthesia: No Social History Social History Household Members: Family and None Household Members Other:: 2 adults 1 cat Housing: Condominium Do you presently have visiting nurse or other home services: No Alcohol intake: current Alcohol intake frequency: a few times a month Patient Tobacco Use Status: Former Tobacco user Tobacco use type: Cigarette Cigarette Packs Per Day: 0.5 Cigarettes Per Day: 10 Years Smoked: 15 Second Hand Smoke Exposure: No Substance Use Type: Marijuana Advance Directives: No Advance Directives Information Provided: Yes service: Yes Sexual orientation: Straight/Heterosexual Meds Allergies Allergy/AdvReac Type Severity Reaction Status Date / Time prednisone [PREDNISONE] Allergy Mild RAGE Verified 09/17/24 16:50 lisinopril AdvReac Cough Verified 09/17/24 16:50 Active Medications: Current Medications Lactated Ringer's (Lr) 1,000 mls @ 50 mls/hr IVCONT .Q20H UMA Naloxone HCl (Naloxone Hcl 0.4 Mg/Ml Vial) 0.04 mg IVPUSH Q5M PRN PRN Reason: Excessive sedation or RR < 8 Home Medications ?Medication ?Instructions ?Recorded ?Confirmed ?Last Taken ?Type insulin glargine 100 unit/mL (3 70 unit subcut BEDTIME 07/22/20 09/30/24 Unknown History mL) subcutaneous pen montelukast 10 mg tablet 10 mg PO DAILY PRN asthma 08/26/20 09/30/24 08/26/20 04:10 History (Singulair) omeprazole 20 mg capsule,delayed 40 mg PO DAILY PRN Acid Reflux 10/14/20 09/30/24 Unknown History release atorvastatin 40 mg tablet 40 mg PO DAILY 09/17/24 09/30/24 Unknown History dulaglutide 3 mg/0.5 mL 1.5 mg subcut CL[facility]@0900 09/17/24 09/30/24 Unknown History subcutaneous pen injector (Trulicity) fluticasone fur. 200 mcg-umeclid 1 ea inhalation DAILY 09/17/24 09/30/24 Unknown History 62.5 mcg-vilant 25 mcg inhalat.powder (Trelegy Ellipta) quetiapine 25 mg tablet 25 mg PO BEDTIME 09/17/24 09/30/24 Unknown History chlorthalidone 25 mg tablet 25 mg PO DAILY 09/30/24 09/30/24 Unknown History venlafaxine 75 mg tablet,extended 75 mg PO DAILY 09/30/24 09/30/24 Unknown History release 24 hr Exam Height,Weight and Vital Signs: Height 6 ft Weight 82.1 kg Last Vital Signs Temp 98.3 F 10/09/24 06:42 Pulse 73 10/09/24 06:42 Resp 16 10/09/24 06:42 BP 151/92 H 10/09/24 06:42 Pulse Ox 96 10/09/24 06:42 O2 Del Method Room Air 10/09/24 06:42 Airway Mallampati Class: II TM Dist: >3cm Neck ROM: Full Denture: Upper and Lower Heart: rrr Lungs: cta Assessment and Plan Assessment Anesthesia Assessment: Anesthesia Plan Discussed and Chart Reviewed Final Anesthetic Review Family History of Problems with Anesthesia: No History of Problems with Anesthesia: No NPO: Yes ASA Class: III Final Preanesthetic Review: No Changes in Pt Med Stat, Meds/Allgs Chart Reviewed and Consent Obtained/Reviewed Patient Risk: Intermediate Procedure Risk: Intermediate Anesthetic Plan Anesthetic Plan: GA Disposition: Standard PACU
[2024-10-09 07:01] LABS: Glucose, Whole Blood 112 mg/dL (60-115)
--- NOTE | 2024-10-09 07:59 | MHC.SHP ---
Pre-Procedural Eval Section A - 24 Hr Update-Section A only Date of Service: 10/09/24 Section B - Complete if H&P > 30 days Chief Complaint: Major depressive disorder, recurrent, severe with Details of Present Illness: rec depression improved some st memory issues Present Medications: see Short Stay Collaborative assessment Allergies: Allergies Allergy/AdvReac Type Severity Reaction Status Date / Time prednisone [PREDNISONE] Allergy Mild RAGE Verified 09/17/24 16:50 lisinopril AdvReac Cough Verified 09/17/24 16:50 Review of Systems Sugical H&P ROS: Negative: Cardiovascular and Respiratory Exam Surgical H&P Exam: Normal: Heart and Normal: Lungs and Significant Findings: Neurological (mild st memory issues ) Plan Diagnosis/Plan: Unchanged I have reviewed the history and physical and performed a pertinent physical examination on my patient. No changes have occurred unless specified. Time Spent With Patient Time: Total time managing care of this patient today ____ minutes.
[2024-10-09] MEDS: LORazepam 2 MG/ML VIAL 1 MG IVPUSH (08:23)
--- NOTE | 2024-10-09 08:27 | HO.ECTPROC ---
ECT Procedure Note Diagnosis/Treatment Date of Service: 10/09/24 Diagnosis: Major Depressive Disorder Previous ECT Date: 10/07/24 Current Treatment Number: 6 Treatment: Series Interval Clinical Notes: Pt feeling better generally had some post op ongoing confusion last tx . Discussed change to rul procedure tolerated well no afib can decrease etom 16 mg next tx .LMA used metoprol 5 mg as pt forgot to take metoprolol at home . Time: Total time managing care of this patient today ____ minutes. ECT Settings Device: THYMATRON DGx Electrode Placement: Right Unilateral Program/Pulse Width: 0.50 Energy Percent: 100 Seizure Duration By EEG (in seconds): 32 Medications Administration General Anesthetic: Etomidate (20) Muscle Relaxant: Succinylcholine (100) Ancillary Medications Miscillaneous Medications: Flumazenil and Other (lorazepam 1 mg ivp) Airway Management Airway Management: Bag Mask Ventilation Treatment Recommendations No Changes Recommended: No change Notes: can decrease etom to 18 cont tx series monitor cognition alert o x 4 Pt Tolerated Procedure w/o Issue: Yes
== END 2024-10-09 09:22 | disposition home or self-care (01) ==
PROVIDERS: Visit Provider Psychiatry & Neurology Psychiatry
PROC: (CPT 90870; principal; 2024-10-09 07:00)
DX: F33.2 Major depressive disorder, recurrent severe without psychotic features (principal); K21.9 Gastro-esophageal reflux disease without esophagitis; K75.9 Inflammatory liver disease, unspecified; I10 Essential (primary) hypertension; I48.0 Paroxysmal atrial fibrillation; E11.9 Type 2 diabetes mellitus without complications; G89.4 Chronic pain syndrome; G58.0 Intercostal neuropathy; J39.8 Other specified diseases of upper respiratory tract; G47.33 Obstructive sleep apnea (adult) (pediatric); Z79.899 Other long term (current) drug therapy; Z99.89 Dependence on other enabling machines and devices; Z88.8 Allergy status to other drugs, medicaments and biological substances; Z87.891 Personal history of nicotine dependence; Z79.4 Long term (current) use of insulin; Z79.51 Long term (current) use of inhaled steroids; Z79.85 Long-term (current) use of injectable non-insulin antidiabetic drugs
CPT/HCPCS: 82947; 90870; J0330; J1596; J1805; J2060; J2250; J2704

== ENCOUNTER → 2024-10-09 05:54 | Outpatient (BNV) | payer MEDICARE, MEDICAID, SELFPAY | PROVIDERS: Visit Provider Psychiatry & Neurology Psychiatry | DX: F33.3 Major depressive disorder, recurrent, severe with psychotic symptoms (principal) | CPT/HCPCS: 90870 ==

== ENCOUNTER 2024-10-11 06:02 | Day surgery (SDC) | payer MEDICARE, OTHER, SELFPAY ==
[2024-10-11 06:58] VITALS: BP 141/95; PULSE 86; RESP 16; TEMP 36.7; O2SAT 98; BMI 24.5
--- NOTE | 2024-10-11 07:01 | MHC.SHP ---
Pre-Procedural Eval Section A - 24 Hr Update-Section A only Date of Service: 10/11/24 The patient is an INPATIENT: No Changes since office visit: No Cold of Flu in the past 2 weeks, No New Medical Problems, No Changes in Medication and No Patient answered all questions The patient has been examined within 24 hours of the surgical procedure. The History & Physical has been completed within 30 days and I have reviewed it.: Yes Section B - Complete if H&P > 30 days Chief Complaint: Major depressive disorder, recurrent, severe with Allergies: Allergies Allergy/AdvReac Type Severity Reaction Status Date / Time prednisone [PREDNISONE] Allergy Mild RAGE Verified 09/17/24 16:50 lisinopril AdvReac Cough Verified 09/17/24 16:50 Plan I have reviewed the history and physical and performed a pertinent physical examination on my patient. No changes have occurred unless specified. Time Spent With Patient Time: Total time managing care of this patient today ____ minutes.
--- NOTE | 2024-10-11 07:06 | P.CONAN_ITS ---
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) 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 (Acute) Chest pain (Acute) COPD (chronic obstructive pulmonary disease) (Acute) Tracheobronchomalacia (Acute) Past Medical History Medical History Diabetes GERD (gastroesophageal reflux disease) Hepatitis Depression HTN (hypertension) Chronic pain syndrome Intercostal neuralgia Pre-op evaluation 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 Chest pain COPD (chronic obstructive pulmonary disease) Tracheobronchomalacia Family History Family History Other HTN (hypertension) Family history of problems with anesthesia: No Surgical History History of Problems with Anesthesia: No Social History Social History Household Members: Family and None Household Members Other:: 2 adults 1 cat Housing: Condominium Do you presently have visiting nurse or other home services: No Alcohol intake: current Alcohol intake frequency: a few times a month Patient Tobacco Use Status: Former Tobacco user Tobacco use type: Cigarette Cigarette Packs Per Day: 0.5 Cigarettes Per Day: 10 Years Smoked: 15 Second Hand Smoke Exposure: No Substance Use Type: Marijuana Advance Directives: No Advance Directives Information Provided: Yes service: Yes Sexual orientation: Straight/Heterosexual Meds Allergies Allergy/AdvReac Type Severity Reaction Status Date / Time prednisone [PREDNISONE] Allergy Mild RAGE Verified 09/17/24 16:50 lisinopril AdvReac Cough Verified 09/17/24 16:50 Active Medications: Current Medications Lactated Ringer's (Lr) 1,000 mls @ 50 mls/hr IVCONT .Q20H UMA Home Medications ?Medication ?Instructions ?Recorded ?Confirmed ?Last Taken ?Type insulin glargine 100 unit/mL (3 70 unit subcut BEDTIME 07/22/20 09/30/24 Unknown History mL) subcutaneous pen montelukast 10 mg tablet 10 mg PO DAILY PRN asthma 08/26/20 09/30/24 08/26/20 04:10 History (Singulair) omeprazole 20 mg capsule,delayed 40 mg PO DAILY PRN Acid Reflux 10/14/20 09/30/24 Unknown History release atorvastatin 40 mg tablet 40 mg PO DAILY 09/17/24 09/30/24 Unknown History dulaglutide 3 mg/0.5 mL 1.5 mg subcut CLARK@0900 09/17/24 09/30/24 Unknown History subcutaneous pen injector (Trulicity) fluticasone fur. 200 mcg-umeclid 1 ea inhalation DAILY 09/17/24 09/30/24 Unknown History 62.5 mcg-vilant 25 mcg inhalat.powder (Trelegy Ellipta) quetiapine 25 mg tablet 25 mg PO BEDTIME 09/17/24 09/30/24 Unknown History chlorthalidone 25 mg tablet 25 mg PO DAILY 09/30/24 09/30/24 Unknown History venlafaxine 75 mg tablet,extended 75 mg PO DAILY 09/30/24 09/30/24 Unknown History release 24 hr Exam Height,Weight and Vital Signs: Height 6 ft Weight 81.8 kg Last Vital Signs Temp 98.1 F 10/11/24 06:58 Pulse 86 10/11/24 06:58 Resp 16 10/11/24 06:58 BP 141/95 H 10/11/24 06:58 Pulse Ox 98 10/11/24 06:58 O2 Del Method Room Air 10/11/24 06:58 Airway Mallampati Class: I TM Dist: >3cm Neck ROM: Full Heart: rrr Lungs: cta Assessment and Plan Assessment Anesthesia Assessment: Anesthesia Plan Discussed and Chart Reviewed Final Anesthetic Review Family History of Problems with Anesthesia: No History of Problems with Anesthesia: No NPO: Yes ASA Class: III Final Preanesthetic Review: No Changes in Pt Med Stat, Meds/Allgs Chart Reviewed and Consent Obtained/Reviewed Patient Risk: Intermediate Procedure Risk: Intermediate Anesthetic Plan Anesthetic Plan: GA Disposition: Standard PACU
[2024-10-11] MEDS: Lactated Ringers 1,000 ML 50 ML IVCONT (07:13)
--- NOTE | 2024-10-11 08:14 | HO.ECTPROC ---
ECT Procedure Note Diagnosis/Treatment Date of Service: 10/11/24 Diagnosis: Major Depressive Disorder Previous ECT Date: 10/09/24 Current Treatment Number: 8 Treatment: Series Interval Clinical Notes: The patient reported improvement of dysphoria, mild headache with the last ECT, no major changes since we changed to right unilateral. ECT done as r unilateral, no complications, woke up well, no need of Propofol, only Atvan IVP 1 MG after the procedure since we used Flumazenil Time: Total time managing care of this patient today _30___ minutes. ECT Settings Device: THYMATRON DGx Electrode Placement: Right Unilateral Program/Pulse Width: 0.50 Energy Percent: 100 Medications Administration General Anesthetic: Etomidate (20) Muscle Relaxant: Succinylcholine Ancillary Medications Anti-emetics: Zofran - Pre ECT Miscillaneous Medications: Flumazenil and Other (Ativan 1 mg IVP after procedure) Airway Management Airway Management: LMA Treatment Recommendations No Changes Recommended: No change Pt Tolerated Procedure w/o Issue: Yes
[2024-10-11] MEDS: LORazepam 2 MG/ML VIAL 1 MG IVPUSH (08:25)
[2024-10-11 08:28] VITALS: BP 107/78; PULSE 81; RESP 16; TEMP 37.2; O2SAT 97
[2024-10-11 08:31] VITALS: BP 188/108; PULSE 76; RESP 16; O2SAT 98
[2024-10-11 08:37] VITALS: BP 165/97; PULSE 77; RESP 16; O2SAT 97
[2024-10-11 08:42] VITALS: BP 160/91; PULSE 77; RESP 16; O2SAT 94
[2024-10-11 08:56] VITALS: BP 151/75; PULSE 79; RESP 16; TEMP 37; O2SAT 94
[2024-10-11 09:42] LABS: Glucose, Whole Blood 138 mg/dL (60-115)
== END 2024-10-11 08:45 | disposition home or self-care (01) ==
PROVIDERS: Visit Provider Psychiatry & Neurology Psychiatry
PROC: (CPT 90870; principal; 2024-10-11 07:00)
DX: F33.2 Major depressive disorder, recurrent severe without psychotic features (principal); G47.33 Obstructive sleep apnea (adult) (pediatric); I10 Essential (primary) hypertension; E11.9 Type 2 diabetes mellitus without complications; K21.9 Gastro-esophageal reflux disease without esophagitis; I48.0 Paroxysmal atrial fibrillation; J44.9 Chronic obstructive pulmonary disease, unspecified; G89.4 Chronic pain syndrome; G58.8 Other specified mononeuropathies; J69.8 Pneumonitis due to inhalation of other solids and liquids; Z79.51 Long term (current) use of inhaled steroids; K75.9 Inflammatory liver disease, unspecified; Z79.4 Long term (current) use of insulin; Z79.85 Long-term (current) use of injectable non-insulin antidiabetic drugs; Z79.899 Other long term (current) drug therapy; Z99.89 Dependence on other enabling machines and devices; Z88.8 Allergy status to other drugs, medicaments and biological substances; Z87.891 Personal history of nicotine dependence
CPT/HCPCS: 82947; 90870; J0330; J2060; J2704

== ENCOUNTER → 2024-10-11 06:02 | Outpatient (BNV) | payer MEDICARE, SELFPAY | PROVIDERS: Visit Provider Psychiatry & Neurology Psychiatry | DX: F33.3 Major depressive disorder, recurrent, severe with psychotic symptoms (principal) | CPT/HCPCS: 90870 ==

== ENCOUNTER 2024-10-14 05:56 | Day surgery (SDC) | payer MEDICARE, OTHER, SELFPAY ==
[2024-10-14 06:36] VITALS: BP 155/93; PULSE 75; RESP 20; TEMP 36.6; O2SAT 96; BMI 25.0
[2024-10-14] MEDS: Lactated Ringers 1,000 ML 100 ML IVCONT (06:43)
[2024-10-14 06:48] LABS: Glucose, Whole Blood 141 mg/dL (60-115)
--- NOTE | 2024-10-14 07:01 | MHC.SHP ---
Pre-Procedural Eval Section A - 24 Hr Update-Section A only Date of Service: 10/14/24 The patient is an INPATIENT: No Changes since office visit: No Cold of Flu in the past 2 weeks, No New Medical Problems, No Changes in Medication and No Patient answered all questions The patient has been examined within 24 hours of the surgical procedure. The History & Physical has been completed within 30 days and I have reviewed it.: Yes Section B - Complete if H&P > 30 days Chief Complaint: Major depressive disorder, recurrent, severe with Allergies: Allergies Allergy/AdvReac Type Severity Reaction Status Date / Time prednisone [PREDNISONE] Allergy Mild RAGE Verified 09/17/24 16:50 lisinopril AdvReac Cough Verified 09/17/24 16:50 Plan I have reviewed the history and physical and performed a pertinent physical examination on my patient. No changes have occurred unless specified. Time Spent With Patient Time: Total time managing care of this patient today ____ minutes.
--- NOTE | 2024-10-14 07:52 | HO.ECTPROC ---
ECT Procedure Note Diagnosis/Treatment Date of Service: 10/14/24 Diagnosis: Bipolar disorder Previous ECT Date: 10/11/24 Current Treatment Number: 8 Treatment: Series Interval Clinical Notes: The patient reported improvement of dysphoria, no side effects with previuos ECT. ECT done as usual, no complications. Woke up well. He forgot to take his Metoporolol AM so we put it IV before the procedure. Time: Total time managing care of this patient today __30__ minutes. ECT Settings Device: THYMATRON DGx Electrode Placement: Right Unilateral Program/Pulse Width: 0.50 Energy Percent: 100 Seizure Duration By EEG (in seconds): 35 By Motor Observation (in seconds): 0 Medications Administration General Anesthetic: Etomidate (18) Muscle Relaxant: Succinylcholine Ancillary Medications Miscillaneous Medications: Flumazenil and Other (Ativan 1 mg IVP after procedure) Airway Management Airway Management: LMA Treatment Recommendations No Changes Recommended: No change Pt Tolerated Procedure w/o Issue: Yes
[2024-10-14] MEDS: LORazepam 2 MG/ML VIAL 1 MG IVPUSH (07:58)
[2024-10-14 08:00] VITALS: BP 168/108; PULSE 73; RESP 16; TEMP 36.9; O2SAT 98
[2024-10-14 08:05] VITALS: BP 162/88; PULSE 72; RESP 16; O2SAT 97
[2024-10-14 08:10] VITALS: BP 149/86; PULSE 73; RESP 16; O2SAT 99
[2024-10-14 08:15] VITALS: BP 154/88; PULSE 64; RESP 16; O2SAT 96
[2024-10-14 08:30] VITALS: BP 149/89; PULSE 66; RESP 16; TEMP 36.3; O2SAT 96
--- NOTE | 2024-10-14 09:10 | HO.ANESPROP2 ---
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) 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 (Acute) Chest pain (Acute) COPD (chronic obstructive pulmonary disease) (Acute) Tracheobronchomalacia (Acute) Past Medical History Medical History Diabetes GERD (gastroesophageal reflux disease) Hepatitis Depression HTN (hypertension) Chronic pain syndrome Intercostal neuralgia 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 Chest pain COPD (chronic obstructive pulmonary disease) Tracheobronchomalacia Functional capacity: independent ambulation Family History Family History Other HTN (hypertension) Family history of problems with anesthesia: No Surgical History History of Problems with Anesthesia: No Social History Social History Household Members: Family and None Household Members Other:: 2 adults 1 cat Housing: Condominium Do you presently have visiting nurse or other home services: No Alcohol intake: current Alcohol intake frequency: a few times a month Patient Tobacco Use Status: Former Tobacco user Tobacco use type: Cigarette Cigarette Packs Per Day: 0.5 Cigarettes Per Day: 10 Years Smoked: 15 Second Hand Smoke Exposure: No Substance Use Type: Marijuana service: Yes Sexual orientation: Straight/Heterosexual Meds Allergies Allergy/AdvReac Type Severity Reaction Status Date / Time prednisone [PREDNISONE] Allergy Mild RAGE Verified 09/17/24 16:50 lisinopril AdvReac Cough Verified 09/17/24 16:50 Home Medications ?Medication ?Instructions ?Recorded ?Confirmed ?Last Taken ?Type insulin glargine 100 unit/mL (3 70 unit subcut BEDTIME 07/22/20 09/30/24 Unknown History mL) subcutaneous pen montelukast 10 mg tablet 10 mg PO DAILY PRN asthma 08/26/20 09/30/24 08/26/20 04:10 History (Singulair) omeprazole 20 mg capsule,delayed 40 mg PO DAILY PRN Acid Reflux 10/14/20 09/30/24 Unknown History release atorvastatin 40 mg tablet 40 mg PO DAILY 09/17/24 09/30/24 Unknown History dulaglutide 3 mg/0.5 mL 1.5 mg subcut CLARK@0900 09/17/24 09/30/24 Unknown History subcutaneous pen injector (Trulicity) fluticasone fur. 200 mcg-umeclid 1 ea inhalation DAILY 09/17/24 09/30/24 Unknown History 62.5 mcg-vilant 25 mcg inhalat.powder (Trelegy Ellipta) quetiapine 25 mg tablet 25 mg PO BEDTIME 09/17/24 09/30/24 Unknown History chlorthalidone 25 mg tablet 25 mg PO DAILY 09/30/24 09/30/24 Unknown History venlafaxine 75 mg tablet,extended 75 mg PO DAILY 09/30/24 09/30/24 Unknown History release 24 hr Exam Height,Weight and Vital Signs: Height 6 ft Weight 83.461 kg Last Vital Signs Temp 97.4 F 10/14/24 08:30 Pulse 66 10/14/24 08:30 Resp 16 10/14/24 08:30 BP 149/89 H 10/14/24 08:30 Pulse Ox 96 10/14/24 08:30 O2 Del Method Room Air 10/14/24 08:30 O2 Flow Rate 2 10/14/24 08:10 Pertinent Lab Results Pertinent Lab Results: Laboratory Tests 10/14/24 06:43 POC Glucose 141 H Airway Mallampati Class: III TM Dist: >3cm Neck ROM: Full Heart: RRR Lungs: CTA Assessment and Plan Assessment Anesthesia Assessment: Anesthesia Plan Discussed and Chart Reviewed Final Anesthetic Review Family History of Problems with Anesthesia: No History of Problems with Anesthesia: No NPO: Yes ASA Class: III Final Preanesthetic Review: Meds/Allgs Chart Reviewed, Consent Obtained/Reviewed and Anes Risks/Benef Reviewed Patient Risk: Intermediate Procedure Risk: Low Anesthetic Plan Anesthetic Plan: GA Disposition: Standard PACU
--- NOTE | 2024-10-14 09:11 | HO.POSTANES ---
Post Anesthesia Evaluation Post Anesthesia Evaluation Date of Service: 10/14/24 Vital Signs: Vital Signs Temp Pulse Resp BP Pulse Ox O2 Del Method O2 Flow Rate 10/14/24 08:30 97.4 F 66 16 149/89 H 96 Room Air 10/14/24 08:15 64 16 154/88 H 96 Room Air 10/14/24 08:10 73 16 149/86 H 99 Nasal Cannula with ETCO2 2 10/14/24 08:05 72 16 162/88 H 97 Nasal Cannula with ETCO2 2 10/14/24 08:00 98.4 F 73 16 168/108 H 98 Nasal Cannula with ETCO2 3 10/14/24 06:36 97.8 F 75 20 155/93 H 96 Room Air Anesthesia: General LMA and General Mental Status: Awake Pain Control: Satisfactory Nausea/Vomiting: None Hydration: Adequate Anesthesia-Related Issues: No Anes. Related Issues
== END 2024-10-14 08:57 | disposition home or self-care (01) ==
PROVIDERS: Psychiatry & Neurology Psychiatry; Visit Provider Psychiatry & Neurology Psychiatry
PROC: (CPT 90870; principal; 2024-10-14 07:00)
DX: F31.9 Bipolar disorder, unspecified (principal); G89.4 Chronic pain syndrome; G58.8 Other specified mononeuropathies; I10 Essential (primary) hypertension; E11.9 Type 2 diabetes mellitus without complications; J44.9 Chronic obstructive pulmonary disease, unspecified; K21.9 Gastro-esophageal reflux disease without esophagitis; I48.0 Paroxysmal atrial fibrillation; G47.33 Obstructive sleep apnea (adult) (pediatric); J69.8 Pneumonitis due to inhalation of other solids and liquids; K75.9 Inflammatory liver disease, unspecified; Z79.4 Long term (current) use of insulin; Z79.51 Long term (current) use of inhaled steroids; Z99.89 Dependence on other enabling machines and devices; Z79.899 Other long term (current) drug therapy; Z88.8 Allergy status to other drugs, medicaments and biological substances; Z87.891 Personal history of nicotine dependence
CPT/HCPCS: 82947; 90870; J0330; J2060; J2405

== ENCOUNTER → 2024-10-14 05:56 | Outpatient (BNV) | payer MEDICARE, MEDICAID, SELFPAY | PROVIDERS: Visit Provider Psychiatry & Neurology Psychiatry | DX: F33.3 Major depressive disorder, recurrent, severe with psychotic symptoms (principal) | CPT/HCPCS: 90870 ==

== ENCOUNTER 2024-10-25 05:48 | Day surgery (SDC) | payer MEDICARE, OTHER, SELFPAY ==
[2024-10-25 06:40] VITALS: BP 182/89; PULSE 74; RESP 17; TEMP 36.1; O2SAT 98; BMI 24.8
--- NOTE | 2024-10-25 06:48 | P.CONAN_ITS ---
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) 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 (Acute) Chest pain (Acute) COPD (chronic obstructive pulmonary disease) (Acute) Tracheobronchomalacia (Acute) Past Medical History Medical History Diabetes GERD (gastroesophageal reflux disease) Hepatitis Depression HTN (hypertension) Chronic pain syndrome Intercostal neuralgia 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 Chest pain COPD (chronic obstructive pulmonary disease) Tracheobronchomalacia Family History Family History Other HTN (hypertension) Family history of problems with anesthesia: No Surgical History History of Problems with Anesthesia: No Social History Social History Household Members: Family and None Household Members Other:: 2 adults 1 cat Housing: Condominium Do you presently have visiting nurse or other home services: No Alcohol intake: current Alcohol intake frequency: a few times a month Patient Tobacco Use Status: Former Tobacco user Tobacco use type: Cigarette Cigarette Packs Per Day: 0.5 Cigarettes Per Day: 10 Years Smoked: 15 Second Hand Smoke Exposure: No Substance Use Type: Marijuana Advance Directives: No Advance Directives Information Provided: Yes service: Yes Sexual orientation: Straight/Heterosexual Meds Allergies Allergy/AdvReac Type Severity Reaction Status Date / Time prednisone [PREDNISONE] Allergy Mild RAGE Verified 09/17/24 16:50 lisinopril AdvReac Cough Verified 09/17/24 16:50 Home Medications ?Medication ?Instructions ?Recorded ?Confirmed ?Last Taken ?Type insulin glargine 100 unit/mL (3 70 unit subcut BEDTIME 07/22/20 09/30/24 Unknown History mL) subcutaneous pen montelukast 10 mg tablet 10 mg PO DAILY PRN asthma 08/26/20 09/30/24 08/26/20 04:10 History (Singulair) omeprazole 20 mg capsule,delayed 40 mg PO DAILY PRN Acid Reflux 10/14/20 09/30/24 Unknown History release atorvastatin 40 mg tablet 40 mg PO DAILY 09/17/24 09/30/24 Unknown History dulaglutide 3 mg/0.5 mL 1.5 mg subcut CLARK@0900 09/17/24 09/30/24 Unknown History subcutaneous pen injector (Trulicity) fluticasone fur. 200 mcg-umeclid 1 ea inhalation DAILY 09/17/24 09/30/24 Unknown History 62.5 mcg-vilant 25 mcg inhalat.powder (Trelegy Ellipta) quetiapine 25 mg tablet 25 mg PO BEDTIME 09/17/24 09/30/24 Unknown History chlorthalidone 25 mg tablet 25 mg PO DAILY 09/30/24 09/30/24 Unknown History venlafaxine 75 mg tablet,extended 75 mg PO DAILY 09/30/24 09/30/24 Unknown History release 24 hr Exam Height,Weight and Vital Signs: Height 6 ft Weight 83.007 kg Last Vital Signs Temp 97 F 10/25/24 06:40 Pulse 74 10/25/24 06:40 Resp 17 10/25/24 06:40 BP 182/89 H 10/25/24 06:40 Pulse Ox 98 10/25/24 06:40 O2 Del Method Room Air 10/25/24 06:40 Airway Mallampati Class: II TM Dist: >3cm Neck ROM: Full Heart: rrr Lungs: cta Assessment and Plan Assessment Anesthesia Assessment: Anesthesia Plan Discussed and Chart Reviewed Final Anesthetic Review Family History of Problems with Anesthesia: No History of Problems with Anesthesia: No NPO: Yes ASA Class: III Final Preanesthetic Review: No Changes in Pt Med Stat, Meds/Allgs Chart Reviewed and Consent Obtained/Reviewed Patient Risk: Intermediate Procedure Risk: Intermediate Anesthetic Plan Anesthetic Plan: GA Disposition: Standard PACU
[2024-10-25] MEDS: Lactated Ringers 1,000 ML 50 ML IVCONT (06:50)
[2024-10-25 06:53] LABS: Glucose, Whole Blood 173 mg/dL (60-115)
--- NOTE | 2024-10-25 07:51 | MHC.SHP ---
Pre-Procedural Eval Section A - 24 Hr Update-Section A only Date of Service: 10/25/24 Changes since office visit: No Cold of Flu in the past 2 weeks, No New Medical Problems, No Changes in Medication and No Patient answered all questions The patient has been examined within 24 hours of the surgical procedure. The History & Physical has been completed within 30 days and I have reviewed it.: Yes Section B - Complete if H&P > 30 days Chief Complaint: Major depressive disorder, recurrent, severe with Details of Present Illness: mood much improved; no depression; will be getting Ketamine soon Allergies: Allergies Allergy/AdvReac Type Severity Reaction Status Date / Time prednisone [PREDNISONE] Allergy Mild RAGE Verified 09/17/24 16:50 lisinopril AdvReac Cough Verified 09/17/24 16:50 Review of Systems Sugical H&P ROS: Negative: Constitution and Psychiatric Exam Surgical H&P Exam: Normal: Heart and Normal: Lungs Plan Diagnosis/Plan: Unchanged I have reviewed the history and physical and performed a pertinent physical examination on my patient. No changes have occurred unless specified. Time Spent With Patient Time: Total time managing care of this patient today ____ minutes.
--- NOTE | 2024-10-25 07:54 | HO.ECTPROC ---
ECT Procedure Note Diagnosis/Treatment Date of Service: 10/25/24 Diagnosis: Major Depressive Disorder Previous ECT Date: 10/14/24 Current Treatment Number: 9 Treatment: Series Interval Clinical Notes: mood much improved; denies depression; says this is last ECT in his series and he'll be restarting Ketamin with Dr. Murillo Time: Total time managing care of this patient today ____ minutes. ECT Settings Device: THYMATRON DGx Electrode Placement: Right Unilateral Program/Pulse Width: 0.50 Energy Percent: 100 Seizure Duration By EEG (in seconds): 59 By Motor Observation (in seconds): 28 Medications Administration General Anesthetic: Etomidate (18) Muscle Relaxant: Succinylcholine (100) and Other (metoprolol 5mg) Airway Management Airway Management: LMA Treatment Recommendations No Changes Recommended: No change (No change if patient ends up getting additional ECT (otherwise says this is last ect)) Electrode Placement: Right Unilateral Program/Pulse Width: 0.50 Energy Percent: 100 Notes: pt reports he's doing well, no depression and that this is his last ECT. Going forward he'll restart Ketamine with Dr. Murillo Pt Tolerated Procedure w/o Issue: Yes
[2024-10-25 08:20] VITALS: BP 163/113; PULSE 95; RESP 16; TEMP 36.4; O2SAT 98
[2024-10-25 08:25] VITALS: BP 160/94; PULSE 94; RESP 22; O2SAT 95
[2024-10-25 08:30] VITALS: BP 168/103; PULSE 97; RESP 95; O2SAT 97
[2024-10-25 08:35] VITALS: BP 167/101; PULSE 90; RESP 20; O2SAT 94
[2024-10-25 08:55] VITALS: BP 142/89; PULSE 90; RESP 16; TEMP 36.3; O2SAT 95
== END 2024-10-25 09:38 | disposition home or self-care (01) ==
PROVIDERS: Visit Provider Psychiatry & Neurology Psychiatry
PROC: (CPT 90870; principal; 2024-10-25 08:00)
DX: F33.2 Major depressive disorder, recurrent severe without psychotic features (principal); G89.4 Chronic pain syndrome; G58.8 Other specified mononeuropathies; I10 Essential (primary) hypertension; E11.9 Type 2 diabetes mellitus without complications; J44.9 Chronic obstructive pulmonary disease, unspecified; K21.9 Gastro-esophageal reflux disease without esophagitis; I48.0 Paroxysmal atrial fibrillation; G47.33 Obstructive sleep apnea (adult) (pediatric); K75.9 Inflammatory liver disease, unspecified; J39.8 Other specified diseases of upper respiratory tract; Z79.4 Long term (current) use of insulin; Z79.85 Long-term (current) use of injectable non-insulin antidiabetic drugs; Z79.01 Long term (current) use of anticoagulants; Z79.51 Long term (current) use of inhaled steroids; Z99.89 Dependence on other enabling machines and devices; Z79.899 Other long term (current) drug therapy; Z88.8 Allergy status to other drugs, medicaments and biological substances; Z87.891 Personal history of nicotine dependence
CPT/HCPCS: 82947; 90870; J0330; J1596; J1805; J2704

== ENCOUNTER → 2024-10-25 05:48 | Outpatient (BNV) | payer MEDICARE, MEDICAID, SELFPAY | PROVIDERS: Visit Provider Psychiatry & Neurology Psychiatry | DX: F33.3 Major depressive disorder, recurrent, severe with psychotic symptoms (principal) | CPT/HCPCS: 90870 ==

== ENCOUNTER 2024-10-30 05:45 | Day surgery (SDC) | payer MEDICARE, OTHER, SELFPAY ==
--- OUTSIDE RECORDS SUMMARY | 2024-10-30 05:48 | XMS_ITS | Encounter Summary ---
Author Organization [facility] Address [address] [place] [address] Care Team Providers Care Dough Machine Operator Name Role Phone Elier Covington MD Primary Care Provider [phone] Julian Rivas MD Unavailable [phone] Julian Rivas MD Unavailable [phone] Encounter Details Date Type Department Care Team (Late st Contact Info) Description 01/23/2021 Lab Requisition [facility] [address] [place] [address] Ant Denson MD [address] [place] [address] Encounter for laboratory testing for COVID-19 virus Social History Tobacco Use Types Packs/Day Years Used Date Smoking Tobacco: Former Cigarettes Q uit: 2003 Smokeless Tobacco: Never Alcohol Use Standard Drinks/Week Comments No 0 (1 standard drink = 0.6 oz pur e alcohol) AUDIT-C Answer Date Recorded Frequency of Alcohol Consumption Never 05/17/2018 Average Number of Drinks Not on file 018 Frequency of Binge Drinking Not on file 05/02 Sex and Gender Information Value Date Recorded Sex Assigned at Male 11/01/2022 3:57 PM EST Gender Identity Male 11/01/2022 3:57 PM EST Sexual Orientation Not on file COVID-19 Exposure Response Date Recorded In the last month, have you been in contact with someone who was confirmed or suspected to have Coronavirus / COVID-19? No / Unsure 01/25/2021 8:07 AM EDT documented as of this encounter Plan of Treatment Not on file documented as of this encounter Procedures Procedure Name Priority Date/Time Associated Diagnosis Comments COVID-19 (SARS-COV-2), [facility] (IN-HOUSE) Routine 01/23/2021 9:49 AM EDT Encounter for laboratory testing for COVID-19 virus [ICD-10-CM] documented in this encounter Results * COVID-19 (SARS-CoV-2), [place] (In-House) (01/23/2021 9:49 AM EDT) SARS CoV 2 Not Detected Not Detected 01/23/2021 10:49 AM EDT [facility] Comment: Negative results do not preclude SARS-CoV-2 (COVID-19)infection and should not be used as the sole basis for treatment or other patient management decisions. The SARS-CoV-2 (Covid-19) Nucleic Acid Amplification Assay is limited to laboratories certified under the Clinical Laboratory Improvement Amendments of 1988 (CLIA), 42 U.S.C. 263a, to perform high complexity tests. Nucleic acid amplication tests include RT-PCR and TMA. This assay has not been FDA cleared or approved, however, this assay has been authorized by the Food and Drug Administration (FDA) under an Emergency Use Authorization (EUA). ??Validation was completed and performance characteristics established by [facility] as per the FDA and CLIA requirement for this EUA. The Aptima SARS-CoV-2 assay Letter of Authorization, along with the authorized Fact Sheet for Healthcare Providers, the authorized Fact Sheet for Patients, and authorized labeling are available on the FDA website: https://www.fda.gov/medical-devices/vfpxvobat-zussszwfym-fkguetk-devices/emergen -us t-xhjlvgjlilvsfe-mhiymxh-devices. Performed at [facility], [place], [place] ??[place] License [id number] ??CLIA [id number] Source Nasopharyngeal 01/23/2021 10:49 AM EDT [facility] Comment:Performed at [facility], [facility], [place] license No. [id number] CLIA No. [id number] Microbiology Nasopharyngeal swab / Unknown 01/23/2021 9:49 AM EDT 01/23/2021 9:49 AM EDT Ant Denson MD BODY FLUIDS AND SELINA NAGEL ORDERABLES [facility] [address] [place] [phone] documented in this encounter Visit Diagnoses Diagnosis Encounter for laboratory testing for COVID-19 virus documented in this encounter Care Teams Dough Machine Operator Relationship Specialty Start Date End Date Elier Covington MD [address] [place] [address] PCP - General Internal Medicine 05/15/18 Julian Rivas MD [address] [place] [address] Cardiovascular Disease 07/27/20 Julian Rivas MD [address] [place] [address] Primary Warping Mill Operator Cardiovascular Disease 11/23/23 documented as of this encounter
--- OUTSIDE RECORDS SUMMARY | 2024-10-30 05:48 | XMS_ITS | Clinical Summary ---
Author Organization [facility] Address [address] [place] [address] Care Team Providers Care Manager Steel Name Role Phone Elier Covington Primary Care Provider [phone] Allergies No known active allergies Medications Insulin Lispro (HUMALOG) 100 UNIT/ML Solution Cartridge None Entered Active Dulaglutide (TRULICITY) 0.75 MG/0.5ML Solution Pen-injector None Entered Acti ve ALBUTEROL SULFATE (PROAIR HFA) 108 (90 BASE) MCG/ACT Aero Soln None Entered Active Omeprazole (PRILOSEC) 10 MG CAPSULE DELAYED RELEASE 1 CAPSULE DAILY Active Active Problems No known active problems Social History Tobacco Use Types Packs/Day Years Used Date Smoking Tobacco: Never Assessed Sex and Gender Information Value Date Recorded Sex Assigned at Not on file Legal Sex Male 9:15 AM EST Gender Identity Not on file Sexual Orientation Not on file Last Filed Vital Signs Vital Sign Reading Time Taken Comments Blood Pressure 142/87 11/27/2017 10:17 AM EST Pulse 88 11/27/2017 10:17 AM EST Temperature 36.4 ??C (97.5 ??F) 11/27/2017 10:[address] Respiratory Rate 20 11/27/2017 10:17 AM EST Oxygen Saturation 96% 11/27/2017 10:17 AM EST Inhaled Oxygen Concentration - - Weight - - Height - - Body Mass Index - - Plan of Treatment Health Maintenance Due Date Last Done Comments Hepatitis C Screening 1955 DTaP/Tdap/Td (1 - Tdap) 1974 Pneumococcal 50+ years (1 of 1 - PCV) 2006 Zoster (Shingrix) (1 of 2) 2006 COVID-19 Vaccine ( - 2023-2 5 season) 2024 Influenza (#1) 2024 RSV (1 - 1-dose 75+ series) 2031 Abdominal Aorta Imaging Discontinued HPV Vaccine Aged Out No longer eligi ble based on patient's age to complete this topic Hep A Aged Out No longer eligi ble based on patient's age to complete this topic Hep B Aged Out No longer eligi ble based on patient's age to complete this topic Hib Aged Out No longer eligi ble based on patient's age to complete this topic Meningococcal ACWY Aged Out No longer eligible based on patient's age to complete this topic Zoster (Zostavax) Discontinued Insurance * Guarantor: [id number] Account Type Relation to Patient Date of Phone Billing Address [employer] [address] [place] [address] WORKERS COMPENSATION * Guarantor: [employer] Account Type Relation to Patient Date of Phone Billing Address [facility] ATTN: A/P DEPT 2ND FLR [address] [facility], [place] [address] Care Teams Manager Steel Relationship Specialty Start Date End Date Elier Covington [facility] [address] [place], [place] [id number] PCP - General Internal Medicine 11/27/17
--- OUTSIDE RECORDS SUMMARY | 2024-10-30 05:48 | XMS_ITS | Encounter Summary ---
Author Organization [facility] Address [address] [place] [address] Care Team Providers Care Multimedia Artist Name Role Phone Elier Covington MD Primary Care Provider [phone] Julian Rivas MD Unavailable [phone] Julian Rivas MD Unavailable [phone] Encounter Details Date Type Department Care Team (Late st Contact Info) Description 08/14/2020 Scanned Document [facility] Provider, MD Ashish [address] [place] [address] Social History Tobacco Use Types Packs/Day Years Used Date Smoking Tobacco: Former Cigarettes Q uit: 2002 Smokeless Tobacco: Never Alcohol Use Standard Drinks/Week [...] have Coronavirus / COVID-19? No / Unsure 07/28/2020 12:57 PM EDT documented as of this encounter Plan of Treatment Not on file documented as of this encounter Visit Diagnoses Not on filedocumented in this encounter Care Teams Multimedia Artist Relationship Specialty Start Date End Date Elier Covington MD [address] [place] [address] PCP - General Internal Medicine 05/15/18 Julian Rivas MD [address] [place] [address] Cardiovascular Disease 07/27/20 Julian Rivas MD [address] [place] [address] Primary Secretary Receptionist Cardiovascular Disease 11/23/23 documented as of this encounter
--- OUTSIDE RECORDS SUMMARY | 2024-10-30 05:48 | XMS_ITS | Encounter Summary ---
Author Organization [facility] Address [address] [place] [address] Care Team Providers Care Residential Manager Name Role Phone Elier Covington MD Primary Care Provider [phone] Julian Rivas MD Unavailable [phone] Julian Rivas MD Unavailable [phone] Reason for Visit * Reason Comments Other Questions regarding surgery Encounter Details Date Type Department Care Team (Late st Contact Info) Description 12/07/2021 Telephone [facility] Thoracic Surgery [place] [address] [facility] [address] [place] [address] Sebastian Greene MD [address] [facility] [address] [place] [address] Other (Questions regarding surgery) Social History Tobacco Use Types Packs/Day Years Used Date Smoking Tobacco: Former Cigarettes 1.5 38 1 965 - 2003 Smokeless Tobacco: Never Alcohol Use Standard Drinks/Week Comments No 0 (1 standard drink = 0.6 oz pur e alcohol) quit 2005 AUDIT-C Answer Date Recorded Frequency of Alcohol [...] have Coronavirus / COVID-19? No / Unsure 12/09/2021 12:16 PM EST documented as of this encounter Miscellaneous Notes * Telephone Encounter - Rosalva Arreola MA - 12/09/2021 1:28 PM EST Lmov for patient nothing else is needed I answered all of his questions. * Telephone Encounter - Rosalva Arreola MA - 12/07/2021 2:39 PM EST Spoke to Raissa made her aware that no covid test is needed.Also confirmed that the hospital will confirm arrival time most likely Monday .She thanked me for the call and had no additional questions. * Telephone Encounter - Mara Samuels RN - 12/07/2021 1:19 PM EST Pt is fully vaccinated, COVID test is not required for outpatient procedure. documented in this encounter Plan of Treatment Not on file documented as of this encounter Visit Diagnoses Not on filedocumented in this encounter Care Teams Residential Manager Relationship Specialty Start Date End Date Elier Covington MD [address] [address] PCP - General Internal Medicine 05/15/18 Julian Rivas MD [address] [place] [address] Cardiovascular Disease 07/27/20 Julian Rivas MD [address] [place] [address] Primary Sharepoint Developer Cardiovascular Disease 11/23/23 documented as of this encounter
--- OUTSIDE RECORDS SUMMARY | 2024-10-30 05:48 | XMS_ITS | Encounter Summary ---
Author Organization [facility] Address [address] [place] [address] Care Team Providers Care Management Advisor Name Role Phone Elier Covington MD Primary Care Provider [phone] Julian Rivas MD Unavailable [phone] Julian Rivas MD Unavailable [phone] Encounter Details Date Type Department Care Team (Late st Contact Info) Description 09/22/2023 Refill [facility] [address] [address] Lucero Cesar PA-C [address] [place] [id number] Social History Tobacco Use Types Packs/Day Years Used Date Smoking Tobacco: Former Cigarettes 1.5 38 1 965 - 2003 Smokeless Tobacco: Never Alcohol Use Standard Drinks/Week Comments No 0 (1 standard drink = 0.6 oz pur e alcohol) quit 2005 AUDIT-C Answer Date Recorded Q1: How often do you have a drink containing alcohol? Never 09/09/2022 Q2: How many drinks containi ng alcohol do you have on a typical day when you are drinking? Patient does not drink Q3: How often do you have si x or more drinks on one occasion? Never 09/09/2022 Sex and Gender Information Value Date Recorded Sex Assigned at Male 11/01/2022 3:57 PM EST Gender Identity Male 11/01/2022 3:57 PM EST Sexual Orientation Not on file documented as of this encounter Plan of Treatment Not on file documented as of this encounter Visit Diagnoses Not on filedocumented in this encounter Care Teams Management Advisor Relationship Specialty Start Date End Date Elier Covington MD [address] [place] [address] PCP - General Internal Medicine 05/15/18 Julian Rivas MD [address] [place] [address] Cardiovascular Disease 07/27/20 Julian Rvias MD [address] [place] [address] Primary Director Career Cardiovascular Disease 11/23/23 documented as of this encounter
--- OUTSIDE RECORDS SUMMARY | 2024-10-30 05:48 | XMS_ITS | Clinical Summary ---
Author Organization [facility] Address [address] [place] [address] Care Team Providers Care Stage Driver Name Role Phone Elier Covington MD Primary Care Provider [phone] Julian Rivas MD Unavailable [phone] Julian Rivas MD Unavailable [phone] Allergies Active Allergy Reactions Criticality Noted Date Comments Corticosteroids Delirium/Confusion/P syc hosis Low 05/17/2018 Significant anger/rage reaction to steriods Lisinopril Cough Low 03/04/2022 Losartan Unknown/Patient and Family Unable to Define Medium 03/04/2022 Prednisone Other (See Comments) 10/01/2020 Delerium / confusion / psychosis Medications Medication Sig Dispensed Refills Start Date End Date Status zolpidem (AMBIEN CR) 12.5 MG CR tablet Take 1 tablet (12.5 mg total) by mouth every evening. Swallow tablet whole; do not split, crush or chew Active insulin glargine (LANtus SOLOSTAR) 100 units/mL pen injection Inject 70 Units under the skin every evening. Active aspirin enteric coated (ECOTRIN LOW STRENGTH) 81 MG EC tablet Take 1 tablet (81 mg total) by mouth every evening. Active clonazePAM (KlonoPIN) 1 MG tablet Take 1 tablet (1 mg total) by mouth 4 (four) times a day. 01/07/2021 Active chlorthalidone (HYGROTON) 25 MG tablet Take 1 tablet (25 mg total) by mouth every morning. 04/29/2021 Active OMEprazole (PriLOSEC) 40 MG capsule Take 1 capsule (40 mg total) by mouth 2 (two) times a day as needed. 04/29/2021 Active HumaLOG KWIKPEN 100 UNIT/ML prefilled pen injection Inject 30 Units under the skin 2 times a day with meals. 09/27/2021 Active Trelegy Ellipta 200-62.5-25 MCG/ACT inhalerIndications: Moderate persistent asthma without complication,Bronch iectasis without complication (HCC),Chronic post-thoracotomy pain,Cough,Airway malacia INHALE 1 PUFF INTO THE LUNGS DAILY 1 each 01/15/2024 Active Additional Information Patient taking differently: Every morning, Reason: Other, Reported on 08/05/2024 triazolam (HALCION) 0.25 MG tablet Take by mouth nightly. 03/15/2024 Active gabapentin (NEURONTIN) 300 MG capsuleIndications: Left foot pain,Displaced fracture of proximal phalanx of left great toe, initial encounter for closed fracture TAKE 1 CAPSULE BY MOUTH THREE TIMES A DAY 90 capsule 04/01/2024 Active benzonatate (TESSALON) 200 MG capsuleIndications: Tracheomalacia Take 1 capsule (200 mg total) by mouth 3 (three) times a day as needed for cough. 20 capsule 1 08/02/2024 Active Additional Information Patient taking differently:200 mg Oral 3 times daily PRN, cough,Requires prior authorization, Reason: Other, Reported on 08/05/2024 Ozempic, 0.25 or 0.5 MG/DOSE, 2 MG/3ML prefilled pen injection once a week. Monday Active atorvastatin (LIPITOR) 40 MG tablet Take 1 tablet (40 mg total) by mouth every morning. 06/05/2024 Active memantine (NAMENDA) 5 MG tablet every evening. 07/30/2024 Active diltiazem (CARDIZEM CD) 180 MG 24 hr capsule Take 1 capsule (180 mg total) by mouth every morning. 06/25/2024 Active Spravato, 84 MG Dose, 28 MG/DEVICE nasal spray 08/01/2024 Active Active Problems Problem Noted Date Diagnosed Date Aneurysm of ascending aorta without rupture (nonfamilial/nonsyndromic) 05/03/2023 Overview (05/03/2023): 07/27/2020 CT chest thoracic aorta 40 mm Echocardiogram (TTE) - 10/01/2019 - tds with limited apical views, ef 59, grossly nl rv/lv/valves, 41mm sov, 42mm asc ao. brian 8, no tr for pasp. no prior Mixed hyperlipidemia 05/03/2023 Gastroparesis 05/03/2023 05/03/2023 History of cholecystectomy 05/03/202305/03 Insomnia 05/03/2023 05/03/2023 Adenoma of left adrenal gland 05/03/2023 Bronchiectasis without compl ication (Recurrent mucous plugging/FOB's-tracheal Y stent failed followed by Dr. Greene) 04/20/2021 Overview (01/15/2024): Recurrent mucous plugging/FOB's-tracheal Y stent failed followed by Dr. Greene Tracheomalacia 01/19/2021 Chronic post-thoracotomy pain 01/19/2021 Shortness of breath 01/19/2021 Moderate persistent asthma without complication 01/19/2021 Chest pain 09/27/2019 Chronic alcoholism in remission 06/01/2018 05/03/2023 Stricture of esophagus 06/01/2018 3 Hepatitis C 05/23/2018 Overview (05/03/2023): hepatitis C status post interferon, GERD with strictures Acid reflux 05/23/2018 Diabetes mellitus 05/23/2018 Allergy-induced asthma 05/23/2018 Essential hypertension 05/23/2018 Depression 05/23/2018 Overview (05/23/2018): has had ECT w/ positive effect Anxiety 05/23/2018 Encounters Date Type Department Care Team Description 08/09/2024 8:02 AM EST Anesthesia Event [facility] [address] [place] [phone] Clemente Oleary MD Gordon, Jennifer L, PA-C 08/09/2024 8:00 AM EST - 08/09/2024 9:00 AM EST Surgery [facility] [address] [place] [address] Devon Rey MD BRONCHOSCOPY FLEXIBLE /C EBUS 08/09/2024 6:38 AM EST - 08/09/2024 9:47 AM EST Hospital Encounter [facility] [address] [place] [address], [place] [address] Devon Rey MD Moderate persistent asthma without complication (Primary Dx) Discharge Disposition: Home or Self Care 08/09/2024 Travel 08/05/2024 Travel 08/01/2024 Telephone [facility] [address] [place] [address] Sebastian Greene MD Medication Refill from Last 3 Months Immunizations Name Administration Dates Next Due Covid-19 mRNA Primary Series Vaccine - Moderna 0.5 mL Full Dose 05/25/2021,04/28/2021 Family History Medical History Relation Name Comments Pancreatic cancer Father Lung cancer Mother Pancreatic cancer Sister No Known Problems Son Relation Name Status Comments Father Mother Sister Son Alive Social History Tobacco Use Types Packs/Day Years Used Date Smoking Tobacco: Every Day Cigarettes 0.5 38 Started: 1963; Last attempted to quit: 2002 Smokeless Tobacco: Never Tobacco Cessation:Ready to Q uit: Not Asked; Counseling Given: Yes Comments:3 Cigarettes daily Alcohol Use Standard Drinks/Week Comments No 0 (1 standard drink = 0.6 oz pur e alcohol) quit 2005 AUDIT-C Answer Date Recorded Q1: How often do you have a drink containing alcohol? Never 08/05/2024 Q2: How many drinks containi ng alcohol do you have on a typical day when you are drinking? Patient does not drink Q3: How often do you have si x or more drinks on one occasion? Never 08/05/2024 Sex and Gender Information Value Date Recorded Sex Assigned at Male 11/01/2022 3:57 PM EST Gender Identity Male 11/01/2022 3:57 PM EST Sexual Orientation Not on file Last Filed Vital Signs Vital Sign Reading Time Taken Comments Blood Pressure 135/76 08/09/2024 9:15 AM EST Pulse 53 08/09/2024 9:15 AM EST Temperature 36.3 ??C (97.3 ??F) 08/09/2024 9:15 AM ES T Respiratory Rate 19 08/09/2024 9:15 AM EST Oxygen Saturation 93% 08/09/2024 9:15 AM EST Inhaled Oxygen Concentration - - Weight 83 kg (183 lb) 08/05/2024 3:34 PM EST Height 182.9 cm (6') 08/05/2024 3:34 PM EST Body Mass Index 24.82 08/05/2024 3:34 PM EST Plan of Treatment Health Maintenance Due Date Last Done Comments Foot Exam 1966 Lipid Panel 1966 Ophthalmology Exam 1966 DTaP/Tdap/Td Vaccines (1 - Tdap) 1975 Pneumococcal Vaccines 50+ (1 of 2 - PCV) 1975 Colonoscopy 2001 Zoster (Shingles) Vaccine (1 of 2) 2006 RSV Vaccine 60 years and older and Patients (1 - Risk 60-74 years 1-dose series) 2016 Abdominal Aortic Aneurysm (AAA) Screening 2021 Creatinine with GFR 11/06/2022 11/06/2021, 09/30/2020, 07/14/2020, Additional history exists Influenza Vaccine 05/02/2024 07/14/2023, , 05/25/2019 COVID-19 Vaccine ( season) 2024 05/25/2021, 04/28/2021 Hemoglobin A1C 11/03/2024 05/03/2024, 05/23/2018 Microalbumin/Creatinine Ratio Urine 05/03/2025 05/03/2024 Hepatitis C Virus Screening Completed 05/23/2018, 0 05/23/2018 Hepatitis B Vaccines Aged Out No long er eligible based on patient's age to complete this topic Medical Devices Implanted Type Area Computer Repair Engineer Device Identifier Shelf Expiration Date Model / Serial / Lot Screw Bone 75mm Ss 16mm 6.5mm 7.5mm Compression Slftp Self - [id number] Implanted:Qty: 1 on 06/07/2018 by Ren Kennedy MD at [facility] Screw DEPUY SYNTHES - A ARABELLA AND [id number] / / Screw Bone 80mm Ss 32mm 6.5mm 7.5mm Compression Slftp Self - [id number] Implanted:Qty: 1 on 06/07/2018 by Ren Kennedy MD at [facility] Screw DEPUY SYNTHES - A ARABELAL AND [id number] 0 / / Filler Bone Void 5cc 1.7-10mm Canc Algrf Chp Frzdr Julian - [id number] Implanted:Qty: 1 on 06/07/2018 by Ren Kennedy MD at [facility] Void Filler Left: Foot MUSCULOSKELETAL TRANSPLANT FOU 02/01/2021 [id number] / [id number] / Y Stent Nov[employer] [id number] Implanted:Qty: 1 on 12/13/2021 by Sebastian Greene MD at [facility] UNKNOWN [id number] / / Description:Implant brought in by Dr. Rey, no stickers present, no expiration present -[id number] Ref:[id number] Size: 15-12-12 Procedures Procedure Name Priority Date/Time Associated Diagnosis Comments POCT GLUCOSE, FINGERSTICK Routine 08/09/2024 8:25 AM EST ANES INTUBATION Routine 08/09/2024 8:10 AM EST [facility] EBUS GUIDED SAMPL 1/2 NODE STATION/STRUX 08/09/2024 7:57 AM EST Tracheomalacia Special Needs +SPRING/Does not use CPAP POCT GLUCOSE, FINGERSTICK Routine 08/09/2024 7:37 AM EST BASIC METABOLIC PANEL Routine 11/06/2021 9:27 AM EST Bronchiectasis without complication (HCC) Pre-op evaluation HEMOGLOBIN A1C WITH ESTIMATED AVERAGE GLUCOSE Routine 05/23/2018 1:25 PM EDT Transient arthropathy involving ankle and foot, left Hepatitis C virus infection without hepatic coma, unspecified chronicity Gastroesophageal reflux disease, esophagitis presence not specified Type 2 diabetes mellitus with complication, with long-term current use of insulin (HCC) Extrinsic asthma, unspecified asthma severity, unspecified whether complicated, unspecified whether persistent Hypertension, unspecified type Depression, unspecified depression type Anxiety from Last 3 Months or Most Recently Relevant to Health Maintenance Results * (ABNORMAL) POCT Glucose, Fingerstick (08/09/2024 8:25 AM EST) Only the most recent of2 resultswithin the time period is included. POC Glucose 133(H) 65 - 99 mg/dL 08/09/2024 8:29 AM EST Blood specimen / Unknown 08/09/2024 8:25 AM EST 08/09/2024 8:29 AM EST Devon Rey MD POINT OF CARE TEST O RDERABLES HOSPITAL LAB See Below * ANES INTUBATION (08/09/2024 8:10 AM EST) Narrative Clemente Oleary MD - 08/09/2024 8:10 AM EST Clemente Oleary MD ? 08/09/2024 ??8:11 AM Anesthesia Procedure Note - Elective intubation Patient Name: Joe Moore : 1955 Procedure indications: airway protection Procedure diagnosis: Elective surgery Procedure Start Time: 08/09/2024 8:06 AM Procedure End Time: 08/09/2024 8:10 AM Performed by: Anesthesiologist ? Clemente Oleary MD ? Chart Verification Airway: airway not difficult Preanesthetic Checklist monitors and equipment checked. Patient's pre-procedure mental status: awake Airway not difficult - NPO status: > 8 hours Procedure Details Intubation route: oral Intubation method: direct laryngoscopy ??Jean Baptiste 3 Number of attempts: 1 Patient status for intubation: paralyzed, unresponsive and sedated Patient position: supine Preoxygenation: BVM Tube size: 9.0 mm Tube: standard ??- cuffed, cuff inflated and minimal leak test Cricoid pressure not applied or not required Cord visualization: Grade I Placement confirmation method: chest rise, ETCO2 monitor and CO2 detector Breath sounds: equal bilaterally and absent over the epigastrium ETT to lip: 22 cm Dentition: same as baseline Complications: no complications Clemente Oleary MD [place] ANESTHESIA * (ABNORMAL) Basic metabolic panel (11/06/2021 9:27 AM EST) Glucose 133 65 - 139 mg/dL [facility] Comment: ? Non-fasting reference interval Blood Urea Nitrogen (BUN) 23 7 - 25 mg/dL [facility] Creatinine 1.36(H) 0.70 - 1.25 mg/dL [facility] Comment: For patients >49 years of age, the reference limit for Creatinine is approximately 13% higher for people identified as -Citizen Of [place]. eGFR Non- 54(L) > OR = 60 mL/min/1. 73m2 [facility] eGFR 63 > OR = 60 mL/min/1. 73m2 [facility] BUN/Creatinine Ratio 17 6 - 22 (calc) [facility] Sodium 136 135 - 146 mmol/L [facility] Potassium 4.1 3.5 - 5.3 mmol/L [facility] Chloride 103 98 - 110 mmol/L [facility] CO2 23 20 - 32 mmol/L [facility] Calcium 9.4 8.6 - 10.3 mg/dL [facility] Blood specimen (specimen) Blood specimen / Unknown 11/06/2021 9:27 AM EST 11/06/2021 9:28 AM EST Narrative [facility] - 11/07/2021 6:15 AM EST FASTING:NO FASTING: NO Sebastian Greene MD LAB BLOOD ORDERABLES [employer] [address] [place] [address], [place] [address] * (ABNORMAL) Hemoglobin A1c with Estimated Average Glucose (05/23/2018 1:25 PM EDT) Hemoglobin A1C 5.9(H) <5.7 % HOSPITAL LAB Comment: A1c% ? Interpretation 5.7 - 6.0 ?Increase risk of diabetes 6.1 - 6.4 ?Higher risk of diabetes > or = 6.5 ?? Consistent with diabetes Diabetes Care, 33(Supp 1):S1-S61, 2009 Estimated Average Glucose 123 mg/dL HOSPITAL LAB Comment:Performed at [facility], [facility], [place] license No. [id number] CLIA No. [id number] 05/23/2018 1:25 PM EDT 05/23/2018 5:22 PM EDT Richelle Hart HELICOPTER ENGINEER LAB BLOOD [facility] from Last 3 Months or Most Recently Relevant to Health Maintenance Advance Directives * Full Code (Latest Code Status on File) Date Activated Date Inactivated Comments 12/16/2021 12:12 PM 06/30/2022 7:21 AM * Full Code Date Activated Date Inactivated Comments 12/13/2021 7:16 AM 12/16/2021 11:12 AM * Full Code Date Activated Date Inactivated Comments 11/08/2021 6:42 AM 12/13/2021 7:01 AM * Full Code Date Activated Date Inactivated Comments 05/27/2021 12:31 PM 09/16/2021 6:44 AM * Full Code Date Activated Date Inactivated Comments 10/05/2020 5:33 AM 01/27/2021 12:00 PM Care Teams Stage Driver Relationship Specialty Start Date End Date Elier Covington MD [address] [place] [address] PCP - General Internal Medicine 05/15/18 Julian Rivas MD [address] [place] [address] Cardiovascular Disease 07/27/20 Julian Rivas MD [address] [place] [address] Primary Maintenance Painter Cardiovascular Disease 11/23/23
--- OUTSIDE RECORDS SUMMARY | 2024-10-30 05:48 | XMS_ITS | Encounter Summary ---
Author Organization [facility] Address [address] [place] [address] Care Team Providers Care Auto Garage Attendant Name Role Phone Natalia Velazquez NP Primary Care Provider Encounter Details Date Type Department Care Team ([facility] st Contact Info) Description 09/09/2024 Telephone Gastroenterology - [address] [facility] [address] [place] [phone] Lanette Sidhu MD [address] [facility] [address] [place] [address] Social History Tobacco Use Types Packs/Day Years Used Date Smoking Tobacco: Never Assessed Sex and Gender Information Value Date Recorded Sex Assigned at Not on file Gender Identity Not on file Sexual Orientation Not on file Job Start Date Occupation Industry Not on file Not on file Not on file documented as of this encounter Progress Notes * Karlene Zelaya MA - 10/01/2024 2:26 PM EST What kind of a letter are we looking for from pcp ? Pt told them 09 wants a letter from pcp..[id number] * Diane Talbot - 09/09/2024 11:29 AM EST PATIENT IS BEING SCHEDULED FOR DIRECT COLON/EGD: Blood thinners/anemic? N/N Aspirin? N Heart conditions? N Diabetic? N Weight loss meds? N Pt calling PCP for H&P? Y documented in this encounter Plan of Treatment Not on file documented as of this encounter Visit Diagnoses Not on filedocumented in this encounter Care Teams Auto Garage Attendant Relationship Specialty Start Date End Date Natalia Velazquez NP PCP - General Internal Medicine 09/09/24 documented as of this encounter
--- OUTSIDE RECORDS SUMMARY | 2024-10-30 05:48 | XMS_ITS | Clinical Summary ---
Author Organization [facility] Address [address] [place] [address] Phone Care Team Providers Care Telemarketer Supervisor Name Role Phone Natalia Velazquez NP Primary Care Provider [phone] Encounters Date Type Department Care Team Description 09/09/2024 Telephone Gastroenterology - [address] [address] Lanette Sidhu MD from Last 3 Months Social History Tobacco Use Types Packs/Day Years Used Date Smoking Tobacco: Never Assessed Sex and Gender Information Value Date Recorded Sex Assigned at Not on file Gender Identity Not on file Sexual Orientation Not on file Job Start Date Occupation Industry Not on file Not on file Not on file Plan of Treatment Health Maintenance Due Date Last Done Comments DTaP,Tdap,and Td Vaccines (1 - Tdap) 1975 Zoster Vaccines (1 of 2) 2006 Pneumococcal Vaccine: 65+ Ye ars (1 of 1 - PCV) 2021 Abdominal Aortic Aneurysm (A AA) Screen 08/31/2022 Cholesterol Screening (Lipid Panel) 08/31/2022 Colorectal Cancer Screening: Colonoscopy 08/31/2022 Depression Screening 08/31/2022 Falls Risk Assessment 08/31/2022 Hepatitis C Screening 08/31/2022 Medicare Annual Wellness Visit 08/31/2022 Social Influencers of Health Screening 08/31/2022 COVID-19 Vaccine ( - 2023-2 5 season) 2024 Influenza Vaccine (#1) 2024 RSV Immunization Patients 60 + Years Old (1 - 1-dose 75+ series) 2031 HIB Vaccines Aged Out No longer eligi ble based on patient's age to complete this topic HPV Vaccines Aged Out No longer eligi ble based on patient's age to complete this topic Hepatitis A Vaccines Aged Out No long er eligible based on patient's age to complete this topic Hepatitis B Vaccines Aged Out No long er eligible based on patient's age to complete this topic IPV Vaccines Aged Out No longer eligi ble based on patient's age to complete this topic MMR Vaccines Aged Out No longer eligi ble based on patient's age to complete this topic Meningococcal ACWY Vaccine Aged Out N o longer eligible based on patient's age to complete this topic RSV Immunization Patients Un demar 20 months Aged Out No longer eligible b ased on patient's age to complete this topic Varicella Vaccines Aged Out No longer eligible based on patient's age to complete this topic Care Teams Telemarketer Supervisor Relationship Specialty Start Date End Date Natalia Velazquez NP PCP - General Internal Medicine 09/09/24
--- OUTSIDE RECORDS SUMMARY | 2024-10-30 05:48 | XMS_ITS | Encounter Summary ---
Author Organization [facility] Address [address] [place] [address] Care Team Providers Care Theatrical Dresser Name Role Phone Elier Covington MD Primary Care Provider [phone] Julian Rivas MD Unavailable [phone] Julian Rivas MD Unavailable [phone] Encounter Details Date Type Department Care Team (Late st Contact Info) Description 09/14/2021 Telephone [facility] Pulmonary [place] [address] [place] [address] Glenn Olivas, DO [address] [address] Social History Tobacco Use Types Packs/Day Years [...] have Coronavirus / COVID-19? No / Unsure 09/16/2021 7:32 AM EST documented as of this encounter Plan of Treatment Not on file documented as of this encounter Visit Diagnoses Not on filedocumented in this encounter Care Teams Theatrical Dresser Relationship Specialty Start Date End Date Elier Covington MD [address] [place] [address] PCP - General Internal Medicine 05/15/18 Julian Rivas MD [address] [place] [address] Cardiovascular Disease 07/27/20 Julian Rivas MD [address] [place] [address] Primary Boring And Filling Machine Operator Cardiovascular Disease 11/23/23 documented as of this encounter
--- OUTSIDE RECORDS SUMMARY | 2024-10-30 05:48 | XMS_ITS | Encounter Summary ---
Author Organization [facility] Address [address] [place] [address] Care Team Providers Care Rigging Helper Name Role Phone Elier Covington MD Primary Care Provider [phone] Julian Rivas MD Unavailable [phone] Julian Rivas MD Unavailable [phone] Reason for Visit * Reason Comments Medication Refill Encounter Details Date Type Department Care Team (Late st Contact Info) Description 11/28/2020 Refill [facility] Thoracic Surgery [place] [address] [facility] [address] [place] [id number] Sebastian Greene MD [address] [facility] [address] [place] [address] Tracheomalacia, acquired Social History Tobacco Use Types Packs/Day Years [...] have Coronavirus / COVID-19? No / Unsure 11/10/2020 10:50 AM EST documented as of this encounter Miscellaneous Notes * Telephone Encounter - Mara Samuels RN - 12/03/2020 4:21 PM EST Inhaler to be managed by pt's PCP or Computer Science Teacher per Dr. Greene documented in this encounter Plan of Treatment Not on file documented as of this encounter Visit Diagnoses Diagnosis Tracheomalacia, acquired documented in this encounter Care Teams Rigging Helper Relationship Specialty Start Date End Date Elier Covington MD [address] [place] [address] PCP - General Internal Medicine 05/15/18 Julian Rivas MD [address] [place] [address] Cardiovascular Disease 07/27/20 Julian Rivas MD [address] [place] [address] Primary Ophthalmology Surgical Technician Cardiovascular Disease 11/23/23 documented as of this encounter
--- OUTSIDE RECORDS SUMMARY | 2024-10-30 05:48 | XMS_ITS | Encounter Summary ---
Author Organization [facility] Address [address] [place] [address] Care Team Providers Care Zinc Plater Name Role Phone Elier Covington MD Primary Care Provider [phone] Julian Rivas MD Unavailable [phone] Julian Rivas MD Unavailable [phone] Reason for Visit * Reason Comments Appointment Encounter Details Date Type Department Care Team (Late st Contact Info) Description 08/17/2021 Telephone [facility] Thoracic Surgery [address] [place] [phone] Sebastian Greene MD [address] [facility] [address] [place], [place] [id number] Appointment Social History Tobacco Use Types Packs/Day Years [...] on filedocumented in this encounter Care Teams Zinc Plater Relationship Specialty Start Date End Date Elier Covington MD [address] [place] [address] PCP - General Internal Medicine 05/15/18 Julian Rivas MD [address] [place] [address] Cardiovascular Disease 07/27/20 Julian Rivas MD [address] [place] [address] Primary Diesel Fitter Mechanic Cardiovascular Disease 11/23/23 documented as of this encounter
[2024-10-30 06:30] LABS: Glucose, Whole Blood 241 mg/dL (60-115)
[2024-10-30 06:35] VITALS: BMI 25.6
[2024-10-30 06:36] VITALS: BP 167/91; PULSE 62; RESP 16; TEMP 36.4; O2SAT 97
--- NOTE | 2024-10-30 06:45 | HO.ANESPROP2 ---
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) 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 (Acute) Chest pain (Acute) COPD (chronic obstructive pulmonary disease) (Acute) Tracheobronchomalacia (Acute) Past Medical History Medical History Diabetes GERD (gastroesophageal reflux disease) Hepatitis Depression HTN (hypertension) Chronic pain syndrome Intercostal neuralgia 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 Chest pain COPD (chronic obstructive pulmonary disease) Tracheobronchomalacia Family History Family History Other HTN (hypertension) Family history of problems with anesthesia: No Surgical History History of Problems with Anesthesia: No Social History Social History Household Members: Family and None Household Members Other:: 2 adults 1 cat Housing: Condominium Do you presently have visiting nurse or other home services: No Alcohol intake: current Alcohol intake frequency: a few times a month Patient Tobacco Use Status: Former Tobacco user Tobacco use type: Cigarette Cigarette Packs Per Day: 0.5 Cigarettes Per Day: 10 Years Smoked: 15 Second Hand Smoke Exposure: No Substance Use Type: Marijuana Advance Directives: No Advance Directives Information Provided: Yes service: Yes Sexual orientation: Straight/Heterosexual Meds Allergies Allergy/AdvReac Type Severity Reaction Status Date / Time prednisone [PREDNISONE] Allergy Mild RAGE Verified 09/17/24 16:50 lisinopril AdvReac Cough Verified 09/17/24 16:50 Home Medications ?Medication ?Instructions ?Recorded ?Confirmed ?Last Taken ?Type insulin glargine 100 unit/mL (3 70 unit subcut BEDTIME 07/22/20 09/30/24 Unknown History mL) subcutaneous pen montelukast 10 mg tablet 10 mg PO DAILY PRN asthma 08/26/20 09/30/24 08/26/20 04:10 History (Singulair) omeprazole 20 mg capsule,delayed 40 mg PO DAILY PRN Acid Reflux 10/14/20 09/30/24 Unknown History release atorvastatin 40 mg tablet 40 mg PO DAILY 09/17/24 09/30/24 Unknown History dulaglutide 3 mg/0.5 mL 1.5 mg subcut CLARK@0900 09/17/24 09/30/24 Unknown History subcutaneous pen injector (Trulicity) fluticasone fur. 200 mcg-umeclid 1 ea inhalation DAILY 09/17/24 09/30/24 Unknown History 62.5 mcg-vilant 25 mcg inhalat.powder (Trelegy Ellipta) quetiapine 25 mg tablet 25 mg PO BEDTIME 09/17/24 09/30/24 Unknown History chlorthalidone 25 mg tablet 25 mg PO DAILY 09/30/24 09/30/24 Unknown History venlafaxine 75 mg tablet,extended 75 mg PO DAILY 09/30/24 09/30/24 Unknown History release 24 hr Exam Height,Weight and Vital Signs: Height 6 ft Weight 85.729 kg Last Vital Signs Temp 97.6 F 10/30/24 06:36 Pulse 62 10/30/24 06:36 Resp 16 10/30/24 06:36 BP 167/91 H 10/30/24 06:36 Pulse Ox 97 10/30/24 06:36 O2 Del Method Room Air 10/30/24 06:36 Pertinent Lab Results Pertinent Lab Results: Laboratory Tests 10/30/24 06:27 POC Glucose 241 H Airway Mallampati Class: II TM Dist: >3cm Neck ROM: Full Heart: rrr Lungs: cta Assessment and Plan Assessment Anesthesia Assessment: Anesthesia Plan Discussed and Chart Reviewed Final Anesthetic Review Family History of Problems with Anesthesia: No History of Problems with Anesthesia: No NPO: Yes ASA Class: III Final Preanesthetic Review: No Changes in Pt Med Stat, Meds/Allgs Chart Reviewed and Consent Obtained/Reviewed Patient Risk: Intermediate Procedure Risk: Intermediate Anesthetic Plan Anesthetic Plan: GA Disposition: Standard PACU
--- NOTE | 2024-10-30 07:43 | MHC.SHP ---
Pre-Procedural Eval Section A - 24 Hr Update-Section A only Date of Service: 10/30/24 Changes since office visit: No Cold of Flu in the past 2 weeks, No New Medical Problems, No Changes in Medication and No Patient answered all questions The patient has been examined within 24 hours of the surgical procedure. The History & Physical has been completed within 30 days and I have reviewed it.: Yes Section B - Complete if H&P > 30 days Chief Complaint: Major depressive disorder, recurrent, severe with Details of Present Illness: mood much improved; no depression; also on ketamine Present Medications: see Short Stay Collaborative assessment Medical History: Significant History (htn) Allergies: Allergies Allergy/AdvReac Type Severity Reaction Status Date / Time prednisone [PREDNISONE] Allergy Mild RAGE Verified 09/17/24 16:50 lisinopril AdvReac Cough Verified 09/17/24 16:50 Review of Systems Sugical H&P ROS: Negative: Constitution, Respiratory, Neurological and Psychiatric Exam Surgical H&P Exam: Normal: Heart (rr) and Normal: Lungs (clear) Plan Diagnosis/Plan: Unchanged I have reviewed the history and physical and performed a pertinent physical examination on my patient. No changes have occurred unless specified. Time Spent With Patient Time: Total time managing care of this patient today ____ minutes.
--- NOTE | 2024-10-30 07:45 | HO.ECTPROC ---
ECT Procedure Note Diagnosis/Treatment Date of Service: 10/30/24 Diagnosis: Major Depressive Disorder Previous ECT Date: 10/25/24 Current Treatment Number: 10 Treatment: Maintenance Interval Clinical Notes: mood much improved; denies depression. Case discussed with patient and Dr. Murillo. ECT completed right unilateral 0.5 program seizure was 23 seconds consider change back to bifrontal. Treatment tolerated follow-up treatment approximately 2 weeks then will try for 3 weeks and then 4 weeks Patient took 50 mg metoprolol at home reportedly prior to treatment still had hypertension discuss with anesthesia the recommend probably small dose of IV metoprolol perhaps just prior to treatment in addition Time: Total time managing care of this patient today ____ minutes. ECT Settings Device: THYMATRON DGx Electrode Placement: Right Unilateral Program/Pulse Width: 0.50 Energy Percent: 100 Seizure Duration By EEG (in seconds): 23 Medications Administration General Anesthetic: Etomidate (18) Muscle Relaxant: Succinylcholine (100) Ancillary Medications Analgesics: Torodol - Pre ECT Airway Management Airway Management: LMA Treatment Recommendations No Changes Recommended: No change (No change if patient ends up getting additional ECT (otherwise says this is last ect)) Electrode Placement: Right Unilateral Program/Pulse Width: 0.50 Energy Percent: 100 Notes: Some postop hypertension Pt Tolerated Procedure w/o Issue: Yes
[2024-10-30 08:04] VITALS: BP 187/92; PULSE 74; RESP 16; TEMP 36.8; O2SAT 94
[2024-10-30 08:09] VITALS: BP 167/98; PULSE 74; RESP 16; TEMP 36.8; O2SAT 97
[2024-10-30 08:10] VITALS: BP 157/102; PULSE 79; RESP 16; O2SAT 95
[2024-10-30 08:15] VITALS: BP 153/99; PULSE 79; RESP 16; O2SAT 95
[2024-10-30 08:30] VITALS: BP 144/84; PULSE 64; RESP 16; TEMP 36.8; O2SAT 95
== END 2024-10-30 09:21 | disposition home or self-care (01) ==
PROVIDERS: Visit Provider Psychiatry & Neurology Psychiatry
PROC: (CPT 90870; principal; 2024-10-30 07:30)
DX: F33.2 Major depressive disorder, recurrent severe without psychotic features (principal); G89.4 Chronic pain syndrome; G58.8 Other specified mononeuropathies; I10 Essential (primary) hypertension; E11.9 Type 2 diabetes mellitus without complications; J44.9 Chronic obstructive pulmonary disease, unspecified; J39.8 Other specified diseases of upper respiratory tract; I48.0 Paroxysmal atrial fibrillation; G47.33 Obstructive sleep apnea (adult) (pediatric); K21.9 Gastro-esophageal reflux disease without esophagitis; Z79.4 Long term (current) use of insulin; Z79.85 Long-term (current) use of injectable non-insulin antidiabetic drugs; Z79.01 Long term (current) use of anticoagulants; Z79.51 Long term (current) use of inhaled steroids; Z79.899 Other long term (current) drug therapy; Z88.8 Allergy status to other drugs, medicaments and biological substances; Z99.89 Dependence on other enabling machines and devices; Z87.891 Personal history of nicotine dependence
CPT/HCPCS: 82947; 90870; J0330; J1596; J1805; J1885; J2704

== ENCOUNTER → 2024-10-30 05:45 | Outpatient (BNV) | payer MEDICARE, SELFPAY | PROVIDERS: Visit Provider Psychiatry & Neurology Psychiatry | DX: F33.3 Major depressive disorder, recurrent, severe with psychotic symptoms (principal) | CPT/HCPCS: 90870 ==

== ENCOUNTER → 2024-11-15 05:41 | Day surgery (SDC) | payer MEDICARE, SELFPAY ==
[2024-11-15 06:36] LABS: Glucose, Whole Blood 321 mg/dL (60-115)
== END ==
LOC: HO.SSS 05:41
PROVIDERS: Visit Provider Psychiatry & Neurology Psychiatry
DX: F33.3 Major depressive disorder, recurrent, severe with psychotic symptoms (principal); Z53.9 Procedure and treatment not carried out, unspecified reason; R73.09 Other abnormal glucose
CPT/HCPCS: 82947

== ENCOUNTER → 2024-11-25 05:45 | Day surgery (SDC) | payer MEDICARE, SELFPAY | LOC: HO.SSS 05:46 | PROVIDERS: Visit Provider Psychiatry & Neurology Psychiatry | DX: F33.2 Major depressive disorder, recurrent severe without psychotic features (principal); Z53.8 Procedure and treatment not carried out for other reasons ==

== ENCOUNTER 2025-01-16 12:31 | Inpatient (IN) | payer MEDICARE, SELFPAY ==
--- NOTE | ~2025-01-16 | XR_ITS ---
EXAMINATION: XR CHEST CLINICAL INFORMATION: RUL wheezing, RLL rhonchi COMPARISON: 05/16/2024. TECHNIQUE: 2 views of the chest were obtained. FINDINGS: The cardiac, hilar, and mediastinal contours are normal. Low lung volumes, with bronchovascular crowding in the mid and lower lungs. Surgical jame seen overlying the left apex. Suggestion of small airway thickening in the mid and lower lungs. No consolidations. There is no pneumothorax or pleural effusion. There is no focal osseous or soft tissue abnormality. XR/XR chest 2V IMPRESSION: 1. Suggestion of mild small airway thickening in the mid and lower lungs. Findings may represent inflammatory/reactive airways disease. 2. No focal pneumonia or effusion. Electronically signed by: Kedar Calle MD 01/16/2025 01:55 PM EDT
[2025-01-16 12:36] VITALS: BP 154/109; PULSE 107; RESP 16; TEMP 36.5; O2SAT 97; BMI 28.2
--- NOTE | 2025-01-16 12:37 | ED.GENADULT ---
HPI - General Adult General Chief complaint: Psychiatric Symptoms Stated complaint: Psych, sent by Time Seen by Provider: 01/16/25 13:01 Source: patient Mode of arrival: ambulatory Limitations: no limitations History of Present Illness ED Provider: Zafar Cobos PA-C HPI narrative: 69 yo male with history of depression, COPD, chronic pain syndrome, tracheomalacia, ETOH use disorder, cocaine use disorder who presents to the ER from home for evaluation of worsening depression with suicidal thoughts. He has a plan to jump in front of a [place] train. He has been getting outpatient ketamine treatments for his depression. He called his psychiatrist office today with worsening symptoms and SI who told him to come to the ER so that he can be admitted. He reports his depression is severe, he is not eating well, not sleeping well. He is compliant with all of his medications. Denies any recent drugs or alcohol. Denies hallucinations. He lives home alone. MD complaint: SI Onset (ago): week(s) (2) Relieving factors: none Exacerbating factors: none Associated symptoms: loss of appetite Treatments prior to arrival: none Related Data Home Medications ?Medication ?Instructions ?Recorded ?Confirmed insulin glargine 100 unit/mL (3 70 unit subcut BEDTIME 07/22/20 01/16/25 mL) subcutaneous pen montelukast 10 mg tablet 10 mg PO DAILY PRN asthma 08/26/20 01/16/25 (Singulair) omeprazole 20 mg capsule,delayed 40 mg PO DAILY PRN Acid Reflux 10/14/20 01/16/25 release atorvastatin 40 mg tablet 40 mg PO DAILY 09/17/24 01/16/25 dulaglutide 3 mg/0.5 mL 1.5 mg subcut CLARK@0900 09/17/24 01/16/25 subcutaneous pen injector (Trulicity) fluticasone fur. 200 mcg-umeclid 1 ea inhalation DAILY 09/17/24 01/16/25 62.5 mcg-vilant 25 mcg inhalat.powder (Trelegy Ellipta) quetiapine 25 mg tablet 25 mg PO BEDTIME 09/17/24 01/16/25 chlorthalidone 25 mg tablet 25 mg PO BEDTIME 09/30/24 01/16/25 clonazepam 1 mg tablet 1 mg PO QID 01/16/25 01/16/25 desvenlafaxine succinate 50 mg 50 mg PO DAILY 01/16/25 01/16/25 tablet,extended release 24 hr lamotrigine 150 mg tablet 150 mg PO DAILY 01/16/25 01/16/25 memantine 5 mg tablet 5 mg PO DAILY 01/16/25 01/16/25 triazolam 0.25 mg tablet 0.25 mg PO BEDTIME 01/16/25 01/16/25 zolpidem 12.5 mg tablet,extended 12.5 mg PO BEDTIME 01/16/25 01/16/25 release,multiphase Previous Rx's ?Medication ?Instructions ?Recorded nicotine 21 mg/24 hr daily 21 mg transdermal DAILY #0 ea 09/30/24 transdermal patch apixaban 5 mg tablet (Eliquis) 5 mg PO BID #180 tabs 10/01/24 metoprolol succinate 50 mg 50 mg PO DAILY #90 tabs 10/04/24 tablet,extended release 24 hr Allergies Allergy/AdvReac Type Severity Reaction Status Date / Time prednisone [PREDNISONE] Allergy Mild RAGE Verified 01/16/25 12:36 lisinopril AdvReac Cough Verified 01/16/25 12:36 mirtazapine [From Remeron] AdvReac Unknown Verified 01/17/25 16:24 Review of Systems Review of Systems: Yes all other systems are reviewed and are negative PMFSH Past Medical History Medical History Diabetes GERD (gastroesophageal reflux disease) Hepatitis Depression HTN (hypertension) Chronic pain syndrome Intercostal neuralgia 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 Chest pain COPD (chronic obstructive pulmonary disease) Tracheobronchomalacia Family History Family History Other HTN (hypertension) Social History Social History Household Members: None Household Members Other:: 2 adults 1 cat Housing: Condominium Do you presently have visiting nurse or other home services: Yes (meals on wheels) Unable to assess alcohol history related to: Unknown Alcohol intake: current Alcohol intake frequency: a few times a month Patient Tobacco Use Status: Current everyday Tobacco user Tobacco use type: Cigarette Cigarette Packs Per Day: 0.5 Cigarettes Per Day: 8 Years Smoked: 15 Smoked in Last 30 Days: Yes Patient Interested in Nicotine Replacement: Yes Patient Given Instructions on How to Stop Smoking: Yes Date Education Initiated: 01/17/25 Second Hand Smoke Exposure: No Use of substances other than those prescribed or required for medical reasons: Yes Substance Use Type: Caffiene Substance Use Frequency: Chronic Longstanding Last Used Substance: Just Prior to Admission Last Used Substance Other:: Caffeine Currently Displaying Signs/Symptoms of Drug Intoxication Withdrawal: No Any prior treatment program specific to substance use: No Have you been hit, kicked, punched, or otherwise hurt by someone within the past year? If so, by whom?: No Do you feel safe in your current relationship?: No Current Relationship Is there a partner from a previous relationship who is making you feel unsafe now?: No Are you made to feel afraid or neglected: No Spiritual Healthcare Practices: Islam Jehovah'S Witness Healthcare Practices: Islam Cultural Healthcare Practices: None Advance Directives: No Advance Directives Information Provided: Yes Do you have thoughts of harming others: None Do you have a plan to hurt others: No Plan Recently lost weight without trying: No Eating poorly because of decreased appetite: No Nutrition Risks: No Nutritional Risk Poor oral hygiene: No service: Yes Sexual orientation: Straight/Heterosexual Physical Exam ED Vital Signs: Vital Signs - 24 hr 01/16/25 12:36 01/16/25 20:58 01/17/25 05:04 Temperature 97.7 F 97.2 F 97.2 F Pulse Rate 107 H 72 63 Respiratory Rate 16 14 20 Blood Pressure 154/109 H 123/69 133/79 Pulse Oximetry 97 95 95 Oxygen Delivery Method Room Air Room Air Room Air 01/17/25 09:11 Temperature Pulse Rate 78 Respiratory Rate Blood Pressure 138/87 Pulse Oximetry Oxygen Delivery Method BMI result Body Mass Index 28.2 Appearance: Alert. Oriented X3. No acute distress. Head: normocephalic, atraumatic. Eyes: Pupils equal, round and reactive to light. ENT: Pharynx normal. No tonsillar swelling or exudate. Neck: Normal inspection. Neck supple. CVS: Normal heart rate and rhythm. Pulses normal. Respiratory: No respiratory distress. Breath sounds with inspiratory wheeze in the RUL and rhonchi in the RLL. Abdomen: Soft and nontender. +BS x4 Skin: Skin warm and dry. Normal skin color. Normal skin turgor. No rashes. Extremities: No lower extremity edema. No joint swelling. Neuro/psych: Oriented X 3. No motor deficit. No sensory deficit. CN II-XII intact. Normal speech and cognition. Depressed mood, +SI, no HI, no AH/VH. Course Course Course Narrative: This is a rapid medical exam performed by Janice Carrasquillo NP: Additional HPI, ROS, PE not included below will be deferred to primary provider. Patient is a 69-year-old male with history of afib, cocaine use disorder, MDD, alcohol use disorder, 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, COPD presenting to ED for depression and suicidal ideation. Told to come to the ED by Dr. Ojeda. States he had ketamine yesterday but not feeling any better. Plan to jump in front of a train so as to not make a mess in his house. Plan: med clearance then CARE team eval Reevaluation(s) Reevaluation #1: Time: 06:39 Date: 01/17/25 Provider: Jason Voss MD Patient in phys and is in in-patient physician observation for psychiatric evaluation and has been in the emergency department for 18 hours..? No acute events reported overnight. No current complaints. VS stable.? Patient has been evaluated by the CARE team in his inpatient IP LOC bed search and the patient was in agreement with this plan.Patient will remain in the emergency department Behavioral Health Unit until disposition can be determined or until patient's symptoms improve over time. Reevaluation #2: Time: 11:49 Date: 01/17/25 Provider: Debora Funk DO Physician observation ended at 1149am. Patient to be admitted as inpatient to psychiatry Medications Administered Generic Name Dose Route Start Last Admin Trade Name Freq PRN Reason Stop Dose Admin Apixaban 5 mg 01/16/25 21:00 01/18/25 08:24 Apixaban 5 Mg Tablet PO 5 mg BID UMA Administration Atorvastatin Calcium 40 mg 01/17/25 09:00 01/18/25 08:24 Atorvastatin Calcium 40 Mg Tablet PO 40 mg DAILY UMA Administration Clonazepam 1 mg 01/17/25 21:00 01/18/25 17:16 Clonazepam 1 Mg Tablet PO 1 mg QID UMA Administration Fluticasone/Umeclidinium/Vilanterol 1 puff 01/17/25 08:00 01/18/25 09:16 Fluticasone/Umeclidinium/Vilanterol 200/62.5 Blst.W.Dev INHALE Not Given RDAILY UMA Hydrochlorothiazide 25 mg 01/16/25 21:00 01/17/25 21:15 Hydrochlorothiazide 25 Mg Tablet PO 25 mg BEDTIME UMA Administration Insulin Glargine 70 unit 01/16/25 21:00 01/17/25 21:17 Insulin Glargine,Hum.Rec.Anlog 100 Unit/Ml 10 Ml Vial SUBCUT 70 unit BEDTIME UMA Administration Insulin Human Lispro 0 unit 01/16/25 21:00 01/18/25 17:36 Insulin Lispro 100 Unit/Ml 3 Ml Vial SUBCUT 6 unit QIDACHS UMA Administration Protocol Lamotrigine 150 mg 01/16/25 21:00 01/17/25 21:15 Lamotrigine 25 Mg Tablet PO 150 mg BEDTIME UMA Administration Memantine 5 mg 01/17/25 09:00 01/18/25 08:25 Memantine Hcl 5 Mg Tablet PO 5 mg DAILY UMA Administration Metoprolol Succinate 50 mg 01/17/25 09:00 01/18/25 08:25 Metoprolol Succinate Er 50 Mg Tab.Er.24h PO 50 mg DAILY UMA Administration Protocol Nicotine Polacrilex 4 mg 01/17/25 11:32 01/17/25 17:00 Nicotine Polacrilex 2 Mg Gum BUCCAL 4 mg Q2H PRN Administration Nicotine Cravings Quetiapine Fumarate 25 mg 01/16/25 21:00 01/17/25 21:15 Quetiapine Fumarate 25 Mg Tablet PO 25 mg BEDTIME UMA Administration Temazepam 30 mg 01/16/25 21:00 01/17/25 21:14 Temazepam 15 Mg Capsule PO 30 mg BEDTIME UMA Administration Venlafaxine HCl 75 mg 01/16/25 20:00 01/18/25 08:24 Venlafaxine Hcl Er 75 Mg Cap.Er.24h PO 75 mg DAILY UMA Administration Zolpidem Tartrate 5 mg 01/16/25 21:00 01/17/25 21:14 Zolpidem Tartrate 5 Mg Tablet PO 5 mg BEDTIME UMA Administration Discontinued Medications Generic Name Dose Route Start Last Admin Trade Name Freq PRN Reason Stop Dose Admin Clonazepam 1 mg 01/16/25 21:00 01/17/25 17:45 Clonazepam 1 Mg Tablet PO 1 mg QID UMA Administration Nicotine 21 mg 01/17/25 09:00 01/17/25 09:20 Nicotine 21 Mg Patch.Td24 TRANSDERMA Not Given DAILY [facility] Medical Decision Making Medical Decision Making [facility] Narrative: 69 yo male presenting with SI w/ plan to jump in front of a train. hx depression getting ketamine. exam with abnormal lung sounds on the right. reports hx bronchoscopies in the past. CXR today showing some mild small airway thickening in the mid and lower lungs. no focal PNA. no respiratory distress. will do med rec and start his inhalers. anticipate he will require inpatient level of care. his labs today are unremarkable with normal CBC and BMP. Utox negative. Physician observation started at 14:18. Patient placed in physician observation because patient is awaiting CARE team evaluation for the possible need of inpatient psych admission. At the time observation was started patient's vital signs were stable. Patient is alert and oriented. Neuro exam is non-focal. CV: RRR and lungs are clear. Will continue to monitor. Differential Diagnosis Differential Diagnoses: The differential diagnosis associated with the presentation includes substance induced mood disorder, acute psychosis, schizophrenia, schizoaffective disorder, PTSD, bipolar disorder, major depression with psychotic features Admission/Observation Consideration of admission/observation: Escalation of care including admission/observation considered Lab Data [facility] Lab Attestation statement: I reviewed the patient's lab results. as above 01/16/25 13:28 01/18/25 10:34 Labs: Lab Results 01/16/25 01/16/25 01/16/25 Range/Units 13:28 13:32 15:03 WBC 9.1 (4.8-10.8) X10*3/uL RBC 5.32 (4.60-5.80) X10*6/uL Hgb 16.0 (14.0-18.0) g/dl Hct 45.8 (42.0-52.0) % MCV 86.1 (80.0-98.0) fL MCH 30.1 (27.0-33.0) pg MCHC 34.9 (31.0-36.0) g/dl RDW 12.4 (11.0-16.0) % Plt Count 200 (160-400) X10*3/uL MPV 9.9 (9.4-12.4) fL Immature Gran % (Auto) 0.3 (0.0-0.4) % Neut % (Auto) 66.9 (45-73) % Lymph % (Auto) 22.6 (20-40) % Bell % (Auto) 7.5 (2-11) % Eos % (Auto) 2.2 (0-4) % Baso % (Auto) 0.5 (0-2) % Lymph # (Auto) 2.1 (1.2-4.9) X10*3/uL Bell # (Auto) 0.7 (0.1-1.2) X10*3/uL Eos # (Auto) 0.2 (0.0-0.4) X10*3/uL Baso # (Auto) 0.1 (0.0-0.2) X10*3/uL Abs Immat Gran (auto) 0.03 (0.00-0.03) X10*3/uL Absolute Neuts (auto) 6.1 (2.0-8.3) x10*3/uL Absolute Nucleated RBC 0.000 (0.0-0.012) X10*3/uL Nucleated RBC % (auto) 0.0 (0.0-0.2) /100WBC Sodium 140 (135-145) mmol/L Potassium 4.1 (3.3-5.1) mmol/L Chloride 103 (96-108) mmol/L Carbon Dioxide 27 (22-29) mmol/L Anion Gap 14 (12-20) BUN 13 (9-16) mg/dL Creatinine 1.36 (0.5-1.4) mg/dL Estim Creat Clear Calc 62.0 Estimated GFR 52 POC Glucose (60-115) mg/dL Random Glucose 233 H (60-115) mg/dL Calcium 9.7 (8.4-10.2) mg/dL Total Bilirubin 0.4 (0.0-1.0) mg/dL AST 29 (5-37) U/L ALT 55 H (0-40) U/L Alkaline Phosphatase 73 (39-117) U/L Total Protein 7.5 (6.5-8.0) g/dL Albumin 4.4 (3.5-5.0) g/dL Urine Color Yellow Urine Appearance Clear Urine pH 6.5 (5.0-9.0) Ur Specific [place] 1.010 (1.005-1.025) Urine Protein Negative (Neg-Trace) mg/dL Urine Glucose (UA) >=1000 H (Negative) mg/dL Urine Ketones Negative (Negative) mg/dL Urine Blood Negative (Negative) Urine Nitrite Negative (Negative) Ur Leukocyte Esterase Negative (Negative) Urine RBC 0-2 (0-2) /HPF Urine WBC 0-5 (0-5) /HPF Ur Squamous Epith Cells 0-2 (0-2) /HPF Urine Bacteria None Seen (None Seen) Hyaline Casts 0-2 (0-2) /LPF Urine Opiates Screen Not Detected (Not Detect) Ur Buprenorphine Scrn Not Detected (Not Detect) ng/mL Ur Oxycodone Screen Not Detected (Not Detect) ng/mL Urine Methadone Screen Not Detected (Not Detect) ng/mL Urine Fentanyl Screen Not Detected (Not Detect) Ur Barbiturates Screen Not Detected (Not Detect) Ur Phencyclidine Scrn Not Detected (Not Detect) Ur Amphetamines Screen Not Detected (Not Detect) U Benzodiazepines Scrn Not Detected (Not Detect) Urine Cocaine Screen Not Detected (Not Detect) U Marijuana (THC) Screen Not Detected (Not Detect) Ethyl Alcohol < 10 mg/dL Influenza Type A (PCR) NEGATIVE (Negative) Influenza Type B (PCR) NEGATIVE (Negative) RSV RNA Qual (PCR) NEGATIVE (Negative) SARS-CoV-2 RNA (RT-PCR) NEGATIVE (Negative) 01/16/25 01/17/25 Range/Units 20:57 08:53 WBC (4.8-10.8) X10*3/uL RBC (4.60-5.80) X10*6/uL Hgb (14.0-18.0) g/dl Hct (42.0-52.0) % MCV (80.0-98.0) fL MCH (27.0-33.0) pg MCHC (31.0-36.0) g/dl RDW (11.0-16.0) % Plt Count (160-400) X10*3/uL MPV (9.4-12.4) fL Immature Gran % (Auto) (0.0-0.4) % Neut % (Auto) (45-73) % Lymph % (Auto) (20-40) % Bell % (Auto) (2-11) % Eos % (Auto) (0-4) % Baso % (Auto) (0-2) % Lymph # (Auto) (1.2-4.9) X10*3/uL Bell # (Auto) (0.1-1.2) X10*3/uL Eos # (Auto) (0.0-0.4) X10*3/uL Baso # (Auto) (0.0-0.2) X10*3/uL Abs Immat Gran (auto) (0.00-0.03) X10*3/uL Absolute Neuts (auto) (2.0-8.3) x10*3/uL Absolute Nucleated RBC (0.0-0.012) X10*3/uL Nucleated RBC % (auto) (0.0-0.2) /100WBC Sodium (135-145) mmol/L Potassium (3.3-5.1) mmol/L Chloride (96-108) mmol/L Carbon Dioxide (22-29) mmol/L Anion Gap (12-20) BUN (9-16) mg/dL Creatinine (0.5-1.4) mg/dL Estim Creat Clear Calc Estimated GFR POC Glucose 269 H 233 H (60-115) mg/dL Random Glucose (60-115) mg/dL Calcium (8.4-10.2) mg/dL Total Bilirubin (0.0-1.0) mg/dL AST (5-37) U/L ALT (0-40) U/L Alkaline Phosphatase (39-117) U/L Total Protein (6.5-8.0) g/dL Albumin (3.5-5.0) g/dL Urine Color Urine Appearance Urine pH (5.0-9.0) Ur Specific [place] (1.005-1.025) Urine Protein (Neg-Trace) mg/dL Urine Glucose (UA) (Negative) mg/dL Urine Ketones (Negative) mg/dL Urine Blood (Negative) Urine Nitrite (Negative) Ur Leukocyte Esterase (Negative) Urine RBC (0-2) /HPF Urine WBC (0-5) /HPF Ur Squamous Epith Cells (0-2) /HPF Urine Bacteria (None Seen) Hyaline Casts (0-2) /LPF Urine Opiates Screen (Not Detect) Ur Buprenorphine Scrn (Not Detect) ng/mL Ur Oxycodone Screen (Not Detect) ng/mL Urine Methadone Screen (Not Detect) ng/mL Urine Fentanyl Screen (Not Detect) Ur Barbiturates Screen (Not Detect) Ur Phencyclidine Scrn (Not Detect) Ur Amphetamines Screen (Not Detect) U Benzodiazepines Scrn (Not Detect) Urine Cocaine Screen (Not Detect) U Marijuana (THC) Screen (Not Detect) Ethyl Alcohol mg/dL Influenza Type A (PCR) (Negative) Influenza Type B (PCR) (Negative) RSV RNA Qual (PCR) (Negative) SARS-CoV-2 RNA (RT-PCR) (Negative) Independent Interpretation I performed an independent interpretation of an: EKG and Plain X-Ray Interpretation: no focal infiltrate or pleural effusion ekg with sinus rhythm with sinus arrythmia, hr 79 bpm, normal GA interval, normal QTc Radiology Impression Discussion of test interpretation with radiology: I discussed test interpretation with the radiologist External Record Review External record reviewed: Outpatient record, Prior outpatient labs and Prior outpatient radiology Prescription Management I considered prescription management with: Other (antipsychotic ) Chronic Conditions Patient?s care impacted by: Hypertension and Other (COPD, tracheomalacia ) Social Determinants Patient?s care significantly limited by Social Determinants of Health including: Problems related to primary support group Discharge Plan Discharge Clinical Impression: Suicidal ideation, Depression Patient Disposition: Admitted As Inpatient Interventions: Admission Worksheet (ED) Last Done: 01/17/25 12:23 Discharge Date/Time: 01/17/25 12:25
--- NOTE | 2025-01-16 13:26 | ECG_ITS ---
Test Reason : R/O PROLONGED QT Blood Pressure : */* mmHG Vent. Rate : 79 BPM Atrial Rate : 79 BPM P-R Int : 148 ms QRS Dur : 78 ms QT Int : 364 ms P-R-T Axes : 41 48 40 degrees QTcB Int : 417 ms Normal sinus rhythm with sinus arrhythmia Normal ECG When compared with ECG of 30-Sep-2024 11:56, No significant change was found Referred By: Mariah Cobos Electronically Signed By: CAITIE BARAHONA MD
[2025-01-16 13:32] LABS: MANUAL DIFF FLAG NO
[2025-01-16 13:40] LABS: Basophils Absolute Auto 0.1 X10*3/uL (0.0-0.2); Basophils Percent Auto 0.5 % (0-2); Eosinophils Absolute Auto 0.2 X10*3/uL (0.0-0.4); Eosinophils Percent Auto 2.2 % (0-4); Hematocrit 45.8 % (42.0-52.0); Imm Gran Abs Auto 0.03 X10*3/uL (0.00-0.03); Imm Gran Pct Auto 0.3 % (0.0-0.4); Lymphocytes Absolute Auto 2.1 X10*3/uL (1.2-4.9); Lymphocytes Percent Auto 22.6 % (20-40); Mean Corpuscular HGB Conc 34.9 g/dl (31.0-36.0); Mean Corpuscular Hemoglobin 30.1 pg (27.0-33.0); Mean Corpuscular Volume 86.1 fL (80.0-98.0); Mean Platelet Volume 9.9 fL (9.4-12.4); Monocytes Absolute Auto 0.7 X10*3/uL (0.1-1.2); Monocytes Percent Auto 7.5 % (2-11); Neutrophils Absolute Auto 6.1 x10*3/uL (2.0-8.3); Neutrophils Percent Auto 66.9 % (45-73); Platelet Count 200 X10*3/uL (160-400); Red Blood Count 5.32 X10*6/uL (4.60-5.80); Red Cell Distribution Width 12.4 % (11.0-16.0); White Blood Count 9.1 X10*3/uL (4.8-10.8)
[2025-01-16 13:43] LABS: Appearance Urine Clear; Color Urine Yellow; Glucose Urine UA >=1000 mg/dL (Negative); Leukocyte Esterase Urine Negative (Negative); Nitrite Urine Negative (Negative); PH 6.5 (5.0-9.0); UMIC TRIGGER UACC YES; Urine Blood Negative (Negative); Urine Ketones Negative (Negative); Urine Protein Negative (Neg-Trace)
[2025-01-16 13:49] LABS: Bacteria Urine None Seen (None Seen); Hyaline Casts Urine 0-2 /LPF (0-2); RBC Urine 0-2 /HPF (0-2); Squamous Epithelial Cell Urine 0-2 /HPF (0-2); WBC Urine 0-5 /HPF (0-5)
[2025-01-16 13:51] LABS: Amphetamine Screen Urine Not Detected (Not Detect); Barbiturates, Urine Not Detected (Not Detect); Benzodiazepines Screen Urine Not Detected (Not Detect); Buprenorphine Scr Not Detected (Not Detect); Cannabinoid Screen Urine Not Detected (Not Detect); Cocaine Screen Urine Not Detected (Not Detect); Fentanyl, urine Not Detected (Not Detect); Methadone Screen, Urine Not Detected (Not Detect); Opiate Screen Urine Not Detected (Not Detect); Oxycodone Screen Urine Not Detected (Not Detect); Phencyclidine Screen Urine Not Detected (Not Detect)
[2025-01-16 13:52] LABS: Ethanol < 10 mg/dL
[2025-01-16 14:04] LABS: Alanine Aminotransferase 55 U/L (0-40); Albumin Level 4.4 g/dL (3.5-5.0); Alkaline Phosphatase 73 U/L (39-117); Anion Gap 14 (12-20); Aspartate Amino Transferase 29 U/L (5-37); Bilirubin Total 0.4 mg/dL (0.0-1.0); Blood Urea Nitrogen 13 mg/dL (9-16); Calcium 9.7 mg/dL (8.4-10.2); Carbon Dioxide 27 mmol/L (22-29); Chloride 103 mmol/L (96-108); Estimated Glomerular Filt Rate 52; Glucose Random 233 mg/dL (60-115); Potassium 4.1 mmol/L (3.3-5.1); Sodium 140 mmol/L (135-145); Total Protein 7.5 g/dL (6.5-8.0)
--- NOTE | 2025-01-16 15:36 | MHC.CARE ---
Patient seen by CARE team, deemed IPLOC, is agreeable.
[2025-01-16 15:51] LABS: Influenza A PCR NEGATIVE (Negative); Influenza B PCR NEGATIVE (Negative); Resp Syncy Virus RNA Qual PCR NEGATIVE (Negative); SARS COV2 PCR INHOUSE NEGATIVE (Negative)
--- OUTSIDE RECORDS SUMMARY | 2025-01-16 17:03 | XMS_ITS | Encounter Summary ---
Author Organization [facility] Address [address] [place] [address] Care Team Providers Care Icicle Machine Operator Name Role Phone Elier Covington MD Primary Care Provider [phone] Julian Rivas MD Unavailable [phone] Julian Rivas MD Unavailable [phone] Encounter Details Date Type Department Care Team (Late st Contact Info) Description 01/23/2021 Lab Requisition [facility] [address] [place] [address] Ant Denson MD [address] [place] [address] Encounter for laboratory testing for COVID-19 virus [...] Assigned at Male 11/01/2022 3:57 PM EST Legal Sex Male 9:34 AM EDT Gender Identity Male 11/01/2022 3:57 PM EST [...] Name Priority Date/Time Associated Diagnosis Comments COVID-19 (SARS-COV-2) FRANCHESKA Routine 01/23/2021 9:49 AM EDT Encounter for laboratory testing for COVID-19 virus [ICD-10-CM] documented in this encounter Results * COVID-19 (SARS-CoV-2), FRANCHESKA (In-House) (01/23/2021 9:49 AM EDT) SARS CoV 2 Not Detected Not Detected 01/23/2021 10:49 AM EDT [facility] Comment: Negative results do not [...] was completed and performance characteristics established by [facility] as per the FDA and CLIA requirement for this EUA. The Aptima SARS-CoV-2 assay Letter of Authorization, along with the authorized Fact Sheet for Healthcare Providers, the authorized Fact Sheet for Patients, and authorized labeling are available on the FDA website: https://www.fda.gov/medical-devices/owftdyxpr-swmlziwxwa-uzsjhzm-devices/emergen -us e-utawbenghveiuo-sijujgu-devices. Performed at [facility], [place], [place] ??[place] License 0385 ??CLIA [id number] Source Nasopharyngeal 01/23/2021 10:49 AM EDT [facility] Comment:Performed at [facility], [place], [place] license No. [id number] CLIA No. [id number] Microbiology Nasopharyngeal swab / Unknown 01/23/2021 9:49 AM EDT 01/23/2021 9:49 AM EDT us Ant Denson MD MICROBIOLOGY - GENERAL ORDER LESTER Final Result [facility] [address] [place] [address] documented in this encounter Visit Diagnoses Diagnosis Encounter for laboratory testing for COVID-19 virus documented in this encounter Care Teams Icicle Machine Operator Relationship Specialty Start Date End Date Elier Covington MD [address] [place] [address] PCP - General Internal Medicine 05/15/18 Julian Rivas MD [address] [place] [address] Cardiovascular Disease 07/27/20 Julian Rivas MD [address] [place] [address] Primary Intelligence Specialist Cardiovascular Disease 11/23/23 documented as of this encounter
--- OUTSIDE RECORDS SUMMARY | 2025-01-16 17:04 | XMS_ITS | Clinical Summary ---
Author Organization [facility] Address [address] [place] [address] Care Team Providers Care Hospice Fellow Name Role Phone Elier Covington Primary Care Provider [phone] Allergies No known active allergies Medications Insulin [...] topic Zoster (Zostavax) Discontinued Insurance * Guarantor: [id number] Account Type Relation to Patient Date of Phone Billing Address [employer]er[employer] [address] [place] [address] WORKERS COMPENSATION * Guarantor: NXTM Account Type Relation to Patient Date of Phone Billing Address [facility] [facility] ATTN: A/P DEPT 2ND FLR [address] [facility] [place] [address] Care Teams Hospice Fellow Relationship Specialty Start Date End Date Elier Covington [facility] [address] [place], [place] [id number] PCP - General Internal Medicine 11/27/17
--- OUTSIDE RECORDS SUMMARY | 2025-01-16 17:04 | XMS_ITS | Clinical Summary ---
Author Organization [employer] [facility] Address [address] [facility] [place] [address] Care Team Providers Care Hospice Registered Nurse Name Role Phone Unavailable Primary Care Provider Unavailabl e Social History Tobacco Use Types Packs/Day Years Used Date Smoking Tobacco: Never Assessed Sex and Gender Information Value Date Recorded Sex Assigned at Male 08/01/2022 10:16 AM EDT Legal Sex Male 10:16 AM EDT Gender Identity Male 04/17/2024 10:18 AM EDT Sexual Orientation Choose not to disclose 2023 10:18 AM EDT Plan of Treatment Upcoming Encounters Date Type Department Care Team (Late st Contact Info) Description 02/19/2025 1:00 PM EDT Office Visit [facility] [address] [place] [address] [phone] Shira Tomas [address] [place], [place] [phone] Health Maintenance Due Date Last Done Comments CT Colonography 1956 Colonoscopy 1956 Colorectal Cancer Screening 1956 Dental Oral Exam 1956 Dental Prophylaxis 1956 Dental X-Ray: Bitewings 1956 Dental X-Ray: Full Mouth 1956 Depression Screening 1956 FIT DNA/Cologuard 1956 FIT 1956 FOBT 1956 Lipid Panel 1956 SDOH Screening 1956 Sigmoidoscopy 1956 Alcohol/Substance Use Screening 1968 Tobacco Screening 1968 Hepatitis C Screening 1974 Zoster Vaccines (1 of 2) 2006 COVID-19 Vaccine ( season) 2024 05/25/2021, 04/28/2021 Influenza Vaccine (#1) 2024 3, 06/05/2020, 05/25/2019 RSV Patients and Patients Aged 60 years or older (1 - 1-dose 75+ series) 2031 DTaP/Tdap/Td Vaccines (2 - Td or Tdap) 07/14/2033 07/14/2023 Pneumococcal Vaccine: 50+ Years Completed 06/05/2020, 05/25/2019, 08/10/2017, Additional history exists HIB Vaccines Aged Out No longer eligi [...] patient's age to complete this topic Meningococcal Vaccine Aged Out No bonnie alexis eligible based on patient's age to complete this topic RSV under 20 months Aged Out No longe r eligible based on patient's age to complete this topic Rotavirus Vaccines Aged Out No longer eligible based on patient's age to complete this topic Insurance DENTAL - HSN FULL (MEDICAID) [id number]
--- OUTSIDE RECORDS SUMMARY | 2025-01-16 17:04 | XMS_ITS | Clinical Summary ---
Author Organization [facility] [address] [facility] Address [address] [place] [address] Phone Care Team Providers Care Unclaimed Property Manager Name Role Phone Natalia Velazquez NP Primary Care Provider [phone] Social History Tobacco Use Types Packs/Day Years Used Date Smoking Tobacco: Never Assessed Sex and Gender Information Value Date Recorded Sex Assigned at Not on file Legal Sex Male 4:26 PM EST Gender Identity Not on file Sexual Orientation Not on file Plan of Treatment Health Maintenance Due Date Last Done Comments DTaP,Tdap,and Td Vaccines (1 - Tdap) 1975 Pneumococcal Vaccine: 50+ Ye ars (1 of 1 - PCV) 2006 Zoster Vaccines (1 of 2) 2006 Abdominal Aortic Aneurysm (A AA) Screen 08/31/2022 Cholesterol Screening (Lipid Panel) 08/31/2022 Colorectal Cancer Screening: Colonoscopy 08/31/2022 Depression Screening 08/31/2022 Falls Risk Assessment 08/31/2022 Hepatitis C Screening 08/31/2022 Medicare Annual Wellness Visit 08/31/2022 Social Influencers of Health Screening 08/31/2022 COVID-19 Vaccine (2023-2 5 season) 2024 Influenza Vaccine (Season Ended) 2025 RSV Immunization Adult Patie nts (1 - 1-dose 75+ series) 2031 HIB [...] patient's age to complete this topic Meningococcal B Vaccine Aged Out No l onger eligible based on patient's age to complete this topic RSV Immunization Patients Un demar 20 months Aged Out No longer eligible b ased on patient's age to complete this topic Varicella Vaccines Aged Out No longer eligible based on patient's age to complete this topic Insurance [employer] [place] MEDIC[employer] Care Teams Unclaimed Property Manager Relationship Specialty Start Date End Date Natalia Velazquez NP PCP - General Internal Medicine 09/09/24
--- OUTSIDE RECORDS SUMMARY | 2025-01-16 17:04 | XMS_ITS | Encounter Summary ---
Author Organization [facility] Address [address] [place] [address] Care Team Providers Care Music Therapist [employer] Name Role Phone Elier Covington MD Primary Care Provider [phone] Julian Rivas MD Unavailable [phone] Julian Rivas MD Unavailable [phone] Reason for Visit * Reason Comments Other Questions regarding surgery Encounter Details Date Type Department Care Team (Late st Contact Info) Description 12/07/2021 Telephone [facility] Thoracic Surgery [place] [address] [facility] [address] [place] [address] Sebastian Greene MD 85 [facility] [address] [place] [address] Other (Questions regarding surgery) Social [...] on filedocumented in this encounter Care Teams Music Therapist [employer] Relationship Specialty Start Date End Date Elier Covington MD [address] [place] [address] PCP - General Internal Medicine 05/15/18 Julian Rivas MD [address] [place], [place] [id number] Cardiovascular Disease 07/27/20 Julian Rivas MD [address] [place] [address] Primary Cement Cutter Cardiovascular Disease 11/23/23 documented as of this encounter
--- OUTSIDE RECORDS SUMMARY | 2025-01-16 17:04 | XMS_ITS | Encounter Summary ---
Author Organization [facility] Address [address] [place] [address] Care Team Providers Care Paint Laboratory Technician Name Role Phone Elier Covington MD Primary Care Provider [phone] Julian Rivas MD Unavailable [phone] Julian Rivas MD Unavailable [phone] Reason for Visit * Reason Comments Appointment Encounter Details Date Type Department Care Team (Late st Contact Info) Description 08/17/2021 Telephone [facility] Thoracic Surgery [address] [place] [id number] Sebastian Greene MD 85 [facility] [address] [place], [place] [id number] Appointment Social History Tobacco Use Types Packs/Day [...] on filedocumented in this encounter Care Teams Paint Laboratory Technician Relationship Specialty Start Date End Date Elier Covington MD [address] [place] [address] PCP - General Internal Medicine 05/15/18 Julian Rivas MD [address] [place] [address] Cardiovascular Disease 07/27/20 Julian Rivas MD [address] [place] [address] Primary Scrubbing Machine Operator Cardiovascular Disease 11/23/23 documented as of this encounter
--- OUTSIDE RECORDS SUMMARY | 2025-01-16 17:04 | XMS_ITS | Encounter Summary ---
Author Organization [facility] Address [address] [place] [address] Care Team Providers Care Dam Tender Assistant Name Role Phone Elier Covington MD Primary Care Provider [phone] Julian Rivas MD Unavailable [phone] Julian Rivas MD Unavailable [phone] Encounter Details Date Type Department Care Team (Late st Contact Info) Description 09/14/2021 Telephone [facility] Pulmonary [place] [address] [place] [address] Glenn Olivas, DO [address] [address] Social History Tobacco Use Types Packs/Day Years [...] on filedocumented in this encounter Care Teams Dam Tender Assistant Relationship Specialty Start Date End Date Elier Covington MD [address] [place] [address] PCP - General Internal Medicine 05/15/18 Julian Rivas MD [address] [place] [address] Cardiovascular Disease 07/27/20 Julian Rivas MD [address] [place] [address] Primary First Leveler Cardiovascular Disease 11/23/23 documented as of this encounter
--- OUTSIDE RECORDS SUMMARY | 2025-01-16 17:04 | XMS_ITS | Encounter Summary ---
Author Organization [facility] Address [address] [place] [address] Care Team Providers Care High Lift Driver Name Role Phone Elier Covington MD Primary Care Provider [phone] Julian Rivas MD Unavailable [phone] Julian Rivas MD Unavailable [phone] Encounter Details Date Type Department Care Team (Late st Contact Info) Description 09/22/2023 Refill [facility] [address] [address] Lucero Cesar PA-C [address] [place] [id number] Social History Tobacco Use Types Packs/Day Years [...] on filedocumented in this encounter Care Teams High Lift Driver Relationship Specialty Start Date End Date Elier Covington MD [address] [place] [address] PCP - General Internal Medicine 05/15/18 Julian Rivas MD [address] [place] [address] Cardiovascular Disease 07/27/20 Julian Rivas MD [address] [place] [address] Primary Security System Installer Cardiovascular Disease 11/23/23 documented as of this encounter
--- OUTSIDE RECORDS SUMMARY | 2025-01-16 17:04 | XMS_ITS | Encounter Summary ---
Author Organization [facility] Address [address] [place] [address] Care Team Providers Care Um Nurse Name Role Phone Elier Covington MD Primary Care Provider [phone] Julian Rivas MD Unavailable [phone] Julian Rivas MD Unavailable [phone] Encounter Details Date Type Department Care Team (Late st Contact Info) Description 08/14/2020 Scanned Document [facility] PULMON[facility]GY [facility] Provider, MD Ashish [address] [place] [address] Social History Tobacco Use Types Packs/Day Years [...] on filedocumented in this encounter Care Teams Um Nurse Relationship Specialty Start Date End Date Elier Covington MD [address] [place] [address] PCP - General Internal Medicine 05/15/18 Julian Rivas MD [address] [place] [address] Cardiovascular Disease 07/27/20 Julian Rivas MD [address] [place] [address] Primary Cfd Engineer Cardiovascular Disease 11/23/23 documented as of this encounter
--- OUTSIDE RECORDS SUMMARY | 2025-01-16 17:04 | XMS_ITS | Encounter Summary ---
Author Organization [facility] Address [address] [place] [address] Care Team Providers Care Derrick Engineer Name Role Phone Elier Covington MD Primary Care Provider [phone] Julian Rivas MD Unavailable [phone] Julian Rivas MD Unavailable [phone] Reason for Visit * Reason Comments Medication Refill Encounter Details Date Type Department Care Team (Late st Contact Info) Description 11/28/2020 Refill [facility] Thoracic Surgery [address] [place] [phone] Sebastian Greene MD 85 [facility] [address] [place] [address] Tracheomalacia, acquired Social History Tobacco Use Types [...] to be managed by pt's PCP or New Media Strategist per Dr. Greene documented in this encounter Plan of Treatment Not on file documented as of this encounter Visit Diagnoses Diagnosis Tracheomalacia, acquired documented in this encounter Care Teams Derrick Engineer Relationship Specialty Start Date End Date Elier Covington MD [address] [place] [address] PCP - General Internal Medicine 05/15/18 Julian Rivas MD [address] [place] [address] Cardiovascular Disease 07/27/20 Julian Rivas MD [address] [place] [address] Primary Service Control Operator Cardiovascular Disease 11/23/23 documented as of this encounter
--- OUTSIDE RECORDS SUMMARY | 2025-01-16 17:04 | XMS_ITS | Clinical Summary ---
Author Organization [facility] Address [address] [place] [address] Care Team Providers Care Sharemilker Name Role Phone Elier Covington MD Primary Care Provider [phone] Julian Rivas MD Unavailable [phone] Julian Rivas MD Unavailable [phone] Allergies Active Allergy Reactions Criticality Noted Date Comments Corticosteroids Delirium/Confusion/P syc hosis Low 05/17/2018 Significant anger/rage reaction to steriods Lisinopril Cough Low 03/04/2022 Losartan Unknown/Patient and Family Unable to Define Medium 03/04/2022 Prednisone Other (See Comments) 10/01/2020 Delerium / confusion / psychosis Medications zolpidem (AMBIEN CR) 12.5 MG CR tablet [...] by mouth 4 (four) times a day. 01/08/20 21 Active chlorthalidone (HYGROTON) 25 MG tablet Take 1 tablet (25 mg total) by mouth every morning. 04/29/20 Active OMEprazole (PriLOSEC) 40 MG capsule Take 1 capsule (40 mg total) by mouth 2 (two) times a day as needed. 04/29/20 Active Trelegy Ellipta 200-62.5-25 MCG/ACT inhalerIndicatio ns:Moderate persistent asthma without complication,Bro nchiectasis without complication (HCC),Chronic post-thoracotomy pain,Cough,Airwa y malacia INHALE 1 PUFF INTO THE LUNGS DAILY 1 each 01/15/20 Active Additional Information Patient taking differently: Every morning, Reason: Other, Reported on 08/05/2024 triazolam (HALCION) 0.25 MG tablet Take by mouth nightly. 03/15/20 24 Active gabapentin (NEURONTIN) 300 MG capsuleIndicatio ns:Left foot pain,Displaced fracture of proximal phalanx of left great toe, initial encounter for closed fracture TAKE 1 CAPSULE BY MOUTH THREE TIMES A DAY 90 capsule 04/01/20 Active benzonatate (TESSALON) 200 MG capsuleIndicatio ns:Tracheomalaci a Take 1 capsule (200 mg total) by mouth 3 (three) times a day as needed for cough. 20 capsule 1 08/02/20 24 Active Additional Information Patient taking differently:200 mg Oral 3 times daily PRN, cough,Requires prior authorization, Reason: Other, Reported on 08/05/2024 atorvastatin (LIPITOR) 40 MG tablet Take 1 tablet (40 mg total) by mouth every morning. 06/05/20 Active memantine (NAMENDA) 5 MG tablet every evening. 07/30/20 Active diltiazem (CARDIZEM CD) 180 MG 24 hr capsule Take 1 capsule (180 mg total) by mouth every morning. 06/25/20 24 Active Spravato, 84 MG Dose, 28 MG/DEVICE nasal spray 08/01/20 24 Active HumaLOG KWIKPEN 100 UNIT/ML prefilled pen injection Inject 30 Units under the skin 2 times a day with meals. 09/27/20 025 Discontin ued(Thera py completed ) Ozempic, 0.25 or 0.5 MG/DOSE, 2 MG/3ML prefilled pen injection once a week. Monday 025 Discontin ued(Thera py completed ) Trulicity 1.5 MG/0.5ML prefilled pen injection INJECT 0.5 ML SUBCUTANEOUSLY EVERY WEEK, ROTATE INJECTION SITES (PLEASE CALL FOR APPT) 12/03/19 025 Discontin ued(Patie nt Discharge ) metoPROLOL SUCCINATE (TOPROL-XL) 50 MG 24 hr tablet Take 1 tablet (50 mg total) by mouth every morning. 10/04/19 25 025 Discontin ued(Patie nt Discharge ) lamoTRIgine (LaMICtal) 150 MG tablet 1 tablet (150 mg total) by Mouth/Oral Cavity route every 12 hours. 11/04/19 025 Discontin ued(Patie nt Discharge ) Active Problems Problem Noted Date Diagnosed Date [...] remission 06/01/2018 05/03/2023 Stricture of esophagus 06/01/2018 Hepatitis C 05/23/2018 Overview (05/03/2023): hepatitis C status post interferon, GERD with strictures Acid reflux 05/23/2018 Diabetes mellitus 05/23/2018 Allergy-induced asthma 05/23/2018 Essential hypertension 05/23/2018 Depression 05/23/2018 Overview (05/23/2018): has had ECT w/ positive effect Anxiety 05/23/2018 Encounters Date Type Department Care Team Description 12/27/2024 Travel 12/23/2024 Prep for Surgery [facility] Thoracic Surgery [place] [address] [place] [address] Nichole Sadler PA 12/12/2024 Telephone [facility] [address] [place] [address] Sebastian Greene MD Procedure from Last 3 Months Immunizations Immunization Administration Dates Next Due Covid-19 mRNA Primary Series Vaccine - Moderna 0.5 mL Full Dose 05/25/2021,04/28/2021 Family History Medical History Relation Name Comments Pancreatic cancer Father Lung cancer Mother Pancreatic cancer Sister No Known Problems Son Relation Name Status Comments Father Mother Sister Son Alive Social History Tobacco Use Types Packs/Day Years Used Date Smoking Tobacco: Every Day Cigarettes Smokeless Tobacco: Never Tobacco Cessation:Ready to Q uit: Not Asked; Counseling Given: Not Answered Comments:3 Cigarettes daily Alcohol Use Standard Drinks/Week Comments No 0 (1 standard drink = 0.6 oz pur e alcohol) quit 2005 AUDIT-C Answer Date Recorded Q1: How often do you have a drink containing alcohol? Never 12/27/2024 Q2: How many drinks containi ng alcohol do you have on a typical day when you are drinking? Patient does not drink Q3: How often do you have si x or more drinks on one occasion? Never 12/27/2024 Sex and Gender Information Value Date Recorded [...] EST Inhaled Oxygen Concentration - - Weight 85.7 kg (189 lb) 12/27/2024 9:22 AM EDT Height 182.9 cm (6') 12/27/2024 9:22 AM EDT Body Mass Index 25.63 12/27/2024 9:22 AM EDT Plan of Treatment Health Maintenance Due Date [...] this topic Medical Devices Implanted Type Area Damage Prevention Coordinator Device Identifier Shelf Expiration Date Model / Serial / Lot Screw Bone 75mm Ss 16mm 6.5mm 7.5mm Compression Slftp Self - [id number] Implanted:Qty: 1 on 06/07/2018 by Ren Kennedy MD at [facility] Screw DEPUY SYNTHES - A ARABELLA AND 5 / / Screw Bone 80mm Ss 32mm 6.5mm 7.5mm Compression Slftp Self - [id number] Implanted:Qty: 1 on 06/07/2018 by Ren Kennedy MD at [facility] Screw DEPUY SYNTHES - A ARABELLA AND 0 / / Filler Bone Void 5cc 1.7-10mm Canc Algrf Chp Frzdr Israelselize - [id number] Implanted:Qty: 1 on 06/07/2018 by Ren Kennedy MD at [facility] Void Filler Left: Foot MUSCULOSKELETAL TRANSPLANT FOU 02/01/2021 [id number] / [id number] / Y Stent [employer] [id number] Implanted:Qty: 1 on 12/13/2021 by Sebastian Greene MD at [facility] UNKNOWN [id number] / / Description:Implant brought in by Dr. Rey, no stickers present, no expiration present [id number] Ref:[id number] Size: 15-12-12 Procedures Procedure Name Priority Date/Time Associated Diagnosis Comments BASIC METABOLIC PANEL Routine 11/06/2021 9:27 AM [...] Relevant to Health Maintenance Results * (ABNORMAL) Basic metabolic panel (11/06/2021 9:27 AM EST) Glucose 133 65 - 139 mg/dL [employer] Comment: ? Non-fasting reference interval Blood Urea Nitrogen (BUN) 23 7 - 25 mg/dL [employer] Creatinine 1.36(H) 0.70 - 1.25 mg/dL [employer] Comment: For patients >49 years of age, the reference limit for Creatinine is approximately 13% higher for people identified as -[place]. eGFR Non- 54(L) > OR = 60 mL/min/1. 73m2 [employer] eGFR 63 > OR = 60 mL/min/1. 73m2 [employer] BUN/Creatinine Ratio 17 6 - 22 (calc) [facility] [employer] Sodium 136 135 - 146 mmol/L [employer] Potassium 4.1 3.5 - 5.3 mmol/L [employer] Chloride 103 98 - 110 mmol/L [employer] CO2 23 20 - 32 mmol/L [employer] Calcium 9.4 8.6 - 10.3 mg/dL [employer] Blood specimen (specimen) Blood specimen / Unknown 11/06/2021 9:27 AM EST 11/06/2021 9:28 AM EST Narrative [facility] - 11/07/2021 6:15 AM EST FASTING:NO FASTING: NO us Sebastian Greene MD LAB BLOOD ORDERABLES Final Res ult [facility] [address] [place] [address], [place] [address] * (ABNORMAL) Hemoglobin A1c with Estimated Average Glucose (05/23/2018 1:25 PM EDT) Hemoglobin A1C 5.9(H) <5.7 % [facility] Comment: A1c% ? Interpretation 5.7 - 6.0 ?Increase risk of diabetes 6.1 - 6.4 ?Higher risk of diabetes > or = 6.5 ?? Consistent with diabetes Diabetes Care, 33(Supp 1):S1-S61, 2010 Estimated Average Glucose 123 mg/dL HOSPITAL LAB Comment:Performed at [facility], [facility], [place] license No. [id number] CLIA No. [id number] 05/23/2018 1:25 PM EDT 05/23/2018 5:22 PM EDT Richelle Hart COMPLIANCE CONSULTANT LAB BLOOD ORDERABLES Fin al Result HOSPITAL LAB from Last 3 Months or Most Recently Relevant to Health Maintenance Insurance [facility] Advance Directives * Full Code (Latest Code [...] 5:33 AM 01/27/2021 12:00 PM Care Teams Sharemilker Relationship Specialty Start Date End Date Elier Covington MD [address] [place] [address] PCP - General Internal Medicine 05/15/18 Julian Rivas MD [address] [place] [address] Cardiovascular Disease 07/27/20 Julian Rivas MD [address] [place] [address] Primary Firer Tunnel Kiln Cardiovascular Disease 11/23/23
--- NOTE | 2025-01-16 18:10 | PC.NURSE ---
Med rec done, information given by [facility] pharmacist and pt confirmed meds & doses
--- NOTE | 2025-01-16 20:42 | HE.PHANOTE ---
MED REC notes: Reviewed med rec done by nursing. Many claims did not match claims. Spoke with RN that was taking care of pt, she confirmed the pt is taking these medication differently Pharmacy claims shows: - chlorthalidone last filled 06/06/24 for #90, pt states they are still one - Lantus 40 units in AM, and 46 units PM, pt takes 70 units HS - Lamtrogine 150mg BID, pt takes this 150mg HS - Trelegy Ellipta lasted filled 08/18/24 for 30 day supply, pt states they still actively on this medication - NO pharmacy claims for the last year for montelukast or omeprazole, pt says he is still on both medications.
[2025-01-16 20:58] VITALS: BP 123/69; PULSE 72; RESP 14; TEMP 36.2; O2SAT 95
[2025-01-16 21:00] LABS: Glucose, Whole Blood 269 mg/dL (60-115)
[2025-01-16] MEDS: Insulin Glargine,Hum.rec.anlog 100 UNIT/ML 10 ML VIAL 70 UNIT SUBCUT (21:04)
[2025-01-16] MEDS: Temazepam 15 MG CAPSULE 30 MG PO (21:05)
[2025-01-16] MEDS: Apixaban 5 MG TABLET PO (21:05)
[2025-01-16] MEDS: hydroCHLOROthiazide 25 MG TABLET PO (21:06)
[2025-01-16] MEDS: Zolpidem Tartrate 5 MG TABLET PO (21:08)
[2025-01-16] MEDS: clonazePAM 1 MG TABLET PO (21:08)
[2025-01-16] MEDS: QUEtiapine Fumarate 25 MG TABLET PO (21:08)
[2025-01-16] MEDS: lamoTRIgine 25 MG TABLET 150 MG PO (21:08)
[2025-01-17 05:04] VITALS: BP 133/79; PULSE 63; RESP 20; TEMP 36.2; O2SAT 95
[2025-01-17 08:57] LABS: Glucose, Whole Blood 233 mg/dL (60-115)
[2025-01-17 09:11] VITALS: BP 138/87; PULSE 78
[2025-01-17] MEDS: Apixaban 5 MG TABLET PO ×2 (09:11→21:15)
[2025-01-17] MEDS: Atorvastatin Calcium 40 MG TABLET PO (09:11)
[2025-01-17] MEDS: Venlafaxine HCl ER 75 MG CAP.ER.24H PO (09:11)
[2025-01-17] MEDS: Memantine HCl 5 MG TABLET PO (09:11)
[2025-01-17] MEDS: Metoprolol Succinate ER 50 MG TAB.ER.24H PO (09:11)
[2025-01-17] MEDS: Insulin Lispro 100 UNIT/ML 3 ML VIAL SUBCUT ×3 (09:12→21:18)
[2025-01-17] MEDS: clonazePAM 1 MG TABLET PO ×4 (09:12→22:10)
[2025-01-17 12:30] VITALS: BP 155/95; PULSE 69; RESP 18; TEMP 36.3; O2SAT 95
--- NOTE | 2025-01-17 16:26 | PC.ADMIT ---
Patient admitted from ED to [facility], signed a CV on arrival to the unit, skin check completed on arrival. Patient reports that he missed multiple outpatient ECT appointments due to difficulty in obtaining transportation. He reports increasing depression and anxiety over a period of weeks and recently began feeling suicidal. Patient reports that he had [place] the [place] train [place] through [place]. He states that he researched the time the train runs through so that he could act on this plan. He subsequently did take action towards the plan by driving to the train tracks but he was about an hour early and over that time thought to himself that no one would remember him for anything good he did, just that he killed himself so he went home. Patient calm and cooperative with interview and admission process, reports wanting to start ECT back while inpatient.
[2025-01-17 16:45] LABS: Glucose, Whole Blood 240 mg/dL (60-115)
[2025-01-17] MEDS: Nicotine Polacrilex 2 MG GUM 4 MG BUCCAL (17:00)
[2025-01-17 20:00] VITALS: BP 155/88; PULSE 75; RESP 16; TEMP 36.4; O2SAT 97
[2025-01-17 20:37] LABS: Glucose, Whole Blood 224 mg/dL (60-115)
[2025-01-17] MEDS: Temazepam 15 MG CAPSULE 30 MG PO (21:14)
[2025-01-17] MEDS: Zolpidem Tartrate 5 MG TABLET PO (21:14)
[2025-01-17] MEDS: QUEtiapine Fumarate 25 MG TABLET PO (21:15)
[2025-01-17] MEDS: lamoTRIgine 25 MG TABLET 150 MG PO (21:15)
[2025-01-17] MEDS: hydroCHLOROthiazide 25 MG TABLET PO (21:15)
[2025-01-17] MEDS: Insulin Glargine,Hum.rec.anlog 100 UNIT/ML 10 ML VIAL 70 UNIT SUBCUT (21:17)
[2025-01-18 07:53] VITALS: BP 146/88; PULSE 66; TEMP 36.6; O2SAT 95
[2025-01-18 08:05] LABS: Glucose, Whole Blood 147 mg/dL (60-115)
--- NOTE | 2025-01-18 08:22 | HO.ECTCONS_ITS ---
History of Present Illness Data of Consult Service Date: 01/18/25 Primary Care Provider: Elier Covington MD [facility] Reason for consult: ECT Risk Stratification Pt is a 69-year-old male with a PMH significant for COPD not on home O2, aortic aneurysm, paroxysmal AFib on Eliquis, insulin-dependent type 2 diabetes, HLD, HTN, tracheomalacia, and mood disoder admitted [facility] for increased depression with SI with plan to jump in front of a train. Hospitalist consult for ECT risk stratification. Pt reports he has undergone ECT multiple times in the past since 1983. Reports occasional short-term memory loss that is sometimes permanent, sometimes transient. During ECT session on 09/30/2024 pt was noted to go into new onset AFib with RVR and has since been on metoprolol and Eliquis. Currently in normal sinus rhythm and without any known repeat episode of AFib. Denies palpitation or feeling like his heart is racing. Pt has subsequently undergone multiple ECT sessions since then. Denies hx of cerebral hemorrhage or stroke, space-occupying intracranial lesion, seizure, or TBI. No hx of bleeding disorder or unstable vascular aneurysm. Has tracheomalacia and follows with Dr. Valdivia and undergoes therapeutic bronchoscopies up to 4 times a year. Last bronchi in August 2024. Pt also hx aortic aneurysm of stable aortic aneurysm of up to 3.5 cm. Follows with vascular surgery and awaiting prior authorization before any intervention is done. Pt denies any significant acute medical complaints. No fever, chills, nausea, vomiting, abdominal pain. Denies chest pain/pressure or palpitations. Occasional cough, but no SOB or difficulty breathing. EKG from 01/16/2025 reviewed, showing normal sinus rhythm with sinus arrhythmia, with QTc WNL at 417 and no evidence of significant ischemia. 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 Chest pain COPD (chronic obstructive pulmonary disease) Tracheobronchomalacia Family History Other HTN (hypertension) Social History Household Members: None Household Members Other:: 2 adults 1 cat Housing: Condominium Do you presently have visiting nurse or other home services: Yes (meals on wheels) Unable to assess alcohol history related to: Unknown Alcohol intake: current Alcohol intake frequency: a few times a month Patient Tobacco Use Status: Current everyday Tobacco user Tobacco use type: Cigarette Cigarette Packs Per Day: 0.5 Cigarettes Per Day: 8 Years Smoked: 15 Second Hand Smoke Exposure: No Substance Use Type: Caffiene service: Yes Sexual orientation: Straight/Heterosexual Meds Allergies Allergy/AdvReac Type Severity Reaction Status Date / Time prednisone [PREDNISONE] Allergy Mild RAGE Verified 01/16/25 12:36 lisinopril AdvReac Cough Verified 01/16/25 12:36 mirtazapine [From Remeron] AdvReac Unknown Verified 01/17/25 16:24 Active Medications: Current Medications Acetaminophen (Acetaminophen 325 Mg Tablet) 650 mg PO Q6H PRN PRN Reason: Headache/Pain, Scale 1-10 Al Hydroxide/Mg Hydroxide (Magnesium Hydrox/Alum Hydrox 30 Ml Oral.Susp) 30 ml PO Q6H PRN PRN Reason: Heartburn/Nausea Apixaban (Apixaban 5 Mg Tablet) 5 mg PO BID [facility] Last Admin: 01/17/25 21:15 Dose: 5 mg Atorvastatin Calcium (Atorvastatin Calcium 40 Mg Tablet) 40 mg PO DAILY [facility] Last Admin: 01/17/25 09:11 Dose: 40 mg Clonazepam (Clonazepam 1 Mg Tablet) 1 mg PO QID [facility] Last Admin: 01/17/25 22:10 Dose: 1 mg Fluticasone/Umeclidinium/Vilanterol (Fluticasone/Umeclidinium/Vilanterol 200/62.5/25 Blst.W.Dev) 1 puff INHALE RDAILY [facility] Last Admin: 01/17/25 09:20 Dose: Not Given Glucose (Glucose Gel 15 Gm Gel..Gram.) 15 gm PO Q15M PRN; Protocol PRN Reason: per Hypoglycemia Standing Ord. Hydrochlorothiazide (Hydrochlorothiazide 25 Mg Tablet) 25 mg PO BEDTIME [facility] Last Admin: 01/17/25 21:15 Dose: 25 mg Hydroxyzine HCl (Hydroxyzine Hcl 25 Mg Tablet) 25 mg PO Q6H PRN PRN Reason: mild anxiety Insulin Glargine (Insulin Glargine,Hum.Rec.Anlog 100 Unit/Ml 10 Ml Vial) 70 unit SUBCUT BEDTIME [facility] Last Admin: 01/17/25 21:17 Dose: 70 unit Insulin Human Lispro (Insulin Lispro 100 Unit/Ml 3 Ml Vial) 0 unit SUBCUT QIDACHS [facility]; Protocol Last Admin: 01/17/25 21:18 Dose: 4 unit Lamotrigine (Lamotrigine 25 Mg Tablet) 150 mg PO BEDTIME [facility] Last Admin: 01/17/25 21:15 Dose: 150 mg Magnesium Hydroxide (Milk Of Magnesia 30 Ml Oral.Susp) 30 ml PO DAILY PRN PRN Reason: Constipation Memantine (Memantine Hcl 5 Mg Tablet) 5 mg PO DAILY [facility] Last Admin: 01/17/25 09:11 Dose: 5 mg Metoprolol Succinate (Metoprolol Succinate Er 50 Mg Tab.Er.24h) 50 mg PO DAILY [facility]; Protocol Last Admin: 01/17/25 09:11 Dose: 50 mg Montelukast Sodium (Montelukast Sodium 10 Mg Tablet) 10 mg PO DAILY PRN PRN Reason: asthma Nicotine Polacrilex (Nicotine Polacrilex 2 Mg Gum) 4 mg BUCCAL Q2H PRN PRN Reason: Nicotine Cravings Last Admin: 01/17/25 17:00 Dose: 4 mg Non-Formulary Medication (Dulaglutide [Trulicity]) 1.5 mg SUBCUT CLARK@0900 [facility] Omeprazole (Omeprazole 40 Mg Capsule.Dr) 40 mg PO DAILY@0630 PRN PRN Reason: ACID REFLUX Quetiapine Fumarate (Quetiapine Fumarate 25 Mg Tablet) 25 mg PO BEDTIME [facility] Last Admin: 01/17/25 21:15 Dose: 25 mg Temazepam (Temazepam 15 Mg Capsule) 30 mg PO BEDTIME [facility] Last Admin: 01/17/25 21:14 Dose: 30 mg Trazodone HCl (Trazodone Hcl 50 Mg Tablet) 50 mg PO BEDTIME MRX1 PRN PRN Reason: Insomnia Venlafaxine HCl (Venlafaxine Hcl Er 75 Mg Cap.Er.24h) 75 mg PO DAILY [facility] Last Admin: 01/17/25 09:11 Dose: 75 mg Zolpidem Tartrate (Zolpidem Tartrate 5 Mg Tablet) 5 mg PO BEDTIME [facility] Last Admin: 01/17/25 21:14 Dose: 5 mg Home Medications ?Medication ?Instructions ?Recorded ?Confirmed ?Last Taken ?Type insulin glargine 100 unit/mL (3 70 unit subcut BEDTIME 07/22/20 01/16/25 1 Day Ago History mL) subcutaneous pen ~01/15/25 montelukast 10 mg tablet 10 mg PO DAILY PRN asthma 08/26/20 01/16/25 08/26/20 04:10 History (Singulair) omeprazole 20 mg capsule,delayed 40 mg PO DAILY PRN Acid Reflux 10/14/20 01/16/25 Unknown History release atorvastatin 40 mg tablet 40 mg PO DAILY 09/17/24 01/16/25 1 Day Ago History ~01/15/25 dulaglutide 3 mg/0.5 mL 1.5 mg subcut CLARK@0900 09/17/24 01/16/25 01/05/25 History subcutaneous pen injector (Trulicity) fluticasone fur. 200 mcg-umeclid 1 ea inhalation DAILY 09/17/24 01/16/25 1 Day Ago History 62.5 mcg-vilant 25 mcg ~01/15/25 inhalat.powder (Trelegy Ellipta) quetiapine 25 mg tablet 25 mg PO BEDTIME 09/17/24 01/16/25 1 Day Ago History ~01/15/25 chlorthalidone 25 mg tablet 25 mg PO BEDTIME 09/30/24 01/16/25 1 Day Ago History ~01/15/25 clonazepam 1 mg tablet 1 mg PO QID 01/16/25 01/16/25 1 Day Ago History ~01/15/25 desvenlafaxine succinate 50 mg 50 mg PO DAILY 01/16/25 01/16/25 1 Day Ago History tablet,extended release 24 hr ~01/15/25 lamotrigine 150 mg tablet 150 mg PO DAILY 01/16/25 01/16/25 1 Day Ago History ~01/15/25 memantine 5 mg tablet 5 mg PO DAILY 01/16/25 01/16/25 1 Day Ago History ~01/15/25 triazolam 0.25 mg tablet 0.25 mg PO BEDTIME 01/16/25 01/16/25 1 Day Ago History ~01/15/25 zolpidem 12.5 mg tablet,extended 12.5 mg PO BEDTIME 01/16/25 01/16/25 1 Day Ago History release,multiphase ~01/15/25 Physical Exam 2 Vital Signs and Narrative: Vital Signs: Last Vital Signs Temp 97.8 F 01/18/25 07:53 Pulse 66 01/18/25 07:53 Resp 16 01/17/25 20:00 BP 146/88 H 01/18/25 07:53 Pulse Ox 95 01/18/25 07:53 O2 Del Method Room Air 01/18/25 07:53 BMI result Body Mass Index 28.2 General: AOx3, no acute distress Resp: CTA bilaterally CVS: S1, S2, RRR GI: +BS, NT, no distention Skin: Warm, dry Neuro: Cranial nerves II-XII grossly intact bilaterally. Motor grossly intact bilaterally Extremities: No edema Psych: Flat affect Results Labs 01/16/25 13:28 01/16/25 13:28 Labs: Laboratory Results - last 24 hr 01/17/25 01/17/25 01/17/25 08:53 16:41 20:33 POC Glucose 233 H 240 H 224 H 01/18/25 08:02 POC Glucose 147 H Assessment and Plan (1) Pre-op evaluation: Status: Acute Plan Pt is a 69-year-old male with a PMH significant for COPD not on home O2, aortic aneurysm, paroxysmal AFib on Eliquis, insulin-dependent type 2 diabetes, HLD, HTN, tracheomalacia, and mood disoder admitted [facility] for increased depression with SI with plan to jump in front of a train. Hospitalist consult for ECT risk stratification. ECT risk stratification Pt reports undergoing ECT at least 15+ times in rebekah past since 1983 Session in 09/20/2024 complicated by AFib w/RVR Currently on metoprolol and in NSR, has underdone ECT since then without incident Hx of stable mild AAA, stable tracheomalacia EKG without ischemic changes RCRI 1 point, class I risk Based on PMH, HPI, and physical exam, there are no contraindications to the planned procedure Thank you for allowing us to participate in the care of this pt. Will sign off for now. Please re-consult if any acute issue or need arises.
[2025-01-18] MEDS: Venlafaxine HCl ER 75 MG CAP.ER.24H PO (08:24)
[2025-01-18] MEDS: Atorvastatin Calcium 40 MG TABLET PO (08:24)
[2025-01-18] MEDS: clonazePAM 1 MG TABLET PO ×4 (08:24→20:40)
[2025-01-18] MEDS: Apixaban 5 MG TABLET PO ×2 (08:24→20:39)
[2025-01-18] MEDS: Memantine HCl 5 MG TABLET PO (08:25)
[2025-01-18] MEDS: Metoprolol Succinate ER 50 MG TAB.ER.24H PO (08:25)
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
[2025-01-18 10:58] LABS: Estimated Average Glucose 183 mg/dL; Hemoglobin A1C 259.2729 umol/L; Total Hemoglobin (HGBA1C) 4075.2322 umol/L
[2025-01-18 11:09] LABS: Alanine Aminotransferase 62 U/L (0-40); Albumin Level 4.3 g/dL (3.5-5.0); Anion Gap 11 (12-20); Aspartate Amino Transferase 29 U/L (5-37); Bilirubin Total 0.7 mg/dL (0.0-1.0); Blood Urea Nitrogen 16 mg/dL (9-16); Calcium 10.1 mg/dL (8.4-10.2); Carbon Dioxide 30 mmol/L (22-29); Chloride 99 mmol/L (96-108); Cholesterol 214 mg/dL (<200); Creatinine Clr Calc Pharmacy 57.3; Estimated Glomerular Filt Rate 48; Glucose Random 200 mg/dL (60-115); HDL Cholesterol 50 mg/dL (>40); LDL Cholesterol Calculated 135 mg/dL (<100); Potassium 4.3 mmol/L (3.3-5.1); Sodium 136 mmol/L (135-145); Total Protein 7.2 g/dL (6.5-8.0); Triglycerides 145 mg/dL (<150)
[2025-01-18 12:10] LABS: Glucose, Whole Blood 202 mg/dL (60-115)
[2025-01-18] MEDS: Insulin Lispro 100 UNIT/ML 3 ML VIAL SUBCUT ×3 (12:23→20:41)
[2025-01-18 13:10] LABS: Alkaline Phosphatase 65 U/L (39-117)
[2025-01-18 17:18] LABS: Glucose, Whole Blood 283 mg/dL (60-115)
[2025-01-18 19:55] LABS: Glucose, Whole Blood 218 mg/dL (60-115)
[2025-01-18 20:00] VITALS: BP 135/67; PULSE 64; RESP 16; TEMP 36.6; O2SAT 95
[2025-01-18] MEDS: lamoTRIgine 25 MG TABLET 150 MG PO (20:38)
[2025-01-18] MEDS: QUEtiapine Fumarate 25 MG TABLET PO (20:38)
[2025-01-18] MEDS: hydroCHLOROthiazide 25 MG TABLET PO (20:39)
[2025-01-18] MEDS: Zolpidem Tartrate 5 MG TABLET PO (20:39)
[2025-01-18] MEDS: Temazepam 15 MG CAPSULE 30 MG PO (20:40)
[2025-01-18] MEDS: Insulin Glargine,Hum.rec.anlog 100 UNIT/ML 10 ML VIAL 70 UNIT SUBCUT (20:42)
[2025-01-18] MEDS: hydrOXYzine HCL 25 MG TABLET PO (21:55)
[2025-01-18] MEDS: traZODone HCL 50 MG TABLET PO (21:56)
[2025-01-19 07:47] LABS: Glucose, Whole Blood 162 mg/dL (60-115)
[2025-01-19 08:15] VITALS: BP 131/82; PULSE 61; RESP 16; TEMP 36.5; O2SAT 97
[2025-01-19] MEDS: Fluticasone/Umeclidinium/Vilanterol 200/62.5/25 BLST.W.DEV 1 PUFF INHALE (08:37)
[2025-01-19] MEDS: Insulin Lispro 100 UNIT/ML 3 ML VIAL SUBCUT ×4 (08:37→20:48)
[2025-01-19] MEDS: Memantine HCl 5 MG TABLET PO (08:39)
[2025-01-19] MEDS: Venlafaxine HCl ER 75 MG CAP.ER.24H PO (08:39)
[2025-01-19 08:40] VITALS: BP 131/82; PULSE 61
[2025-01-19] MEDS: clonazePAM 1 MG TABLET PO ×4 (08:40→20:53)
[2025-01-19] MEDS: Apixaban 5 MG TABLET PO ×2 (08:40→20:53)
[2025-01-19] MEDS: Atorvastatin Calcium 40 MG TABLET PO (08:40)
[2025-01-19] MEDS: Metoprolol Succinate ER 50 MG TAB.ER.24H PO (08:40)
--- NOTE | 2025-01-19 09:10 | P.PNPSI_ITS ---
Subjective Subjective Date of Service: 01/19/25 Reason For Visit: Depression SI Subjective Notes: Conditional Voluntary Healthcare Proxy: No Guardianship: No Medical Problems Affecting Mental Status: No Interim History: Patient was seen and discussed in rounds today. Records and plans were reviewed. He has been stable, awaiting ECT to be initiated. No complaints or side effects. Eating and sleeping adequately. No SI. No changes were made today Medication Compliance: Yes Side effects from medications: No Attending Groups: Yes Review of Systems Review of Systems Yes all other systems are reviewed and are negative Mental Status Exam Mental Status Exam Narrative: In today's visit he is alert, oriented and pleasant. Normal speech. Moderate eye contact. Affect is appropriate and constricted. No signs of psychosis. Cognitively is grossly intact with some intermediate term memory deficits. Moves all limbs. No abnormalities of gait. Judgment is intact. No SI. Diagnostics Vital Signs (24Hr): Vital Signs - 24 hr 01/18/25 20:00 01/19/25 08:15 01/19/25 08:40 Temperature 97.8 F 97.7 F Pulse Rate 64 61 61 Respiratory Rate 16 16 Blood Pressure 135/67 131/82 131/82 Pulse Oximetry 95 97 Oxygen Delivery Method Room Air Room Air BMI result Body Mass Index 28.2 Labs 01/16/25 13:28 01/18/25 10:34 Labs: Laboratory Results - last 48 hr 01/17/25 01/17/25 01/18/25 16:41 20:33 08:02 Sodium Potassium Chloride Carbon Dioxide Anion Gap BUN Creatinine Estim Creat Clear Calc Estimated GFR POC Glucose 240 H 224 H 147 H Random Glucose Estimat Average Glucose Hemoglobin A1c % Calcium Total Bilirubin AST ALT Alkaline Phosphatase Total Protein Albumin Triglycerides Cholesterol LDL Cholesterol, Calc HDL Cholesterol TSH 01/18/25 01/18/25 01/18/25 10:34 12:05 17:14 Sodium 136 Potassium 4.3 Chloride 99 Carbon Dioxide 30 H Anion Gap 11 L BUN 16 Creatinine 1.47 H Estim Creat Clear Calc 57.3 Estimated GFR 48 POC Glucose 202 H 283 H Random Glucose 200 H Estimat Average Glucose 183 Hemoglobin A1c % 8.0 H Calcium 10.1 Total Bilirubin 0.7 AST 29 ALT 62 H Alkaline Phosphatase 65 Total Protein 7.2 Albumin 4.3 Triglycerides 145 Cholesterol 214 H LDL Cholesterol, Calc 135 H HDL Cholesterol 50 TSH 0.70 01/18/25 01/19/25 19:47 07:35 Sodium Potassium Chloride Carbon Dioxide Anion Gap BUN Creatinine Estim Creat Clear Calc Estimated GFR POC Glucose 218 H 162 H Random Glucose Estimat Average Glucose Hemoglobin A1c % Calcium Total Bilirubin AST ALT Alkaline Phosphatase Total Protein Albumin Triglycerides Cholesterol LDL Cholesterol, Calc HDL Cholesterol TSH Imaging Radiology Impressions: ITS Impressions Chest X-Ray 01/16/25 13:26 IMPRESSION: 1. Suggestion of mild small airway thickening in the mid and lower lungs. Findings may represent inflammatory/reactive airways disease. 2. No focal pneumonia or effusion. Electronically signed by: Kedar Calle MD 01/16/2025 01:55 PM EDT RP Medications Medications Current Medications Acetaminophen (Acetaminophen 325 Mg Tablet) 650 mg PO Q6H PRN PRN Reason: Headache/Pain, Scale 1-10 Al Hydroxide/Mg Hydroxide (Magnesium Hydrox/Alum Hydrox 30 Ml Oral.Susp) 30 ml PO Q6H PRN PRN Reason: Heartburn/Nausea Apixaban (Apixaban 5 Mg Tablet) 5 mg PO BID [facility] Last Admin: 01/19/25 08:40 Dose: 5 mg Atorvastatin Calcium (Atorvastatin Calcium 40 Mg Tablet) 40 mg PO DAILY [facility] Last Admin: 01/19/25 08:40 Dose: 40 mg Clonazepam (Clonazepam 1 Mg Tablet) 1 mg PO QID [facility] Last Admin: 01/19/25 08:40 Dose: 1 mg Fluticasone/Umeclidinium/Vilanterol (Fluticasone/Umeclidinium/Vilanterol 200/62.5/25 Blst.W.Dev) 1 puff INHALE RDAILY [facility] Last Admin: 01/19/25 08:37 Dose: 1 puff Glucose (Glucose Gel 15 Gm Gel..Gram.) 15 gm PO Q15M PRN; Protocol PRN Reason: per Hypoglycemia Standing Ord. Hydrochlorothiazide (Hydrochlorothiazide 25 Mg Tablet) 25 mg PO BEDTIME [facility] Last Admin: 01/18/25 20:39 Dose: 25 mg Hydroxyzine HCl (Hydroxyzine Hcl 25 Mg Tablet) 25 mg PO Q6H PRN PRN Reason: mild anxiety Last Admin: 01/18/25 21:55 Dose: 25 mg Insulin Glargine (Insulin Glargine,Hum.Rec.Anlog 100 Unit/Ml 10 Ml Vial) 70 unit SUBCUT BEDTIME [facility] Last Admin: 01/18/25 20:42 Dose: 70 unit Insulin Human Lispro (Insulin Lispro 100 Unit/Ml 3 Ml Vial) 0 unit SUBCUT QIDACHS [facility]; Protocol Last Admin: 01/19/25 08:37 Dose: 2 unit Lamotrigine (Lamotrigine 25 Mg Tablet) 150 mg PO BEDTIME [facility] Last Admin: 01/18/25 20:38 Dose: 150 mg Magnesium Hydroxide (Milk Of Magnesia 30 Ml Oral.Susp) 30 ml PO DAILY PRN PRN Reason: Constipation Memantine (Memantine Hcl 5 Mg Tablet) 5 mg PO DAILY [facility] Last Admin: 01/19/25 08:39 Dose: 5 mg Metoprolol Succinate (Metoprolol Succinate Er 50 Mg Tab.Er.24h) 50 mg PO DAILY [facility]; Protocol Last Admin: 01/19/25 08:40 Dose: 50 mg Montelukast Sodium (Montelukast Sodium 10 Mg Tablet) 10 mg PO DAILY PRN PRN Reason: asthma Nicotine Polacrilex (Nicotine Polacrilex 2 Mg Gum) 4 mg BUCCAL Q2H PRN PRN Reason: Nicotine Cravings Last Admin: 01/17/25 17:00 Dose: 4 mg Omeprazole (Omeprazole 40 Mg Capsule.Dr) 40 mg PO DAILY@0630 PRN PRN Reason: ACID REFLUX Quetiapine Fumarate (Quetiapine Fumarate 25 Mg Tablet) 25 mg PO BEDTIME [facility] Last Admin: 01/18/25 20:38 Dose: 25 mg Temazepam (Temazepam 15 Mg Capsule) 30 mg PO BEDTIME [facility] Last Admin: 01/18/25 20:40 Dose: 30 mg Trazodone HCl (Trazodone Hcl 50 Mg Tablet) 50 mg PO BEDTIME MRX1 PRN PRN Reason: Insomnia Last Admin: 01/18/25 21:56 Dose: 50 mg Venlafaxine HCl (Venlafaxine Hcl Er 75 Mg Cap.Er.24h) 75 mg PO DAILY [facility] Last Admin: 01/19/25 08:39 Dose: 75 mg Zolpidem Tartrate (Zolpidem Tartrate 5 Mg Tablet) 5 mg PO BEDTIME [facility] Last Admin: 01/18/25 20:39 Dose: 5 mg Allergies Allergies Allergy/AdvReac Type Severity Reaction Status Date / Time prednisone [PREDNISONE] Allergy Mild RAGE Verified 01/16/25 12:36 lisinopril AdvReac Cough Verified 01/16/25 12:36 mirtazapine [From Remeron] AdvReac Unknown Verified 01/17/25 16:24 Assessment & Plan Assessment & Plan (1) Pre-op evaluation: Status: Acute Code(s): Z01.818 - Encounter for other preprocedural examination (2) MDD (major depressive disorder), recurrent episode, moderate: Status: Acute Code(s): F33.1 - Major depressive disorder, recurrent, moderate (3) Suicidal ideation: Status: Acute Code(s): R45.851 - Suicidal ideations Plan Pt is a 69-year-old male with a PMH significant for COPD not on home O2, aortic aneurysm, paroxysmal AFib on Eliquis, insulin-dependent type 2 diabetes, HLD, HTN, tracheomalacia, and mood disoder admitted [facility] for increased depression with SI with plan to jump in front of a train. Hospitalist consult for ECT risk stratification. ECT risk stratification Pt reports undergoing ECT at least 15+ times in [place] past since 1983 Session in 09/20/2024 complicated by AFib w/RVR Currently on metoprolol and in NSR, has underdone ECT since then without incident Hx of stable mild AAA, stable tracheomalacia EKG without ischemic changes RCRI 1 point, class I risk Based on PMH, HPI, and physical exam, there are no contraindications to the planned procedure Thank you for allowing us to participate in the care of this pt. Will sign off for now. Please re-consult if any acute issue or need arises. 01/19: Continue current plans and regimen, awaiting ECT Reason for continued inpatient stay Substantial Risk for: harm to self and med/psych decompensation Time Spent With Patient Time: Total time managing care of this patient today ____ minutes.
[2025-01-19 11:46] LABS: Glucose, Whole Blood 193 mg/dL (60-115)
[2025-01-19] MEDS: hydrOXYzine HCL 25 MG TABLET PO (13:57)
[2025-01-19] MEDS: QUEtiapine Fumarate 25 MG TABLET 75 MG PO (14:14)
[2025-01-19 17:07] LABS: Glucose, Whole Blood 204 mg/dL (60-115)
[2025-01-19 20:00] VITALS: BP 118/58; PULSE 66; TEMP 36.9; O2SAT 92
[2025-01-19 20:40] LABS: Glucose, Whole Blood 217 mg/dL (60-115)
[2025-01-19] MEDS: Insulin Glargine,Hum.rec.anlog 100 UNIT/ML 10 ML VIAL 70 UNIT SUBCUT (20:47)
[2025-01-19] MEDS: Temazepam 15 MG CAPSULE 30 MG PO (20:49)
[2025-01-19] MEDS: Zolpidem Tartrate 5 MG TABLET PO (20:49)
[2025-01-19 20:50] VITALS: BP 118/58
[2025-01-19] MEDS: QUEtiapine Fumarate 25 MG TABLET PO (20:50)
[2025-01-19] MEDS: hydroCHLOROthiazide 25 MG TABLET PO (20:50)
[2025-01-19] MEDS: lamoTRIgine 25 MG TABLET 150 MG PO (20:51)
[2025-01-20 07:48] LABS: Glucose, Whole Blood 113 mg/dL (60-115)
[2025-01-20 08:00] VITALS: BP 135/82; PULSE 61; TEMP 36.6; O2SAT 97
[2025-01-20] MEDS: Fluticasone/Umeclidinium/Vilanterol 200/62.5/25 BLST.W.DEV 1 PUFF INHALE (08:10)
[2025-01-20 08:11] VITALS: BP 135/82; PULSE 61
[2025-01-20] MEDS: Metoprolol Succinate ER 50 MG TAB.ER.24H PO (08:11)
[2025-01-20] MEDS: Apixaban 5 MG TABLET PO ×2 (08:11→19:54)
[2025-01-20] MEDS: Venlafaxine HCl ER 75 MG CAP.ER.24H PO (08:12)
[2025-01-20] MEDS: Memantine HCl 5 MG TABLET PO (08:12)
[2025-01-20] MEDS: clonazePAM 1 MG TABLET PO ×4 (08:12→19:53)
[2025-01-20] MEDS: Atorvastatin Calcium 40 MG TABLET PO (08:12)
--- NOTE | 2025-01-20 09:57 | HO.PSYCHPN ---
Subjective Subjective Date of Service: 01/20/25 Reason For Visit: Depression SI Interim History: met with patient; discussed with team; reviewed chart Patient in bed on approach. Patient explains reason for admission, saying that he was real depressed... And kind of suicidal. I was going to jump in front of a train. Patient says he went to the [employer] and was waiting; it was about a half an hour until the next train arrived but he changed his mind, saying if he were to kill himself that is all that people would remember of him. When asked about suicidality now, he says kind of, yes... Patient wants ECT; however he also has an appointment to get his teeth put in January 28 which he does not want to miss. He is hoping he can get ECT and will be well enough by then to transition to outpatient ECT. He says his neighbor is willing to bring him Mental Status Exam Mental Status Exam Narrative: Pt is alert and oriented; behavior is isolative, willing to engage on approach, calm, cooperative; patient is not in distress; dressed in hospital attire, disheveled and somewhat malodorous; mood is described as real depressed and affect congruent, blunted; eye contact appropriate; Speech is a little latent but otherwise normal rate, volume and prosody and not pressured; significant psychomotor retardation present; thought process is organized and goal directed; Thought content is on depression, tx; otherwise pertinent to relevant topics and without any delusional content, paranoid ideations or grandiosity; positive for some degree of SI; no HI. Denies AVH and there is no evidence of perceptual disturbance. Patients insight and judgment impaired Diagnostics Vital Signs (24Hr): Vital Signs - 24 hr 01/19/25 20:00 01/19/25 20:50 01/20/25 08:00 Temperature 98.4 F 97.9 F Pulse Rate 66 61 Blood Pressure 118/58 L 118/58 L 135/82 Pulse Oximetry 92 97 Oxygen Delivery Method Room Air Room Air 01/20/25 08:11 Temperature Pulse Rate 61 Blood Pressure 135/82 Pulse Oximetry Oxygen Delivery Method BMI result Body Mass Index 28.2 Labs 01/16/25 13:28 01/18/25 10:34 Labs: Laboratory Results - last 48 hr 01/18/25 01/18/25 01/18/25 10:34 12:05 17:14 Sodium 136 Potassium 4.3 Chloride 99 Carbon Dioxide 30 H Anion Gap 11 L BUN 16 Creatinine 1.47 H Estim Creat Clear Calc 57.3 Estimated GFR 48 POC Glucose 202 H 283 H Random Glucose 200 H Estimat Average Glucose 183 Hemoglobin A1c % 8.0 H Calcium 10.1 Total Bilirubin 0.7 AST 29 ALT 62 H Alkaline Phosphatase 65 Total Protein 7.2 Albumin 4.3 Triglycerides 145 Cholesterol 214 H LDL Cholesterol, Calc 135 H HDL Cholesterol 50 TSH 0.70 01/18/25 01/19/25 01/19/25 19:47 07:35 11:41 Sodium Potassium Chloride Carbon Dioxide Anion Gap BUN Creatinine Estim Creat Clear Calc Estimated GFR POC Glucose 218 H 162 H 193 H Random Glucose Estimat Average Glucose Hemoglobin A1c % Calcium Total Bilirubin AST ALT Alkaline Phosphatase Total Protein Albumin Triglycerides Cholesterol LDL Cholesterol, Calc HDL Cholesterol TSH 01/19/25 01/19/25 01/20/25 17:01 20:35 07:41 Sodium Potassium Chloride Carbon Dioxide Anion Gap BUN Creatinine Estim Creat Clear Calc Estimated GFR POC Glucose 204 H 217 H 113 Random Glucose Estimat Average Glucose Hemoglobin A1c % Calcium Total Bilirubin AST ALT Alkaline Phosphatase Total Protein Albumin Triglycerides Cholesterol LDL Cholesterol, Calc HDL Cholesterol TSH Imaging Radiology Impressions: ITS Impressions Chest X-Ray 01/16/25 13:26 IMPRESSION: 1. Suggestion of mild small airway thickening in the mid and lower lungs. Findings may represent inflammatory/reactive airways disease. 2. No focal pneumonia or effusion. Electronically signed by: Kedar Calle MD 01/16/2025 01:55 PM EDT Medications Medications Current Medications Acetaminophen (Acetaminophen 325 Mg Tablet) 650 mg PO Q6H PRN PRN Reason: Headache/Pain, Scale 1-10 Al Hydroxide/Mg Hydroxide (Magnesium Hydrox/Alum Hydrox 30 Ml Oral.Susp) 30 ml PO Q6H PRN PRN Reason: Heartburn/Nausea Apixaban (Apixaban 5 Mg Tablet) 5 mg PO BID [facility] Last Admin: 01/20/25 08:11 Dose: 5 mg Atorvastatin Calcium (Atorvastatin Calcium 40 Mg Tablet) 40 mg PO DAILY [facility] Last Admin: 01/20/25 08:12 Dose: 40 mg Clonazepam (Clonazepam 1 Mg Tablet) 1 mg PO QID [facility] Last Admin: 01/20/25 08:12 Dose: 1 mg Fluticasone/Umeclidinium/Vilanterol (Fluticasone/Umeclidinium/Vilanterol 200/62.5/25 Blst.W.Dev) 1 puff INHALE RDAILY [facility] Last Admin: 01/20/25 08:10 Dose: 1 puff Glucose (Glucose Gel 15 Gm Gel..Gram.) 15 gm PO Q15M PRN; Protocol PRN Reason: per Hypoglycemia Standing Ord. Hydrochlorothiazide (Hydrochlorothiazide 25 Mg Tablet) 25 mg PO BEDTIME [facility] Last Admin: 01/19/25 20:50 Dose: 25 mg Hydroxyzine HCl (Hydroxyzine Hcl 25 Mg Tablet) 25 mg PO Q6H PRN PRN Reason: mild anxiety Last Admin: 01/19/25 13:57 Dose: 25 mg Insulin Glargine (Insulin Glargine,Hum.Rec.Anlog 100 Unit/Ml 10 Ml Vial) 70 unit SUBCUT BEDTIME [facility] Last Admin: 01/19/25 20:47 Dose: 70 unit Insulin Human Lispro (Insulin Lispro 100 Unit/Ml 3 Ml Vial) 0 unit SUBCUT QIDACHS [facility]; Protocol Last Admin: 01/20/25 08:15 Dose: Not Given Lamotrigine (Lamotrigine 25 Mg Tablet) 150 mg PO BEDTIME [facility] Last Admin: 01/19/25 20:51 Dose: 150 mg Magnesium Hydroxide (Milk Of Magnesia 30 Ml Oral.Susp) 30 ml PO DAILY PRN PRN Reason: Constipation Memantine (Memantine Hcl 5 Mg Tablet) 5 mg PO DAILY [facility] Last Admin: 01/20/25 08:12 Dose: 5 mg Metoprolol Succinate (Metoprolol Succinate Er 50 Mg Tab.Er.24h) 50 mg PO DAILY [facility]; Protocol Last Admin: 01/20/25 08:11 Dose: 50 mg Montelukast Sodium (Montelukast Sodium 10 Mg Tablet) 10 mg PO DAILY PRN PRN Reason: asthma Nicotine Polacrilex (Nicotine Polacrilex 2 Mg Gum) 4 mg BUCCAL Q2H PRN PRN Reason: Nicotine Cravings Last Admin: 01/17/25 17:00 Dose: 4 mg Omeprazole (Omeprazole 40 Mg Capsule.Dr) 40 mg PO DAILY@0630 PRN PRN Reason: ACID REFLUX Quetiapine Fumarate (Quetiapine Fumarate 25 Mg Tablet) 25 mg PO BEDTIME [facility] Last Admin: 01/19/25 20:50 Dose: 25 mg Temazepam (Temazepam 15 Mg Capsule) 30 mg PO BEDTIME [facility] Last Admin: 01/19/25 20:49 Dose: 30 mg Trazodone HCl (Trazodone Hcl 50 Mg Tablet) 50 mg PO BEDTIME MRX1 PRN PRN Reason: Insomnia Last Admin: 01/18/25 21:56 Dose: 50 mg Venlafaxine HCl (Venlafaxine Hcl Er 75 Mg Cap.Er.24h) 75 mg PO DAILY [facility] Last Admin: 01/20/25 08:12 Dose: 75 mg Zolpidem Tartrate (Zolpidem Tartrate 5 Mg Tablet) 5 mg PO BEDTIME [facility] Last Admin: 01/19/25 20:49 Dose: 5 mg Allergies Allergies Allergy/AdvReac Type Severity Reaction Status Date / Time prednisone [PREDNISONE] Allergy Mild RAGE Verified 01/16/25 12:36 lisinopril AdvReac Cough Verified 01/16/25 12:36 mirtazapine [From Remeron] AdvReac Unknown Verified 01/17/25 16:24 Assessment & Plan Assessment & Plan (1) Pre-op evaluation: Status: Acute Code(s): Z01.818 - Encounter for other preprocedural examination (2) MDD (major depressive disorder), recurrent episode, moderate: Status: Acute Code(s): F33.1 - Major depressive disorder, recurrent, moderate (3) Suicidal ideation: Status: Acute Code(s): R45.851 - Suicidal ideations Plan HPI: Hamlet is a 69-year-old white, , 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 PMH significant for COPD not on home O2, aortic aneurysm, paroxysmal AFib on Eliquis, insulin-dependent type 2 diabetes, HLD, HTN, tracheomalaci.He has a longstanding history of chronic/recurrent depression going back to 1981. He has received ECT treatment intermittently since 1983 and his last treatment was in September of this year at this hospital. He has had numerous psychiatric hospitalizations. He does have history of alcohol dependence but alcohol free since last fall. He does have suicidal ideations. He has had several overdoses in the 90s but denies any current plans or intent. He was recommended by his treating psychiatrist, Dr. Murillo to come here for ECT and was cleared for admission by Dr. Ojeda. Current medications include Klonopin 1 mg q.i.d., Lamictal 150 q.h.s., Seroquel 25 mg q.h.s., Effexor XR 75 mg daily, Ambien. He has been getting ketamine treatment. No access to firearms. Past Psychiatric History: Inpt: many in the past. Last one 2019 OP: Dr. Murillo [facility] course 01/19: Continue current plans and regimen, awaiting ECT 01/20 Patient in bed on approach. Patient explains reason for admission, saying that he was real depressed... And kind of suicidal. I was going to jump in front of a train. Patient [place] [employer] [place] and [place]; it was about a half an hour until the next train arrived but he changed his mind, saying if he were to kill himself that is all that people would remember of him. When asked about suicidality now, he says kind of, yes... Patient wants ECT; however he also has an appointment to get his teeth put in January 28 which he does not want to miss. He is hoping he can get ECT and will be well enough by then to transition to outpatient ECT. He says his neighbor is willing to bring him Plan: CV Q 15 minute checks ECT for Monday Continue home meds Hospitalist consult for ECT risk stratification. ECT risk stratification Pt reports undergoing ECT at least 15+ times in [place] past since 1983 Session in 09/20/2024 complicated by AFib w/RVR Currently on metoprolol and in NSR, has underdone ECT since then without incident Hx of stable mild AAA, stable tracheomalacia EKG without ischemic changes RCRI 1 point, class I risk Based on PMH, HPI, and physical exam, there are no contraindications to the planned procedure Patient educated on: diagnosis, medication risk/benefits, ECT and therapeutic strategies Informed Consent: understands and further education needed Reason for continued inpatient stay Substantial Risk for: rapid decompensation Time Spent With Patient Time: Total time managing care of this patient today ____ minutes.
[2025-01-20 12:20] LABS: Glucose, Whole Blood 184 mg/dL (60-115)
[2025-01-20] MEDS: Insulin Lispro 100 UNIT/ML 3 ML VIAL SUBCUT ×2 (12:43→17:29)
[2025-01-20 17:20] LABS: Glucose, Whole Blood 243 mg/dL (60-115)
[2025-01-20 19:49] LABS: Glucose, Whole Blood 141 mg/dL (60-115)
[2025-01-20] MEDS: Insulin Glargine,Hum.rec.anlog 100 UNIT/ML 10 ML VIAL 70 UNIT SUBCUT (19:49)
[2025-01-20] MEDS: Zolpidem Tartrate 5 MG TABLET PO (19:49)
[2025-01-20] MEDS: Temazepam 15 MG CAPSULE 30 MG PO (19:50)
[2025-01-20 19:51] VITALS: BP 135/82
[2025-01-20] MEDS: hydrOXYzine HCL 25 MG TABLET PO (19:51)
[2025-01-20] MEDS: hydroCHLOROthiazide 25 MG TABLET PO (19:51)
[2025-01-20] MEDS: lamoTRIgine 25 MG TABLET 150 MG PO (19:52)
[2025-01-20] MEDS: QUEtiapine Fumarate 25 MG TABLET PO (19:52)
[2025-01-20 20:00] VITALS: BP 120/75; PULSE 71; RESP 17; TEMP 36.4; O2SAT 95
[2025-01-21 08:10] LABS: Glucose, Whole Blood 115 mg/dL (60-115)
[2025-01-21 08:28] VITALS: BP 135/60; PULSE 60; RESP 16; TEMP 36.2; O2SAT 97
[2025-01-21] MEDS: Venlafaxine HCl ER 75 MG CAP.ER.24H PO (08:47)
[2025-01-21] MEDS: Memantine HCl 5 MG TABLET PO (08:47)
[2025-01-21] MEDS: clonazePAM 1 MG TABLET PO ×3 (08:47→18:03)
[2025-01-21] MEDS: Metoprolol Succinate ER 50 MG TAB.ER.24H PO (08:47)
[2025-01-21] MEDS: Apixaban 5 MG TABLET PO ×2 (08:47→20:41)
[2025-01-21] MEDS: Atorvastatin Calcium 40 MG TABLET PO (08:47)
[2025-01-21] MEDS: Fluticasone/Umeclidinium/Vilanterol 200/62.5/25 BLST.W.DEV 1 PUFF INHALE (09:28)
--- NOTE | 2025-01-21 09:32 | P.PNPSI_ITS ---
Subjective Subjective Date of Service: 01/21/25 Reason For Visit: Depression SI Interim History: Met with patient; discussed with team; reviewed chart Patient shared about history: 2 years ago...and feeling very lonely I have not been out of bed in 5 days. Still some SI thoughts, kind of but less intense. hx of 10 suicide attempts by overdose DesVenlafaxine been on for 3 years at current dose Lamcital for decades 150mg Med/treatment trials: ECT since 1983 Ketamine for 3 years Psylisbin best medication for depression every on; depression free for 10 years (0.5grams daily); not since 10 years valium Lafe did not work Depakote Wellbutrin TCA's Seroquel at higher doses causes akathesia, spacey in the morning For 4 years, pt been on clonazepam 1mg QID calms it down hands tremor and stomach wiggles... Either Celexa or Remeron: hyperactive, manic episode in 90's, took Celexa or Remeron, got super happy, was just up..went on a train with 2 bottles of Algolytics...ended up in [place]... took more when got home and again it made him hyper, talking non-stop, not eating, real hyper and ended up getting hospitalized... felt shaking throughout body and was talking up a storm never tried: radha Dodd Mental Status Exam Mental Status Exam Narrative: Pt is alert and oriented; behavior is increasingly social, calm, cooperative and friendly; patient is not in distress; dressed in hospital attire, disheveled and somewhat malodorous; mood is described as depressed but less and affect congruent, a little brighter; eye contact appropriate; Speech is normal rate, volume and prosody and not pressured; less significant psychomotor retardation present; thought process is organized and goal directed; Thought content is on depression, tx; otherwise pertinent to relevant topics and without any delusional content, paranoid ideations or grandiosity; some passive SI but waning; no HI. Denies AVH and there is no evidence of perceptual disturbance. Patients insight and judgment impaired but improving Diagnostics Vital Signs (24Hr): Vital Signs - 24 hr 01/20/25 19:51 01/20/25 20:00 01/21/25 08:28 Temperature 97.6 F 97.1 F Pulse Rate 71 60 Respiratory Rate 17 16 Blood Pressure 135/82 120/75 135/60 Pulse Oximetry 95 97 Oxygen Delivery Method Room Air Room Air BMI result Body Mass Index 28.2 Labs 01/16/25 13:28 01/18/25 10:34 Labs: Laboratory Results - last 48 hr 01/19/25 01/19/25 01/19/25 11:41 17:01 20:35 POC Glucose 193 H 204 H 217 H 01/20/25 01/20/25 01/20/25 07:41 12:13 17:15 POC Glucose 113 184 H 243 H 01/20/25 01/21/25 19:43 08:05 POC Glucose 141 H 115 Imaging Radiology Impressions: ITS Impressions Chest X-Ray 01/16/25 13:26 IMPRESSION: 1. Suggestion of mild small airway thickening in the mid and lower lungs. Findings may represent inflammatory/reactive airways disease. 2. No focal pneumonia or effusion. Electronically signed by: Kedar Calle MD 01/16/2025 01:55 PM EDT Medications Medications Current Medications Acetaminophen (Acetaminophen 325 Mg Tablet) 650 mg PO Q6H PRN PRN Reason: Headache/Pain, Scale 1-10 Al Hydroxide/Mg Hydroxide (Magnesium Hydrox/Alum Hydrox 30 Ml Oral.Susp) 30 ml PO Q6H PRN PRN Reason: Heartburn/Nausea Apixaban (Apixaban 5 Mg Tablet) 5 mg PO BID [facility] Last Admin: 01/21/25 08:47 Dose: 5 mg Atorvastatin Calcium (Atorvastatin Calcium 40 Mg Tablet) 40 mg PO DAILY [facility] Last Admin: 01/21/25 08:47 Dose: 40 mg Clonazepam (Clonazepam 1 Mg Tablet) 1 mg PO QID [facility] Last Admin: 01/21/25 08:47 Dose: 1 mg Fluticasone/Umeclidinium/Vilanterol (Fluticasone/Umeclidinium/Vilanterol 200/62.5/25 Blst.W.Dev) 1 puff INHALE RDAILY [facility] Last Admin: 01/21/25 09:28 Dose: 1 puff Glucose (Glucose Gel 15 Gm Gel..Gram.) 15 gm PO Q15M PRN; Protocol PRN Reason: per Hypoglycemia Standing Ord. Hydrochlorothiazide (Hydrochlorothiazide 25 Mg Tablet) 25 mg PO BEDTIME [facility] Last Admin: 01/20/25 19:51 Dose: 25 mg Hydroxyzine HCl (Hydroxyzine Hcl 25 Mg Tablet) 25 mg PO Q6H PRN PRN Reason: mild anxiety Last Admin: 01/20/25 19:51 Dose: 25 mg Insulin Glargine (Insulin Glargine,Hum.Rec.Anlog 100 Unit/Ml 10 Ml Vial) 70 unit SUBCUT BEDTIME [facility] Last Admin: 01/20/25 19:49 Dose: 70 unit Insulin Human Lispro (Insulin Lispro 100 Unit/Ml 3 Ml Vial) 0 unit SUBCUT QIDACHS [facility]; Protocol Last Admin: 01/21/25 08:48 Dose: Not Given Lamotrigine (Lamotrigine 25 Mg Tablet) 150 mg PO BEDTIME [facility] Last Admin: 01/20/25 19:52 Dose: 150 mg Magnesium Hydroxide (Milk Of Magnesia 30 Ml Oral.Susp) 30 ml PO DAILY PRN PRN Reason: Constipation Memantine (Memantine Hcl 5 Mg Tablet) 5 mg PO DAILY [facility] Last Admin: 01/21/25 08:47 Dose: 5 mg Metoprolol Succinate (Metoprolol Succinate Er 50 Mg Tab.Er.24h) 50 mg PO DAILY [facility]; Protocol Last Admin: 01/21/25 08:47 Dose: 50 mg Montelukast Sodium (Montelukast Sodium 10 Mg Tablet) 10 mg PO DAILY PRN PRN Reason: asthma Nicotine Polacrilex (Nicotine Polacrilex 2 Mg Gum) 4 mg BUCCAL Q2H PRN PRN Reason: Nicotine Cravings Last Admin: 01/17/25 17:00 Dose: 4 mg Omeprazole (Omeprazole 40 Mg Capsule.Dr) 40 mg PO DAILY@0630 PRN PRN Reason: ACID REFLUX Quetiapine Fumarate (Quetiapine Fumarate 25 Mg Tablet) 25 mg PO BEDTIME UMA Last Admin: 01/20/25 19:52 Dose: 25 mg Temazepam (Temazepam 15 Mg Capsule) 30 mg PO BEDTIME [facility]MA Last Admin: 01/20/25 19:50 Dose: 30 mg Trazodone HCl (Trazodone Hcl 50 Mg Tablet) 50 mg PO BEDTIME MRX1 PRN PRN Reason: Insomnia Last Admin: 01/18/25 21:56 Dose: 50 mg Venlafaxine HCl (Venlafaxine Hcl Er 75 Mg Cap.Er.24h) 75 mg PO DAILY [facility] Last Admin: 01/21/25 08:47 Dose: 75 mg Zolpidem Tartrate (Zolpidem Tartrate 5 Mg Tablet) 5 mg PO BEDTIME [facility] Last Admin: 01/20/25 19:49 Dose: 5 mg Allergies Allergies Allergy/AdvReac Type Severity Reaction Status Date / Time prednisone [PREDNISONE] Allergy Mild RAGE Verified 01/16/25 12:36 lisinopril AdvReac Cough Verified 01/16/25 12:36 mirtazapine [From Remeron] AdvReac Unknown Verified 01/17/25 16:24 Assessment & Plan Assessment & Plan (1) Bipolar disorder: Status: Acute Code(s): F31.9 - Bipolar disorder, unspecified (2) MDD (major depressive disorder), recurrent episode, moderate: Status: Acute Code(s): F33.1 - Major depressive disorder, recurrent, moderate (3) Pre-op evaluation: Status: Acute Code(s): Z01.818 - Encounter for other preprocedural examination (4) Suicidal ideation: Status: Acute Code(s): R45.851 - Suicidal ideations Plan HPI: Hamlet is a 69-year-old white, , 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 PMH significant for COPD not on home O2, aortic aneurysm, paroxysmal AFib on Eliquis, insulin- dependent type 2 diabetes, HLD, HTN, tracheomalaci.He has a longstanding history of chronic/recurrent depression going back to 1981. He has received ECT treatment intermittently since 1983 and his last treatment was in September of this year at this hospital. He has had numerous psychiatric hospitalizations. He does have history of alcohol dependence but alcohol free since last fall. He does have suicidal ideations. He has had several overdoses in the 90s but denies any current plans or intent. He was recommended by his treating psychiatrist, Dr. Murillo to come here for ECT and was cleared for admission by Dr. Ojeda. Current medications include Klonopin 1 mg q.i.d., Lamictal 150 q.h.s., Seroquel 25 mg q.h.s., Effexor XR 75 mg daily, Ambien. He has been getting ketamine treatment. No access to firearms. Past Psychiatric History: Inpt: many in the past. Last one 2019 OP: Dr. Murillo Hospital course 01/19: Continue current plans and regimen, awaiting ECT 01/20 Patient in bed on approach. Patient explains reason for admission, saying that he was real depressed... And kind of suicidal. I was going to jump in front of a train. Patient says he went to the [employer] and was waiting; it was about a half an hour until the next train arrived but he changed his mind, saying if he were to kill himself that is all that people would remember of him. When asked about suicidality now, he says kind of, yes... Patient wants ECT; however he also has an appointment to get his teeth put in January 28 which he does not want to miss. He is hoping he can get ECT and will be well enough by then to transition to outpatient ECT. He says his neighbor is willing to bring him 01/21 Met with patient; discussed with team; reviewed chart Patient shared about history: 2 years ago...and feeling very lonely I have not been out of bed in 5 days. Still some SI thoughts, kind of but less intense. -patient shared about history of manic episode: in , took Celexa or Remeron, got super happy, was just up..went on a train with 2 bottles of champaign...ended up in [facility]... took more when got home and again it made him hyper, talking non-stop, not eating, real hyper and ended up getting hospitalized... felt shaking throughout body and was talking up a storm Impression: Patient has history of only depression other than 1 manic episode which sounds to be truly manic and triggered by SSRI. Will change diagnosis to bipolar depression. Hesitant for this reason to go up on venlafaxine Plan: CV Q 15 minute checks ECT for Monday -will reach out to Dr. Murillo to discuss Continue home meds: Continue venlafaxine ER 75 mg daily; this is a conversion for patient's home medication of venlafaxine Lamicatal 150mg qhs Hold bedtime dose night before ECT (Mon//) Clonazepam 1mg QID Hold bedtime dose night before ECT (Mon//Ulises) Hospitalist consult for ECT risk stratification. ECT risk stratification Pt reports undergoing ECT at least 15+ times in [place] past since 1983 Session in 09/20/2024 complicated by AFib w/RVR Currently on metoprolol and in NSR, has underdone ECT since then without incident Hx of stable mild AAA, stable tracheomalacia EKG without ischemic changes RCRI 1 point, class I risk Based on PMH, HPI, and physical exam, there are no contraindications to the planned procedure Additional history: hx of 10 suicide attempts by overdose DesVenlafaxine been on for 3 years at current dose Lamcital for decades 150mg Med/treatment trials: ECT since 1983 Ketamine for 3 years Psylisbin best medication for depression every on; depression free for 10 years (0.5grams daily); not since 10 years valium Lafe did not work Depakote Wellbutrin TCA's Seroquel at higher doses causes akathesia, spacey in the morning For 4 years, pt been on clonazepam 1mg QID calms it down hands tremor and stomach wiggles... Either Celexa or Remeron: hyperactive, manic episode in 90's, took Celexa or Remeron, got super happy, was just up..went on a train with 2 bottles of champaign...ended up in [facility]... took more when got home and again it made him hyper, talking non-stop, not eating, real hyper and ended up getting hospitalized... felt shaking throughout body and was talking up a storm never tried: radha Dodd Patient educated on: diagnosis, medication risk/benefits and ECT Informed Consent: understands Reason for continued inpatient stay Substantial Risk for: rapid decompensation Time Spent With Patient Time: Total time managing care of this patient today ____ minutes.
[2025-01-21 12:33] LABS: Glucose, Whole Blood 195 mg/dL (60-115)
[2025-01-21] MEDS: Insulin Lispro 100 UNIT/ML 3 ML VIAL SUBCUT ×3 (12:39→20:43)
[2025-01-21 16:50] LABS: Glucose, Whole Blood 214 mg/dL (60-115)
[2025-01-21 20:00] VITALS: BP 138/80; PULSE 65; RESP 16; TEMP 36.6; O2SAT 97
[2025-01-21 20:17] LABS: Glucose, Whole Blood 175 mg/dL (60-115)
[2025-01-21] MEDS: hydroCHLOROthiazide 25 MG TABLET PO (20:37)
[2025-01-21] MEDS: Zolpidem Tartrate 5 MG TABLET PO (20:41)
[2025-01-21] MEDS: QUEtiapine Fumarate 25 MG TABLET PO (20:41)
[2025-01-21] MEDS: Insulin Glargine,Hum.rec.anlog 100 UNIT/ML 10 ML VIAL 70 UNIT SUBCUT (20:42)
[2025-01-22] VITALS (8 sets, daily range): BP systolic 128–160; BP diastolic 64–91; PULSE 56–67; RESP 13–20; TEMP 36.3–36.8; O2SAT 95–100
--- NOTE | 2025-01-22 00:03 | PC.NURSE ---
Pt has ECT tomorrow morning, NPO by midnight. HS Temazepam, Klonopin and Lacmital withheld per Physician order.
--- NOTE | 2025-01-22 06:54 | P.CONAN_ITS ---
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) 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 (Acute) Chest pain (Acute) COPD (chronic obstructive pulmonary disease) (Acute) Tracheobronchomalacia (Acute) Past Medical History Medical History Diabetes GERD (gastroesophageal reflux disease) Hepatitis Depression HTN (hypertension) Chronic pain syndrome Intercostal neuralgia 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 Chest pain COPD (chronic obstructive pulmonary disease) Tracheobronchomalacia Family History Family History Other HTN (hypertension) Family history of problems with anesthesia: No Surgical History History of Problems with Anesthesia: No Social History Social History Household Members: None Household Members Other:: 2 adults 1 cat Housing: Condominium Do you presently have visiting nurse or other home services: Yes (meals on wheels) Unable to assess alcohol history related to: Unknown Alcohol intake: current Alcohol intake frequency: a few times a month Patient Tobacco Use Status: Current everyday Tobacco user Tobacco use type: Cigarette Cigarette Packs Per Day: 0.5 Cigarettes Per Day: 8 Years Smoked: 15 Smoked in Last 30 Days: Yes Patient Interested in Nicotine Replacement: Yes Patient Given Instructions on How to Stop Smoking: Yes Date Education Initiated: 01/17/25 Second Hand Smoke Exposure: No Use of substances other than those prescribed or required for medical reasons: Yes Substance Use Type: Caffiene Substance Use Frequency: Chronic Longstanding Last Used Substance: Just Prior to Admission Last Used Substance Other:: Caffeine Currently Displaying Signs/Symptoms of Drug Intoxication Withdrawal: No Any prior treatment program specific to substance use: No Have you been hit, kicked, punched, or otherwise hurt by someone within the past year? If so, by whom?: No Do you feel safe in your current relationship?: No Current Relationship Is there a partner from a previous relationship who is making you feel unsafe now?: No Are you made to feel afraid or neglected: No Spiritual Healthcare Practices: Religious Quaker Healthcare Practices: Religious Cultural Healthcare Practices: None Advance Directives: No Advance Directives Information Provided: Yes Do you have thoughts of harming others: None Do you have a plan to hurt others: No Plan Recently lost weight without trying: No Eating poorly because of decreased appetite: No Nutrition Risks: No Nutritional Risk Poor oral hygiene: No service: Yes Sexual orientation: Straight/Heterosexual Meds Allergies Allergy/AdvReac Type Severity Reaction Status Date / Time prednisone [PREDNISONE] Allergy Mild RAGE Verified 01/16/25 12:36 lisinopril AdvReac Cough Verified 01/16/25 12:36 mirtazapine [From Remeron] AdvReac Unknown Verified 01/17/25 16:24 Active Medications: Current Medications Acetaminophen (Acetaminophen 325 Mg Tablet) 650 mg PO Q6H PRN PRN Reason: Headache/Pain, Scale 1-10 Al Hydroxide/Mg Hydroxide (Magnesium Hydrox/Alum Hydrox 30 Ml Oral.Susp) 30 ml PO Q6H PRN PRN Reason: Heartburn/Nausea Apixaban (Apixaban 5 Mg Tablet) 5 mg PO BID [facility] Last Admin: 01/21/25 20:41 Dose: 5 mg Atorvastatin Calcium (Atorvastatin Calcium 40 Mg Tablet) 40 mg PO DAILY [facility] Last Admin: 01/21/25 08:47 Dose: 40 mg Clonazepam (Clonazepam 1 Mg Tablet) 1 mg PO QID [facility] Last Admin: 01/21/25 20:45 Dose: Not Given Fluticasone/Umeclidinium/Vilanterol (Fluticasone/Umeclidinium/Vilanterol 200/62.5/25 Blst.W.Dev) 1 puff INHALE RDAILY [facility] Last Admin: 01/21/25 09:28 Dose: 1 puff Glucose (Glucose Gel 15 Gm Gel..Gram.) 15 gm PO Q15M PRN; Protocol PRN Reason: per Hypoglycemia Standing Ord. Hydrochlorothiazide (Hydrochlorothiazide 25 Mg Tablet) 25 mg PO BEDTIME [facility] Last Admin: 01/21/25 20:37 Dose: 25 mg Hydroxyzine HCl (Hydroxyzine Hcl 25 Mg Tablet) 25 mg PO Q6H PRN PRN Reason: mild anxiety Last Admin: 01/20/25 19:51 Dose: 25 mg Lactated Ringer's (Lr) 1,000 mls @ 50 mls/hr IVCONT .Q20H [facility] Insulin Glargine (Insulin Glargine,Hum.Rec.Anlog 100 Unit/Ml 10 Ml Vial) 70 unit SUBCUT BEDTIME [facility] Last Admin: 01/21/25 20:42 Dose: 70 unit Insulin Human Lispro (Insulin Lispro 100 Unit/Ml 3 Ml Vial) 0 unit SUBCUT QIDACHS [facility]; Protocol Last Admin: 01/21/25 20:43 Dose: 2 unit Lamotrigine (Lamotrigine 25 Mg Tablet) 150 mg PO BEDTIME [facility] Last Admin: 01/21/25 20:44 Dose: Not Given Magnesium Hydroxide (Milk Of Magnesia 30 Ml Oral.Susp) 30 ml PO DAILY PRN PRN Reason: Constipation Memantine (Memantine Hcl 5 Mg Tablet) 5 mg PO DAILY [facility] Last Admin: 01/21/25 08:47 Dose: 5 mg Metoprolol Succinate (Metoprolol Succinate Er 50 Mg Tab.Er.24h) 50 mg PO DAILY [facility]; Protocol Last Admin: 01/21/25 08:47 Dose: 50 mg Montelukast Sodium (Montelukast Sodium 10 Mg Tablet) 10 mg PO DAILY PRN PRN Reason: asthma Naloxone HCl (Naloxone Hcl 0.4 Mg/Ml Vial) 0.04 mg IVPUSH Q5M PRN PRN Reason: Excessive sedation or RR < 8 Nicotine Polacrilex (Nicotine Polacrilex 2 Mg Gum) 4 mg BUCCAL Q2H PRN PRN Reason: Nicotine Cravings Last Admin: 01/17/25 17:00 Dose: 4 mg Omeprazole (Omeprazole 40 Mg Capsule.Dr) 40 mg PO DAILY@0630 PRN PRN Reason: ACID REFLUX Quetiapine Fumarate (Quetiapine Fumarate 25 Mg Tablet) 25 mg PO BEDTIME [facility] Last Admin: 01/21/25 20:41 Dose: 25 mg Temazepam (Temazepam 15 Mg Capsule) 30 mg PO BEDTIME [facility] Last Admin: 01/21/25 20:44 Dose: Not Given Trazodone HCl (Trazodone Hcl 50 Mg Tablet) 50 mg PO BEDTIME MRX1 PRN PRN Reason: Insomnia Last Admin: 01/18/25 21:56 Dose: 50 mg Venlafaxine HCl (Venlafaxine Hcl Er 75 Mg Cap.Er.24h) 75 mg PO DAILY [facility] Last Admin: 01/21/25 08:47 Dose: 75 mg Zolpidem Tartrate (Zolpidem Tartrate 5 Mg Tablet) 5 mg PO BEDTIME [facility] Last Admin: 01/21/25 20:41 Dose: 5 mg Home Medications ?Medication ?Instructions ?Recorded ?Confirmed ?Last Taken ?Type insulin glargine 100 unit/mL (3 70 unit subcut BEDTIME 07/22/20 01/16/25 1 Day Ago History mL) subcutaneous pen ~01/15/25 montelukast 10 mg tablet 10 mg PO DAILY PRN asthma 08/26/20 01/16/25 08/26/20 04:10 History (Singulair) omeprazole 20 mg capsule,delayed 40 mg PO DAILY PRN Acid Reflux 10/14/20 01/16/25 Unknown History release atorvastatin 40 mg tablet 40 mg PO DAILY 09/17/24 01/16/25 1 Day Ago History ~01/15/25 dulaglutide 3 mg/0.5 mL 1.5 mg subcut CLARK@0900 09/17/24 01/16/25 01/05/25 History subcutaneous pen injector (Trulicity) fluticasone fur. 200 mcg-umeclid 1 ea inhalation DAILY 09/17/24 01/16/25 1 Day Ago History 62.5 mcg-vilant 25 mcg ~01/15/25 inhalat.powder (Trelegy Ellipta) quetiapine 25 mg tablet 25 mg PO BEDTIME 09/17/24 01/16/25 1 Day Ago History ~01/15/25 chlorthalidone 25 mg tablet 25 mg PO BEDTIME 09/30/24 01/16/25 1 Day Ago History ~01/15/25 clonazepam 1 mg tablet 1 mg PO QID 01/16/25 01/16/25 1 Day Ago History ~01/15/25 desvenlafaxine succinate 50 mg 50 mg PO DAILY 01/16/25 01/16/25 1 Day Ago History tablet,extended release 24 hr ~01/15/25 lamotrigine 150 mg tablet 150 mg PO DAILY 01/16/25 01/16/25 1 Day Ago History ~01/15/25 memantine 5 mg tablet 5 mg PO DAILY 01/16/25 01/16/25 1 Day Ago History ~01/15/25 triazolam 0.25 mg tablet 0.25 mg PO BEDTIME 01/16/25 01/16/25 1 Day Ago History ~01/15/25 zolpidem 12.5 mg tablet,extended 12.5 mg PO BEDTIME 01/16/25 01/16/25 1 Day Ago History release,multiphase ~01/15/25 Exam Height,Weight and Vital Signs: Height 6 ft Weight 94.4 kg Last Vital Signs Temp 97.3 F 01/22/25 06:31 Pulse 58 01/22/25 06:31 Resp 20 01/22/25 06:31 BP 139/83 01/22/25 06:31 Pulse Ox 96 01/22/25 06:31 O2 Del Method Room Air 01/22/25 06:31 Pertinent Lab Results Pertinent Lab Results: Laboratory Tests 01/16/25 01/16/25 01/16/25 13:28 13:32 15:03 WBC 9.1 RBC 5.32 Hgb 16.0 Hct 45.8 MCV 86.1 MCH 30.1 MCHC 34.9 RDW 12.4 Plt Count 200 MPV 9.9 Immature Gran % (Auto) 0.3 Neut % (Auto) 66.9 Lymph % (Auto) 22.6 Ward % (Auto) 7.5 Eos % (Auto) 2.2 Baso % (Auto) 0.5 Lymph # (Auto) 2.1 Ward # (Auto) 0.7 Eos # (Auto) 0.2 Baso # (Auto) 0.1 Abs Immat Gran (auto) 0.03 Absolute Neuts (auto) 6.1 Absolute Nucleated RBC 0.000 Nucleated RBC % (auto) 0.0 Sodium 140 Potassium 4.1 Chloride 103 Carbon Dioxide 27 Anion Gap 14 BUN 13 Creatinine 1.36 Estim Creat Clear Calc 62.0 Estimated GFR 52 POC Glucose Random Glucose 233 H Estimat Average Glucose Hemoglobin A1c % Calcium 9.7 Total Bilirubin 0.4 AST 29 ALT 55 H Alkaline Phosphatase 73 Total Protein 7.5 Albumin 4.4 Triglycerides Cholesterol LDL Cholesterol, Calc HDL Cholesterol TSH Urine Color Yellow Urine Appearance Clear Urine pH 6.5 Ur Specific [place] 1.010 Urine Protein Negative Urine Glucose (UA) >=1000 H Urine Ketones Negative Urine Blood Negative Urine Nitrite Negative Ur Leukocyte Esterase Negative Urine RBC 0-2 Urine WBC 0-5 Ur Squamous Epith Cells 0-2 Urine Bacteria None Seen Hyaline Casts 0-2 Urine Opiates Screen Not Detected Ur Buprenorphine Scrn Not Detected Ur Oxycodone Screen Not Detected Urine Methadone Screen Not Detected Urine Fentanyl Screen Not Detected Ur Barbiturates Screen Not Detected Ur Phencyclidine Scrn Not Detected Ur Amphetamines Screen Not Detected U Benzodiazepines Scrn Not Detected Urine Cocaine Screen Not Detected U Marijuana (THC) Screen Not Detected Ethyl Alcohol < 10 Influenza Type A (PCR) NEGATIVE Influenza Type B (PCR) NEGATIVE RSV RNA Qual (PCR) NEGATIVE SARS-CoV-2 RNA (RT-PCR) NEGATIVE 01/16/25 01/17/25 01/17/25 20:57 08:53 16:41 WBC RBC Hgb Hct MCV MCH MCHC RDW Plt Count MPV Immature Gran % (Auto) Neut % (Auto) Lymph % (Auto) Ward % (Auto) Eos % (Auto) Baso % (Auto) Lymph # (Auto) Ward # (Auto) Eos # (Auto) Baso # (Auto) Abs Immat Gran (auto) Absolute Neuts (auto) Absolute Nucleated RBC Nucleated RBC % (auto) Sodium Potassium Chloride Carbon Dioxide Anion Gap BUN Creatinine Estim Creat Clear Calc Estimated GFR POC Glucose 269 H 233 H 240 H Random Glucose Estimat Average Glucose Hemoglobin A1c % Calcium Total Bilirubin AST ALT Alkaline Phosphatase Total Protein Albumin Triglycerides Cholesterol LDL Cholesterol, Calc HDL Cholesterol TSH Urine Color Urine Appearance Urine pH Ur Specific [place] Urine Protein Urine Glucose (UA) Urine Ketones Urine Blood Urine Nitrite Ur Leukocyte Esterase Urine RBC Urine WBC Ur Squamous Epith Cells Urine Bacteria Hyaline Casts Urine Opiates Screen Ur Buprenorphine Scrn Ur Oxycodone Screen Urine Methadone Screen Urine Fentanyl Screen Ur Barbiturates Screen Ur Phencyclidine Scrn Ur Amphetamines Screen U Benzodiazepines Scrn Urine Cocaine Screen U Marijuana (THC) Screen Ethyl Alcohol Influenza Type A (PCR) Influenza Type B (PCR) RSV RNA Qual (PCR) SARS-CoV-2 RNA (RT-PCR) 01/17/25 01/18/25 01/18/25 20:33 08:02 10:34 WBC RBC Hgb Hct MCV MCH MCHC RDW Plt Count MPV Immature Gran % (Auto) Neut % (Auto) Lymph % (Auto) Ward % (Auto) Eos % (Auto) Baso % (Auto) Lymph # (Auto) Ward # (Auto) Eos # (Auto) Baso # (Auto) Abs Immat Gran (auto) Absolute Neuts (auto) Absolute Nucleated RBC Nucleated RBC % (auto) Sodium 136 Potassium 4.3 Chloride 99 Carbon Dioxide 30 H Anion Gap 11 L BUN 16 Creatinine 1.47 H Estim Creat Clear Calc 57.3 Estimated GFR 48 POC Glucose 224 H 147 H Random Glucose 200 H Estimat Average Glucose 183 Hemoglobin A1c % 8.0 H Calcium 10.1 Total Bilirubin 0.7 AST 29 ALT 62 H Alkaline Phosphatase 65 Total Protein 7.2 Albumin 4.3 Triglycerides 145 Cholesterol 214 H LDL Cholesterol, Calc 135 H HDL Cholesterol 50 TSH 0.70 Urine Color Urine Appearance Urine pH Ur Specific [place] Urine Protein Urine Glucose (UA) Urine Ketones Urine Blood Urine Nitrite Ur Leukocyte Esterase Urine RBC Urine WBC Ur Squamous Epith Cells Urine Bacteria Hyaline Casts Urine Opiates Screen Ur Buprenorphine Scrn Ur Oxycodone Screen Urine Methadone Screen Urine Fentanyl Screen Ur Barbiturates Screen Ur Phencyclidine Scrn Ur Amphetamines Screen U Benzodiazepines Scrn Urine Cocaine Screen U Marijuana (THC) Screen Ethyl Alcohol Influenza Type A (PCR) Influenza Type B (PCR) RSV RNA Qual (PCR) SARS-CoV-2 RNA (RT-PCR) 01/18/25 01/18/25 01/18/25 12:05 17:14 19:47 WBC RBC Hgb Hct MCV MCH MCHC RDW Plt Count MPV Immature Gran % (Auto) Neut % (Auto) Lymph % (Auto) Ward % (Auto) Eos % (Auto) Baso % (Auto) Lymph # (Auto) Ward # (Auto) Eos # (Auto) Baso # (Auto) Abs Immat Gran (auto) Absolute Neuts (auto) Absolute Nucleated RBC Nucleated RBC % (auto) Sodium Potassium Chloride Carbon Dioxide Anion Gap BUN Creatinine Estim Creat Clear Calc Estimated GFR POC Glucose 202 H 283 H 218 H Random Glucose Estimat Average Glucose Hemoglobin A1c % Calcium Total Bilirubin AST ALT Alkaline Phosphatase Total Protein Albumin Triglycerides Cholesterol LDL Cholesterol, Calc HDL Cholesterol TSH Urine Color Urine Appearance Urine pH Ur Specific [place] Urine Protein Urine Glucose (UA) Urine Ketones Urine Blood Urine Nitrite Ur Leukocyte Esterase Urine RBC Urine WBC Ur Squamous Epith Cells Urine Bacteria Hyaline Casts Urine Opiates Screen Ur Buprenorphine Scrn Ur Oxycodone Screen Urine Methadone Screen Urine Fentanyl Screen Ur Barbiturates Screen Ur Phencyclidine Scrn Ur Amphetamines Screen U Benzodiazepines Scrn Urine Cocaine Screen U Marijuana (THC) Screen Ethyl Alcohol Influenza Type A (PCR) Influenza Type B (PCR) RSV RNA Qual (PCR) SARS-CoV-2 RNA (RT-PCR) 01/19/25 01/19/25 01/19/25 07:35 11:41 17:01 WBC RBC Hgb Hct MCV MCH MCHC RDW Plt Count MPV Immature Gran % (Auto) Neut % (Auto) Lymph % (Auto) Ward % (Auto) Eos % (Auto) Baso % (Auto) Lymph # (Auto) Ward # (Auto) Eos # (Auto) Baso # (Auto) Abs Immat Gran (auto) Absolute Neuts (auto) Absolute Nucleated RBC Nucleated RBC % (auto) Sodium Potassium Chloride Carbon Dioxide Anion Gap BUN Creatinine Estim Creat Clear Calc Estimated GFR POC Glucose 162 H 193 H 204 H Random Glucose Estimat Average Glucose Hemoglobin A1c % Calcium Total Bilirubin AST ALT Alkaline Phosphatase Total Protein Albumin Triglycerides Cholesterol LDL Cholesterol, Calc HDL Cholesterol TSH Urine Color Urine Appearance Urine pH Ur Specific [place] Urine Protein Urine Glucose (UA) Urine Ketones Urine Blood Urine Nitrite Ur Leukocyte Esterase Urine RBC Urine WBC Ur Squamous Epith Cells Urine Bacteria Hyaline Casts Urine Opiates Screen Ur Buprenorphine Scrn Ur Oxycodone Screen Urine Methadone Screen Urine Fentanyl Screen Ur Barbiturates Screen Ur Phencyclidine Scrn Ur Amphetamines Screen U Benzodiazepines Scrn Urine Cocaine Screen U Marijuana (THC) Screen Ethyl Alcohol Influenza Type A (PCR) Influenza Type B (PCR) RSV RNA Qual (PCR) SARS-CoV-2 RNA (RT-PCR) 01/19/25 01/20/25 01/20/25 20:35 07:41 12:13 WBC RBC Hgb Hct MCV MCH MCHC RDW Plt Count MPV Immature Gran % (Auto) Neut % (Auto) Lymph % (Auto) Ward % (Auto) Eos % (Auto) Baso % (Auto) Lymph # (Auto) Ward # (Auto) Eos # (Auto) Baso # (Auto) Abs Immat Gran (auto) Absolute Neuts (auto) Absolute Nucleated RBC Nucleated RBC % (auto) Sodium Potassium Chloride Carbon Dioxide Anion Gap BUN Creatinine Estim Creat Clear Calc Estimated GFR POC Glucose 217 H 113 184 H Random Glucose Estimat Average Glucose Hemoglobin A1c % Calcium Total Bilirubin AST ALT Alkaline Phosphatase Total Protein Albumin Triglycerides Cholesterol LDL Cholesterol, Calc HDL Cholesterol TSH Urine Color Urine Appearance Urine pH Ur Specific [place] Urine Protein Urine Glucose (UA) Urine Ketones Urine Blood Urine Nitrite Ur Leukocyte Esterase Urine RBC Urine WBC Ur Squamous Epith Cells Urine Bacteria Hyaline Casts Urine Opiates Screen Ur Buprenorphine Scrn Ur Oxycodone Screen Urine Methadone Screen Urine Fentanyl Screen Ur Barbiturates Screen Ur Phencyclidine Scrn Ur Amphetamines Screen U Benzodiazepines Scrn Urine Cocaine Screen U Marijuana (THC) Screen Ethyl Alcohol Influenza Type A (PCR) Influenza Type B (PCR) RSV RNA Qual (PCR) SARS-CoV-2 RNA (RT-PCR) 01/20/25 01/20/25 01/21/25 17:15 19:43 08:05 WBC RBC Hgb Hct MCV MCH MCHC RDW Plt Count MPV Immature Gran % (Auto) Neut % (Auto) Lymph % (Auto) Ward % (Auto) Eos % (Auto) Baso % (Auto) Lymph # (Auto) Ward # (Auto) Eos # (Auto) Baso # (Auto) Abs Immat Gran (auto) Absolute Neuts (auto) Absolute Nucleated RBC Nucleated RBC % (auto) Sodium Potassium Chloride Carbon Dioxide Anion Gap BUN Creatinine Estim Creat Clear Calc Estimated GFR POC Glucose 243 H 141 H 115 Random Glucose Estimat Average Glucose Hemoglobin A1c % Calcium Total Bilirubin AST ALT Alkaline Phosphatase Total Protein Albumin Triglycerides Cholesterol LDL Cholesterol, Calc HDL Cholesterol TSH Urine Color Urine Appearance Urine pH Ur Specific [place] Urine Protein Urine Glucose (UA) Urine Ketones Urine Blood Urine Nitrite Ur Leukocyte Esterase Urine RBC Urine WBC Ur Squamous Epith Cells Urine Bacteria Hyaline Casts Urine Opiates Screen Ur Buprenorphine Scrn Ur Oxycodone Screen Urine Methadone Screen Urine Fentanyl Screen Ur Barbiturates Screen Ur Phencyclidine Scrn Ur Amphetamines Screen U Benzodiazepines Scrn Urine Cocaine Screen U Marijuana (THC) Screen Ethyl Alcohol Influenza Type A (PCR) Influenza Type B (PCR) RSV RNA Qual (PCR) SARS-CoV-2 RNA (RT-PCR) 01/21/25 01/21/25 01/21/25 12:28 16:46 20:11 WBC RBC Hgb Hct MCV MCH MCHC RDW Plt Count MPV Immature Gran % (Auto) Neut % (Auto) Lymph % (Auto) Ward % (Auto) Eos % (Auto) Baso % (Auto) Lymph # (Auto) Ward # (Auto) Eos # (Auto) Baso # (Auto) Abs Immat Gran (auto) Absolute Neuts (auto) Absolute Nucleated RBC Nucleated RBC % (auto) Sodium Potassium Chloride Carbon Dioxide Anion Gap BUN Creatinine Estim Creat Clear Calc Estimated GFR POC Glucose 195 H 214 H 175 H Random Glucose Estimat Average Glucose Hemoglobin A1c % Calcium Total Bilirubin AST ALT Alkaline Phosphatase Total Protein Albumin Triglycerides Cholesterol LDL Cholesterol, Calc HDL Cholesterol TSH Urine Color Urine Appearance Urine pH Ur Specific [place] Urine Protein Urine Glucose (UA) Urine Ketones Urine Blood Urine Nitrite Ur Leukocyte Esterase Urine RBC Urine WBC Ur Squamous Epith Cells Urine Bacteria Hyaline Casts Urine Opiates Screen Ur Buprenorphine Scrn Ur Oxycodone Screen Urine Methadone Screen Urine Fentanyl Screen Ur Barbiturates Screen Ur Phencyclidine Scrn Ur Amphetamines Screen U Benzodiazepines Scrn Urine Cocaine Screen U Marijuana (THC) Screen Ethyl Alcohol Influenza Type A (PCR) Influenza Type B (PCR) RSV RNA Qual (PCR) SARS-CoV-2 RNA (RT-PCR) Airway Mallampati Class: II (edentulous) TM Dist: >3cm Neck ROM: Full Heart: rrr Lungs: cta Assessment and Plan Assessment Anesthesia Assessment: Anesthesia Plan Discussed and Chart Reviewed Final Anesthetic Review Family History of Problems with Anesthesia: No History of Problems with Anesthesia: No NPO: Yes ASA Class: III Final Preanesthetic Review: No Changes in Pt Med Stat, Meds/Allgs Chart Reviewed and Consent Obtained/Reviewed Patient Risk: Intermediate Procedure Risk: Intermediate Anesthetic Plan Anesthetic Plan: GA Disposition: Standard PACU
[2025-01-22] MEDS: Lactated Ringers 1,000 ML 50 ML IVCONT (07:02)
--- NOTE | 2025-01-22 07:47 | MHC.SHP ---
Pre-Procedural Eval Section A - 24 Hr Update-Section A only Date of Service: 01/22/25 Changes since office visit: Yes Patient answered all questions; No Cold of Flu in the past 2 weeks, No New Medical Problems and No Changes in Medication The patient has been examined within 24 hours of the surgical procedure. The History & Physical has been completed within 30 days and I have reviewed it.: Yes Section B - Complete if H&P > 30 days Chief Complaint: Depression SI Allergies: Allergies Allergy/AdvReac Type Severity Reaction Status Date / Time prednisone [PREDNISONE] Allergy Mild RAGE Verified 01/16/25 12:36 lisinopril AdvReac Cough Verified 01/16/25 12:36 mirtazapine [From Remeron] AdvReac Unknown Verified 01/17/25 16:24 Plan I have reviewed the history and physical and performed a pertinent physical examination on my patient. No changes have occurred unless specified. Time Spent With Patient Time: Total time managing care of this patient today ____ minutes.
--- NOTE | 2025-01-22 07:48 | HO.ECTPROC ---
ECT Procedure Note Diagnosis/Treatment Date of Service: 01/22/25 Diagnosis: Major Depressive Disorder Previous ECT Date: 10/25/24 Treatment: Series Interval Clinical Notes: Patient admitted for course of ECT had done well previously had been bifrontal had some confusion then changed back to unilateral took beta-sonal generally prior to treatment Time: Total time managing care of this patient today ____ minutes. ECT Settings Device: THYMATRON DGx Electrode Placement: Right Unilateral Program/Pulse Width: 0.50 Energy Percent: 100 Seizure Duration By EEG (in seconds): 38 Medications Administration General Anesthetic: Etomidate (18) Muscle Relaxant: Succinylcholine (100) Ancillary Medications Analgesics: Torodol - Pre ECT Cardiovascular Medications: Glycopyrrolate (post for bradycardia ) Airway Management Airway Management: LMA Treatment Recommendations No Changes Recommended: No change (No change if patient ends up getting additional ECT (otherwise says this is last ect)) Electrode Placement: Right Unilateral Program/Pulse Width: 0.50 Energy Percent: 100 Pt Tolerated Procedure w/o Issue: Yes
[2025-01-22 09:04] LABS: Glucose, Whole Blood 95 mg/dL (60-115)
[2025-01-22] MEDS: clonazePAM 1 MG TABLET PO ×4 (09:09→21:16)
[2025-01-22] MEDS: Memantine HCl 5 MG TABLET PO (09:09)
[2025-01-22] MEDS: Atorvastatin Calcium 40 MG TABLET PO (09:09)
[2025-01-22] MEDS: Fluticasone/Umeclidinium/Vilanterol 200/62.5/25 BLST.W.DEV 1 PUFF INHALE (09:09)
[2025-01-22] MEDS: Metoprolol Succinate ER 50 MG TAB.ER.24H PO (09:09)
[2025-01-22] MEDS: Venlafaxine HCl ER 75 MG CAP.ER.24H PO (09:09)
[2025-01-22] MEDS: Apixaban 5 MG TABLET PO ×2 (09:09→21:16)
[2025-01-22 12:10] LABS: Glucose, Whole Blood 134 mg/dL (60-115)
[2025-01-22 16:59] LABS: Glucose, Whole Blood 245 mg/dL (60-115)
[2025-01-22] MEDS: Insulin Lispro 100 UNIT/ML 3 ML VIAL SUBCUT ×2 (17:22→21:14)
[2025-01-22 21:05] LABS: Glucose, Whole Blood 190 mg/dL (60-115)
[2025-01-22] MEDS: Insulin Glargine,Hum.rec.anlog 100 UNIT/ML 10 ML VIAL 70 UNIT SUBCUT (21:14)
[2025-01-22] MEDS: hydroCHLOROthiazide 25 MG TABLET PO (21:15)
[2025-01-22] MEDS: Temazepam 15 MG CAPSULE 30 MG PO (21:15)
[2025-01-22] MEDS: Zolpidem Tartrate 5 MG TABLET PO (21:16)
[2025-01-22] MEDS: QUEtiapine Fumarate 25 MG TABLET PO (21:16)
[2025-01-22] MEDS: lamoTRIgine 25 MG TABLET 150 MG PO (21:16)
[2025-01-23 07:00] VITALS: BMI 27.4
[2025-01-23 07:42] LABS: Glucose, Whole Blood 143 mg/dL (60-115)
[2025-01-23 07:54] VITALS: BP 122/80; PULSE 64; TEMP 36.4; O2SAT 94
[2025-01-23] MEDS: Memantine HCl 5 MG TABLET PO (08:26)
[2025-01-23] MEDS: Venlafaxine HCl ER 75 MG CAP.ER.24H PO (08:26)
[2025-01-23] MEDS: Fluticasone/Umeclidinium/Vilanterol 200/62.5/25 BLST.W.DEV 1 PUFF INHALE (08:26)
[2025-01-23] MEDS: Metoprolol Succinate ER 50 MG TAB.ER.24H PO (08:26)
[2025-01-23] MEDS: clonazePAM 1 MG TABLET PO ×3 (08:27→17:38)
[2025-01-23] MEDS: Apixaban 5 MG TABLET PO ×2 (08:27→21:46)
[2025-01-23] MEDS: Atorvastatin Calcium 40 MG TABLET PO (08:27)
[2025-01-23 11:46] LABS: Glucose, Whole Blood 272 mg/dL (60-115)
[2025-01-23] MEDS: Insulin Lispro 100 UNIT/ML 3 ML VIAL SUBCUT ×3 (12:35→21:23)
[2025-01-23 17:34] LABS: Glucose, Whole Blood 232 mg/dL (60-115)
[2025-01-23 20:00] VITALS: BP 115/57; PULSE 59; RESP 16; TEMP 36.9; O2SAT 96
[2025-01-23 21:09] LABS: Glucose, Whole Blood 308 mg/dL (60-115)
[2025-01-23] MEDS: Insulin Glargine,Hum.rec.anlog 100 UNIT/ML 10 ML VIAL 70 UNIT SUBCUT (21:22)
[2025-01-23 21:24] VITALS: BP 115/57
[2025-01-23] MEDS: hydroCHLOROthiazide 25 MG TABLET PO (21:24)
[2025-01-23] MEDS: Zolpidem Tartrate 5 MG TABLET PO (21:24)
[2025-01-23] MEDS: QUEtiapine Fumarate 25 MG TABLET PO (21:24)
[2025-01-23] MEDS: Temazepam 15 MG CAPSULE 30 MG PO (21:25)
[2025-01-23] MEDS: lamoTRIgine 25 MG TABLET 150 MG PO (21:25)
[2025-01-24] VITALS (20 sets, daily range): BP systolic 102–159; BP diastolic 59–106; PULSE 59–145; RESP 15–18; TEMP 36.1–36.9; O2SAT 93–99
[2025-01-24] MEDS: Lactated Ringers 1,000 ML 100 ML IVCONT (07:08)
[2025-01-24 07:10] LABS: Glucose, Whole Blood 98 mg/dL (60-115)
--- NOTE | 2025-01-24 07:59 | MHC.SHP ---
Pre-Procedural Eval Section A - 24 Hr Update-Section A only Date of Service: 01/24/25 Changes since office visit: Yes Changes in Medication and Yes Patient answered all questions; No Cold of Flu in the past 2 weeks and No New Medical Problems The patient has been examined within 24 hours of the surgical procedure. The History & Physical has been completed within 30 days and I have reviewed it.: Yes Section B - Complete if H&P > 30 days Chief Complaint: Depression SI Allergies: Allergies Allergy/AdvReac Type Severity Reaction Status Date / Time prednisone [PREDNISONE] Allergy Mild RAGE Verified 01/16/25 12:36 lisinopril AdvReac Cough Verified 01/16/25 12:36 mirtazapine [From Remeron] AdvReac Unknown Verified 01/17/25 16:24 Plan I have reviewed the history and physical and performed a pertinent physical examination on my patient. No changes have occurred unless specified. Time Spent With Patient Time: Total time managing care of this patient today ____ minutes.
--- NOTE | 2025-01-24 08:00 | HO.ECTPROC ---
ECT Procedure Note Diagnosis/Treatment Date of Service: 01/24/25 Diagnosis: Major Depressive Disorder Previous ECT Date: 10/25/24 Current Treatment Number: 2 Treatment: Series Interval Clinical Notes: Patient had done well after 1st treatment patient had right unilateral treatment unfortunately he did have a run of atrial fibrillation he had not been given his p.o. metoprolol prior to treatment which will now be in his protocol was seen by muna Covarrubias PA was given intravenous diltiazem bolus Transferred back to psychiatric unit with a pulse under 100. Plan was to monitor on the psychiatric unit if patient became tachycardic again to be transferred to the medical floor he is on Eliquis. Recheck EKG later in the day Time: Total time managing care of this patient today 45____ minutes. ECT Settings Device: THYMATRON DGx Electrode Placement: Right Unilateral Program/Pulse Width: 0.50 Energy Percent: 100 Seizure Duration By EEG (in seconds): 44 Medications Administration General Anesthetic: Etomidate (16) Muscle Relaxant: Succinylcholine (100) Ancillary Medications Miscillaneous Medications: Flumazenil Airway Management Airway Management: LMA Treatment Recommendations No Changes Recommended: No change (No change if patient ends up getting additional ECT (otherwise says this is last ect)) Electrode Placement: Right Unilateral Program/Pulse Width: 0.50 Energy Percent: 100 Notes: Flumazenil was given because of temazepam being given at bedtime which should have been on hold would not give flumazenil next treatment metoprolol 50 mg 2 be given prior to the person going down to the PACU he did tolerate treatment previously with p.o. metoprolol prior to treatment Lamictal and temazepam should be on hold Pt Tolerated Procedure w/o Issue: Yes
--- NOTE | 2025-01-24 08:55 | ECG_ITS ---
Test Reason : rapid hr Blood Pressure : */* mmHG Vent. Rate : 130 BPM Atrial Rate : * BPM P-R Int : * ms QRS Dur : 78 ms QT Int : 306 ms P-R-T Axes : * 38 18 degrees QTcB Int : 450 ms Atrial fibrillation with rapid ventricular response Abnormal ECG When compared with ECG of 16-Jan-2025 14:05, Atrial fibrillation has replaced Sinus rhythm Vent. rate has increased by 51 bpm Referred By: Lito Ojeda Electronically Signed By: ROSSI BELLA
--- NOTE | 2025-01-24 09:10 | P.CONAN_ITS ---
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) 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 (Acute) Chest pain (Acute) COPD (chronic obstructive pulmonary disease) (Acute) Tracheobronchomalacia (Acute) Past Medical History Medical History Diabetes GERD (gastroesophageal reflux disease) Hepatitis Depression HTN (hypertension) Chronic pain syndrome Intercostal neuralgia 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 Chest pain COPD (chronic obstructive pulmonary disease) Tracheobronchomalacia Family History Family History Other HTN (hypertension) Family history of problems with anesthesia: No Surgical History History of Problems with Anesthesia: No Social History Social History Household Members: None Household Members Other:: 2 adults 1 cat Housing: Condominium Do you presently have visiting nurse or other home services: Yes (meals on wheels) Unable to assess alcohol history related to: Unknown Alcohol intake: current Alcohol intake frequency: does not drink Patient Tobacco Use Status: Current everyday Tobacco user Tobacco use type: Cigarette Cigarette Packs Per Day: 0.5 Cigarettes Per Day: 8 Years Smoked: 15 Smoked in Last 30 Days: Yes Patient Interested in Nicotine Replacement: Yes Patient Given Instructions on How to Stop Smoking: Yes Date Education Initiated: 01/17/25 Second Hand Smoke Exposure: No Use of substances other than those prescribed or required for medical reasons: No Substance Use Type: Caffiene Substance Use Frequency: Chronic Longstanding Last Used Substance: Just Prior to Admission Last Used Substance Other:: Caffeine Currently Displaying Signs/Symptoms of Drug Intoxication Withdrawal: No Any prior treatment program specific to substance use: No Have you been hit, kicked, punched, or otherwise hurt by someone within the past year? If so, by whom?: No Do you feel safe in your current relationship?: No Current Relationship Is there a partner from a previous relationship who is making you feel unsafe now?: No Are you made to feel afraid or neglected: No Spiritual Healthcare Practices: [facility] Practices: None Are you DNR?: No Advance Directives: No Advance Directives Information Provided: Yes Do you have thoughts of harming others: None Do you have a plan to hurt others: No Plan Recently lost weight without trying: No Eating poorly because of decreased appetite: No Nutrition Risks: No Nutritional Risk Poor oral hygiene: No service: Yes Sexual orientation: Straight/Heterosexual Meds Allergies Allergy/AdvReac Type Severity Reaction Status Date / Time prednisone [PREDNISONE] Allergy Mild RAGE Verified 01/16/25 12:36 lisinopril AdvReac Cough Verified 01/16/25 12:36 mirtazapine [From Remeron] AdvReac Unknown Verified 01/17/25 16:24 Active Medications: Current Medications Acetaminophen (Acetaminophen 325 Mg Tablet) 650 mg PO Q6H PRN PRN Reason: Headache/Pain, Scale 1-10 Al Hydroxide/Mg Hydroxide (Magnesium Hydrox/Alum Hydrox 30 Ml Oral.Susp) 30 ml PO Q6H PRN PRN Reason: Heartburn/Nausea Apixaban (Apixaban 5 Mg Tablet) 5 mg PO BID [facility] Last Admin: 01/23/25 21:46 Dose: 5 mg Atorvastatin Calcium (Atorvastatin Calcium 40 Mg Tablet) 40 mg PO DAILY [facility] Last Admin: 01/23/25 08:27 Dose: 40 mg Clonazepam (Clonazepam 1 Mg Tablet) 1 mg PO QID [facility] Last Admin: 01/23/25 21:33 Dose: Not Given Fluticasone/Umeclidinium/Vilanterol (Fluticasone/Umeclidinium/Vilanterol 200/62.5/25 Blst.W.Dev) 1 puff INHALE RDAILY [facility] Last Admin: 01/23/25 08:26 Dose: 1 puff Glucose (Glucose Gel 15 Gm Gel..Gram.) 15 gm PO Q15M PRN; Protocol PRN Reason: per Hypoglycemia Standing Ord. Hydrochlorothiazide (Hydrochlorothiazide 25 Mg Tablet) 25 mg PO BEDTIME [facility] Last Admin: 01/23/25 21:24 Dose: 25 mg Hydroxyzine HCl (Hydroxyzine Hcl 25 Mg Tablet) 25 mg PO Q6H PRN PRN Reason: mild anxiety Last Admin: 01/20/25 19:51 Dose: 25 mg Lactated Ringer's (Lr) 1,000 mls @ 100 mls/hr IVCONT .Q10H [facility] Last Admin: 01/24/25 07:08 Dose: 100 mls/hr Insulin Glargine (Insulin Glargine,Hum.Rec.Anlog 100 Unit/Ml 10 Ml Vial) 70 unit SUBCUT BEDTIME [facility] Last Admin: 01/23/25 21:22 Dose: 70 unit Insulin Human Lispro (Insulin Lispro 100 Unit/Ml 3 Ml Vial) 0 unit SUBCUT QIDACHS [facility]; Protocol Last Admin: 01/23/25 21:23 Dose: 8 unit Lamotrigine (Lamotrigine 25 Mg Tablet) 150 mg PO BEDTIME [facility] Last Admin: 01/23/25 21:25 Dose: 150 mg Magnesium Hydroxide (Milk Of Magnesia 30 Ml Oral.Susp) 30 ml PO DAILY PRN PRN Reason: Constipation Memantine (Memantine Hcl 5 Mg Tablet) 5 mg PO DAILY [facility] Last Admin: 01/23/25 08:26 Dose: 5 mg Metoprolol Succinate (Metoprolol Succinate Er 50 Mg Tab.Er.24h) 50 mg PO DAILY [facility]; Protocol Last Admin: 01/23/25 08:26 Dose: 50 mg Montelukast Sodium (Montelukast Sodium 10 Mg Tablet) 10 mg PO DAILY PRN PRN Reason: asthma Naloxone HCl (Naloxone Hcl 0.4 Mg/Ml Vial) 0.04 mg IVPUSH Q5M PRN PRN Reason: Excessive sedation or RR < 8 Nicotine Polacrilex (Nicotine Polacrilex 2 Mg Gum) 4 mg BUCCAL Q2H PRN PRN Reason: Nicotine Cravings Last Admin: 01/17/25 17:00 Dose: 4 mg Omeprazole (Omeprazole 40 Mg Capsule.Dr) 40 mg PO DAILY@0630 PRN PRN Reason: ACID REFLUX Quetiapine Fumarate (Quetiapine Fumarate 25 Mg Tablet) 25 mg PO BEDTIME [facility] Last Admin: 01/23/25 21:24 Dose: 25 mg Temazepam (Temazepam 15 Mg Capsule) 30 mg PO BEDTIME [facility] Last Admin: 01/23/25 21:25 Dose: 30 mg Trazodone HCl (Trazodone Hcl 50 Mg Tablet) 50 mg PO BEDTIME MRX1 PRN PRN Reason: Insomnia Last Admin: 01/18/25 21:56 Dose: 50 mg Venlafaxine HCl (Venlafaxine Hcl Er 75 Mg Cap.Er.24h) 75 mg PO DAILY [facility] Last Admin: 01/23/25 08:26 Dose: 75 mg Zolpidem Tartrate (Zolpidem Tartrate 5 Mg Tablet) 5 mg PO BEDTIME [facility] Last Admin: 01/23/25 21:24 Dose: 5 mg Home Medications ?Medication ?Instructions ?Recorded ?Confirmed ?Last Taken ?Type insulin glargine 100 unit/mL (3 70 unit subcut BEDTIME 07/22/20 01/16/25 1 Day Ago History mL) subcutaneous pen ~01/15/25 montelukast 10 mg tablet 10 mg PO DAILY PRN asthma 08/26/20 01/16/25 08/26/20 04:10 History (Singulair) omeprazole 20 mg capsule,delayed 40 mg PO DAILY PRN Acid Reflux 10/14/20 01/16/25 Unknown History release atorvastatin 40 mg tablet 40 mg PO DAILY 09/17/24 01/16/25 1 Day Ago History ~01/15/25 dulaglutide 3 mg/0.5 mL 1.5 mg subcut CLARK@0900 09/17/24 01/16/25 01/05/25 History subcutaneous pen injector (Trulicity) fluticasone fur. 200 mcg-umeclid 1 ea inhalation DAILY 09/17/24 01/16/25 1 Day Ago History 62.5 mcg-vilant 25 mcg ~01/15/25 inhalat.powder (Trelegy Ellipta) quetiapine 25 mg tablet 25 mg PO BEDTIME 09/17/24 01/16/25 1 Day Ago History ~01/15/25 chlorthalidone 25 mg tablet 25 mg PO BEDTIME 09/30/24 01/16/25 1 Day Ago History ~01/15/25 clonazepam 1 mg tablet 1 mg PO QID 01/16/25 01/16/25 1 Day Ago History ~01/15/25 desvenlafaxine succinate 50 mg 50 mg PO DAILY 01/16/25 01/16/25 1 Day Ago History tablet,extended release 24 hr ~01/15/25 lamotrigine 150 mg tablet 150 mg PO DAILY 01/16/25 01/16/25 1 Day Ago History ~01/15/25 memantine 5 mg tablet 5 mg PO DAILY 01/16/25 01/16/25 1 Day Ago History ~01/15/25 triazolam 0.25 mg tablet 0.25 mg PO BEDTIME 01/16/25 01/16/25 1 Day Ago History ~01/15/25 zolpidem 12.5 mg tablet,extended 12.5 mg PO BEDTIME 01/16/25 01/16/25 1 Day Ago History release,multiphase ~01/15/25 Exam Height,Weight and Vital Signs: Height 6 ft Weight 91.5 kg Last Vital Signs Temp 98 F 01/24/25 08:53 Pulse 145 H 01/24/25 09:00 Resp 16 01/24/25 09:00 BP 159/106 H 01/24/25 09:00 Pulse Ox 98 01/24/25 09:00 O2 Del Method Room Air 01/24/25 09:00 O2 Flow Rate 4 01/24/25 08:55 Pertinent Lab Results Pertinent Lab Results: Laboratory Tests 01/16/25 01/16/25 01/16/25 13:28 13:32 15:03 WBC 9.1 RBC 5.32 Hgb 16.0 Hct 45.8 MCV 86.1 MCH 30.1 MCHC 34.9 RDW 12.4 Plt Count 200 MPV 9.9 Immature Gran % (Auto) 0.3 Neut % (Auto) 66.9 Lymph % (Auto) 22.6 [place] % (Auto) 7.5 Eos % (Auto) 2.2 Baso % (Auto) 0.5 Lymph # (Auto) 2.1 [place] # (Auto) 0.7 Eos # (Auto) 0.2 Baso # (Auto) 0.1 Abs Immat Gran (auto) 0.03 Absolute Neuts (auto) 6.1 Absolute Nucleated RBC 0.000 Nucleated RBC % (auto) 0.0 Sodium 140 Potassium 4.1 Chloride 103 Carbon Dioxide 27 Anion Gap 14 BUN 13 Creatinine 1.36 Estim Creat Clear Calc 62.0 Estimated GFR 52 POC Glucose Random Glucose 233 H Estimat Average Glucose Hemoglobin A1c % Calcium 9.7 Total Bilirubin 0.4 AST 29 ALT 55 H Alkaline Phosphatase 73 Total Protein 7.5 Albumin 4.4 Triglycerides Cholesterol LDL Cholesterol, Calc HDL Cholesterol TSH Urine Color Yellow Urine Appearance Clear Urine pH 6.5 Ur Specific [place] 1.010 Urine Protein Negative Urine Glucose (UA) >=1000 H Urine Ketones Negative Urine Blood Negative Urine Nitrite Negative Ur Leukocyte Esterase Negative Urine RBC 0-2 Urine WBC 0-5 Ur Squamous Epith Cells 0-2 Urine Bacteria None Seen Hyaline Casts 0-2 Urine Opiates Screen Not Detected Ur Buprenorphine Scrn Not Detected Ur Oxycodone Screen Not Detected Urine Methadone Screen Not Detected Urine Fentanyl Screen Not Detected Ur Barbiturates Screen Not Detected Ur Phencyclidine Scrn Not Detected Ur Amphetamines Screen Not Detected U Benzodiazepines Scrn Not Detected Urine Cocaine Screen Not Detected U Marijuana (THC) Screen Not Detected Ethyl Alcohol < 10 Influenza Type A (PCR) NEGATIVE Influenza Type B (PCR) NEGATIVE RSV RNA Qual (PCR) NEGATIVE SARS-CoV-2 RNA (RT-PCR) NEGATIVE 01/16/25 01/17/25 01/17/25 20:57 08:53 16:41 WBC RBC Hgb Hct MCV MCH MCHC RDW Plt Count MPV Immature Gran % (Auto) Neut % (Auto) Lymph % (Auto) [place] % (Auto) Eos % (Auto) Baso % (Auto) Lymph # (Auto) [place] # (Auto) Eos # (Auto) Baso # (Auto) Abs Immat Gran (auto) Absolute Neuts (auto) Absolute Nucleated RBC Nucleated RBC % (auto) Sodium Potassium Chloride Carbon Dioxide Anion Gap BUN Creatinine Estim Creat Clear Calc Estimated GFR POC Glucose 269 H 233 H 240 H Random Glucose Estimat Average Glucose Hemoglobin A1c % Calcium Total Bilirubin AST ALT Alkaline Phosphatase Total Protein Albumin Triglycerides Cholesterol LDL Cholesterol, Calc HDL Cholesterol TSH Urine Color Urine Appearance Urine pH Ur Specific [place] Urine Protein Urine Glucose (UA) Urine Ketones Urine Blood Urine Nitrite Ur Leukocyte Esterase Urine RBC Urine WBC Ur Squamous Epith Cells Urine Bacteria Hyaline Casts Urine Opiates Screen Ur Buprenorphine Scrn Ur Oxycodone Screen Urine Methadone Screen Urine Fentanyl Screen Ur Barbiturates Screen Ur Phencyclidine Scrn Ur Amphetamines Screen U Benzodiazepines Scrn Urine Cocaine Screen U Marijuana (THC) Screen Ethyl Alcohol Influenza Type A (PCR) Influenza Type B (PCR) RSV RNA Qual (PCR) SARS-CoV-2 RNA (RT-PCR) 01/17/25 01/18/25 01/18/25 20:33 08:02 10:34 WBC RBC Hgb Hct MCV MCH MCHC RDW Plt Count MPV Immature Gran % (Auto) Neut % (Auto) Lymph % (Auto) [place] % (Auto) Eos % (Auto) Baso % (Auto) Lymph # (Auto) [place] # (Auto) Eos # (Auto) Baso # (Auto) Abs Immat Gran (auto) Absolute Neuts (auto) Absolute Nucleated RBC Nucleated RBC % (auto) Sodium 136 Potassium 4.3 Chloride 99 Carbon Dioxide 30 H Anion Gap 11 L BUN 16 Creatinine 1.47 H Estim Creat Clear Calc 57.3 Estimated GFR 48 POC Glucose 224 H 147 H Random Glucose 200 H Estimat Average Glucose 183 Hemoglobin A1c % 8.0 H Calcium 10.1 Total Bilirubin 0.7 AST 29 ALT 62 H Alkaline Phosphatase 65 Total Protein 7.2 Albumin 4.3 Triglycerides 145 Cholesterol 214 H LDL Cholesterol, Calc 135 H HDL Cholesterol 50 TSH 0.70 Urine Color Urine Appearance Urine pH Ur Specific [place] Urine Protein Urine Glucose (UA) Urine Ketones Urine Blood Urine Nitrite Ur Leukocyte Esterase Urine RBC Urine WBC Ur Squamous Epith Cells Urine Bacteria Hyaline Casts Urine Opiates Screen Ur Buprenorphine Scrn Ur Oxycodone Screen Urine Methadone Screen Urine Fentanyl Screen Ur Barbiturates Screen Ur Phencyclidine Scrn Ur Amphetamines Screen U Benzodiazepines Scrn Urine Cocaine Screen U Marijuana (THC) Screen Ethyl Alcohol Influenza Type A (PCR) Influenza Type B (PCR) RSV RNA Qual (PCR) SARS-CoV-2 RNA (RT-PCR) 01/18/25 01/18/25 01/18/25 12:05 17:14 19:47 WBC RBC Hgb Hct MCV MCH MCHC RDW Plt Count MPV Immature Gran % (Auto) Neut % (Auto) Lymph % (Auto) [place] % (Auto) Eos % (Auto) Baso % (Auto) Lymph # (Auto) [place] # (Auto) Eos # (Auto) Baso # (Auto) Abs Immat Gran (auto) Absolute Neuts (auto) Absolute Nucleated RBC Nucleated RBC % (auto) Sodium Potassium Chloride Carbon Dioxide Anion Gap BUN Creatinine Estim Creat Clear Calc Estimated GFR POC Glucose 202 H 283 H 218 H Random Glucose Estimat Average Glucose Hemoglobin A1c % Calcium Total Bilirubin AST ALT Alkaline Phosphatase Total Protein Albumin Triglycerides Cholesterol LDL Cholesterol, Calc HDL Cholesterol TSH Urine Color Urine Appearance Urine pH Ur Specific [place] Urine Protein Urine Glucose (UA) Urine Ketones Urine Blood Urine Nitrite Ur Leukocyte Esterase Urine RBC Urine WBC Ur Squamous Epith Cells Urine Bacteria Hyaline Casts Urine Opiates Screen Ur Buprenorphine Scrn Ur Oxycodone Screen Urine Methadone Screen Urine Fentanyl Screen Ur Barbiturates Screen Ur Phencyclidine Scrn Ur Amphetamines Screen U Benzodiazepines Scrn Urine Cocaine Screen U Marijuana (THC) Screen Ethyl Alcohol Influenza Type A (PCR) Influenza Type B (PCR) RSV RNA Qual (PCR) SARS-CoV-2 RNA (RT-PCR) 01/19/25 01/19/25 01/19/25 07:35 11:41 17:01 WBC RBC Hgb Hct MCV MCH MCHC RDW Plt Count MPV Immature Gran % (Auto) Neut % (Auto) Lymph % (Auto) [place] % (Auto) Eos % (Auto) Baso % (Auto) Lymph # (Auto) [place] # (Auto) Eos # (Auto) Baso # (Auto) Abs Immat Gran (auto) Absolute Neuts (auto) Absolute Nucleated RBC Nucleated RBC % (auto) Sodium Potassium Chloride Carbon Dioxide Anion Gap BUN Creatinine Estim Creat Clear Calc Estimated GFR POC Glucose 162 H 193 H 204 H Random Glucose Estimat Average Glucose Hemoglobin A1c % Calcium Total Bilirubin AST ALT Alkaline Phosphatase Total Protein Albumin Triglycerides Cholesterol LDL Cholesterol, Calc HDL Cholesterol TSH Urine Color Urine Appearance Urine pH Ur Specific [place] Urine Protein Urine Glucose (UA) Urine Ketones Urine Blood Urine Nitrite Ur Leukocyte Esterase Urine RBC Urine WBC Ur Squamous Epith Cells Urine Bacteria Hyaline Casts Urine Opiates Screen Ur Buprenorphine Scrn Ur Oxycodone Screen Urine Methadone Screen Urine Fentanyl Screen Ur Barbiturates Screen Ur Phencyclidine Scrn Ur Amphetamines Screen U Benzodiazepines Scrn Urine Cocaine Screen U Marijuana (THC) Screen Ethyl Alcohol Influenza Type A (PCR) Influenza Type B (PCR) RSV RNA Qual (PCR) SARS-CoV-2 RNA (RT-PCR) 01/19/25 01/20/25 01/20/25 20:35 07:41 12:13 WBC RBC Hgb Hct MCV MCH MCHC RDW Plt Count MPV Immature Gran % (Auto) Neut % (Auto) Lymph % (Auto) [place] % (Auto) Eos % (Auto) Baso % (Auto) Lymph # (Auto) [place] # (Auto) Eos # (Auto) Baso # (Auto) Abs Immat Gran (auto) Absolute Neuts (auto) Absolute Nucleated RBC Nucleated RBC % (auto) Sodium Potassium Chloride Carbon Dioxide Anion Gap BUN Creatinine Estim Creat Clear Calc Estimated GFR POC Glucose 217 H 113 184 H Random Glucose Estimat Average Glucose Hemoglobin A1c % Calcium Total Bilirubin AST ALT Alkaline Phosphatase Total Protein Albumin Triglycerides Cholesterol LDL Cholesterol, Calc HDL Cholesterol TSH Urine Color Urine Appearance Urine pH Ur Specific [place] Urine Protein Urine Glucose (UA) Urine Ketones Urine Blood Urine Nitrite Ur Leukocyte Esterase Urine RBC Urine WBC Ur Squamous Epith Cells Urine Bacteria Hyaline Casts Urine Opiates Screen Ur Buprenorphine Scrn Ur Oxycodone Screen Urine Methadone Screen Urine Fentanyl Screen Ur Barbiturates Screen Ur Phencyclidine Scrn Ur Amphetamines Screen U Benzodiazepines Scrn Urine Cocaine Screen U Marijuana (THC) Screen Ethyl Alcohol Influenza Type A (PCR) Influenza Type B (PCR) RSV RNA Qual (PCR) SARS-CoV-2 RNA (RT-PCR) 01/20/25 01/20/25 01/21/25 17:15 19:43 08:05 WBC RBC Hgb Hct MCV MCH MCHC RDW Plt Count MPV Immature Gran % (Auto) Neut % (Auto) Lymph % (Auto) [place] % (Auto) Eos % (Auto) Baso % (Auto) Lymph # (Auto) [place] # (Auto) Eos # (Auto) Baso # (Auto) Abs Immat Gran (auto) Absolute Neuts (auto) Absolute Nucleated RBC Nucleated RBC % (auto) Sodium Potassium Chloride Carbon Dioxide Anion Gap BUN Creatinine Estim Creat Clear Calc Estimated GFR POC Glucose 243 H 141 H 115 Random Glucose Estimat Average Glucose Hemoglobin A1c % Calcium Total Bilirubin AST ALT Alkaline Phosphatase Total Protein Albumin Triglycerides Cholesterol LDL Cholesterol, Calc HDL Cholesterol TSH Urine Color Urine Appearance Urine pH Ur Specific [place] Urine Protein Urine Glucose (UA) Urine Ketones Urine Blood Urine Nitrite Ur Leukocyte Esterase Urine RBC Urine WBC Ur Squamous Epith Cells Urine Bacteria Hyaline Casts Urine Opiates Screen Ur Buprenorphine Scrn Ur Oxycodone Screen Urine Methadone Screen Urine Fentanyl Screen Ur Barbiturates Screen Ur Phencyclidine Scrn Ur Amphetamines Screen U Benzodiazepines Scrn Urine Cocaine Screen U Marijuana (THC) Screen Ethyl Alcohol Influenza Type A (PCR) Influenza Type B (PCR) RSV RNA Qual (PCR) SARS-CoV-2 RNA (RT-PCR) 01/21/25 01/21/25 01/21/25 12:28 16:46 20:11 WBC RBC Hgb Hct MCV MCH MCHC RDW Plt Count MPV Immature Gran % (Auto) Neut % (Auto) Lymph % (Auto) [place] % (Auto) Eos % (Auto) Baso % (Auto) Lymph # (Auto) [place] # (Auto) Eos # (Auto) Baso # (Auto) Abs Immat Gran (auto) Absolute Neuts (auto) Absolute Nucleated RBC Nucleated RBC % (auto) Sodium Potassium Chloride Carbon Dioxide Anion Gap BUN Creatinine Estim Creat Clear Calc Estimated GFR POC Glucose 195 H 214 H 175 H Random Glucose Estimat Average Glucose Hemoglobin A1c % Calcium Total Bilirubin AST ALT Alkaline Phosphatase Total Protein Albumin Triglycerides Cholesterol LDL Cholesterol, Calc HDL Cholesterol TSH Urine Color Urine Appearance Urine pH Ur Specific [place] Urine Protein Urine Glucose (UA) Urine Ketones Urine Blood Urine Nitrite Ur Leukocyte Esterase Urine RBC Urine WBC Ur Squamous Epith Cells Urine Bacteria Hyaline Casts Urine Opiates Screen Ur Buprenorphine Scrn Ur Oxycodone Screen Urine Methadone Screen Urine Fentanyl Screen Ur Barbiturates Screen Ur Phencyclidine Scrn Ur Amphetamines Screen U Benzodiazepines Scrn Urine Cocaine Screen U Marijuana (THC) Screen Ethyl Alcohol Influenza Type A (PCR) Influenza Type B (PCR) RSV RNA Qual (PCR) SARS-CoV-2 RNA (RT-PCR) 01/22/25 01/22/25 01/22/25 09:00 12:06 16:55 WBC RBC Hgb Hct MCV MCH MCHC RDW Plt Count MPV Immature Gran % (Auto) Neut % (Auto) Lymph % (Auto) [place] % (Auto) Eos % (Auto) Baso % (Auto) Lymph # (Auto) [place] # (Auto) Eos # (Auto) Baso # (Auto) Abs Immat Gran (auto) Absolute Neuts (auto) Absolute Nucleated RBC Nucleated RBC % (auto) Sodium Potassium Chloride Carbon Dioxide Anion Gap BUN Creatinine Estim Creat Clear Calc Estimated GFR POC Glucose 95 134 H 245 H Random Glucose Estimat Average Glucose Hemoglobin A1c % Calcium Total Bilirubin AST ALT Alkaline Phosphatase Total Protein Albumin Triglycerides Cholesterol LDL Cholesterol, Calc HDL Cholesterol TSH Urine Color Urine Appearance Urine pH Ur Specific [place] Urine Protein Urine Glucose (UA) Urine Ketones Urine Blood Urine Nitrite Ur Leukocyte Esterase Urine RBC Urine WBC Ur Squamous Epith Cells Urine Bacteria Hyaline Casts Urine Opiates Screen Ur Buprenorphine Scrn Ur Oxycodone Screen Urine Methadone Screen Urine Fentanyl Screen Ur Barbiturates Screen Ur Phencyclidine Scrn Ur Amphetamines Screen U Benzodiazepines Scrn Urine Cocaine Screen U Marijuana (THC) Screen Ethyl Alcohol Influenza Type A (PCR) Influenza Type B (PCR) RSV RNA Qual (PCR) SARS-CoV-2 RNA (RT-PCR) 01/22/25 01/23/25 01/23/25 21:00 07:39 11:42 WBC RBC Hgb Hct MCV MCH MCHC RDW Plt Count MPV Immature Gran % (Auto) Neut % (Auto) Lymph % (Auto) [place] % (Auto) Eos % (Auto) Baso % (Auto) Lymph # (Auto) [place] # (Auto) Eos # (Auto) Baso # (Auto) Abs Immat Gran (auto) Absolute Neuts (auto) Absolute Nucleated RBC Nucleated RBC % (auto) Sodium Potassium Chloride Carbon Dioxide Anion Gap BUN Creatinine Estim Creat Clear Calc Estimated GFR POC Glucose 190 H 143 H 272 H Random Glucose Estimat Average Glucose Hemoglobin A1c % Calcium Total Bilirubin AST ALT Alkaline Phosphatase Total Protein Albumin Triglycerides Cholesterol LDL Cholesterol, Calc HDL Cholesterol TSH Urine Color Urine Appearance Urine pH Ur Specific [place] Urine Protein Urine Glucose (UA) Urine Ketones Urine Blood Urine Nitrite Ur Leukocyte Esterase Urine RBC Urine WBC Ur Squamous Epith Cells Urine Bacteria Hyaline Casts Urine Opiates Screen Ur Buprenorphine Scrn Ur Oxycodone Screen Urine Methadone Screen Urine Fentanyl Screen Ur Barbiturates Screen Ur Phencyclidine Scrn Ur Amphetamines Screen U Benzodiazepines Scrn Urine Cocaine Screen U Marijuana (THC) Screen Ethyl Alcohol Influenza Type A (PCR) Influenza Type B (PCR) RSV RNA Qual (PCR) SARS-CoV-2 RNA (RT-PCR) 01/23/25 01/23/25 01/24/25 17:30 21:06 07:05 WBC RBC Hgb Hct MCV MCH MCHC RDW Plt Count MPV Immature Gran % (Auto) Neut % (Auto) Lymph % (Auto) [place] % (Auto) Eos % (Auto) Baso % (Auto) Lymph # (Auto) [place] # (Auto) Eos # (Auto) Baso # (Auto) Abs Immat Gran (auto) Absolute Neuts (auto) Absolute Nucleated RBC Nucleated RBC % (auto) Sodium Potassium Chloride Carbon Dioxide Anion Gap BUN Creatinine Estim Creat Clear Calc Estimated GFR POC Glucose 232 H 308 H 98 Random Glucose Estimat Average Glucose Hemoglobin A1c % Calcium Total Bilirubin AST ALT Alkaline Phosphatase Total Protein Albumin Triglycerides Cholesterol LDL Cholesterol, Calc HDL Cholesterol TSH Urine Color Urine Appearance Urine pH Ur Specific [place] Urine Protein Urine Glucose (UA) Urine Ketones Urine Blood Urine Nitrite Ur Leukocyte Esterase Urine RBC Urine WBC Ur Squamous Epith Cells Urine Bacteria Hyaline Casts Urine Opiates Screen Ur Buprenorphine Scrn Ur Oxycodone Screen Urine Methadone Screen Urine Fentanyl Screen Ur Barbiturates Screen Ur Phencyclidine Scrn Ur Amphetamines Screen U Benzodiazepines Scrn Urine Cocaine Screen U Marijuana (THC) Screen Ethyl Alcohol Influenza Type A (PCR) Influenza Type B (PCR) RSV RNA Qual (PCR) SARS-CoV-2 RNA (RT-PCR) Airway Mallampati Class: III TM Dist: >3cm Denture: Upper and Lower Loose/Missing/Broken Teeth: Yes, Upper and Lower Assessment and Plan Assessment Anesthesia Assessment: Anesthesia Plan Discussed and Chart Reviewed Final Anesthetic Review Family History of Problems with Anesthesia: No History of Problems with Anesthesia: No NPO: Yes ASA Class: III Final Preanesthetic Review: No Changes in Pt Med Stat, Meds/Allgs Chart Reviewed, Consent Obtained/Reviewed and Anes Risks/Benef Reviewed Patient Risk: Intermediate Procedure Risk: Intermediate Anesthetic Plan Anesthetic Plan: GA Disposition: Standard PACU
--- NOTE | 2025-01-24 09:14 | HO.POSTANES ---
Post Anesthesia Evaluation Post Anesthesia Evaluation Date of Service: 01/24/25 Vital Signs: Vital Signs Temp Pulse Resp BP Pulse Ox O2 Del Method O2 Flow Rate 01/24/25 09:05 137 H 16 136/83 98 Room Air 01/24/25 09:00 145 H 16 159/106 H 98 Room Air 01/24/25 08:55 139 H 16 159/92 H 97 Nasal Cannula with ETCO2 4 01/24/25 08:53 98 F 126 H 16 156/96 H 97 Nasal Cannula with ETCO2 4 01/24/25 06:25 97 F 59 15 144/85 H 97 Room Air 01/23/25 21:24 115/57 L Anesthesia: General LMA Mental Status: Awake Pain Control: Satisfactory Nausea/Vomiting: None Hydration: Adequate Comments: post ECT PT developed rapid afib. He has had it before, but since [facility] floor gives 50 mg Metoprolol po prior to the ECT, he has not had it. After pt developed afib followimg his [facility] and it turned out that pt did not get Metoprolol. I gave 5 mg Metoprolol iv in increments, whichdecreased the heart rate from 160-180 per min range to 120-135. Pt is asymptomatic, hospitalist was consulted, Diltiazem treatment is initiated.
[2025-01-24] MEDS: dilTIAZem HCL 50 MG/10 ML VIAL 10 MG IVPUSH ×2 (09:24→10:32)
[2025-01-24] MEDS: Metoprolol Succinate ER 50 MG TAB.ER.24H PO (09:37)
--- NOTE | 2025-01-24 10:10 | PM.EVENT ---
Event Note Date of Service: 01/24/25 Event Note: Pt is a 69-year-old male with a PMH significant for COPD not on home O2, aortic aneurysm, paroxysmal AFib on Eliquis, insulin-dependent type 2 diabetes, HLD, HTN, tracheomalacia, and mood disorder admitted to [facility] with stat hospitalist consult for post ECT AFib with RVR. After today's ECT session pt was noted to be in AFib with RVR up to 145. Pt was given metoprolol 5 mg IV by anesthesia. Pt previously had similar episode of AFib with RVR on 09/30/2024 post ECT and was started on metoprolol and Eliquis at that time. Pt was supposed to receive home dose of metoprolol 50 mg ER p.o. prior to procedure, though did not receive it this morning. Pt himself is completely asymptomatic. Is sitting up comfortably in bed and is asymptomatic, reports that he feels ?well?. Denies palpitations. No SOB or difficulty breathing. No chest pain/pressure, palpitations. Denies headache. Administered diltiazem 10 mg IV and home metoprolol 50 mg p.o. Pt continued being in AFib with HR in the 90-120s. Administered another dose of diltiazem 10 mg IV with good effect. 30 minutes later pt's HR consistently in the 70s to 80s though remains in AFib. Pt continues to be asymptomatic and is noted to be sitting comfortably in bed eating a muffin and drinking decaf coffee. Pt appears stable enough to go back to psych unit at this time. Monitor vitals on the psych unit Q 4 for the remainder of the day. If patient goes back into AFib with RVR will bring pt to the medical floor for further management. Time Spent With Patient Time: Total time managing care of this patient today ____ minutes.
[2025-01-24] MEDS: clonazePAM 1 MG TABLET PO ×3 (12:02→20:46)
[2025-01-24 12:26] LABS: Glucose, Whole Blood 256 mg/dL (60-115)
[2025-01-24] MEDS: Insulin Lispro 100 UNIT/ML 3 ML VIAL SUBCUT ×3 (12:41→20:47)
--- NOTE | 2025-01-24 15:58 | ECG_ITS ---
Test Reason : recent afib Blood Pressure : */* mmHG Vent. Rate : 56 BPM Atrial Rate : 56 BPM P-R Int : 152 ms QRS Dur : 80 ms QT Int : 402 ms P-R-T Axes : 47 49 64 degrees QTcB Int : 387 ms Sinus bradycardia Otherwise normal ECG When compared with ECG of 24-Jan-2025 09:02, Sinus rhythm has replaced Atrial fibrillation Vent. rate has decreased by 74 bpm Referred By: Lito Ojeda Electronically Signed By: ROSSI BELLA
[2025-01-24 17:04] LABS: Glucose, Whole Blood 173 mg/dL (60-115)
--- NOTE | 2025-01-24 18:00 | P.PNPSI_ITS ---
Subjective Subjective Date of Service: 01/22/25 Reason For Visit: Depression SI Interim History: late entry note for patient seen on 01/22 Had ECT today and patient reports he is feeling better and denies any SI. Of note affect is brighter and patient is clean shaven. Patient ambivalent about how long to stay on the unit wanting to quickly convert to outpatient ECT. Said he will think about how to proceed. Patient talked about feeling lonely; discussed options for interactive activities Mental Status Exam Mental Status Exam Narrative: Pt is alert and oriented; behavior is calm, cooperative and friendly; patient is not in distress; dressed in casual attire, clean-shaven and with adequate hygiene and grooming; mood is described as good and affect congruent, a little brighter; eye contact appropriate; Speech is normal rate, volume and prosody and not pressured; no significant psychomotor retardation present; thought process is organized and goal directed; Thought content is on tx, dealing with loneliness; otherwise pertinent to relevant topics and without any delusional content, paranoid ideations or grandiosity; some passive SI but waning; no HI. Denies AVH and there is no evidence of perceptual disturbance. Patients insight and judgment impaired but improving Diagnostics Vital Signs (24Hr): Vital Signs - 24 hr 01/23/25 20:00 01/23/25 21:24 01/24/25 06:25 Temperature 98.4 F 97 F Pulse Rate 59 59 Respiratory Rate 16 15 Blood Pressure 115/57 L 115/57 L 144/85 H Pulse Oximetry 96 97 Oxygen Delivery Method Room Air Room Air Oxygen Flow Rate 01/24/25 08:53 01/24/25 08:55 01/24/25 09:00 Temperature 98 F Pulse Rate 126 H 139 H 145 H Respiratory Rate 16 16 16 Blood Pressure 156/96 H 159/92 H 159/106 H Pulse Oximetry 97 97 98 Oxygen Delivery Method Nasal Cannula with ETCO2 Nasal Cannula with ETCO2 Room Air Oxygen Flow Rate 4 4 01/24/25 09:05 01/24/25 09:20 01/24/25 09:24 Temperature Pulse Rate 137 H 123 H 123 H Respiratory Rate 16 16 Blood Pressure 136/83 147/97 H 159/98 H Pulse Oximetry 98 93 Oxygen Delivery Method Room Air Room Air Oxygen Flow Rate 01/24/25 09:35 01/24/25 09:37 01/24/25 09:50 Temperature Pulse Rate 110 H 105 H 108 H Respiratory Rate 16 16 Blood Pressure 133/95 H 136/89 133/95 H Pulse Oximetry 97 97 Oxygen Delivery Method Room Air Room Air Oxygen Flow Rate 01/24/25 10:05 01/24/25 10:20 01/24/25 10:32 Temperature 98 F Pulse Rate 108 H 105 H 119 H Respiratory Rate 16 16 Blood Pressure 129/94 H 124/89 122/82 Pulse Oximetry 97 98 Oxygen Delivery Method Room Air Room Air Oxygen Flow Rate 01/24/25 10:35 01/24/25 10:50 01/24/25 11:02 Temperature 97.2 F Pulse Rate 81 72 84 Respiratory Rate 18 18 18 Blood Pressure 129/80 123/80 123/92 H Pulse Oximetry 95 95 96 Oxygen Delivery Method Room Air Room Air Room Air Oxygen Flow Rate 01/24/25 11:30 01/24/25 12:45 Temperature Pulse Rate 72 66 Respiratory Rate 16 Blood Pressure 130/74 128/78 Pulse Oximetry 98 99 Oxygen Delivery Method Oxygen Flow Rate BMI result Body Mass Index 27.4 Labs 01/16/25 13:28 01/18/25 10:34 Labs: Laboratory Results - last 48 hr 01/22/25 01/23/25 01/23/25 21:00 07:39 11:42 POC Glucose 190 H 143 H 272 H 01/23/25 01/23/25 01/24/25 17:30 21:06 07:05 POC Glucose 232 H 308 H 98 01/24/25 01/24/25 12:19 17:00 POC Glucose 256 H 173 H Imaging Radiology Impressions: ITS Impressions Chest X-Ray 01/16/25 13:26 IMPRESSION: 1. Suggestion of mild small airway thickening in the mid and lower lungs. Findings may represent inflammatory/reactive airways disease. 2. No focal pneumonia or effusion. Electronically signed by: Kedar Calle MD 01/16/2025 01:55 PM EDT Medications Medications Current Medications Acetaminophen (Acetaminophen 325 Mg Tablet) 650 mg PO Q6H PRN PRN Reason: Headache/Pain, Scale 1-10 Al Hydroxide/Mg Hydroxide (Magnesium Hydrox/Alum Hydrox 30 Ml Oral.Susp) 30 ml PO Q6H PRN PRN Reason: Heartburn/Nausea Apixaban (Apixaban 5 Mg Tablet) 5 mg PO BID [facility] Last Admin: 01/23/25 21:46 Dose: 5 mg Atorvastatin Calcium (Atorvastatin Calcium 40 Mg Tablet) 40 mg PO DAILY [facility] Last Admin: 01/23/25 08:27 Dose: 40 mg Clonazepam (Clonazepam 1 Mg Tablet) 1 mg PO QID [facility] Last Admin: 01/24/25 17:23 Dose: 1 mg Fluticasone/Umeclidinium/Vilanterol (Fluticasone/Umeclidinium/Vilanterol 200/62.5/25 Blst.W.Dev) 1 puff INHALE RDAILY [facility] Last Admin: 01/23/25 08:26 Dose: 1 puff Glucose (Glucose Gel 15 Gm Gel..Gram.) 15 gm PO Q15M PRN; Protocol PRN Reason: per Hypoglycemia Standing Ord. Hydrochlorothiazide (Hydrochlorothiazide 25 Mg Tablet) 25 mg PO BEDTIME [facility] Last Admin: 01/23/25 21:24 Dose: 25 mg Insulin Glargine (Insulin Glargine,Hum.Rec.Anlog 100 Unit/Ml 10 Ml Vial) 70 unit SUBCUT BEDTIME [facility] Last Admin: 01/23/25 21:22 Dose: 70 unit Insulin Human Lispro (Insulin Lispro 100 Unit/Ml 3 Ml Vial) 0 unit SUBCUT QIDACHS [facility]; Protocol Last Admin: 01/24/25 17:23 Dose: 2 unit Lamotrigine (Lamotrigine 25 Mg Tablet) 150 mg PO BEDTIME [facility] Last Admin: 01/23/25 21:25 Dose: 150 mg Magnesium Hydroxide (Milk Of Magnesia 30 Ml Oral.Susp) 30 ml PO DAILY PRN PRN Reason: Constipation Memantine (Memantine Hcl 5 Mg Tablet) 5 mg PO DAILY [facility] Last Admin: 01/23/25 08:26 Dose: 5 mg Metoprolol Succinate (Metoprolol Succinate Er 50 Mg Tab.Er.24h) 50 mg PO DAILY [facility]; Protocol Last Admin: 01/24/25 09:37 Dose: 50 mg Montelukast Sodium (Montelukast Sodium 10 Mg Tablet) 10 mg PO DAILY PRN PRN Reason: asthma Nicotine Polacrilex (Nicotine Polacrilex 2 Mg Gum) 4 mg BUCCAL Q2H PRN PRN Reason: Nicotine Cravings Last Admin: 01/17/25 17:00 Dose: 4 mg Omeprazole (Omeprazole 40 Mg Capsule.) 40 mg PO DAILY@0630 PRN PRN Reason: ACID REFLUX Quetiapine Fumarate (Quetiapine Fumarate 25 Mg Tablet) 25 mg PO BEDTIME [facility] Last Admin: 01/23/25 21:24 Dose: 25 mg Temazepam (Temazepam 15 Mg Capsule) 30 mg PO BEDTIME [facility] Last Admin: 01/23/25 21:25 Dose: 30 mg Trazodone HCl (Trazodone Hcl 50 Mg Tablet) 50 mg PO BEDTIME MRX1 PRN PRN Reason: Insomnia Last Admin: 01/18/25 21:56 Dose: 50 mg Venlafaxine HCl (Venlafaxine Hcl Er 75 Mg Cap.Er.24h) 75 mg PO DAILY [facility] Zolpidem Tartrate (Zolpidem Tartrate 5 Mg Tablet) 5 mg PO BEDTIME [facility] Last Admin: 01/23/25 21:24 Dose: 5 mg Allergies Allergies Allergy/AdvReac Type Severity Reaction Status Date / Time prednisone [PREDNISONE] Allergy Mild RAGE Verified 01/16/25 12:36 lisinopril AdvReac Cough Verified 01/16/25 12:36 mirtazapine [From Remeron] AdvReac Unknown Verified 01/17/25 16:24 Assessment & Plan Assessment & Plan (1) Pre-op evaluation: Status: Acute Code(s): Z01.818 - Encounter for other preprocedural examination (2) MDD (major depressive disorder), recurrent episode, moderate: Status: Acute Code(s): F33.1 - Major depressive disorder, recurrent, moderate (3) Suicidal ideation: Status: Acute Code(s): R45.851 - Suicidal ideations Plan HPI: Hamlet is a 69-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 PMH significant for COPD not on home O2, aortic aneurysm, paroxysmal AFib on Eliquis, insulin- dependent type 2 diabetes, HLD, HTN, tracheomalaci.He has a longstanding history of chronic/recurrent depression going back to 1981. He has received ECT treatment intermittently since 1983 and his last treatment was in September of this year at this hospital. He has had numerous psychiatric hospitalizations. He does have history of alcohol dependence but alcohol free since last fall. He does have suicidal ideations. He has had several overdoses in the s but denies any current plans or intent. He was recommended by his treating psychiatrist, Dr. Murillo to come here for ECT and was cleared for admission by Dr. Ojeda. Current medications include Klonopin 1 mg q.i.d., Lamictal 150 q.h.s., Seroquel 25 mg q.h.s., Effexor XR 75 mg daily, Ambien. He has been getting ketamine treatment. No access to firearms. Past Psychiatric History: Inpt: many in the past. Last one 2019 OP: Dr. Murillo Hospital course 01/19: Continue current plans and regimen, awaiting ECT 01/20 Patient in bed on approach. Patient explains reason for admission, saying that he was real depressed... And kind of suicidal. I was going to jump in front of a train. Patient says he went to the [employer] tracks and was waiting; it was about a half an hour until the next train arrived but he changed his mind, saying if he were to kill himself that is all that people would remember of him. When asked about suicidality now, he says kind of, yes... Patient wants ECT; however he also has an appointment to get his teeth put in January 28 which he does not want to miss. He is hoping he can get ECT and will be well enough by then to transition to outpatient ECT. He says his neighbor is willing to bring him 01/21 Met with patient; discussed with team; reviewed chart Patient shared about history: 2 years ago...and feeling very lonely I have not been out of bed in 5 days. Still some SI thoughts, kind of but less intense. -patient shared about history of manic episode: in , took Celexa or Remeron, got super happy, was just up..went on a train with 2 bottles of champaign...ended up in [facility]... took more when got home and again it made him hyper, talking non-stop, not eating, real hyper and ended up getting hospitalized... felt shaking throughout body and was talking up a storm 01/22 Had ECT today and patient reports he is feeling better and denies any SI. Of note affect is brighter and patient is clean shaven. Patient ambivalent about how long to stay on the unit wanting to quickly convert to outpatient ECT. Said he will think about how to proceed. Patient talked about feeling lonely; discussed options for interactive activities -discussed case with Dr. Murillo who agrees with possible diagnosis of bipolar disorder. Impression: Patient has history of only depression other than 1 manic episode which sounds to be truly manic and triggered by SSRI. Will change diagnosis to bipolar depression. Hesitant for this reason to go up on venlafaxine Plan: CV Q 15 minute checks ECT #1 on 01/22 ECT for monday Continue home meds: Continue venlafaxine ER 75 mg daily; this is a conversion for patient's home medication of venlafaxine Lamicatal 150mg qhs Hold bedtime dose night before ECT (Mon//) Clonazepam 1mg QID Hold bedtime dose night before ECT (Mon//) Hospitalist consult for ECT risk stratification. ECT risk stratification Pt reports undergoing ECT at least 15+ times in [place] past since 1983 Session in 09/20/2024 complicated by AFib w/RVR Currently on metoprolol and in NSR, has underdone ECT since then without incident Hx of stable mild AAA, stable tracheomalacia EKG without ischemic changes RCRI 1 point, class I risk Based on PMH, HPI, and physical exam, there are no contraindications to the planned procedure Additional history: hx of 10 suicide attempts by overdose DesVenlafaxine been on for 3 years at current dose Lamcital for decades 150mg Med/treatment trials: ECT since 1983 Ketamine for 3 years Psylisbin best medication for depression every on; depression free for 10 years (0.5grams daily); not since 10 years valium [place] did not work Depakote Wellbutrin TCA's Seroquel at higher doses causes akathesia, spacey in the morning For 4 years, pt been on clonazepam 1mg QID calms it down hands tremor and stomach wiggles... Either Celexa or Remeron: hyperactive, manic episode in 's, took Celexa or Remeron, got super happy, was just up..went on a train with 2 bottles of champaign...ended up in [facility]... took more when got home and again it made him hyper, talking non-stop, not eating, real hyper and ended up getting hospitalized... felt shaking throughout body and was talking up a storm never tried: radha Dodd Patient educated on: diagnosis, medication risk/benefits, ECT and therapeutic strategies Informed Consent: understands Reason for continued inpatient stay Substantial Risk for: rapid decompensation Time Spent With Patient Time: Total time managing care of this patient today ____ minutes.
--- NOTE | 2025-01-24 18:01 | P.PNPSI_ITS ---
Subjective Subjective Date of Service: 01/23/25 Reason For Visit: Depression SI Interim History: Late entry note for patient seen on 01/23; discussed with team pt reports he's feeling good and that depression while still present, is lessening. Discussed being on Venlafaxine while inpatient and whether to increase dose; remains committed to ECT but hoping to dc next week and continue ect as outpt. Denies any si at all. Mental Status Exam Mental Status Exam Narrative: Pt is alert and oriented; behavior is calm, cooperative and friendly; patient is not in distress; dressed in casual attire, clean-shaven and with adequate hygiene and grooming; mood is described as good and affect congruent, a little brighter; eye contact appropriate; Speech is normal rate, volume and prosody and not pressured; no significant psychomotor retardation present; thought process is organized and goal directed; Thought content is on tx, dealing with loneliness; otherwise pertinent to relevant topics and without any delusional content, paranoid ideations or grandiosity; no SI; no HI. Denies AVH and there is no evidence of perceptual disturbance. Patients insight and judgment fair. Diagnostics Vital Signs (24Hr): Vital Signs - 24 hr 01/23/25 20:00 01/23/25 21:24 01/24/25 06:25 Temperature 98.4 F 97 F Pulse Rate 59 59 Respiratory Rate 16 15 Blood Pressure 115/57 L 115/57 L 144/85 H Pulse Oximetry 96 97 Oxygen Delivery Method Room Air Room Air Oxygen Flow Rate 01/24/25 08:53 01/24/25 08:55 01/24/25 09:00 Temperature 98 F Pulse Rate 126 H 139 H 145 H Respiratory Rate 16 16 16 Blood Pressure 156/96 H 159/92 H 159/106 H Pulse Oximetry 97 97 98 Oxygen Delivery Method Nasal Cannula with ETCO2 Nasal Cannula with ETCO2 Room Air Oxygen Flow Rate 4 4 01/24/25 09:05 01/24/25 09:20 01/24/25 09:24 Temperature Pulse Rate 137 H 123 H 123 H Respiratory Rate 16 16 Blood Pressure 136/83 147/97 H 159/98 H Pulse Oximetry 98 93 Oxygen Delivery Method Room Air Room Air Oxygen Flow Rate 01/24/25 09:35 01/24/25 09:37 01/24/25 09:50 Temperature Pulse Rate 110 H 105 H 108 H Respiratory Rate 16 16 Blood Pressure 133/95 H 136/89 133/95 H Pulse Oximetry 97 97 Oxygen Delivery Method Room Air Room Air Oxygen Flow Rate 01/24/25 10:05 01/24/25 10:20 01/24/25 10:32 Temperature 98 F Pulse Rate 108 H 105 H 119 H Respiratory Rate 16 16 Blood Pressure 129/94 H 124/89 122/82 Pulse Oximetry 97 98 Oxygen Delivery Method Room Air Room Air Oxygen Flow Rate 01/24/25 10:35 01/24/25 10:50 01/24/25 11:02 Temperature 97.2 F Pulse Rate 81 72 84 Respiratory Rate 18 18 18 Blood Pressure 129/80 123/80 123/92 H Pulse Oximetry 95 95 96 Oxygen Delivery Method Room Air Room Air Room Air Oxygen Flow Rate 01/24/25 11:30 01/24/25 12:45 Temperature Pulse Rate 72 66 Respiratory Rate 16 Blood Pressure 130/74 128/78 Pulse Oximetry 98 99 Oxygen Delivery Method Oxygen Flow Rate BMI result Body Mass Index 27.4 Labs 01/16/25 13:28 01/18/25 10:34 Labs: Laboratory Results - last 48 hr 01/22/25 01/23/25 01/23/25 21:00 07:39 11:42 POC Glucose 190 H 143 H 272 H 01/23/25 01/23/25 01/24/25 17:30 21:06 07:05 POC Glucose 232 H 308 H 98 01/24/25 01/24/25 12:19 17:00 POC Glucose 256 H 173 H Imaging Radiology Impressions: ITS Impressions Chest X-Ray 01/16/25 13:26 IMPRESSION: 1. Suggestion of mild small airway thickening in the mid and lower lungs. Findings may represent inflammatory/reactive airways disease. 2. No focal pneumonia or effusion. Electronically signed by: Kedar Calle MD 01/16/2025 01:55 PM EDT Medications Medications Current Medications Acetaminophen (Acetaminophen 325 Mg Tablet) 650 mg PO Q6H PRN PRN Reason: Headache/Pain, Scale 1-10 Al Hydroxide/Mg Hydroxide (Magnesium Hydrox/Alum Hydrox 30 Ml Oral.Susp) 30 ml PO Q6H PRN PRN Reason: Heartburn/Nausea Apixaban (Apixaban 5 Mg Tablet) 5 mg PO BID [facility] Last Admin: 04/24/25 21:46 Dose: 5 mg Atorvastatin Calcium (Atorvastatin Calcium 40 Mg Tablet) 40 mg PO DAILY [facility] Last Admin: 01/23/25 08:27 Dose: 40 mg Clonazepam (Clonazepam 1 Mg Tablet) 1 mg PO QID [facility] Last Admin: 01/24/25 17:23 Dose: 1 mg Fluticasone/Umeclidinium/Vilanterol (Fluticasone/Umeclidinium/Vilanterol 200/62.5/25 Blst.W.Dev) 1 puff INHALE RDAILY [facility] Last Admin: 01/23/25 08:26 Dose: 1 puff Glucose (Glucose Gel 15 Gm Gel..Gram.) 15 gm PO Q15M PRN; Protocol PRN Reason: per Hypoglycemia Standing Ord. Hydrochlorothiazide (Hydrochlorothiazide 25 Mg Tablet) 25 mg PO BEDTIME [facility] Last Admin: 01/23/25 21:24 Dose: 25 mg Insulin Glargine (Insulin Glargine,Hum.Rec.Anlog 100 Unit/Ml 10 Ml Vial) 70 unit SUBCUT BEDTIME [facility] Last Admin: 01/23/25 21:22 Dose: 70 unit Insulin Human Lispro (Insulin Lispro 100 Unit/Ml 3 Ml Vial) 0 unit SUBCUT QIDACHS [facility]; Protocol Last Admin: 01/24/25 17:23 Dose: 2 unit Lamotrigine (Lamotrigine 25 Mg Tablet) 150 mg PO BEDTIME [facility] Last Admin: 01/23/25 21:25 Dose: 150 mg Magnesium Hydroxide (Milk Of Magnesia 30 Ml Oral.Susp) 30 ml PO DAILY PRN PRN Reason: Constipation Memantine (Memantine Hcl 5 Mg Tablet) 5 mg PO DAILY [facility] Last Admin: 01/23/25 08:26 Dose: 5 mg Metoprolol Succinate (Metoprolol Succinate Er 50 Mg Tab.Er.24h) 50 mg PO DAILY [facility]; Protocol Last Admin: 01/24/25 09:37 Dose: 50 mg Montelukast Sodium (Montelukast Sodium 10 Mg Tablet) 10 mg PO DAILY PRN PRN Reason: asthma Nicotine Polacrilex (Nicotine Polacrilex 2 Mg Gum) 4 mg BUCCAL Q2H PRN PRN Reason: Nicotine Cravings Last Admin: 01/17/25 17:00 Dose: 4 mg Omeprazole (Omeprazole 40 Mg Capsule.Dr) 40 mg PO DAILY@0630 PRN PRN Reason: ACID REFLUX Quetiapine Fumarate (Quetiapine Fumarate 25 Mg Tablet) 25 mg PO BEDTIME [facility] Last Admin: 01/23/25 21:24 Dose: 25 mg Temazepam (Temazepam 15 Mg Capsule) 30 mg PO BEDTIME [facility] Last Admin: 01/23/25 21:25 Dose: 30 mg Trazodone HCl (Trazodone Hcl 50 Mg Tablet) 50 mg PO BEDTIME MRX1 PRN PRN Reason: Insomnia Last Admin: 01/18/25 21:56 Dose: 50 mg Venlafaxine HCl (Venlafaxine Hcl Er 75 Mg Cap.Er.24h) 75 mg PO DAILY [facility] Zolpidem Tartrate (Zolpidem Tartrate 5 Mg Tablet) 5 mg PO BEDTIME [facility] Last Admin: 01/23/25 21:24 Dose: 5 mg Allergies Allergies Allergy/AdvReac Type Severity Reaction Status Date / Time prednisone [PREDNISONE] Allergy Mild RAGE Verified 01/16/25 12:36 lisinopril AdvReac Cough Verified 01/16/25 12:36 mirtazapine [From Remeron] AdvReac Unknown Verified 01/17/25 16:24 Assessment & Plan Assessment & Plan (1) Bipolar disorder: Status: Acute Code(s): F31.9 - Bipolar disorder, unspecified (2) MDD (major depressive disorder), recurrent episode, moderate: Status: Acute Code(s): F33.1 - Major depressive disorder, recurrent, moderate (3) COPD (chronic obstructive pulmonary disease): Status: Acute Code(s): J44.9 - Chronic obstructive pulmonary disease, unspecified Plan HPI: Hamlet is a 69-year-old white, , 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 PMH significant for COPD not on home O2, aortic aneurysm, paroxysmal AFib on Eliquis, insulin- dependent type 2 diabetes, HLD, HTN, tracheomalaci.He has a longstanding history of chronic/recurrent depression going back to 1981. He has received ECT treatment intermittently since 1983 and his last treatment was in September of this year at this hospital. He has had numerous psychiatric hospitalizations. He does have history of alcohol dependence but alcohol free since last fall. He does have suicidal ideations. He has had several overdoses in the 90s but denies any current plans or intent. He was recommended by his treating psychiatrist, Dr. Murillo to come here for ECT and was cleared for admission by Dr. Ojeda. Current medications include Klonopin 1 mg q.i.d., Lamictal 150 q.h.s., Seroquel 25 mg q.h.s., Effexor XR 75 mg daily, Ambien. He has been getting ketamine treatment. No access to firearms. Past Psychiatric History: Inpt: many in the past. Last one 2019 OP: Dr. Murillo Hospital course 01/19: Continue current plans and regimen, awaiting ECT 01/20 Patient in bed on approach. Patient explains reason for admission, saying that he was real depressed... And kind of suicidal. I was going to jump in front of a train. Patient says he went to the [place] tracks and was waiting; it was about a half an hour until the next train arrived but he changed his mind, saying if he were to kill himself that is all that people would remember of him. When asked about suicidality now, he says kind of, yes... Patient wants ECT; however he also has an appointment to get his teeth put in January 28 which he does not want to miss. He is hoping he can get ECT and will be well enough by then to transition to outpatient ECT. He says his neighbor is willing to bring him 01/21 Met with patient; discussed with team; reviewed chart Patient shared about history: 2 years ago...and feeling very lonely I have not been out of bed in 5 days. Still some SI thoughts, kind of but less intense. -patient shared about history of manic episode: in , took Celexa or Remeron, got super happy, was just up..went on a train with 2 bottles of champaign...ended up in [facility]... took more when got home and again it made him hyper, talking non-stop, not eating, real hyper and ended up getting hospitalized... felt shaking throughout body and was talking up a storm 01/22 Had ECT today and patient reports he is feeling better and denies any SI. Of note affect is brighter and patient is clean shaven. Patient ambivalent about how long to stay on the unit wanting to quickly convert to outpatient ECT. Said he will think about how to proceed. Patient talked about feeling lonely; discussed options for interactive activities -discussed case with Dr. Murillo who agrees with possible diagnosis of bipolar disorder. 01/23 mood improving and depression abating; no SI; continue ECT. Impression: Patient has history of only depression other than 1 manic episode which sounds to be truly manic and triggered by SSRI. Will change diagnosis to bipolar depression. Hesitant for this reason to go up on venlafaxine Plan: CV Q 15 minute checks ECT #1 on 01/22 ECT for monday Continue home meds: Continue venlafaxine ER 75 mg daily; this is a conversion for patient's home medication of venlafaxine Lamicatal 150mg qhs Hold bedtime dose night before ECT (Mon//) Clonazepam 1mg QID Hold bedtime dose night before ECT (Mon//) Hospitalist consult for ECT risk stratification. ECT risk stratification Pt reports undergoing ECT at least 15+ times in [place] past since 1983 Session in 09/20/2024 complicated by AFib w/RVR Currently on metoprolol and in NSR, has underdone ECT since then without incident Hx of stable mild AAA, stable tracheomalacia EKG without ischemic changes RCRI 1 point, class I risk Based on PMH, HPI, and physical exam, there are no contraindications to the planned procedure Additional history: hx of 10 suicide attempts by overdose DesVenlafaxine been on for 3 years at current dose Lamcital for decades 150mg Med/treatment trials: ECT since 1983 Ketamine for 3 years Psylisbin best medication for depression every on; depression free for 10 years (0.5grams daily); not since 10 years valium [employer] did not work Depakote Wellbutrin TCA's Seroquel at higher doses causes akathesia, spacey in the morning For 4 years, pt been on clonazepam 1mg QID calms it down hands tremor and stomach wiggles... Either Celexa or Remeron: hyperactive, manic episode in 's, took Celexa or Remeron, got super happy, was just up..went on a train with 2 bottles of champOptrace...ended up in [facility]... took more when got home and again it made him hyper, talking non-stop, not eating, real hyper and ended up getting hospitalized... felt shaking throughout body and was talking up a storm never tried: radha Dodd Patient educated on: diagnosis, medication risk/benefits and ECT Informed Consent: understands Reason for continued inpatient stay Substantial Risk for: stable for discharge, rapid decompensation and med/psych decompensation Time Spent With Patient Time: Total time managing care of this patient today ____ minutes.
--- NOTE | 2025-01-24 18:01 | P.PNPSI_ITS ---
Subjective Subjective Date of Service: 01/24/25 Reason For Visit: Depression SI Interim History: met with pt; discussed with team; discussed with Dr. Ojeda ECT today, but during ECT developed Afib, treated with metoprolol and afib resolved. Pt remains in much improved mood. Plan is for ECT on Monday Mental Status Exam Mental Status Exam Narrative: Pt is alert and oriented; behavior is calm, cooperative and friendly; patient is not in distress; dressed in casual attire, clean-shaven and with adequate hygiene and grooming; mood is described as good and affect congruent, brighter; eye contact appropriate; Speech is normal rate, volume and prosody and not pressured; no significant psychomotor retardation present; thought process is organized and goal directed; Thought content is on tx, dealing with loneliness; otherwise pertinent to relevant topics and without any delusional content, paranoid ideations or grandiosity; no SI; no HI. Denies AVH and there is no evidence of perceptual disturbance. Patients insight and judgment fair. Diagnostics Vital Signs (24Hr): Vital Signs - 24 hr 01/23/25 20:00 01/23/25 21:24 01/24/25 06:25 Temperature 98.4 F 97 F Pulse Rate 59 59 Respiratory Rate 16 15 Blood Pressure 115/57 L 115/57 L 144/85 H Pulse Oximetry 96 97 Oxygen Delivery Method Room Air Room Air Oxygen Flow Rate 01/24/25 08:53 01/24/25 08:55 01/24/25 09:00 Temperature 98 F Pulse Rate 126 H 139 H 145 H Respiratory Rate 16 16 16 Blood Pressure 156/96 H 159/92 H 159/106 H Pulse Oximetry 97 97 98 Oxygen Delivery Method Nasal Cannula with ETCO2 Nasal Cannula with ETCO2 Room Air Oxygen Flow Rate 4 4 01/24/25 09:05 01/24/25 09:20 01/24/25 09:24 Temperature Pulse Rate 137 H 123 H 123 H Respiratory Rate 16 16 Blood Pressure 136/83 147/97 H 159/98 H Pulse Oximetry 98 93 Oxygen Delivery Method Room Air Room Air Oxygen Flow Rate 01/24/25 09:35 01/24/25 09:37 01/24/25 09:50 Temperature Pulse Rate 110 H 105 H 108 H Respiratory Rate 16 16 Blood Pressure 133/95 H 136/89 133/95 H Pulse Oximetry 97 97 Oxygen Delivery Method Room Air Room Air Oxygen Flow Rate 01/24/25 10:05 01/24/25 10:20 01/24/25 10:32 Temperature 98 F Pulse Rate 108 H 105 H 119 H Respiratory Rate 16 16 Blood Pressure 129/94 H 124/89 122/82 Pulse Oximetry 97 98 Oxygen Delivery Method Room Air Room Air Oxygen Flow Rate 01/24/25 10:35 01/24/25 10:50 01/24/25 11:02 Temperature 97.2 F Pulse Rate 81 72 84 Respiratory Rate 18 18 18 Blood Pressure 129/80 123/80 123/92 H Pulse Oximetry 95 95 96 Oxygen Delivery Method Room Air Room Air Room Air Oxygen Flow Rate 01/24/25 11:30 01/24/25 12:45 Temperature Pulse Rate 72 66 Respiratory Rate 16 Blood Pressure 130/74 128/78 Pulse Oximetry 98 99 Oxygen Delivery Method Oxygen Flow Rate BMI result Body Mass Index 27.4 Labs 01/16/25 13:28 01/18/25 10:34 Labs: Laboratory Results - last 48 hr 01/22/25 01/23/25 01/23/25 21:00 07:39 11:42 POC Glucose 190 H 143 H 272 H 01/23/25 01/23/25 01/24/25 17:30 21:06 07:05 POC Glucose 232 H 308 H 98 01/24/25 01/24/25 12:19 17:00 POC Glucose 256 H 173 H Imaging Radiology Impressions: ITS Impressions Chest X-Ray 01/16/25 13:26 IMPRESSION: 1. Suggestion of mild small airway thickening in the mid and lower lungs. Findings may represent inflammatory/reactive airways disease. 2. No focal pneumonia or effusion. Electronically signed by: Kedar Calle MD 01/16/2025 01:55 PM EDT Medications Medications Current Medications Acetaminophen (Acetaminophen 325 Mg Tablet) 650 mg PO Q6H PRN PRN Reason: Headache/Pain, Scale 1-10 Al Hydroxide/Mg Hydroxide (Magnesium Hydrox/Alum Hydrox 30 Ml Oral.Susp) 30 ml PO Q6H PRN PRN Reason: Heartburn/Nausea Apixaban (Apixaban 5 Mg Tablet) 5 mg PO BID [facility] Last Admin: 01/23/25 21:46 Dose: 5 mg Atorvastatin Calcium (Atorvastatin Calcium 40 Mg Tablet) 40 mg PO DAILY [facility] Last Admin: 01/23/25 08:27 Dose: 40 mg Clonazepam (Clonazepam 1 Mg Tablet) 1 mg PO QID [facility] Last Admin: 01/24/25 17:23 Dose: 1 mg Fluticasone/Umeclidinium/Vilanterol (Fluticasone/Umeclidinium/Vilanterol 200/62.5 Blst.W.Dev) 1 puff INHALE RDAILY [facility] Last Admin: 01/23/25 08:26 Dose: 1 puff Glucose (Glucose Gel 15 Gm Gel..Gram.) 15 gm PO Q15M PRN; Protocol PRN Reason: per Hypoglycemia Standing Ord. Hydrochlorothiazide (Hydrochlorothiazide 25 Mg Tablet) 25 mg PO BEDTIME [facility] Last Admin: 01/23/25 21:24 Dose: 25 mg Insulin Glargine (Insulin Glargine,Hum.Rec.Anlog 100 Unit/Ml 10 Ml Vial) 70 unit SUBCUT BEDTIME [facility] Last Admin: 01/23/25 21:22 Dose: 70 unit Insulin Human Lispro (Insulin Lispro 100 Unit/Ml 3 Ml Vial) 0 unit SUBCUT QIDACHS [facility]; Protocol Last Admin: 01/24/25 17:23 Dose: 2 unit Lamotrigine (Lamotrigine 25 Mg Tablet) 150 mg PO BEDTIME [facility] Last Admin: 01/23/25 21:25 Dose: 150 mg Magnesium Hydroxide (Milk Of Magnesia 30 Ml Oral.Susp) 30 ml PO DAILY PRN PRN Reason: Constipation Memantine (Memantine Hcl 5 Mg Tablet) 5 mg PO DAILY [facility] Last Admin: 01/23/25 08:26 Dose: 5 mg Metoprolol Succinate (Metoprolol Succinate Er 50 Mg Tab.Er.24h) 50 mg PO DAILY [facility]; Protocol Last Admin: 01/24/25 09:37 Dose: 50 mg Montelukast Sodium (Montelukast Sodium 10 Mg Tablet) 10 mg PO DAILY PRN PRN Reason: asthma Nicotine Polacrilex (Nicotine Polacrilex 2 Mg Gum) 4 mg BUCCAL Q2H PRN PRN Reason: Nicotine Cravings Last Admin: 01/17/25 17:00 Dose: 4 mg Omeprazole (Omeprazole 40 Mg Capsule.Dr) 40 mg PO DAILY@0630 PRN PRN Reason: ACID REFLUX Quetiapine Fumarate (Quetiapine Fumarate 25 Mg Tablet) 25 mg PO BEDTIME [facility] Last Admin: 01/23/25 21:24 Dose: 25 mg Temazepam (Temazepam 15 Mg Capsule) 30 mg PO BEDTIME [facility] Last Admin: 01/23/25 21:25 Dose: 30 mg Trazodone HCl (Trazodone Hcl 50 Mg Tablet) 50 mg PO BEDTIME MRX1 PRN PRN Reason: Insomnia Last Admin: 01/18/25 21:56 Dose: 50 mg Venlafaxine HCl (Venlafaxine Hcl Er 75 Mg Cap.Er.24h) 75 mg PO DAILY [facility] Zolpidem Tartrate (Zolpidem Tartrate 5 Mg Tablet) 5 mg PO BEDTIME [facility] Last Admin: 01/23/25 21:24 Dose: 5 mg Allergies Allergies Allergy/AdvReac Type Severity Reaction Status Date / Time prednisone [PREDNISONE] Allergy Mild RAGE Verified 01/16/25 12:36 lisinopril AdvReac Cough Verified 01/16/25 12:36 mirtazapine [From Remeron] AdvReac Unknown Verified 01/17/25 16:24 Assessment & Plan Assessment & Plan (1) Bipolar disorder: Status: Acute Code(s): F31.9 - Bipolar disorder, unspecified (2) MDD (major depressive disorder), recurrent episode, moderate: Status: Acute Code(s): F33.1 - Major depressive disorder, recurrent, moderate (3) Atrial fibrillation with rapid ventricular response: Status: Acute Code(s): I48.91 - Unspecified atrial fibrillation (4) COPD (chronic obstructive pulmonary disease): Status: Acute Code(s): J44.9 - Chronic obstructive pulmonary disease, unspecified Plan HPI: Hamlet is a 69-year-old white, , 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 PMH significant for COPD not on home O2, aortic aneurysm, paroxysmal AFib on Eliquis, insulin- dependent type 2 diabetes, HLD, HTN, tracheomalaci.He has a longstanding history of chronic/recurrent depression going back to 1981. He has received ECT treatment intermittently since 1983 and his last treatment was in September of this year at this hospital. He has had numerous psychiatric hospitalizations. He does have history of alcohol dependence but alcohol free since last fall. He does have suicidal ideations. He has had several overdoses in the s but denies any current plans or intent. He was recommended by his treating psychiatrist, Dr. Murillo to come here for ECT and was cleared for admission by Dr. Ojeda. Current medications include Klonopin 1 mg q.i.d., Lamictal 150 q.h.s., Seroquel 25 mg q.h.s., Effexor XR 75 mg daily, Ambien. He has been getting ketamine treatment. No access to firearms. Past Psychiatric History: Inpt: many in the past. Last one 2019 OP: Dr. Murillo Hospital course 01/19: Continue current plans and regimen, awaiting ECT 01/20 Patient in bed on approach. Patient explains reason for admission, saying that he was real depressed... And kind of suicidal. I was going to jump in front of a train. Patient says he went to the [place] and was waiting; it was about a half an hour until the next train arrived but he changed his mind, saying if he were to kill himself that is all that people would remember of him. When asked about suicidality now, he says kind of, yes... Patient wants ECT; however he also has an appointment to get his teeth put in January 28 which he does not want to miss. He is hoping he can get ECT and will be well enough by then to transition to outpatient ECT. He says his neighbor is willing to bring him 01/21 Met with patient; discussed with team; reviewed chart Patient shared about history: 2 years ago...and feeling very lonely I have not been out of bed in 5 days. Still some SI thoughts, kind of but less intense. -patient shared about history of manic episode: in , took Celexa or Remeron, got super happy, was just up..went on a train with 2 bottles of champaign...ended up in [facility]... took more when got home and again it made him hyper, talking non-stop, not eating, real hyper and ended up getting hospitalized... felt shaking throughout body and was talking up a storm Impression: Patient has history of only depression other than 1 manic episode which sounds to be truly manic and triggered by SSRI. Will change diagnosis to bipolar depression. Hesitant for this reason to go up on venlafaxine 01/23 mood improving and depression abating; no SI; continue ECT. 01/24 ECT today, but during ECT developed Afib, treated with metoprolol and afib resolved. Pt remains in much improved mood. Plan is for ECT on Monday -will not increase Venlafaxine due to afib and risk of increasing BP and since depression better Plan: CV Q 15 minute checks ECT for Monday -will reach out to Dr. Murillo to discuss Continue home meds: Continue venlafaxine ER 75 mg daily; this is a conversion for patient's home medication of venlafaxine Lamicatal 150mg qhs Hold bedtime dose night before ECT (Mon//) Clonazepam 1mg QID Hold bedtime dose night before ECT (Mon//) Hospitalist consult for ECT risk stratification. ECT risk stratification Pt reports undergoing ECT at least 15+ times in [place] past since 1983 Session in 09/20/2024 complicated by AFib w/RVR Currently on metoprolol and in NSR, has underdone ECT since then without incident Hx of stable mild AAA, stable tracheomalacia EKG without ischemic changes RCRI 1 point, class I risk Based on PMH, HPI, and physical exam, there are no contraindications to the planned procedure Additional history: hx of 10 suicide attempts by overdose DesVenlafaxine been on for 3 years at current dose Lamcital for decades 150mg Med/treatment trials: ECT since 1983 Ketamine for 3 years Psylisbin best medication for depression every on; depression free for 10 years (0.5grams daily); not since 10 years valium [place] did not work Depakote Wellbutrin TCA's Seroquel at higher doses causes akathesia, spacey in the morning For 4 years, pt been on clonazepam 1mg QID calms it down hands tremor and stomach wiggles... Either Celexa or Remeron: hyperactive, manic episode in 's, took Celexa or Remeron, got super happy, was just up..went on a train with 2 bottles of champaign...ended up in [facility]... took more when got home and again it made him hyper, talking non-stop, not eating, real hyper and ended up getting hospitalized... felt shaking throughout body and was talking up a storm never tried: radha Dodd Patient educated on: diagnosis, medication risk/benefits, ECT and medical condition Informed Consent: understands Reason for continued inpatient stay Substantial Risk for: stable for discharge Time Spent With Patient Time: Total time managing care of this patient today ____ minutes.
[2025-01-24 20:36] LABS: Glucose, Whole Blood 226 mg/dL (60-115)
[2025-01-24] MEDS: Temazepam 15 MG CAPSULE 30 MG PO (20:46)
[2025-01-24] MEDS: hydroCHLOROthiazide 25 MG TABLET PO (20:46)
[2025-01-24] MEDS: QUEtiapine Fumarate 25 MG TABLET PO (20:46)
[2025-01-24] MEDS: lamoTRIgine 25 MG TABLET 150 MG PO (20:46)
[2025-01-24] MEDS: Apixaban 5 MG TABLET PO (20:46)
[2025-01-24] MEDS: Zolpidem Tartrate 5 MG TABLET PO (20:46)
[2025-01-24] MEDS: Insulin Glargine,Hum.rec.anlog 100 UNIT/ML 10 ML VIAL 70 UNIT SUBCUT (20:47)
[2025-01-25 07:47] LABS: Glucose, Whole Blood 125 mg/dL (60-115)
[2025-01-25 08:00] VITALS: BP 110/66; PULSE 69; RESP 16; TEMP 36.6; O2SAT 96
[2025-01-25 08:29] VITALS: BP 110/56; PULSE 69
[2025-01-25] MEDS: Atorvastatin Calcium 40 MG TABLET PO (08:29)
[2025-01-25] MEDS: Memantine HCl 5 MG TABLET PO (08:29)
[2025-01-25] MEDS: clonazePAM 1 MG TABLET PO ×4 (08:29→21:20)
[2025-01-25] MEDS: Venlafaxine HCl ER 75 MG CAP.ER.24H PO (08:29)
[2025-01-25] MEDS: Metoprolol Succinate ER 50 MG TAB.ER.24H PO (08:29)
[2025-01-25] MEDS: Apixaban 5 MG TABLET PO ×2 (08:29→21:21)
[2025-01-25] MEDS: Fluticasone/Umeclidinium/Vilanterol 200/62.5/25 BLST.W.DEV 1 PUFF INHALE (08:31)
--- NOTE | 2025-01-25 09:10 | HO.PSYCHPN ---
Subjective Subjective Date of Service: 01/25/25 Reason For Visit: Depression SI Interim History: met with patient; discussed with team; reviewed chart doing good no SI. agrees with plan for ECT. Discussed Venlafaxine and agrees to leave it at current dose Mental Status Exam Mental Status Exam Narrative: Pt is alert and oriented; behavior is calm, cooperative and friendly; patient is not in distress; dressed in casual attire, clean-shaven and with adequate hygiene and grooming; mood is described as good and affect congruent, brighter; eye contact appropriate; Speech is normal rate, volume and prosody and not pressured; no significant psychomotor retardation present; thought process is organized and goal directed; Thought content is on tx, dealing with loneliness; otherwise pertinent to relevant topics and without any delusional content, paranoid ideations or grandiosity; no SI; no HI. Denies AVH and there is no evidence of perceptual disturbance. Patients insight and judgment fair. Diagnostics Vital Signs (24Hr): Vital Signs - 24 hr 01/24/25 09:20 01/24/25 09:24 01/24/25 09:35 Temperature Pulse Rate 123 H 123 H 110 H Respiratory Rate 16 16 Blood Pressure 147/97 H 159/98 H 133/95 H Pulse Oximetry 93 97 Oxygen Delivery Method Room Air Room Air 01/24/25 09:37 01/24/25 09:50 01/24/25 10:05 Temperature 98 F Pulse Rate 105 H 108 H 108 H Respiratory Rate 16 16 Blood Pressure 136/89 133/95 H 129/94 H Pulse Oximetry 97 97 Oxygen Delivery Method Room Air Room Air 01/24/25 10:20 01/24/25 10:32 01/24/25 10:35 Temperature Pulse Rate 105 H 119 H 81 Respiratory Rate 16 18 Blood Pressure 124/89 122/82 129/80 Pulse Oximetry 98 95 Oxygen Delivery Method Room Air Room Air 01/24/25 10:50 01/24/25 11:02 01/24/25 11:30 Temperature 97.2 F Pulse Rate 72 84 72 Respiratory Rate 18 18 16 Blood Pressure 123/80 123/92 H 130/74 Pulse Oximetry 95 96 98 Oxygen Delivery Method Room Air Room Air 01/24/25 12:45 01/24/25 20:00 01/24/25 20:46 Temperature 98.5 F Pulse Rate 66 66 Respiratory Rate Blood Pressure 128/78 102/59 L 102/59 L Pulse Oximetry 99 95 Oxygen Delivery Method Room Air 01/25/25 08:29 Temperature Pulse Rate 69 Respiratory Rate Blood Pressure 110/56 L Pulse Oximetry Oxygen Delivery Method BMI result Body Mass Index 27.4 Labs 01/16/25 13:28 01/18/25 10:34 Labs: Laboratory Results - last 48 hr 01/23/25 01/23/25 01/23/25 11:42 17:30 21:06 POC Glucose 272 H 232 H 308 H 01/24/25 01/24/25 01/24/25 07:05 12:19 17:00 POC Glucose 98 256 H 173 H 01/24/25 01/25/25 20:28 07:39 POC Glucose 226 H 125 H Imaging Radiology Impressions: ITS Impressions Chest X-Ray 01/16/25 13:26 IMPRESSION: 1. Suggestion of mild small airway thickening in the mid and lower lungs. Findings may represent inflammatory/reactive airways disease. 2. No focal pneumonia or effusion. Electronically signed by: Kedar Calle MD 01/16/2025 01:55 PM EDT Medications Medications Current Medications Acetaminophen (Acetaminophen 325 Mg Tablet) 650 mg PO Q6H PRN PRN Reason: Headache/Pain, Scale 1-10 Al Hydroxide/Mg Hydroxide (Magnesium Hydrox/Alum Hydrox 30 Ml Oral.Susp) 30 ml PO Q6H PRN PRN Reason: Heartburn/Nausea Apixaban (Apixaban 5 Mg Tablet) 5 mg PO BID [facility] Last Admin: 01/25/25 08:29 Dose: 5 mg Atorvastatin Calcium (Atorvastatin Calcium 40 Mg Tablet) 40 mg PO DAILY [facility] Last Admin: 01/25/25 08:29 Dose: 40 mg Clonazepam (Clonazepam 1 Mg Tablet) 1 mg PO QID [facility] Last Admin: 01/25/25 08:29 Dose: 1 mg Fluticasone/Umeclidinium/Vilanterol (Fluticasone/Umeclidinium/Vilanterol 200/62.5/25 Blst.W.Dev) 1 puff INHALE RDAILY [facility] Last Admin: 01/25/25 08:31 Dose: 1 puff Glucose (Glucose Gel 15 Gm Gel..Gram.) 15 gm PO Q15M PRN; Protocol PRN Reason: per Hypoglycemia Standing Ord. Hydrochlorothiazide (Hydrochlorothiazide 25 Mg Tablet) 25 mg PO BEDTIME [facility] Last Admin: 01/24/25 20:46 Dose: 25 mg Insulin Glargine (Insulin Glargine,Hum.Rec.Anlog 100 Unit/Ml 10 Ml Vial) 70 unit SUBCUT BEDTIME [facility] Last Admin: 01/24/25 20:47 Dose: 70 unit Insulin Human Lispro (Insulin Lispro 100 Unit/Ml 3 Ml Vial) 0 unit SUBCUT QIDACHS [facility]; Protocol Last Admin: 01/25/25 08:33 Dose: Not Given Lamotrigine (Lamotrigine 25 Mg Tablet) 150 mg PO BEDTIME [facility] Last Admin: 01/24/25 20:46 Dose: 150 mg Magnesium Hydroxide (Milk Of Magnesia 30 Ml Oral.Susp) 30 ml PO DAILY PRN PRN Reason: Constipation Memantine (Memantine Hcl 5 Mg Tablet) 5 mg PO DAILY [facility] Last Admin: 01/25/25 08:29 Dose: 5 mg Metoprolol Succinate (Metoprolol Succinate Er 50 Mg Tab.Er.24h) 50 mg PO DAILY [facility]; Protocol Last Admin: 01/25/25 08:29 Dose: 50 mg Montelukast Sodium (Montelukast Sodium 10 Mg Tablet) 10 mg PO DAILY PRN PRN Reason: asthma Nicotine Polacrilex (Nicotine Polacrilex 2 Mg Gum) 4 mg BUCCAL Q2H PRN PRN Reason: Nicotine Cravings Last Admin: 01/17/25 17:00 Dose: 4 mg Omeprazole (Omeprazole 40 Mg Capsule.Dr) 40 mg PO DAILY@0630 PRN PRN Reason: ACID REFLUX Quetiapine Fumarate (Quetiapine Fumarate 25 Mg Tablet) 25 mg PO BEDTIME [facility] Last Admin: 01/24/25 20:46 Dose: 25 mg Temazepam (Temazepam 15 Mg Capsule) 30 mg PO BEDTIME [facility] Last Admin: 01/24/25 20:46 Dose: 30 mg Trazodone HCl (Trazodone Hcl 50 Mg Tablet) 50 mg PO BEDTIME MRX1 PRN PRN Reason: Insomnia Last Admin: 01/18/25 21:56 Dose: 50 mg Venlafaxine HCl (Venlafaxine Hcl Er 75 Mg Cap.Er.24h) 75 mg PO DAILY [facility] Last Admin: 01/25/25 08:29 Dose: 75 mg Zolpidem Tartrate (Zolpidem Tartrate 5 Mg Tablet) 5 mg PO BEDTIME [facility] Last Admin: 01/24/25 20:46 Dose: 5 mg Allergies Allergies Allergy/AdvReac Type Severity Reaction Status Date / Time prednisone [PREDNISONE] Allergy Mild RAGE Verified 01/16/25 12:36 lisinopril AdvReac Cough Verified 01/16/25 12:36 mirtazapine [From Remeron] AdvReac Unknown Verified 01/17/25 16:24 Assessment & Plan Assessment & Plan (1) Bipolar disorder: Status: Acute Code(s): F31.9 - Bipolar disorder, unspecified (2) MDD (major depressive disorder), recurrent episode, moderate: Status: Acute Code(s): F33.1 - Major depressive disorder, recurrent, moderate (3) Atrial fibrillation with rapid ventricular response: Status: Acute Code(s): I48.91 - Unspecified atrial fibrillation (4) COPD (chronic obstructive pulmonary disease): Status: Acute Code(s): J44.9 - Chronic obstructive pulmonary disease, unspecified Plan HPI: Hamlet is a 69-year-old white, , 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 PMH significant for COPD not on home O2, aortic aneurysm, paroxysmal AFib on Eliquis, insulin-dependent type 2 diabetes, HLD, HTN, tracheomalaci.He has a longstanding history of chronic/recurrent depression going back to 1981. He has received ECT treatment intermittently since 1983 and his last treatment was in September of this year at this hospital. He has had numerous psychiatric hospitalizations. He does have history of alcohol dependence but alcohol free since last fall. He does have suicidal ideations. He has had several overdoses in the s but denies any current plans or intent. He was recommended by his treating psychiatrist, Dr. Murillo to come here for ECT and was cleared for admission by Dr. Ojeda. Current medications include Klonopin 1 mg q.i.d., Lamictal 150 q.h.s., Seroquel 25 mg q.h.s., Effexor XR 75 mg daily, Ambien. He has been getting ketamine treatment. No access to firearms. Past Psychiatric History: Inpt: many in the past. Last one 2019 OP: Dr. Murillo Hospital course 01/19: Continue current plans and regimen, awaiting ECT 01/20 Patient in bed on approach. Patient explains reason for admission, saying that he was real depressed... And kind of suicidal. I was going to jump in front of a train. [place]; it was about a half an hour until the next train arrived but he changed his mind, saying if he were to kill himself that is all that people would remember of him. When asked about suicidality now, he says kind of, yes... Patient wants ECT; however he also has an appointment to get his teeth put in January 28 which he does not want to miss. He is hoping he can get ECT and will be well enough by then to transition to outpatient ECT. He says his neighbor is willing to bring him 01/21 Met with patient; discussed with team; reviewed chart Patient shared about history: 2 years ago...and feeling very lonely I have not been out of bed in 5 days. Still some SI thoughts, kind of but less intense. -patient shared about history of manic episode: in , took Celexa or Remeron, got super happy, was just up..went on a train with 2 bottles of champaign...ended up in [facility]... took more when got home and again it made him hyper, talking non-stop, not eating, real hyper and ended up getting hospitalized... felt shaking throughout body and was talking up a storm Impression: Patient has history of only depression other than 1 manic episode which sounds to be truly manic and triggered by SSRI. Will change diagnosis to bipolar depression. Hesitant for this reason to go up on venlafaxine 01/23 mood improving and depression abating; no SI; continue ECT. 01/24 ECT today, but during ECT developed Afib, treated with metoprolol and afib resolved. Pt remains in much improved mood. Plan is for ECT on Monday -will not increase Venlafaxine due to afib and risk of increasing BP and since depression better 01/25 doing good no SI. agrees with plan for ECT. Discussed Venlafaxine and agrees to leave it at current dose Plan: CV Q 15 minute checks ECT for Monday -discussed case with Dr. Murillo who agrees with plan Continue home meds: Continue venlafaxine ER 75 mg daily; this is a conversion for patient's home medication of venlafaxine Lamicatal 150mg qhs Hold bedtime dose night before ECT (Mon//) Clonazepam 1mg QID Hold bedtime dose night before ECT (Mon//) Hospitalist consult for ECT risk stratification. ECT risk stratification Pt reports undergoing ECT at least 15+ times in [place] past since 1983 Session in 09/20/2024 complicated by AFib w/RVR Currently on metoprolol and in NSR, has underdone ECT since then without incident Hx of stable mild AAA, stable tracheomalacia EKG without ischemic changes RCRI 1 point, class I risk Based on PMH, HPI, and physical exam, there are no contraindications to the planned procedure Additional history: hx of 10 suicide attempts by overdose DesVenlafaxine been on for 3 years at current dose Lamcital for decades 150mg Med/treatment trials: ECT since 1983 Ketamine for 3 years Psylisbin best medication for depression every on; depression free for 10 years (0.5grams daily); not since 10 years valium [place] did not work Depakote Wellbutrin TCA's Seroquel at higher doses causes akathesia, spacey in the morning For 4 years, pt been on clonazepam 1mg QID calms it down hands tremor and stomach wiggles... Either Celexa or Remeron: hyperactive, manic episode in 90's, took Celexa or Remeron, got super happy, was just up..went on a train with 2 bottles of [place]...ended up in [facility]... took more when got home and again it made him hyper, talking non-stop, not eating, real hyper and ended up getting hospitalized... felt shaking throughout body and was talking up a storm never tried: radha Dodd Patient educated on: diagnosis, medication risk/benefits and ECT Informed Consent: understands Reason for continued inpatient stay Substantial Risk for: stable for discharge Time Spent With Patient Time: Total time managing care of this patient today ____ minutes.
[2025-01-25 12:08] LABS: Glucose, Whole Blood 268 mg/dL (60-115)
[2025-01-25] MEDS: Insulin Lispro 100 UNIT/ML 3 ML VIAL SUBCUT ×3 (12:55→21:21)
[2025-01-25 17:40] LABS: Glucose, Whole Blood 173 mg/dL (60-115)
[2025-01-25 19:51] VITALS: BP 112/57; PULSE 66; TEMP 36.4; O2SAT 98
[2025-01-25 21:20] VITALS: BP 112/57
[2025-01-25] MEDS: hydroCHLOROthiazide 25 MG TABLET PO (21:20)
[2025-01-25] MEDS: Temazepam 15 MG CAPSULE 30 MG PO (21:20)
[2025-01-25] MEDS: lamoTRIgine 25 MG TABLET 150 MG PO (21:20)
[2025-01-25] MEDS: Zolpidem Tartrate 5 MG TABLET PO (21:21)
[2025-01-25] MEDS: Insulin Glargine,Hum.rec.anlog 100 UNIT/ML 10 ML VIAL 70 UNIT SUBCUT (21:21)
[2025-01-25] MEDS: QUEtiapine Fumarate 25 MG TABLET PO (21:21)
[2025-01-26 08:00] VITALS: BP 132/93; PULSE 56; RESP 16; TEMP 36.4; O2SAT 97
[2025-01-26 08:05] LABS: Glucose, Whole Blood 97 mg/dL (60-115)
[2025-01-26 08:05] LABS: Glucose, Whole Blood 170 mg/dL (60-115)
[2025-01-26 08:58] VITALS: PULSE 60
[2025-01-26] MEDS: Metoprolol Succinate ER 50 MG TAB.ER.24H PO (08:58)
[2025-01-26] MEDS: Venlafaxine HCl ER 75 MG CAP.ER.24H PO (08:58)
[2025-01-26] MEDS: Atorvastatin Calcium 40 MG TABLET PO (08:58)
[2025-01-26] MEDS: clonazePAM 1 MG TABLET PO ×3 (08:58→17:31)
[2025-01-26] MEDS: Fluticasone/Umeclidinium/Vilanterol 200/62.5/25 BLST.W.DEV 1 PUFF INHALE (08:59)
[2025-01-26] MEDS: Memantine HCl 5 MG TABLET PO (08:59)
[2025-01-26] MEDS: Apixaban 5 MG TABLET PO ×2 (08:59→21:32)
[2025-01-26 12:01] LABS: Glucose, Whole Blood 211 mg/dL (60-115)
[2025-01-26] MEDS: Insulin Lispro 100 UNIT/ML 3 ML VIAL SUBCUT ×3 (12:38→21:33)
--- NOTE | 2025-01-26 12:50 | P.PNPSI_ITS ---
Subjective Subjective Date of Service: 01/26/25 Reason For Visit: Depression SI Interim History: met with patient; discussed with team pt says having weird dreams which he says never happens. He said no SI at all...and says mood seems to be well... Feels good about ECT and plan Mental Status Exam Mental Status Exam Narrative: Pt is alert and oriented; behavior is calm, cooperative and friendly; patient is not in distress; dressed in casual attire, clean-shaven and with adequate hygiene and grooming; mood is described as good and affect congruent, brighter; eye contact appropriate; Speech is normal rate, volume and prosody and not pressured; no significant psychomotor retardation present; thought process is organized and goal directed; Thought content is on tx, dealing with loneliness; otherwise pertinent to relevant topics and without any delusional content, paranoid ideations or grandiosity; no SI; no HI. Denies AVH and there is no evidence of perceptual disturbance. Patients insight and judgment fair. Diagnostics Vital Signs (24Hr): Vital Signs - 24 hr 01/25/25 19:51 01/25/25 21:20 01/26/25 08:00 Temperature 97.6 F 97.6 F Pulse Rate 66 56 Respiratory Rate 16 Blood Pressure 112/57 L 112/57 L 132/93 H Pulse Oximetry 98 97 Oxygen Delivery Method Room Air 01/26/25 08:58 Temperature Pulse Rate 60 Respiratory Rate Blood Pressure Pulse Oximetry Oxygen Delivery Method BMI result Body Mass Index 27.4 Labs 01/16/25 13:28 01/18/25 10:34 Labs: Laboratory Results - last 48 hr 01/24/25 01/24/25 01/25/25 17:00 20:28 07:39 POC Glucose 173 H 226 H 125 H 01/25/25 01/25/25 01/25/25 12:01 16:59 20:59 POC Glucose 268 H 173 H 170 H 01/26/25 01/26/25 08:00 11:48 POC Glucose 97 211 H Imaging Radiology Impressions: ITS Impressions Chest X-Ray 01/16/25 13:26 IMPRESSION: 1. Suggestion of mild small airway thickening in the mid and lower lungs. Findings may represent inflammatory/reactive airways disease. 2. No focal pneumonia or effusion. Electronically signed by: Kedar Calle MD 01/16/2025 01:55 PM EDT RP Medications Medications Current Medications Acetaminophen (Acetaminophen 325 Mg Tablet) 650 mg PO Q6H PRN PRN Reason: Headache/Pain, Scale 1-10 Al Hydroxide/Mg Hydroxide (Magnesium Hydrox/Alum Hydrox 30 Ml Oral.Susp) 30 ml PO Q6H PRN PRN Reason: Heartburn/Nausea Apixaban (Apixaban 5 Mg Tablet) 5 mg PO BID [facility] Last Admin: 01/26/25 08:59 Dose: 5 mg Atorvastatin Calcium (Atorvastatin Calcium 40 Mg Tablet) 40 mg PO DAILY [facility] Last Admin: 01/26/25 08:58 Dose: 40 mg Clonazepam (Clonazepam 1 Mg Tablet) 1 mg PO QID [facility] Last Admin: 01/26/25 12:38 Dose: 1 mg Fluticasone/Umeclidinium/Vilanterol (Fluticasone/Umeclidinium/Vilanterol 200/62.5/25 Blst.W.Dev) 1 puff INHALE RDAILY [facility] Last Admin: 01/26/25 08:59 Dose: 1 puff Glucose (Glucose Gel 15 Gm Gel..Gram.) 15 gm PO Q15M PRN; Protocol PRN Reason: per Hypoglycemia Standing Ord. Hydrochlorothiazide (Hydrochlorothiazide 25 Mg Tablet) 25 mg PO BEDTIME [facility] Last Admin: 01/25/25 21:20 Dose: 25 mg Insulin Glargine (Insulin Glargine,Hum.Rec.Anlog 100 Unit/Ml 10 Ml Vial) 70 unit SUBCUT BEDTIME [facility] Last Admin: 01/25/25 21:21 Dose: 70 unit Insulin Human Lispro (Insulin Lispro 100 Unit/Ml 3 Ml Vial) 0 unit SUBCUT QIDACHS [facility]; Protocol Last Admin: 01/26/25 12:38 Dose: 4 unit Lamotrigine (Lamotrigine 25 Mg Tablet) 150 mg PO BEDTIME [facility] Last Admin: 01/25/25 21:20 Dose: 150 mg Magnesium Hydroxide (Milk Of Magnesia 30 Ml Oral.Susp) 30 ml PO DAILY PRN PRN Reason: Constipation Memantine (Memantine Hcl 5 Mg Tablet) 5 mg PO DAILY [facility] Last Admin: 01/26/25 08:59 Dose: 5 mg Metoprolol Succinate (Metoprolol Succinate Er 50 Mg Tab.Er.24h) 50 mg PO DAILY [facility]; Protocol Last Admin: 01/26/25 08:58 Dose: 50 mg Montelukast Sodium (Montelukast Sodium 10 Mg Tablet) 10 mg PO DAILY PRN PRN Reason: asthma Nicotine Polacrilex (Nicotine Polacrilex 2 Mg Gum) 4 mg BUCCAL Q2H PRN PRN Reason: Nicotine Cravings Last Admin: 01/17/25 17:00 Dose: 4 mg Omeprazole (Omeprazole 40 Mg Capsule.Dr) 40 mg PO DAILY@0630 PRN PRN Reason: ACID REFLUX Quetiapine Fumarate (Quetiapine Fumarate 25 Mg Tablet) 25 mg PO BEDTIME [facility] Last Admin: 01/25/25 21:21 Dose: 25 mg Temazepam (Temazepam 15 Mg Capsule) 30 mg PO BEDTIME [facility] Last Admin: 01/25/25 21:20 Dose: 30 mg Trazodone HCl (Trazodone Hcl 50 Mg Tablet) 50 mg PO BEDTIME [facility] PRN PRN Reason: Insomnia Last Admin: 01/18/25 21:56 Dose: 50 mg Venlafaxine HCl (Venlafaxine Hcl Er 75 Mg Cap.Er.24h) 75 mg PO DAILY [facility] Last Admin: 01/26/25 08:58 Dose: 75 mg Zolpidem Tartrate (Zolpidem Tartrate 5 Mg Tablet) 5 mg PO BEDTIME [facility] Last Admin: 01/25/25 21:21 Dose: 5 mg Allergies Allergies Allergy/AdvReac Type Severity Reaction Status Date / Time prednisone [PREDNISONE] Allergy Mild RAGE Verified 01/16/25 12:36 lisinopril AdvReac Cough Verified 01/16/25 12:36 mirtazapine [From Remeron] AdvReac Unknown Verified 01/17/25 16:24 Assessment & Plan Assessment & Plan (1) Bipolar disorder: Status: Acute Code(s): F31.9 - Bipolar disorder, unspecified (2) MDD (major depressive disorder), recurrent episode, moderate: Status: Acute Code(s): F33.1 - Major depressive disorder, recurrent, moderate (3) Atrial fibrillation with rapid ventricular response: Status: Acute Code(s): I48.91 - Unspecified atrial fibrillation (4) COPD (chronic obstructive pulmonary disease): Status: Acute Code(s): J44.9 - Chronic obstructive pulmonary disease, unspecified Plan HPI: Hamlet is a 69-year-old white, , 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 PMH significant for COPD not on home O2, aortic aneurysm, paroxysmal AFib on Eliquis, insulin- dependent type 2 diabetes, HLD, HTN, tracheomalaci.He has a longstanding history of chronic/recurrent depression going back to 1981. He has received ECT treatment intermittently since 1983 and his last treatment was in September of this year at this hospital. He has had numerous psychiatric hospitalizations. He does have history of alcohol dependence but alcohol free since last fall. He does have suicidal ideations. He has had several overdoses in the but denies any current plans or intent. He was recommended by his treating psychiatrist, Dr. Murillo to come here for ECT and was cleared for admission by Dr. Ojeda. Current medications include Klonopin 1 mg q.i.d., Lamictal 150 q.h.s., Seroquel 25 mg q.h.s., Effexor XR 75 mg daily, Ambien. He has been getting ketamine treatment. No access to firearms. Past Psychiatric History: Inpt: many in the past. Last one 2019 OP: Dr. Murillo [facility] course 01/19: Continue current plans and regimen, awaiting ECT 01/20 Patient in bed on approach. Patient explains reason for admission, saying that he was real depressed... And kind of suicidal. I was going to jump in front of a train. Patient says he went to the [employer] tracks and was waiting; it was about a half an hour until the next train arrived but he changed his mind, saying if he were to kill himself that is all that people would remember of him. When asked about suicidality now, he says kind of, yes... Patient wants ECT; however he also has an appointment to get his teeth put in January 28 which he does not want to miss. He is hoping he can get ECT and will be well enough by then to transition to outpatient ECT. He says his neighbor is willing to bring him 01/21 Met with patient; discussed with team; reviewed chart Patient shared about history: 2 years ago...and feeling very lonely I have not been out of bed in 5 days. Still some SI thoughts, kind of but less intense. -patient shared about history of manic episode: in , took Celexa or Remeron, got super happy, was just up..went on a train with 2 bottles of champaign...ended up in [facility]... took more when got home and again it made him hyper, talking non-stop, not eating, real hyper and ended up getting hospitalized... felt shaking throughout body and was talking up a storm Impression: Patient has history of only depression other than 1 manic episode which sounds to be truly manic and triggered by SSRI. Will change diagnosis to bipolar depression. Hesitant for this reason to go up on venlafaxine 01/23 mood improving and depression abating; no SI; continue ECT. 01/24 ECT today, but during ECT developed Afib, treated with metoprolol and afib resolved. Pt remains in much improved mood. Plan is for ECT on Monday -will not increase Venlafaxine due to afib and risk of increasing BP and since depression better 01/26 pt says having weird dreams which he says never happens. He said no SI at all...and says mood seems to be well... Feels good about ECT and plan Plan: CV Q 15 minute checks ECT for Monday -discussed with Dr. Murillo who agrees with plan Continue home meds: Continue venlafaxine ER 75 mg daily; this is a conversion for patient's home medication of venlafaxine Lamicatal 150mg qhs Hold bedtime dose night before ECT (Mon//) Clonazepam 1mg QID Hold bedtime dose night before ECT (Mon//) Hospitalist consult for ECT risk stratification. ECT risk stratification Pt reports undergoing ECT at least 15+ times in re[place]ah past since 1983 Session in 09/20/2024 complicated by AFib w/RVR Currently on metoprolol and in NSR, has underdone ECT since then without incident Hx of stable mild AAA, stable tracheomalacia EKG without ischemic changes RCRI 1 point, class I risk Based on PMH, HPI, and physical exam, there are no contraindications to the planned procedure Additional history: hx of 10 suicide attempts by overdose DesVenlafaxine been on for 3 years at current dose Lamcital for decades 150mg Med/treatment trials: ECT since 1983 Ketamine for 3 years Psylisbin best medication for depression every on; depression free for 10 years (0.5grams daily); not since 10 years valium [place] did not work Depakote Wellbutrin TCA's Seroquel at higher doses causes akathesia, spacey in the morning For 4 years, pt been on clonazepam 1mg QID calms it down hands tremor and stomach wiggles... Either Celexa or Remeron: hyperactive, manic episode in 90's, took Celexa or Remeron, got super happy, was just up..went on a train with 2 bottles of champaign...ended up in [facility]... took more when got home and again it made him hyper, talking non-stop, not eating, real hyper and ended up getting hospitalized... felt shaking throughout body and was talking up a storm never tried: radha Dodd Patient educated on: diagnosis and ECT Informed Consent: understands Reason for continued inpatient stay Substantial Risk for: stable for discharge Time Spent With Patient Time: Total time managing care of this patient today ____ minutes.
[2025-01-26 17:01] LABS: Glucose, Whole Blood 233 mg/dL (60-115)
[2025-01-26 19:49] VITALS: BP 128/76; RESP 66; TEMP 37.1; O2SAT 98
[2025-01-26 20:42] LABS: Glucose, Whole Blood 177 mg/dL (60-115)
[2025-01-26 21:32] VITALS: BP 128/76
[2025-01-26] MEDS: QUEtiapine Fumarate 25 MG TABLET PO (21:32)
[2025-01-26] MEDS: hydroCHLOROthiazide 25 MG TABLET PO (21:32)
[2025-01-26] MEDS: Zolpidem Tartrate 5 MG TABLET PO (21:32)
[2025-01-26] MEDS: Temazepam 15 MG CAPSULE 30 MG PO (21:33)
[2025-01-26] MEDS: Insulin Glargine,Hum.rec.anlog 100 UNIT/ML 10 ML VIAL 70 UNIT SUBCUT (21:33)
[2025-01-27] VITALS (10 sets, daily range): BP systolic 130–148; BP diastolic 81–100; PULSE 55–76; RESP 12–20; TEMP 36.1–37.1; O2SAT 95–100
--- NOTE | 2025-01-27 | ECG_ITS ---
Test Reason : cp Blood Pressure : */* mmHG Vent. Rate : 67 BPM Atrial Rate : 67 BPM P-R Int : 160 ms QRS Dur : 80 ms QT Int : 394 ms P-R-T Axes : 35 39 53 degrees QTcB Int : 416 ms Normal sinus rhythm Normal ECG When compared with ECG of 24-Jan-2025 17:55, No significant change was found Referred By: Beni Huerta Electronically Signed By: Milton Patel
[2025-01-27] MEDS: Metoprolol Succinate ER 50 MG TAB.ER.24H PO (06:17)
[2025-01-27 06:40] LABS: Glucose, Whole Blood 74 mg/dL (60-115)
[2025-01-27] MEDS: Lactated Ringers 1,000 ML 100 ML IVCONT (06:41)
--- NOTE | 2025-01-27 07:39 | MHC.SHP ---
Pre-Procedural Eval Section A - 24 Hr Update-Section A only Date of Service: 01/27/25 Changes since office visit: Yes New Medical Problems, Yes Changes in Medication and Yes Patient answered all questions; No Cold of Flu in the past 2 weeks The patient has been examined within 24 hours of the surgical procedure. The History & Physical has been completed within 30 days and I have reviewed it.: Yes Section B - Complete if H&P > 30 days Chief Complaint: Depression SI Allergies: Allergies Allergy/AdvReac Type Severity Reaction Status Date / Time prednisone [PREDNISONE] Allergy Mild RAGE Verified 01/16/25 12:36 lisinopril AdvReac Cough Verified 01/16/25 12:36 mirtazapine [From Remeron] AdvReac Unknown Verified 01/17/25 16:24 Plan I have reviewed the history and physical and performed a pertinent physical examination on my patient. No changes have occurred unless specified. Time Spent With Patient Time: Total time managing care of this patient today ____ minutes.
--- NOTE | 2025-01-27 08:03 | HO.ECTPROC ---
ECT Procedure Note Diagnosis/Treatment Date of Service: 01/27/25 Diagnosis: Bipolar disorder Current Treatment Number: 3 Treatment: Series Interval Clinical Notes: Patient tolerated ECT well given metoprolol 50 mg in the morning prior to ECT unfortunately he still got benzodiazepine prior to treatment at night. The patient did tolerate right unilateral treatment well no atrial fibrillation or other toxic rhythm noted. Treated with 100% energy 0.5 millisecond protocol had a seizure of 33 seconds. Given etomidate 16 mg succinylcholine 100 mg Time: Total time managing care of this patient today ____ minutes. ECT Settings Device: THYMATRON DGx Electrode Placement: Right Unilateral Program/Pulse Width: 0.50 Energy Percent: 100 Seizure Duration By EEG (in seconds): 100 By Motor Observation (in seconds): 33 Medications Administration General Anesthetic: Etomidate (16) Muscle Relaxant: Succinylcholine (100) Airway Management Airway Management: LMA Treatment Recommendations No Changes Recommended: No change
[2025-01-27 08:56] LABS: Glucose, Whole Blood 151 mg/dL (60-115)
[2025-01-27] MEDS: Fluticasone/Umeclidinium/Vilanterol 200/62.5/25 BLST.W.DEV 1 PUFF INHALE (09:14)
[2025-01-27] MEDS: Venlafaxine HCl ER 75 MG CAP.ER.24H PO (09:15)
[2025-01-27] MEDS: Atorvastatin Calcium 40 MG TABLET PO (09:15)
[2025-01-27] MEDS: clonazePAM 1 MG TABLET PO ×4 (09:15→20:57)
[2025-01-27] MEDS: Insulin Lispro 100 UNIT/ML 3 ML VIAL SUBCUT ×3 (09:15→17:21)
[2025-01-27] MEDS: Memantine HCl 5 MG TABLET PO (09:16)
[2025-01-27] MEDS: Apixaban 5 MG TABLET PO ×2 (09:16→20:58)
--- NOTE | 2025-01-27 11:32 | PC.NURSE ---
complaints of sharp, left sided chest pain, non-radiating, worsens when changing positions. BP 142/98. HR 65. No other associated symptoms. md aware. ekg order obtained.
[2025-01-27 12:24] LABS: Glucose, Whole Blood 206 mg/dL (60-115)
[2025-01-27 12:59] LABS: Troponin-I High Sensitivity 28.2 ng/L (<3.5-35.0)
[2025-01-27 16:54] LABS: Glucose, Whole Blood 165 mg/dL (60-115)
--- NOTE | 2025-01-27 17:35 | HO.PSYCHPN ---
Subjective Subjective Date of Service: 01/27/25 Reason For Visit: Depression SI Interim History: Met with patient; discussed with team Patient had ECT this morning without any problems. Patient reports that his depression is mood is better and depression abating; denies any SI at all. Patient wants to discharge tomorrow and continue ECT as an outpatient; he will have his grandson transfer to inform ECT; family meeting tomorrow prior to discharge. Patient complained of some mild chest pain during the day that resolved on its own; EKG unconcerning; troponin x2 <35 Diagnostics Vital Signs (24Hr): Vital Signs - 24 hr 01/26/25 19:49 01/26/25 21:32 01/27/25 06:33 Temperature 98.7 F 97 F Pulse Rate 55 Respiratory Rate 66 H 16 Blood Pressure 128/76 128/76 146/84 H Pulse Oximetry 98 100 Oxygen Delivery Method Room Air Room Air Oxygen Flow Rate 01/27/25 08:06 01/27/25 08:11 01/27/25 08:16 Temperature 98.8 F Pulse Rate 64 76 72 Respiratory Rate 12 13 20 Blood Pressure 148/92 H 136/98 H 134/96 H Pulse Oximetry 97 95 96 Oxygen Delivery Method Nasal Cannula with ETCO2 Nasal Cannula with ETCO2 Room Air Oxygen Flow Rate 2 2 01/27/25 08:21 01/27/25 08:36 01/27/25 08:50 Temperature 98.8 F Pulse Rate 70 68 65 Respiratory Rate 16 16 Blood Pressure 138/100 H 134/92 H 130/89 Pulse Oximetry 96 96 95 Oxygen Delivery Method Room Air Room Air Room Air Oxygen Flow Rate 01/27/25 08:50 01/27/25 08:56 01/27/25 11:32 Temperature 97.6 F Pulse Rate 65 65 65 Respiratory Rate Blood Pressure 130/89 130/89 142/98 H Pulse Oximetry 95 95 96 Oxygen Delivery Method Room Air Oxygen Flow Rate BMI result Body Mass Index 27.4 Labs 01/16/25 13:28 01/18/25 10:34 Labs: Laboratory Results - last 48 hr 01/25/25 01/25/25 01/26/25 16:59 20:59 08:00 POC Glucose 173 H 170 H 97 Troponin I High Sens 01/26/25 01/26/25 01/26/25 11:48 16:58 20:38 POC Glucose 211 H 233 H 177 H Troponin I High Sens 01/27/25 01/27/25 01/27/25 06:37 08:52 12:17 POC Glucose 74 151 H Troponin I High Sens 28.2 D 01/27/25 01/27/25 01/27/25 12:19 16:48 16:50 POC Glucose 206 H 165 H Troponin I High Sens 31.0 Imaging Radiology Impressions: ITS Impressions Chest X-Ray 01/16/25 13:26 IMPRESSION: 1. Suggestion of mild small airway thickening in the mid and lower lungs. Findings may represent inflammatory/reactive airways disease. 2. No focal pneumonia or effusion. Electronically signed by: Kedar Calle MD 01/16/2025 01:55 PM EDT RP Medications Medications Current Medications Acetaminophen (Acetaminophen 325 Mg Tablet) 650 mg PO Q6H PRN PRN Reason: Headache/Pain, Scale 1-10 Al Hydroxide/Mg Hydroxide (Magnesium Hydrox/Alum Hydrox 30 Ml Oral.Susp) 30 ml PO Q6H PRN PRN Reason: Heartburn/Nausea Apixaban (Apixaban 5 Mg Tablet) 5 mg PO BID COUNT INCLUDES THE [facility] Last Admin: 01/27/25 09:16 Dose: 5 mg Atorvastatin Calcium (Atorvastatin Calcium 40 Mg Tablet) 40 mg PO DAILY COUNT INCLUDES THE [facility] Last Admin: 01/27/25 09:15 Dose: 40 mg Clonazepam (Clonazepam 1 Mg Tablet) 1 mg PO QID COUNT INCLUDES THE [facility] Last Admin: 01/27/25 16:48 Dose: 1 mg Fluticasone/Umeclidinium/Vilanterol (Fluticasone/Umeclidinium/Vilanterol 200/62.5/25 Blst.W.Dev) 1 puff INHALE RDAILY COUNT INCLUDES THE [facility] Last Admin: 01/27/25 09:14 Dose: 1 puff Glucose (Glucose Gel 15 Gm Gel..Gram.) 15 gm PO Q15M PRN; Protocol PRN Reason: per Hypoglycemia Standing Ord. Hydrochlorothiazide (Hydrochlorothiazide 25 Mg Tablet) 25 mg PO BEDTIME COUNT INCLUDES THE [facility] Last Admin: 01/26/25 21:32 Dose: 25 mg Lactated Ringer's (Lr) 1,000 mls @ 100 mls/hr IVCONT .Q10H COUNT INCLUDES THE [facility] Last Infusion: 01/27/25 12:40 Dose: 100 mls/hr Insulin Glargine (Insulin Glargine,Hum.Rec.Anlog 100 Unit/Ml 10 Ml Vial) 70 unit SUBCUT BEDTIME COUNT INCLUDES THE [facility] Last Admin: 01/26/25 21:33 Dose: 70 unit Insulin Human Lispro (Insulin Lispro 100 Unit/Ml 3 Ml Vial) 0 unit SUBCUT QIDACHS COUNT INCLUDES THE [facility]; Protocol Last Admin: 01/27/25 17:21 Dose: 2 unit Lamotrigine (Lamotrigine 25 Mg Tablet) 150 mg PO BEDTIME COUNT INCLUDES THE [facility] Last Admin: 01/26/25 21:05 Dose: Not Given Magnesium Hydroxide (Milk Of Magnesia 30 Ml Oral.Susp) 30 ml PO DAILY PRN PRN Reason: Constipation Memantine (Memantine Hcl 5 Mg Tablet) 5 mg PO DAILY COUNT INCLUDES THE [facility] Last Admin: 01/27/25 09:16 Dose: 5 mg Metoprolol Succinate (Metoprolol Succinate Er 50 Mg Tab.Er.24h) 50 mg PO DAILY COUNT INCLUDES THE [facility]; Protocol Last Admin: 01/27/25 06:17 Dose: 50 mg Montelukast Sodium (Montelukast Sodium 10 Mg Tablet) 10 mg PO DAILY PRN PRN Reason: asthma Naloxone HCl (Naloxone Hcl 0.4 Mg/Ml Vial) 0.04 mg IVPUSH Q5M PRN PRN Reason: Excessive sedation or RR < 8 Nicotine Polacrilex (Nicotine Polacrilex 2 Mg Gum) 4 mg BUCCAL Q2H PRN PRN Reason: Nicotine Cravings Last Admin: 01/17/25 17:00 Dose: 4 mg Omeprazole (Omeprazole 40 Mg Capsule.Dr) 40 mg PO DAILY@0630 PRN PRN Reason: ACID REFLUX Quetiapine Fumarate (Quetiapine Fumarate 25 Mg Tablet) 25 mg PO BEDTIME COUNT INCLUDES THE [facility] Last Admin: 01/26/25 21:32 Dose: 25 mg Temazepam (Temazepam 15 Mg Capsule) 30 mg PO BEDTIME COUNT INCLUDES THE [facility] Last Admin: 01/26/25 21:33 Dose: 30 mg Trazodone HCl (Trazodone Hcl 50 Mg Tablet) 50 mg PO BEDTIME MRX1 PRN PRN Reason: Insomnia Last Admin: 01/18/25 21:56 Dose: 50 mg Venlafaxine HCl (Venlafaxine Hcl Er 75 Mg Cap.Er.24h) 75 mg PO DAILY COUNT INCLUDES THE [facility] Last Admin: 01/27/25 09:15 Dose: 75 mg Zolpidem Tartrate (Zolpidem Tartrate 5 Mg Tablet) 5 mg PO BEDTIME [facility] Last Admin: 01/26/25 21:32 Dose: 5 mg Allergies Allergies Allergy/AdvReac Type Severity Reaction Status Date / Time prednisone [PREDNISONE] Allergy Mild RAGE Verified 01/16/25 12:36 lisinopril AdvReac Cough Verified 01/16/25 12:36 mirtazapine [From Remeron] AdvReac Unknown Verified 01/17/25 16:24 Assessment & Plan Assessment & Plan (1) Bipolar disorder: Status: Acute Code(s): F31.9 - Bipolar disorder, unspecified (2) MDD (major depressive disorder), recurrent episode, moderate: Status: Acute Code(s): F33.1 - Major depressive disorder, recurrent, moderate (3) Atrial fibrillation with rapid ventricular response: Status: Acute Code(s): I48.91 - Unspecified atrial fibrillation (4) COPD (chronic obstructive pulmonary disease): Status: Acute Code(s): J44.9 - Chronic obstructive pulmonary disease, unspecified (5) Diabetes: Status: Acute Code(s): E11.9 - Type 2 diabetes mellitus without complications Plan HPI: Hamlet is a 69-year-old white, , 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 PMH significant for COPD not on home O2, aortic aneurysm, paroxysmal AFib on Eliquis, insulin-dependent type 2 diabetes, HLD, HTN, tracheomalaci.He has a longstanding history of chronic/recurrent depression going back to 1981. He has received ECT treatment intermittently since 1983 and his last treatment was in September of this year at this hospital. He has had numerous psychiatric hospitalizations. He does have history of alcohol dependence but alcohol free since last fall. He does have suicidal ideations. He has had several overdoses in the s but denies any current plans or intent. He was recommended by his treating psychiatrist, Dr. Murillo to come here for ECT and was cleared for admission by Dr. Ojeda. Current medications include Klonopin 1 mg q.i.d., Lamictal 150 q.h.s., Seroquel 25 mg q.h.s., Effexor XR 75 mg daily, Ambien. He has been getting ketamine treatment. No access to firearms. Past Psychiatric History: Inpt: many in the past. Last one 2019 OP: Dr. Murillo [facility] course 01/19: Continue current plans and regimen, awaiting ECT 01/20 Patient in bed on approach. Patient explains reason for admission, saying that he was real depressed... And kind of suicidal. I was going to jump in front of a train. Patient [place] and [place]; it was about a half an hour until the next train arrived but he changed his mind, saying if he were to kill himself that is all that people would remember of him. When asked about suicidality now, he says kind of, yes... Patient wants ECT; however he also has an appointment to get his teeth put in January 28 which he does not want to miss. He is hoping he can get ECT and will be well enough by then to transition to outpatient ECT. He says his neighbor is willing to bring him 01/21 Met with patient; discussed with team; reviewed chart Patient shared about history: 2 years ago...and feeling very lonely I have not been out of bed in 5 days. Still some SI thoughts, kind of but less intense. -patient shared about history of manic episode: in , took Celexa or Remeron, got super happy, was just up..went on a train with 2 bottles of champaign...ended up in [facility]... took more when got home and again it made him hyper, talking non-stop, not eating, real hyper and ended up getting hospitalized... felt shaking throughout body and was talking up a storm Impression: Patient has history of only depression other than 1 manic episode which sounds to be truly manic and triggered by SSRI. Will change diagnosis to bipolar depression. Hesitant for this reason to go up on venlafaxine 01/23 mood improving and depression abating; no SI; continue ECT. 01/24 ECT today, but during ECT developed Afib, treated with metoprolol and afib resolved. Pt remains in much improved mood. Plan is for ECT on Monday -will not increase Venlafaxine due to afib and risk of increasing BP and since depression better 01/26 pt says having weird dreams which he says never happens. He said no SI at all...and says mood seems to be well... Feels good about ECT and plan 01/27 Patient had ECT this morning without any problems. Patient reports that his depression is mood is better and depression abating; denies any SI at all. Patient wants to discharge tomorrow and continue ECT as an outpatient; he will have his grandson transfer to inform ECT; family meeting tomorrow prior to discharge. Patient complained of some mild chest pain during the day that resolved on its own; EKG unconcerning; troponin x2 <35 Plan: CV Q 15 minute checks ECT for Monday -discussed with Dr. Murillo who agrees with plan Continue home meds: Continue venlafaxine ER 75 mg daily; this is a conversion for patient's home medication of venlafaxine Lamicatal 150mg qhs Hold bedtime dose night before ECT (Mon//) Clonazepam 1mg QID Hold bedtime dose night before ECT (Mon//) Hospitalist consult for ECT risk stratification. ECT risk stratification Pt reports undergoing ECT at least 15+ times in rebekah past since 1983 Session in 09/20/2024 complicated by AFib w/RVR Currently on metoprolol and in NSR, has underdone ECT since then without incident Hx of stable mild AAA, stable tracheomalacia EKG without ischemic changes RCRI 1 point, class I risk Based on PMH, HPI, and physical exam, there are no contraindications to the planned procedure Additional history: hx of 10 suicide attempts by overdose DesVenlafaxine been on for 3 years at current dose Lamcital for decades 150mg Med/treatment trials: ECT since 1983 Ketamine for 3 years Psylisbin best medication for depression every on; depression free for 10 years (0.5grams daily); not since 10 years valium Penton did not work Depakote Wellbutrin TCA's Seroquel at higher doses causes akathesia, spacey in the morning For 4 years, pt been on clonazepam 1mg QID calms it down hands tremor and stomach wiggles... Either Celexa or Remeron: hyperactive, manic episode in 90's, took Celexa or Remeron, got super happy, was just up..went on a train with 2 bottles of [place]...ended up in [facility]... took more when got home and again it made him hyper, talking non-stop, not eating, real hyper and ended up getting hospitalized... felt shaking throughout body and was talking up a storm never tried: radha Dodd Time Spent With Patient Time: Total time managing care of this patient today ____ minutes.
[2025-01-27] MEDS: lamoTRIgine 25 MG TABLET 150 MG PO (20:57)
[2025-01-27] MEDS: Zolpidem Tartrate 5 MG TABLET PO (20:57)
[2025-01-27] MEDS: QUEtiapine Fumarate 25 MG TABLET PO (20:57)
[2025-01-27] MEDS: Temazepam 15 MG CAPSULE 30 MG PO (20:58)
[2025-01-27] MEDS: hydroCHLOROthiazide 25 MG TABLET PO (20:58)
[2025-01-27 21:19] LABS: Glucose, Whole Blood 145 mg/dL (60-115)
[2025-01-27] MEDS: Insulin Glargine,Hum.rec.anlog 100 UNIT/ML 10 ML VIAL 70 UNIT SUBCUT (21:44)
[2025-01-28 07:45] LABS: Glucose, Whole Blood 164 mg/dL (60-115)
[2025-01-28 08:07] VITALS: BP 151/81; PULSE 62; TEMP 36.4; O2SAT 98
[2025-01-28] MEDS: Atorvastatin Calcium 40 MG TABLET PO (08:32)
[2025-01-28] MEDS: clonazePAM 1 MG TABLET PO ×2 (08:32→11:42)
[2025-01-28] MEDS: Insulin Lispro 100 UNIT/ML 3 ML VIAL SUBCUT ×2 (08:32→12:49)
[2025-01-28] MEDS: Memantine HCl 5 MG TABLET PO (08:32)
[2025-01-28] MEDS: Metoprolol Succinate ER 50 MG TAB.ER.24H PO (08:32)
[2025-01-28] MEDS: Venlafaxine HCl ER 75 MG CAP.ER.24H PO (08:33)
[2025-01-28] MEDS: Apixaban 5 MG TABLET PO (08:33)
[2025-01-28] MEDS: Fluticasone/Umeclidinium/Vilanterol 200/62.5/25 BLST.W.DEV 1 PUFF INHALE (09:16)
--- NOTE | 2025-01-28 10:41 | P.DS_ITS ---
DS: Providers Provider Date of Service: 01/28/25 Date of admission: 01/17/25 11:32 Date of discharge: 01/28/25 Primary care physician: Elier Covington MD Attending physician on admission: Beni Huerta Attending physician on discharge: Beni Huerta DS: Diagnosis Discharge Diagnosis (1) Bipolar disorder: Status: Acute (2) MDD (major depressive disorder), recurrent episode, moderate: Status: Acute (3) Atrial fibrillation with rapid ventricular response: Status: Acute (4) COPD (chronic obstructive pulmonary disease): Status: Acute (5) Diabetes: Status: Acute DS: Medications Discharge Medications Home Medications: Home Medications ?Medication ?Instructions ?Recorded ?Confirmed insulin glargine 100 unit/mL (3 70 unit subcut BEDTIME 07/22/20 01/16/25 mL) subcutaneous pen montelukast 10 mg tablet 10 mg PO DAILY PRN asthma 08/26/20 01/16/25 (Singulair) omeprazole 20 mg capsule,delayed 40 mg PO DAILY PRN Acid Reflux 10/14/20 01/16/25 release atorvastatin 40 mg tablet 40 mg PO DAILY 09/17/24 01/16/25 dulaglutide 3 mg/0.5 mL 1.5 mg subcut CLARK@0900 09/17/24 01/16/25 subcutaneous pen injector (Trulicity) fluticasone fur. 200 mcg-umeclid 1 ea inhalation DAILY 09/17/24 01/16/25 62.5 mcg-vilant 25 mcg inhalat.powder (Trelegy Ellipta) quetiapine 25 mg tablet 25 mg PO BEDTIME 09/17/24 01/16/25 chlorthalidone 25 mg tablet 25 mg PO BEDTIME 09/30/24 01/16/25 clonazepam 1 mg tablet 1 mg PO QID 01/16/25 01/16/25 desvenlafaxine succinate 50 mg 50 mg PO DAILY 01/16/25 01/16/25 tablet,extended release 24 hr lamotrigine 150 mg tablet 150 mg PO DAILY 01/16/25 01/16/25 memantine 5 mg tablet 5 mg PO DAILY 01/16/25 01/16/25 triazolam 0.25 mg tablet 0.25 mg PO BEDTIME 01/16/25 01/16/25 zolpidem 12.5 mg tablet,extended 12.5 mg PO BEDTIME 01/16/25 01/16/25 release,multiphase Previous Rx's ?Medication ?Instructions ?Recorded apixaban 5 mg tablet (Eliquis) 5 mg PO BID #180 tabs 10/01/24 metoprolol succinate 50 mg 50 mg PO DAILY #90 tabs 10/04/24 tablet,extended release 24 hr Data Data Completed and Pending Completed studies during hospitalization [Text1]: 01/21/25 01/21/25 01/21/25 12:28 16:46 20:11 POC Glucose 195 H 214 H 175 H Troponin I High Sens 01/22/25 01/22/25 01/22/25 09:00 12:06 16:55 POC Glucose 95 134 H 245 H Troponin I High Sens 01/22/25 01/23/25 01/23/25 21:00 07:39 11:42 POC Glucose 190 H 143 H 272 H Troponin I High Sens 01/23/25 01/23/25 01/24/25 17:30 21:06 07:05 POC Glucose 232 H 308 H 98 Troponin I High Sens 01/24/25 01/24/25 01/24/25 12:19 17:00 20:28 POC Glucose 256 H 173 H 226 H Troponin I High Sens 01/25/25 01/25/25 01/25/25 07:39 12:01 16:59 POC Glucose 125 H 268 H 173 H Troponin I High Sens 01/25/25 01/26/25 01/26/25 20:59 08:00 11:48 POC Glucose 170 H 97 211 H Troponin I High Sens 01/26/25 01/26/25 01/27/25 16:58 20:38 06:37 POC Glucose 233 H 177 H 74 Troponin I High Sens 01/27/25 01/27/25 01/27/25 08:52 12:17 12:19 POC Glucose 151 H 206 H Troponin I High Sens 28.2 D 01/27/25 01/27/25 01/27/25 16:48 16:50 21:15 POC Glucose 165 H 145 H Troponin I High Sens 31.0 01/28/25 07:40 POC Glucose 164 H Troponin I High Sens Imaging Diagnostic Imaging Impressions Chest X-Ray 01/16/25 13:26 IMPRESSION: 1. Suggestion of mild small airway thickening in the mid and lower lungs. Findings may represent inflammatory/reactive airways disease. 2. No focal pneumonia or effusion. Electronically signed by: Kedar Calle MD 01/16/2025 01:55 PM EDT DS: Summary Time Spent with Patient Time attestation: Total time managing care of this patient today ____ minutes. Discharge Plan Discharge Anticipated Discharge Date/Time: 01/28/25 11:00 Patient Disposition: Home, Self-Care Discharge Diagnosis: Bipolar disorder, unspecified (provisional; predominantly depressive) Referrals: Marta Stones: Jay Murillo (psychiatry) [Other] - 02/05/25 1:40 pm (Hospital Discharge Appointment with psychiatric medication provider In Office Appointment ) Elier Covington MD [Primary Care Provider] - 1 Week Discharge Medications: Continued metoprolol succinate 50 mg tablet extended release 24 hr 50 mg PO DAILY Qty: 90 1RF montelukast [Singulair] 10 mg Tablet 10 mg PO DAILY PRN (Reason: asthma) clonazepam 1 mg tablet 1 mg PO QID lamotrigine 150 mg tablet 150 mg PO DAILY triazolam 0.25 mg tablet 0.25 mg PO BEDTIME memantine 5 mg tablet 5 mg PO DAILY zolpidem 12.5 mg tablet,ext release multiphase 12.5 mg PO BEDTIME desvenlafaxine succinate 50 mg tablet extended release 24 hr 50 mg PO DAILY atorvastatin 40 mg tablet 40 mg PO DAILY quetiapine 25 mg tablet 25 mg PO BEDTIME Trulicity 3 mg/0.5 mL pen injector 1.5 mg subcut CLARK@0900 Trelegy Ellipta 200-62.5-25 mcg blister with device 1 ea INHALATION DAILY chlorthalidone 25 mg tablet 25 mg PO BEDTIME Eliquis 5 mg tablet 5 mg PO BID Qty: 180 0RF insulin glargine 100 unit/mL (3 mL) insulin pen 70 unit subcut BEDTIME omeprazole 20 mg capsule,delayed release(DR/EC) 40 mg PO DAILY PRN (Reason: Acid Reflux) Discontinued nicotine 21 mg/24 hr Patch 24 Hour 21 mg transdermal DAILY Qty: 0 0RF Discharge Orders: Discharge Order (Routine); Ordered 01/28/25 Ordered By: Beni Huerta Diet: Diabetic diet Activity on Discharge: As tolerated Stand Alone Forms: Patient Portal Discharge page Print Language: Icelandic Care Plan Goals: Maintain mood and safe behaviors Take medications as prescribed Continue to pursue sobriety Practice coping skills Continue with outpatient providers and reach out to them as needed Health Concerns: Mood stability and behaviors Paroxysmal Afib Aortic aneurysm Hypertension Diabetes, on insulin Hyperlipidemia History of asthma/COPD Plan of Treatment: Follow up with your PCP, psychiatric provider and other outpatient providers regarding above concerns Take medications as prescribed ECT SCHEDULED FOR 01/29/25 Assessment: Risk assessment at time of discharge:? Patient was interviewed prior to discharge and found to be fully oriented and without any SI or HI. Patient has improved insight and judgment and wants to continue treatment. Patient is not in imminent risk of harm to self or others and has a safety plan that includes presenting to the closest ER or calling 911 if feeling unsafe.? Patient has been observed closely by nursing and unit staff throughout admission; patient has not engaged in any behaviors that suggest dangerousness to self or others and has demonstrated appropriate behaviors and impulse control
[2025-01-28 12:38] LABS: Glucose, Whole Blood 153 mg/dL (60-115)
== END 2025-01-28 15:25 | disposition home or self-care (01) | DRG 885 ==
LOC: HO.ED 15:19 → HO.PM5 01-17 11:48
PROVIDERS: Psychiatry & Neurology Psychiatry; Registered Nurse Emergency; Admitting Provider Psychiatry & Neurology Psychiatry; Emergency Provider Emergency Medicine; PCP Internal Medicine; Visit Provider Psychiatry & Neurology Psychiatry
PROC: GZB4ZZZ Other Electroconvulsive Therapy (ICD-10-PCS; CPT 90870; principal; 2025-01-22 07:30)
DX: F31.9 Bipolar disorder, unspecified (principal); R45.851 Suicidal ideations; F17.210 Nicotine dependence, cigarettes, uncomplicated; I48.0 Paroxysmal atrial fibrillation; I48.91 Unspecified atrial fibrillation; J44.9 Chronic obstructive pulmonary disease, unspecified; Z20.822 Contact with and (suspected) exposure to COVID-19; Z71.6 Tobacco abuse counseling; Z79.4 Long term (current) use of insulin; Z79.01 Long term (current) use of anticoagulants; Z79.85 Long-term (current) use of injectable non-insulin antidiabetic drugs; Z79.899 Other long term (current) drug therapy
CPT/HCPCS: 0241U; 36415; 71046; 80053; 80061; 80307; 81001; 82947; 83036; 84443; 84484; 85025; 90870; 93005; 99285; J0330; J1596; J1805; J1885; J2704; J7120; S9485

== ENCOUNTER → 2025-01-16 13:26 | Outpatient (BNV) | payer MEDICARE, SELFPAY | PROVIDERS: Emergency Provider Emergency Medicine; PCP Internal Medicine; Visit Provider Radiology Diagnostic Radiology | DX: R06.2 Wheezing (principal) | CPT/HCPCS: 71046 ==

== ENCOUNTER → 2025-01-16 13:26 | Outpatient (BNV) | payer MEDICARE, SELFPAY | PROVIDERS: Emergency Provider Emergency Medicine; PCP Internal Medicine; Visit Provider Internal Medicine Cardiovascular Disease | DX: Z13.6 Encounter for screening for cardiovascular disorders (principal) | CPT/HCPCS: 93010 ==

== ENCOUNTER 2025-01-17 11:32 | Outpatient (BNV) | payer MEDICARE, SELFPAY | END 2025-01-24 08:55 | PROVIDERS: Admitting Provider Psychiatry & Neurology Psychiatry; Emergency Provider Emergency Medicine; PCP Internal Medicine; Visit Provider Internal Medicine | DX: I48.91 Unspecified atrial fibrillation (principal); R00.1 Bradycardia, unspecified | CPT/HCPCS: 93010 ==

== ENCOUNTER 2025-01-17 11:32 | Outpatient (BNV) | payer MEDICARE, SELFPAY | END 2025-01-27 12:19 | PROVIDERS: Admitting Provider Psychiatry & Neurology Psychiatry; Emergency Provider Emergency Medicine; PCP Internal Medicine; Visit Provider Internal Medicine Cardiovascular Disease | DX: R07.9 Chest pain, unspecified (principal) | CPT/HCPCS: 93010 ==

== ENCOUNTER → 2025-01-17 11:32 | Outpatient (BNV) | payer MEDICARE, SELFPAY | PROVIDERS: Admitting Provider Psychiatry & Neurology Psychiatry; Emergency Provider Emergency Medicine; PCP Internal Medicine; Visit Provider Psychiatry & Neurology Psychiatry | DX: F31.4 Bipolar disorder, current episode depressed, severe, without psychotic features (principal); I48.91 Unspecified atrial fibrillation; J44.9 Chronic obstructive pulmonary disease, unspecified | CPT/HCPCS: 90792; 99231; 99232 ==

== ENCOUNTER → 2025-01-17 11:32 | Outpatient (BNV) | payer MEDICARE, SELFPAY | PROVIDERS: Admitting Provider Psychiatry & Neurology Psychiatry; Emergency Provider Emergency Medicine; PCP Internal Medicine; Visit Provider Psychiatry & Neurology Psychiatry | DX: F33.2 Major depressive disorder, recurrent severe without psychotic features (principal) | CPT/HCPCS: 90870 ==

== ENCOUNTER → 2025-01-17 11:32 | Outpatient (BNV) | payer MEDICARE, SELFPAY | PROVIDERS: Admitting Provider Psychiatry & Neurology Psychiatry; Emergency Provider Emergency Medicine; PCP Internal Medicine; Visit Provider Student in an Organized Health Care Education/Training Program | DX: Z01.818 Encounter for other preprocedural examination (principal) | CPT/HCPCS: 99222; 99499 ==

== ENCOUNTER 2025-02-07 05:51 | Day surgery (SDC) | payer MEDICARE, SELFPAY ==
--- OUTSIDE RECORDS SUMMARY | 2025-01-27 15:33 | XMS_ITS | Encounter Summary ---
Author Organization [facility] Address [address] [place] [address] Care Team Providers Care Missile Inspector Name Role Phone Elier Covington MD Primary Care Provider [phone] Julian Rivas MD Unavailable [phone] Julian Rivas MD Unavailable [phone] Encounter Details Date Type Department Care Team (Late st Contact Info) Description 09/22/2023 Refill [facility] [address] [address] Lucero Cesar PA-C [address] [place] [id number] Social History Tobacco Use Types Packs/Day Years [...] on filedocumented in this encounter Care Teams Missile Inspector Relationship Specialty Start Date End Date Elier Covington MD [address] [place] [address] PCP - General Internal Medicine 05/15/18 Julian Rivas MD [address] [place] [address] Cardiovascular Disease 07/27/20 Julian Rivas MD [address] [place] [address] Primary Freight Rate Analyst Cardiovascular Disease 11/23/23 documented as of this encounter
--- OUTSIDE RECORDS SUMMARY | 2025-01-27 15:33 | XMS_ITS | Encounter Summary ---
Author Organization [facility] Address [address] [place] [address] Care Team Providers Care Make Ready Worker Name Role Phone Elier Covington MD Primary Care Provider [phone] Julian Rivas MD Unavailable [phone] Julian Rivas MD Unavailable [phone] Encounter Details Date Type Department Care Team (Late st Contact Info) Description 01/23/2021 Lab Requisition [facility] [address] [place] [address] Ant Denson MD [address] [place] [address] Encounter for laboratory testing for COVID-19 virus [...] Detected Not Detected 01/23/2021 10:49 AM EDT [facility] Comment: Negative results do [...] was completed and performance characteristics established by [facility] as per the FDA and CLIA requirement for this EUA. The Aptima SARS-CoV-2 assay Letter of Authorization, along with the authorized Fact Sheet for Healthcare Providers, the authorized Fact Sheet for Patients, and authorized labeling are available on the FDA website: https://www.fda.gov/medical-devices/auppzufja-bbxnbucvjp-qgavkbh-devices/emergen -us k-launyodcrjlrlt-eqlqavo-devices. Performed at [facility], [place], [place] ??CT License [id number] ??CLIA [id number] Source Nasopharyngeal 01/23/2021 10:49 AM EDT [facility] Comment:Performed at [facility], [place], [place] license No. [id number] CLIA No. [id number] Microbiology Nasopharyngeal swab / Unknown 01/23/2021 9:49 AM EDT 01/23/2021 9:49 AM EDT us Ant Denson MD MICROBIOLOGY - GENERAL ORDER LESTER Final Result [facility] [address] [place] [address] documented in this encounter Visit Diagnoses Diagnosis Encounter for laboratory testing for COVID-19 virus documented in this encounter Care Teams Make Ready Worker Relationship Specialty Start Date End Date Elier Covington MD [address] [place] [address] PCP - General Internal Medicine 05/15/18 Julian Rivas MD [address] [place] [address] Cardiovascular Disease 07/27/20 Julian Rivas MD [address] [place] [address] Primary Incinerator Plant Supervisor Cardiovascular Disease 11/23/23 documented as of this encounter
--- OUTSIDE RECORDS SUMMARY | 2025-01-27 15:34 | XMS_ITS | Encounter Summary ---
Author Organization [facility] Address [address] [place] [address] Care Team Providers Care Chemical Checker Name Role Phone Elier Covington MD Primary Care Provider [phone] Julian Rivas MD Unavailable [phone] Julian Rivas MD Unavailable [phone] Reason for Visit * Reason Comments Other Questions regarding surgery Encounter Details Date Type Department Care Team (Late st Contact Info) Description 12/07/2021 Telephone [facility] Thoracic Surgery [place] [address] [facility] [address] [place] [address] Sebastian Greene MD 85 [facility] [address] [place] [address] Other (Questions regarding surgery) Social [...] on filedocumented in this encounter Care Teams Chemical Checker Relationship Specialty Start Date End Date Elier Covington MD [address] [place] [address] PCP - General Internal Medicine 05/15/18 Julian Rivas MD [address] [place], [place] [id number] Cardiovascular Disease 07/27/20 Julian Rivas MD [address] [place] [address] Primary Calendar Control Clerk Blood Bank Cardiovascular Disease 11/23/23 documented as of this encounter
--- OUTSIDE RECORDS SUMMARY | 2025-01-27 15:34 | XMS_ITS | Encounter Summary ---
Author Organization [facility] Address [address] [place] [address] Care Team Providers Care Checker/Stocker Name Role Phone Elier Covington MD Primary Care Provider [phone] Julian Rivas MD Unavailable [phone] Julian Rivas MD Unavailable [phone] Reason for Visit * Reason Comments Medication Refill Encounter Details Date Type Department Care Team (Late st Contact Info) Description 11/28/2020 Refill [facility] Thoracic Surgery [address] [place] [phone] Sebastian Greene MD 85 [facility] [address] [place] [address] Tracheomalacia, acquired Social History Tobacco Use Types [...] to be managed by pt's PCP or Upholstery Restorer per Dr. Greene documented in this encounter Plan of Treatment Not on file documented as of this encounter Visit Diagnoses Diagnosis Tracheomalacia, acquired documented in this encounter Care Teams Checker/Stocker Relationship Specialty Start Date End Date Elier Covington MD [address] [place] [address] PCP - General Internal Medicine 05/15/18 Julian Rivas MD [address] [place] [address] Cardiovascular Disease 07/27/20 Julian Rivas MD [address] [place] [address] Primary Technology Sales Representative Cardiovascular Disease 11/23/23 documented as of this encounter
--- OUTSIDE RECORDS SUMMARY | 2025-01-27 15:34 | XMS_ITS | Clinical Summary ---
Author Organization [facility] Address [address] [place] [address] Care Team Providers Care Logistics/Shipper Name Role Phone Elier Covington Primary Care Provider [phone] Allergies No known active allergies Medications Insulin [...] topic Zoster (Zostavax) Discontinued Insurance * Guarantor: [id number] Account Type Relation to Patient Date of Phone Billing Address Worker's Comp [address] [place] [address] WORKERS COMPENSATION * Guarantor: [employer] Account Type Relation to Patient Date of Phone Billing Address [facility] ATTN: A/P DEPT 2ND FLR [address] [facility] [place] [address] Care Teams Logistics/Shipper Relationship Specialty Start Date End Date Elier Covington [facility] [address] [place], [place] [id number] PCP - General Internal Medicine 11/27/17
--- OUTSIDE RECORDS SUMMARY | 2025-01-27 15:34 | XMS_ITS | Encounter Summary ---
Author Organization [facility] Address [address] [place] [address] Care Team Providers Care Medical Office Asst Name Role Phone Elier Covington MD Primary Care Provider [phone] Julian Rivas MD Unavailable [phone] Julian Rivas MD Unavailable [phone] Encounter Details Date Type Department Care Team (Late st Contact Info) Description 08/14/2020 Scanned Document [facility] PULMONOLGY SCAN Provider, MD Ashish [address] [place] [address] Social History Tobacco Use Types Packs/Day Years [...] on filedocumented in this encounter Care Teams Medical Office Asst Relationship Specialty Start Date End Date Elier Covington MD [address] [place] [address] PCP - General Internal Medicine 05/15/18 Julian Rivas MD [address] [place] [address] Cardiovascular Disease 07/27/20 Julian Rivas MD [address] [place] [address] Primary Platform Inspector Cardiovascular Disease 11/23/23 documented as of this encounter
--- OUTSIDE RECORDS SUMMARY | 2025-01-27 15:34 | XMS_ITS | Clinical Summary ---
Author Organization [employer] [facility] Address [address] [facility] 7t [place] [address] Care Team Providers Care Crane Crew Supervisor Name Role Phone Unavailable Primary Care Provider [...] Description 02/19/2025 1:00 PM EDT Office Visit [facility] [address] [place] [phone] Shira Tomas [address] [place], [place] [phone] Health Maintenance Due Date Last Done Comments [...] DENTAL - HSN FULL (MEDICAID) [place] [phone]
--- OUTSIDE RECORDS SUMMARY | 2025-01-27 15:34 | XMS_ITS | Encounter Summary ---
Author Organization [facility] Address [address] [place] [address] Care Team Providers Care Manager Of Environmental Services Name Role Phone Eiler Covington MD Primary Care Provider [phone] Julian Rivas MD Unavailable [phone] Julian Rivas MD Unavailable [phone] Encounter Details Date Type Department Care Team (Late st Contact Info) Description 09/14/2021 Telephone [facility] Pulmonary [place] [address] [place] [address] Glenn Olivas, DO [address] [address] Social History Tobacco Use Types Packs/Day Years [...] on filedocumented in this encounter Care Teams Manager Of Environmental Services Relationship Specialty Start Date End Date Elier Covington MD [address] [place] [address] PCP - General Internal Medicine 05/15/18 Julian Rivas MD [address] [place] [address] Cardiovascular Disease 07/27/20 Julian Rivas MD [address] [place] [address] Primary Heading And Priming Tool Setter Cardiovascular Disease 11/23/23 documented as of this encounter
--- OUTSIDE RECORDS SUMMARY | 2025-01-27 15:34 | XMS_ITS | Clinical Summary ---
Author Organization [facility] Address [address] [place] [address] Care Team Providers Care Missionary Coordinator Name Role Phone Elier Covington MD Primary Care Provider [phone] Julian Rivas MD Unavailable [phone] Julian Rivas MD Unavailable [phone] Allergies Active Allergy Reactions Criticality Noted [...] MG tablet Take by mouth nightly. 03/15/20 Active gabapentin (NEURONTIN) 300 MG capsuleIndicatio ns:Left foot pain,Displaced fracture of proximal phalanx of left great toe, initial encounter for closed fracture TAKE 1 CAPSULE BY MOUTH THREE TIMES A DAY 90 capsule 04/01/20 Active benzonatate (TESSALON) 200 MG capsuleIndicatio ns:Tracheomalaci a Take 1 capsule (200 mg total) by mouth 3 (three) times a day as needed for cough. 20 capsule 1 08/02/20 Active Additional Information Patient taking differently:200 mg [...] MG Dose, 28 MG/DEVICE nasal spray 08/01/20 Active Trulicity 1.5 MG/0.5ML prefilled pen injection INJECT 0.5 ML SUBCUTANEOUSLY EVERY WEEK, ROTATE INJECTION SITES (PLEASE CALL FOR APPT) 12/03/19 25 025 Discontin ued(Patie nt Discharge ) metoPROLOL SUCCINATE (TOPROL-XL) 50 MG 24 hr tablet Take 1 tablet (50 mg total) by mouth every morning. 10/04/192 025 Discontin ued(Patie nt Discharge ) lamoTRIgine (LaMICtal) 150 MG tablet 1 tablet (150 mg total) by Mouth/Oral Cavity route every 12 hours. 11/04/19 25 025 Discontin ued(Patie nt Discharge ) Active [...] Description 12/27/2024 Travel 12/23/2024 Prep for Surgery [facility] Thoracic Surgery [facility] [address] [place] [address] Nichole Sadler PA 12/12/2024 Telephone [address] [place] [place] [address] Sebastian Greene MD Procedure from [...] this topic Medical Devices Implanted Type Area Associate Pathologist Device Identifier Shelf Expiration Date Model / Serial / Lot Screw Bone 75mm Ss 16mm 6.5mm 7.5mm Compression Slftp Self - [id number] Implanted:Qty: 1 on 06/07/2018 by Ren Kennedy MD at [facility] Screw DEPUY JOINT RECONSTRUCTION - A 5 / / Screw Bone 80mm Ss 32mm 6.5mm 7.5mm Compression Slftp Self - [id number] Implanted:Qty: 1 on 06/07/2018 by Ren Kennedy MD at [facility] Screw DEPUY JOINT RECONSTRUCTION - A 0 / / Filler Bone Void 5cc 1.7-10mm Canc Algrf Chp Frzdr Julian - [id number] Implanted:Qty: 1 on 06/07/2018 by Ren Kennedy MD at [facility] Void Filler Left: Foot MUSCULOSKELETAL TRANSPLANT FOU 02/01/2021 [id number] / [id number] / Y Stent [employer] [id number] Implanted:Qty: 1 on 12/13/2021 by Sebastian Greene MD at [facility] UNKNOWN [id number] / / Description:Implant brought in by Dr. Rey, no stickers present, no expiration present -[id number] Ref:[id number] Size: 15-09-12 Procedures Procedure Name Priority Date/Time Associated Diagnosis [...] EST) Glucose 133 65 - 139 mg/dL [facility] Comment: ? Non-fasting reference interval Blood Urea Nitrogen (BUN) 23 7 - 25 mg/dL [facility] Creatinine 1.36(H) 0.70 - 1.25 mg/dL [facility] Comment: For patients >49 years of age, the reference limit for Creatinine is approximately 13% higher for people identified as -Gambian. eGFR Non- 54(L) > OR = 60 mL/min/1. 73m2 [facility] eGFR 63 > OR = 60 mL/min/1. 73m2 [facility] BUN/Creatinine Ratio 17 6 - 22 (calc) [facility] Sodium 136 135 - 146 mmol/L [facility] Potassium 4.1 3.5 - 5.3 mmol/L [facility] Chloride 103 98 - 110 mmol/L [facility] CO2 23 20 - 32 mmol/L [facility] Calcium 9.4 8.6 - 10.3 mg/dL [facility] Blood specimen (specimen) Blood specimen / Unknown 11/06/2021 9:27 AM EST 11/06/2021 9:28 AM EST Narrative [facility] - 11/07/2021 6:15 AM EST FASTING:NO FASTING: NO us Sebastian Greene MD LAB BLOOD ORDERABLES Final Res ult [facility] [address] [place] [address], [place] [address] * (ABNORMAL) Hemoglobin A1c with Estimated Average Glucose (05/23/2018 1:25 PM EDT) Hemoglobin A1C 5.9(H) <5.7 % [facility] Comment: A1c% ? Interpretation 5.7 - 6.0 ?Increase risk of diabetes 6.1 - 6.4 ?Higher risk of diabetes > or = 6.5 ?? Consistent with diabetes Diabetes Care, 33(Supp 1):S1-S61, 2010 Estimated Average Glucose 123 mg/dL [facility] Comment:Performed at [facility], [facility], [place] license No. [id number] CLIA No. [id number] 05/23/2018 1:25 PM EDT 05/23/2018 5:22 PM EDT us Richelle Hart APRN LAB BLOOD ORDERABLES Fin al Result HOSPITAL LAB from Last 3 Months or Most Recently Relevant to Health Maintenance Insurance [facility] MEDICARE [facility] MEDICARE [facility] MEDICARE Advance Directives * Full Code (Latest [...] 5:33 AM 01/27/2021 12:00 PM Care Teams Missionary Coordinator Relationship Specialty Start Date End Date Elier Covington MD [address] [place] [address] [place] [id number] PCP - General Internal Medicine 05/15/18 Julian Rivas MD [address] [place] [address] Cardiovascular Disease 07/27/20 Julian Rivas MD [address] [place] [address] Primary Metal Worker Cardiovascular Disease 11/23/23
--- OUTSIDE RECORDS SUMMARY | 2025-01-27 15:34 | XMS_ITS | Clinical Summary ---
Author Organization [facility] [address] [facility] Address [address] [place] [address] Phone Care Team Providers Care Refrigerator Glazier Name Role Phone Natalia Velazquez NP Primary Care Provider [phone] Social History Tobacco Use Types Packs/Day Years [...] MEDICARE ADVANTAGE [place]ICA[place] - [place] Care Teams Refrigerator Glazier Relationship Specialty Start Date End Date Natalia Velazquez NP PCP - General Internal Medicine 09/09/24
--- OUTSIDE RECORDS SUMMARY | 2025-01-27 15:34 | XMS_ITS | Encounter Summary ---
Author Organization [facility] Address [address] [place] [address] Care Team Providers Care Clothing Cutter Name Role Phone Elier Covington MD Primary Care Provider [phone] Julian Rivas MD Unavailable [phone] Julian Rivas MD Unavailable [phone] Reason for Visit * Reason Comments Appointment Encounter Details Date Type Department Care Team (Late st Contact Info) Description 08/17/2021 Telephone [facility] Thoracic Surgery [address] [place] [phone] Sebastian Greene MD [address] [facility] [address] [place], [place] [id number] Appointment Social History Tobacco Use Types Packs/Day [...] on filedocumented in this encounter Care Teams Clothing Cutter Relationship Specialty Start Date End Date Elier Covington MD [address] [place] [address] PCP - General Internal Medicine 05/15/18 Julian Rivas MD [address] [place] [address] Cardiovascular Disease 07/27/20 Julian Rivas MD [address] [place] [address] Primary Heavy Duty Diesel Mechanic Cardiovascular Disease 11/23/23 documented as of this encounter
[2025-02-07] VITALS (7 sets, daily range): BP systolic 146–170; BP diastolic 80–97; PULSE 74–97; RESP 16–20; TEMP 36.3–37.1; O2SAT 96–100; BMI 25.5
[2025-02-07 06:48] LABS: Glucose, Whole Blood 117 mg/dL (60-115)
[2025-02-07] MEDS: Lactated Ringers 1,000 ML 100 ML IVCONT (06:48)
--- NOTE | 2025-02-07 07:09 | MHC.SHP ---
Pre-Procedural Eval Section A - 24 Hr Update-Section A only Date of Service: 02/07/25 The patient is an INPATIENT: No Changes since office visit: Yes New Medical Problems, Yes Changes in Medication and Yes Patient answered all questions; No Cold of Flu in the past 2 weeks The patient has been examined within 24 hours of the surgical procedure. The History & Physical has been completed within 30 days and I have reviewed it.: Yes Section B - Complete if H&P > 30 days Chief Complaint: depression Details of Present Illness: recurrent depression Allergies: Allergies Allergy/AdvReac Type Severity Reaction Status Date / Time prednisone [PREDNISONE] Allergy Mild RAGE Verified 02/07/25 06:31 lisinopril AdvReac Cough Verified 02/07/25 06:31 mirtazapine [From Remeron] AdvReac Unknown Verified 02/07/25 06:31 Review of Systems Sugical H&P ROS: Negative: Respiratory, Neurological, Gastrointestinal and Genitourinary Exam Surgical H&P Exam: Normal: Heart, Normal: Lungs and Normal: Abdomen Plan Diagnosis/Plan: Unchanged I have reviewed the history and physical and performed a pertinent physical examination on my patient. No changes have occurred unless specified. Time Spent With Patient Time: Total time managing care of this patient today ____ minutes.
--- NOTE | 2025-02-07 07:17 | HO.ECTPROC ---
ECT Procedure Note Diagnosis/Treatment Date of Service: 02/07/25 Diagnosis: Bipolar disorder Previous ECT Date: 01/27/25 Current Treatment Number: 4 Treatment: Series Interval Clinical Notes: Patient returns for a maintenance treatment at the recommendation of his psychiatrist Dr. Murillo. He is taking ketamine. His mood does seem significantly improved he did take metoprolol at home prior to treatment as per protocol. He does have problems with transportation we discussed a follow-up maintenance treatment in 2 weeks Time: Total time managing care of this patient today _30___ minutes. ECT Settings Device: THYMATRON DGx Electrode Placement: Right Unilateral Program/Pulse Width: 0.50 Energy Percent: 85 Seizure Duration By EEG (in seconds): 33 Medications Administration General Anesthetic: Etomidate (16) Muscle Relaxant: Succinylcholine (100) Airway Management Airway Management: LMA Treatment Recommendations Energy Percent: 100 Notes: Patient had transient bradycardia discussed with anesthesia given fact that patient had AFib previously would avoid Robinul have available if needed Bradycardia transient blood pressure remained stable follow-up 2 weeks . Patient to call if symptomatic earlier however has difficulty getting transportation Pt Tolerated Procedure w/o Issue: Yes
--- NOTE | 2025-02-07 09:27 | HO.ANESPROP2 ---
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) 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 (Acute) Chest pain (Acute) COPD (chronic obstructive pulmonary disease) (Acute) Tracheobronchomalacia (Acute) Past Medical History Medical History Bipolar disorder Diabetes GERD (gastroesophageal reflux disease) Hepatitis Depression HTN (hypertension) Chronic pain syndrome Intercostal neuralgia 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 Chest pain COPD (chronic obstructive pulmonary disease) Tracheobronchomalacia Functional capacity: independent ambulation Family History Family History Other HTN (hypertension) Family history of problems with anesthesia: No Surgical History History of Problems with Anesthesia: No Social History Social History Household Members: None Housing: Condominium Unable to assess alcohol history related to: Unknown Alcohol intake: current Alcohol intake frequency: does not drink Patient Tobacco Use Status: Current everyday Tobacco user Tobacco use type: Cigarette Cigarette Packs Per Day: 0.5 Cigarettes Per Day: 10.0 Years Smoked: 15 Smoked in Last 30 Days: Yes Use of substances other than those prescribed or required for medical reasons: No Substance Use Type: Caffiene Have you been hit, kicked, punched, or otherwise hurt by someone within the past year? If so, by whom?: No Are you DNR?: No Advance Directives Information Provided: Yes service: Yes Sexual orientation: Straight/Heterosexual Meds Allergies Allergy/AdvReac Type Severity Reaction Status Date / Time prednisone [PREDNISONE] Allergy Mild RAGE Verified 02/07/25 06:31 lisinopril AdvReac Cough Verified 02/07/25 06:31 mirtazapine [From Remeron] AdvReac Unknown Verified 02/07/25 06:31 Home Medications ?Medication ?Instructions ?Recorded ?Confirmed ?Last Taken ?Type insulin glargine 100 unit/mL (3 70 unit subcut BEDTIME 07/22/20 02/07/25 1 Day Ago History mL) subcutaneous pen ~01/15/25 montelukast 10 mg tablet 10 mg PO DAILY PRN asthma 08/26/20 02/07/25 08/26/20 04:10 History (Singulair) omeprazole 20 mg capsule,delayed 40 mg PO DAILY PRN Acid Reflux 10/14/20 02/07/25 Unknown History release atorvastatin 40 mg tablet 40 mg PO DAILY 09/17/24 02/07/25 1 Day Ago History ~01/15/25 dulaglutide 3 mg/0.5 mL 1.5 mg subcut CLARK@0900 09/17/24 02/07/25 01/05/25 History subcutaneous pen injector (Trulicity) fluticasone fur. 200 mcg-umeclid 1 ea inhalation DAILY 09/17/24 02/07/25 1 Day Ago History 62.5 mcg-vilant 25 mcg ~01/15/25 inhalat.powder (Trelegy Ellipta) quetiapine 25 mg tablet 25 mg PO BEDTIME 09/17/24 02/07/25 1 Day Ago History ~01/15/25 chlorthalidone 25 mg tablet 25 mg PO BEDTIME 09/30/24 02/07/25 1 Day Ago History ~01/15/25 clonazepam 1 mg tablet 1 mg PO QID 01/16/25 02/07/25 1 Day Ago History ~01/15/25 desvenlafaxine succinate 50 mg 50 mg PO DAILY 01/16/25 02/07/25 1 Day Ago History tablet,extended release 24 hr ~01/15/25 lamotrigine 150 mg tablet 150 mg PO DAILY 01/16/25 02/07/25 1 Day Ago History ~01/15/25 triazolam 0.25 mg tablet 0.25 mg PO BEDTIME 01/16/25 02/07/25 1 Day Ago History ~01/15/25 zolpidem 12.5 mg tablet,extended 12.5 mg PO BEDTIME 01/16/25 02/07/25 1 Day Ago History release,multiphase ~01/15/25 Exam Height,Weight and Vital Signs: Height 6 ft Weight 85.275 kg Last Vital Signs Temp 98.7 F 02/07/25 07:44 Pulse 74 02/07/25 08:25 Resp 19 02/07/25 08:25 BP 159/85 H 02/07/25 08:25 Pulse Ox 97 02/07/25 08:25 O2 Del Method Nasal Cannula with Capnography 02/07/25 08:25 O2 Flow Rate 2 02/07/25 08:25 Pertinent Lab Results Pertinent Lab Results: Laboratory Tests 02/07/25 06:45 POC Glucose 117 H Airway Mallampati Class: IV TM Dist: >3cm Neck ROM: Full Heart: RRR Lungs: CTA Assessment and Plan Assessment Anesthesia Assessment: Anesthesia Plan Discussed and Chart Reviewed Final Anesthetic Review Family History of Problems with Anesthesia: No History of Problems with Anesthesia: No NPO: Yes ASA Class: III Final Preanesthetic Review: Meds/Allgs Chart Reviewed, Consent Obtained/Reviewed and Anes Risks/Benef Reviewed Patient Risk: Intermediate Procedure Risk: Intermediate Anesthetic Plan Anesthetic Plan: GA Disposition: Standard PACU
--- NOTE | 2025-02-07 09:29 | HO.POSTANES ---
Post Anesthesia Evaluation Post Anesthesia Evaluation Date of Service: 02/07/25 Vital Signs: Vital Signs Temp Pulse Resp BP Pulse Ox O2 Del Method O2 Flow Rate 02/07/25 08:25 74 19 159/85 H 97 Nasal Cannula with ETCO2 2 02/07/25 08:10 75 20 170/91 H 97 Nasal Cannula with ETCO2 2 02/07/25 07:55 74 20 147/86 H 97 Nasal Cannula with ETCO2 2 02/07/25 07:50 76 20 146/80 H 96 Nasal Cannula with ETCO2 2 02/07/25 07:45 80 20 157/97 H 98 Nasal Cannula with ETCO2 2 02/07/25 07:44 98.7 F 97 20 163/88 H 100 Nasal Cannula with ETCO2 2 02/07/25 06:18 97.4 F 75 16 147/90 H 99 Room Air Anesthesia: General Mental Status: Awake Pain Control: Satisfactory Nausea/Vomiting: None Hydration: Adequate Anesthesia-Related Issues: No Anes. Related Issues
== END 2025-02-07 08:59 | disposition home or self-care (01) ==
PROVIDERS: PCP Internal Medicine; Visit Provider Psychiatry & Neurology Psychiatry
PROC: (CPT 90870; principal; 2025-02-07 08:00)
DX: F31.9 Bipolar disorder, unspecified (principal); G89.4 Chronic pain syndrome; G58.8 Other specified mononeuropathies; I10 Essential (primary) hypertension; E11.9 Type 2 diabetes mellitus without complications; J44.9 Chronic obstructive pulmonary disease, unspecified; J39.8 Other specified diseases of upper respiratory tract; G47.33 Obstructive sleep apnea (adult) (pediatric); K21.9 Gastro-esophageal reflux disease without esophagitis; R07.9 Chest pain, unspecified; Z79.4 Long term (current) use of insulin; Z79.85 Long-term (current) use of injectable non-insulin antidiabetic drugs; Z79.01 Long term (current) use of anticoagulants; Z79.51 Long term (current) use of inhaled steroids; Z79.899 Other long term (current) drug therapy; Z88.8 Allergy status to other drugs, medicaments and biological substances; Z99.89 Dependence on other enabling machines and devices; F17.210 Nicotine dependence, cigarettes, uncomplicated
CPT/HCPCS: 82947; 90870; J0330

== ENCOUNTER → 2025-02-07 05:51 | Outpatient (BNV) | payer MEDICARE, SELFPAY | PROVIDERS: PCP Internal Medicine; Visit Provider Psychiatry & Neurology Psychiatry | DX: F33.2 Major depressive disorder, recurrent severe without psychotic features (principal) | CPT/HCPCS: 90870 ==

== ENCOUNTER → 2025-02-19 07:41 | Outpatient (REF) | payer MEDICARE, SELFPAY ==
--- OUTSIDE RECORDS SUMMARY | 2025-02-19 07:50 | XMS_ITS | Encounter Summary ---
Author Organization [facility] Address [address] [place] [address] Care Team Providers Care Set Up Mechanic Heading Machines Name Role Phone Elier Covington MD Primary Care Provider [phone] Julian Rivas MD Unavailable [phone] Julian Rivas MD Unavailable [phone] Encounter Details Date Type Department Care Team (Late st Contact Info) Description 01/23/2021 Lab Requisition [facility] [address] [place] [address] Ant Denson MD [address] [place] [address] Encounter for laboratory testing for COVID-19 virus [...] Detected Not Detected 01/23/2021 10:49 AM EDT [facility] Comment: Negative results do not [...] was completed and performance characteristics established by [facility] as per the FDA and CLIA requirement for this EUA. The Aptima SARS-CoV-2 assay Letter of Authorization, along with the authorized Fact Sheet for Healthcare Providers, the authorized Fact Sheet for Patients, and authorized labeling are available on the FDA website: https://www.fda.gov/medical-devices/wtmlhimzp-ibbghtrwge-eyfuomj-devices/emergen -us d-chcjldiuygzprt-qvwofdw-devices. Performed at [facility], [place], [place] ??[place] License [id number] ??CLIA [id number] Source Nasopharyngeal 01/23/2021 10:49 AM EDT [facility] Comment:Performed at [facility], [place], [place] license No. [id number] CLIA No. [id number] Microbiology Nasopharyngeal swab / Unknown 01/23/2021 9:49 AM EDT 01/23/2021 9:49 AM EDT us Ant Denson MD MICROBIOLOGY - GENERAL ORDER LESTER Final Result [facility] [address] [place] [address] documented in this encounter Visit Diagnoses Diagnosis Encounter for laboratory testing for COVID-19 virus documented in this encounter Care Teams Set Up Mechanic Heading Machines Relationship Specialty Start Date End Date Elier Covington MD [address] [place] [address] PCP - General Internal Medicine 05/15/18 Julian Rivas MD [address] [place] [address] Cardiovascular Disease 07/27/20 Julian Rivas MD [address] [place] [address] Primary Smelter Liner Cardiovascular Disease 11/23/23 documented as of this encounter
--- OUTSIDE RECORDS SUMMARY | 2025-02-19 07:51 | XMS_ITS | Encounter Summary ---
Author Organization [facility] Address [address] [place] [address] Care Team Providers Care Egg Smeller Name Role Phone Elier Covington MD Primary Care Provider [phone] Julian Rivas MD Unavailable [phone] Julian Rivas MD Unavailable [phone] Encounter Details Date Type Department Care Team (Late st Contact Info) Description 09/22/2023 Refill [facility] [address] [address] Lucero Cesar PA-C [address] [place] [address] [id number] Social History Tobacco Use Types Packs/Day Years [...] on filedocumented in this encounter Care Teams Egg Smeller Relationship Specialty Start Date End Date Elier Covington MD [address] [place] [address] PCP - General Internal Medicine 05/15/18 Julian Rivas MD [address] [place] [address] Cardiovascular Disease 07/27/20 Julian Rivas MD [address] [place] [address] Primary Lagging Machine Operator Cardiovascular Disease 11/23/23 documented as of this encounter
--- OUTSIDE RECORDS SUMMARY | 2025-02-19 07:52 | XMS_ITS | Encounter Summary ---
Author Organization [facility] Address [address] [place] [address] Care Team Providers Care Cable Swager Name Role Phone Elier Covington MD Primary Care Provider [phone] Julian Rivas MD Unavailable [phone] Julian Rivas MD Unavailable [phone] Encounter Details Date Type Department Care Team (Late st Contact Info) Description 08/14/2020 Scanned Document [facility] Provider, MD Ashish [address] [place] [address] Social History Tobacco Use Types Packs/Day Years [...] on filedocumented in this encounter Care Teams Cable Swager Relationship Specialty Start Date End Date Elier Covington MD [address] [place] [address] PCP - General Internal Medicine 05/15/18 Julian Rivas MD [address] [place] [address] Cardiovascular Disease 07/27/20 Julian Rivas MD [address] [place] [address] Primary Printed Circuit Board Pcb Draftsman Cardiovascular Disease 11/23/23 documented as of this encounter
--- OUTSIDE RECORDS SUMMARY | 2025-02-19 07:52 | XMS_ITS | Encounter Summary ---
Author Organization [facility] Address [address] [place] [address] Care Team Providers Care Sales Representative Consultant Name Role Phone Elier Covington MD Primary Care Provider [phone] Julian Rivas MD Unavailable [phone] Julian Rivas MD Unavailable [phone] Reason for Visit * Reason Comments Medication Refill Encounter Details Date Type Department Care Team (Late st Contact Info) Description 11/28/2020 Refill [facility] Thoracic Surgery [address] [place] [id number] Sebastian Greene MD [address] [facility] [address] [place] [address] Tracheomalacia, acquired Social History Tobacco Use Types [...] to be managed by pt's PCP or Oil Dispatcher per Dr. Greene documented in this encounter Plan of Treatment Not on file documented as of this encounter Visit Diagnoses Diagnosis Tracheomalacia, acquired documented in this encounter Care Teams Sales Representative Consultant Relationship Specialty Start Date End Date Elier Covington MD [address] [place] [address] PCP - General Internal Medicine 05/15/18 Julian Rivas MD [address] [place] [address] Cardiovascular Disease 07/27/20 Julian Rivas MD [address] [place] [address] Primary Therapist Radiation Cardiovascular Disease 11/23/23 documented as of this encounter
--- OUTSIDE RECORDS SUMMARY | 2025-02-19 07:54 | XMS_ITS | Clinical Summary ---
Author Organization [facility] Address [address] [place] [address] Care Team Providers Care Rn Night Name Role Phone Elier Covington Primary Care Provider [phone] Allergies No known active allergies Medications Insulin [...] topic Zoster (Zostavax) Discontinued Insurance * Guarantor: [id number] Account Type Relation to Patient Date of Phone Billing Address Worker[employer] Comp [address] [place] [address] WORKERS COMPENSATION * Guarantor: [employer] Account Type Relation to Patient Date of Phone Billing Address [facility] ATTN: A/P DEPT 2ND FLR [address] [facility], [place] [address] Care Teams Rn Night Relationship Specialty Start Date End Date Elier Covington [facility] [address] [place], [place] [id number] PCP - General Internal Medicine 11/27/17
--- OUTSIDE RECORDS SUMMARY | 2025-02-19 07:54 | XMS_ITS | Clinical Summary ---
Author Organization [facility] Address [address] [place] [address] [address] [place] [address] Care Team Providers Care Filament Welder Name Role Phone Unavailable Primary Care Provider [...] Description 02/19/2025 1:00 PM EDT Office Visit [facility] [address] [place], [place] [phone] Shira Tomas [address] [place], [place] [phone] Health Maintenance Due Date Last Done Comments CT Colonography 1956 Colonoscopy 1956 Colorectal Cancer Screening 1956 Dental Oral Exam 1956 Dental Prophylaxis 1956 Dental X-Ray: Bitewings 1956 Dental X-Ray: Full Mouth 1956 Depression Screening 1956 FIT DNA/Cologuard 1956 FIT 1956 FOBT 1956 Lipid Panel 1956 SDOH Screening 1956 Sigmoidoscopy 1956 Alcohol/Substance Use Screening 1968 Tobacco Screening 1968 Hepatitis A Vaccines (2 of 3 - Hep A Twinrix risk 3-dose series) 10/30/2000 10/02/2000 Hepatitis B Vaccines (2 of 3 - Hep B Twinrix risk 3-dose series) 10/30/2000 10/02/2000 Zoster Vaccines (1 of 2) 2006 RSV Patients and Patients Aged 60 years or older (1 - Risk 60-74 years 1-dose series) 2016 COVID-19 Vaccine (3 - 2023- season) 2024 05/25/2021, 04/28/2021 Influenza Vaccine (#1) 2024 , 06/05/2020, 06/05/2020, Additional history exists Diabetes: Hemoglobin A1C 05/03/2025 05/03/2024 Pneumococcal Vaccine: 50+ Years (3 of 3 - PCV20 or PCV21) 06/05/2025 06/05/2020, 05/25/2019, 08/10/2017, Additional history exists DTaP/Tdap/Td Vaccines (2 - Td or Tdap) 07/14/2033 07/14/2023, 05/02/2010 HIB Vaccines Aged Out No longer eligi [...]
--- OUTSIDE RECORDS SUMMARY | 2025-02-19 07:55 | XMS_ITS | Encounter Summary ---
Author Organization Former[facility] Address [address] [place] [address] Care Team Providers Care Pharmaceutical Botanist Name Role Phone Elier Covington MD Primary Care Provider [phone] Julian Rivas MD Unavailable [phone] Julian Rivas MD Unavailable [phone] Reason for Visit * Reason Comments Other Questions regarding surgery Encounter Details Date Type Department Care Team (Late st Contact Info) Description 12/07/2021 Telephone [facility] Thoracic Surgery [place] [address] [facility] [address] [place] [address] Sebastian Greene MD [address] [facility] [address] [place] [address] Other (Questions regarding surgery) Social [...] on filedocumented in this encounter Care Teams Pharmaceutical Botanist Relationship Specialty Start Date End Date Elier Covington MD [address] [place] [address] PCP - General Internal Medicine 05/15/18 Julian Rivas MD [address] [place], [place] [id number] Cardiovascular Disease 07/27/20 Julian Rivas MD [address] [place] [address] Primary Vice President Of Development Cardiovascular Disease 11/23/23 documented as of this encounter
--- OUTSIDE RECORDS SUMMARY | 2025-02-19 07:55 | XMS_ITS | Encounter Summary ---
Author Organization [facility] Address [address] [place] [address] Care Team Providers Care Needle Valve Operator Name Role Phone Elier Covington MD Primary Care Provider [phone] Julian Rivas MD Unavailable [phone] Julian Rivas MD Unavailable [phone] Encounter Details Date Type Department Care Team (Late st Contact Info) Description 09/14/[address] [facility] Pulmonary [place] [address] [place] [address] Glenn Olivas, DO [address] [address] Social History Tobacco Use Types Packs/Day Years [...] on filedocumented in this encounter Care Teams Needle Valve Operator Relationship Specialty Start Date End Date Elier Covington MD [address] [place] [address] PCP - General Internal Medicine 05/15/18 Julian Rivas MD [address] [place] [address] Cardiovascular Disease 07/27/20 Julian Rivas MD [address] [place] [address] Primary Manager Compliance Cardiovascular Disease 11/23/23 documented as of this encounter
--- OUTSIDE RECORDS SUMMARY | 2025-02-19 07:57 | XMS_ITS | Clinical Summary ---
Author Organization [facility] [address] [facility] Address [address] [place] [address] Phone Care Team Providers Care Shaft Tender Name Role Phone Natalia Velazquez NP Primary Care Provider [phone] Social History Tobacco Use Types Packs/Day Years [...] MEDICARE ADVANTAGE [place]ICAID - [place] Care Teams Shaft Tender Relationship Specialty Start Date End Date Natalia Velazquez NP PCP - General Internal Medicine 09/09/24
--- OUTSIDE RECORDS SUMMARY | 2025-02-19 07:58 | XMS_ITS | Encounter Summary ---
Author Organization [facility] Address [address] [place] [address] Care Team Providers Care Forensic Ballistics Expert Name Role Phone Elier Covington MD Primary Care Provider [phone] Julian Rivas MD Unavailable [phone] Julian Rivas MD Unavailable [phone] Reason for Visit * Reason Comments Appointment Encounter Details Date Type Department Care Team (Late st Contact Info) Description 08/17/[address] [facility] Thoracic Surgery [address] [place] [id number] Sebastian Greene MD [address] [facility] [address] [place], [place] [id number] Appointment Social History Tobacco Use Types Packs/Day [...] on filedocumented in this encounter Care Teams Forensic Ballistics Expert Relationship Specialty Start Date End Date Elier Covington MD [address] [place] [address] PCP - General Internal Medicine 05/15/18 Julian Rivas MD [address] [place] [address] Cardiovascular Disease 07/27/20 Julian Rivas MD [address] [place] [address] Primary Data Typist Cardiovascular Disease 11/23/23 documented as of this encounter
--- NOTE | 2025-02-19 09:20 | CA_ITS ---
Acquisition Time: 2025-02-19 08:04:21 Total Exercise Time: 00:00:55 Test Indications: AFIB Medications: SEE H&P Protocol: FARIDA Max HR: 111 BPM 73% of Pred: 152 BPM Max BP: 162/88 mmHG Max Work Load: 2.6 METS Exercise stress test with exercise 55 secs of Farida Protocol, requested to stop due to ankle discomfort. Test switched to Lexiscan. Pharmacological stress test with Leixscan while pt moved his arms, with reports of dizziness, with isolated PVCs, with normotensive response to injection. Nondiagnostic EKG for ischemia. In recovery, dizziness resolved and pt feeling back to baseline. Nuclear images pending. Test reviewed with Dr. Patel. Referred By: Maximo Soliz Electronically Signed By: Lavon Arguello
== END ==
LOC: HO.CARD 07:41
PROVIDERS: PCP Internal Medicine; Visit Provider Internal Medicine Cardiovascular Disease
DX: I48.91 Unspecified atrial fibrillation (principal); R07.9 Chest pain, unspecified; J44.9 Chronic obstructive pulmonary disease, unspecified; I48.0 Paroxysmal atrial fibrillation; G47.33 Obstructive sleep apnea (adult) (pediatric); Z99.89 Dependence on other enabling machines and devices
CPT/HCPCS: 93017; 93270; J0280; J2785

== ENCOUNTER → 2025-02-19 09:20 | Outpatient (BNV) | payer MEDICARE, SELFPAY | PROVIDERS: PCP Internal Medicine | DX: I48.91 Unspecified atrial fibrillation (principal); R00.0 Tachycardia, unspecified | CPT/HCPCS: 78451; 93016; 93018; 93272 ==

== ENCOUNTER 2025-02-21 05:49 | Day surgery (SDC) | payer MEDICARE, SELFPAY ==
[2025-02-21 06:26] VITALS: BP 180/105; PULSE 88; RESP 16; TEMP 36.3; O2SAT 99; BMI 27.8
[2025-02-21 06:33] LABS: Glucose, Whole Blood 163 mg/dL (60-115)
[2025-02-21] MEDS: Lactated Ringers 1,000 ML 50 ML IVCONT (06:41)
--- NOTE | 2025-02-21 06:46 | HO.ANESPROP2 ---
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) 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 (Acute) Chest pain (Acute) COPD (chronic obstructive pulmonary disease) (Acute) Tracheobronchomalacia (Acute) Past Medical History Medical History Bipolar disorder Diabetes GERD (gastroesophageal reflux disease) Hepatitis Depression HTN (hypertension) Chronic pain syndrome Intercostal neuralgia 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 Chest pain COPD (chronic obstructive pulmonary disease) Tracheobronchomalacia Family History Family History Other HTN (hypertension) Family history of problems with anesthesia: No Surgical History History of Problems with Anesthesia: No Social History Social History Household Members: None Housing: Condominium Unable to assess alcohol history related to: Unknown Alcohol intake: current Alcohol intake frequency: does not drink Patient Tobacco Use Status: Current everyday Tobacco user Tobacco use type: Cigarette Cigarette Packs Per Day: 0.5 Cigarettes Per Day: 10.0 Years Smoked: 15 Substance Use Type: Caffiene Advance Directives: No Advance Directives Information Provided: Yes service: Yes Sexual orientation: Straight/Heterosexual Meds Allergies Allergy/AdvReac Type Severity Reaction Status Date / Time prednisone [PREDNISONE] Allergy Mild RAGE Verified 02/07/25 06:31 lisinopril AdvReac Cough Verified 02/07/25 06:31 mirtazapine [From Remeron] AdvReac Unknown Verified 02/07/25 06:31 Active Medications: Current Medications Lactated Ringer's (Lr) 1,000 mls @ 50 mls/hr IVCONT .Q20H UMA Last Admin: 02/21/25 06:41 Dose: 50 mls/hr Home Medications ?Medication ?Instructions ?Recorded ?Confirmed ?Last Taken ?Type insulin glargine 100 unit/mL (3 70 unit subcut BEDTIME 07/22/20 02/07/25 1 Day Ago History mL) subcutaneous pen ~01/15/25 montelukast 10 mg tablet 10 mg PO DAILY PRN asthma 08/26/20 02/07/25 08/26/20 04:10 History (Singulair) omeprazole 20 mg capsule,delayed 40 mg PO DAILY PRN Acid Reflux 10/14/20 02/07/25 Unknown History release atorvastatin 40 mg tablet 40 mg PO DAILY 09/17/24 02/07/25 1 Day Ago History ~01/15/25 dulaglutide 3 mg/0.5 mL 1.5 mg subcut CLARK@0900 09/17/24 02/07/25 01/05/25 History subcutaneous pen injector (Trulicity) fluticasone fur. 200 mcg-umeclid 1 ea inhalation DAILY 09/17/24 02/07/25 1 Day Ago History 62.5 mcg-vilant 25 mcg ~01/15/25 inhalat.powder (Trelegy Ellipta) quetiapine 25 mg tablet 25 mg PO BEDTIME 09/17/24 02/07/25 1 Day Ago History ~01/15/25 chlorthalidone 25 mg tablet 25 mg PO BEDTIME 09/30/24 02/07/25 1 Day Ago History ~01/15/25 clonazepam 1 mg tablet 1 mg PO QID 01/16/25 02/07/25 1 Day Ago History ~01/15/25 desvenlafaxine succinate 50 mg 50 mg PO DAILY 01/16/25 02/07/25 1 Day Ago History tablet,extended release 24 hr ~01/15/25 lamotrigine 150 mg tablet 150 mg PO DAILY 01/16/25 02/07/25 1 Day Ago History ~01/15/25 triazolam 0.25 mg tablet 0.25 mg PO BEDTIME 01/16/25 02/07/25 1 Day Ago History ~01/15/25 zolpidem 12.5 mg tablet,extended 12.5 mg PO BEDTIME 01/16/25 02/07/25 1 Day Ago History release,multiphase ~01/15/25 Exam Height,Weight and Vital Signs: Height 6 ft Weight 92.986 kg Last Vital Signs Temp 97.3 F 02/21/25 06:26 Pulse 88 02/21/25 06:26 Resp 16 02/21/25 06:26 BP 180/105 H 02/21/25 06:26 Pulse Ox 99 02/21/25 06:26 O2 Del Method Room Air 02/21/25 06:26 Pertinent Lab Results Pertinent Lab Results: Laboratory Tests 02/21/25 06:29 POC Glucose 163 H Airway Mallampati Class: II TM Dist: >3cm Neck ROM: Full Heart: rrr Lungs: cta Assessment and Plan Assessment Anesthesia Assessment: Anesthesia Plan Discussed and Chart Reviewed Final Anesthetic Review Family History of Problems with Anesthesia: No History of Problems with Anesthesia: No NPO: Yes ASA Class: III Final Preanesthetic Review: No Changes in Pt Med Stat, Meds/Allgs Chart Reviewed and Consent Obtained/Reviewed Patient Risk: Intermediate Procedure Risk: Intermediate Anesthetic Plan Anesthetic Plan: GA Disposition: Standard PACU
--- NOTE | 2025-02-21 07:37 | MHC.SHP ---
Pre-Procedural Eval Section A - 24 Hr Update-Section A only Date of Service: 02/21/25 Section B - Complete if H&P > 30 days Chief Complaint: depression Details of Present Illness: pt doing well no cp sob feels mentally stable stress test neg no recent palpitations cont on ketamine Allergies: Allergies Allergy/AdvReac Type Severity Reaction Status Date / Time prednisone [PREDNISONE] Allergy Mild RAGE Verified 02/07/25 06:31 lisinopril AdvReac Cough Verified 02/07/25 06:31 mirtazapine [From Remeron] AdvReac Unknown Verified 02/07/25 06:31 Review of Systems Sugical H&P ROS: Negative: Cardiovascular and Respiratory and Yes, Specify: Psychiatric (feels stable ) Review of Systems Comment: mild st memory problems at times Exam Surgical H&P Exam: Normal: Heart, Normal: Lungs and Normal: Neurological Exam Comment: 180/105 p88 on eloquis b sonal nsr Plan Diagnosis/Plan: Unchanged I have reviewed the history and physical and performed a pertinent physical examination on my patient. No changes have occurred unless specified. Time Spent With Patient Time: Total time managing care of this patient today ____ minutes.
[2025-02-21 08:09] VITALS: BP 161/95; PULSE 84; RESP 16; TEMP 37.6; O2SAT 100
[2025-02-21 08:14] VITALS: BP 163/100; PULSE 87; RESP 16; O2SAT 95
[2025-02-21 08:19] VITALS: BP 157/92; PULSE 89; RESP 16; O2SAT 96
[2025-02-21 08:24] VITALS: BP 155/91; PULSE 92; RESP 16; O2SAT 96
[2025-02-21 08:39] VITALS: BP 150/90; PULSE 82; RESP 16; TEMP 36.7; O2SAT 97
--- NOTE | 2025-02-21 08:53 | HO.ECTPROC ---
ECT Procedure Note Diagnosis/Treatment Date of Service: 02/21/25 Current Treatment Number: 5 Interval Clinical Notes: Patient here for continuation treatment he sees Dr. Murillo and has been taking ketamine. Patient did not take his metoprolol at home prior to treatment was given 2 mg IV. He did have 16 mg etomidate 100 mg succinylcholine had a seizure of 49 sec. He did require an LMA he received propofol 30 mg at the end of treatment. Patient states generally he is doing well. He does seem somewhat disorganized at times Time: Total time managing care of this patient today ____ minutes. ECT Settings Device: THYMATRON DGx Electrode Placement: Right Unilateral Program/Pulse Width: 0.50 Energy Percent: 100 Seizure Duration By EEG (in seconds): 49 Medications Administration General Anesthetic: Etomidate (16) Muscle Relaxant: Succinylcholine (100) Ancillary Medications Miscillaneous Medications: Propofol (30) Airway Management Airway Management: LMA Treatment Recommendations No Changes Recommended: No change Notes: Continue as required appears to be helpful addition to ketamine treatment patient denies any substance use copy to Dr. Murillo
== END 2025-02-21 08:54 | disposition home or self-care (01) ==
PROVIDERS: PCP Internal Medicine; Visit Provider Psychiatry & Neurology Psychiatry
PROC: (CPT 90870; principal; 2025-02-21 07:00)
DX: F31.9 Bipolar disorder, unspecified (principal); G89.4 Chronic pain syndrome; G58.8 Other specified mononeuropathies; E11.9 Type 2 diabetes mellitus without complications; I48.0 Paroxysmal atrial fibrillation; I10 Essential (primary) hypertension; J44.9 Chronic obstructive pulmonary disease, unspecified; J39.8 Other specified diseases of upper respiratory tract; K21.9 Gastro-esophageal reflux disease without esophagitis; K75.9 Inflammatory liver disease, unspecified; G47.33 Obstructive sleep apnea (adult) (pediatric); R07.9 Chest pain, unspecified; Z79.4 Long term (current) use of insulin; Z79.85 Long-term (current) use of injectable non-insulin antidiabetic drugs; Z79.01 Long term (current) use of anticoagulants; Z79.51 Long term (current) use of inhaled steroids; Z79.899 Other long term (current) drug therapy; Z99.89 Dependence on other enabling machines and devices; Z88.8 Allergy status to other drugs, medicaments and biological substances; F14.11 Cocaine abuse, in remission; F17.210 Nicotine dependence, cigarettes, uncomplicated
CPT/HCPCS: 82947; 90870; J0330; J1596; J1805; J2704

== ENCOUNTER → 2025-02-21 05:49 | Outpatient (BNV) | payer MEDICARE, SELFPAY | PROVIDERS: PCP Internal Medicine; Visit Provider Psychiatry & Neurology Psychiatry | DX: F33.2 Major depressive disorder, recurrent severe without psychotic features (principal) | CPT/HCPCS: 90870 ==